=== PATIENT | male | born 1955 | race Caucasian/White ===

== ENCOUNTER 2016-12-25 16:34 | Emergency (ER) | payer MEDICARE ==
[2016-12-25 16:53] VITALS: TEMP 98.4
--- NOTE | 2016-12-25 16:59 | ED ---
General Adult HPI - General Source: patient Mode of arrival: wheelchair Limitations: no limitations <Bin Camacho - Last Filed: 12/25/16 16:59> - General Source: RN notes reviewed <Javad Salazar - Last Filed: 12/25/16 19:48> - General Chief complaint: Extremity Injury, Lower Stated complaint: Leg Pain Time Seen by Provider: 12/25/16 16:56 - History of Present Illness Initial comments: Patient is a 61-year-old male who presents emergency room today with chief complaint of increased pain to the left lower extremity. Patient does admit that he feels pain in the back of the left calf that radiates up the back of the leg. Patient does admit that it seems to be worse with ambulation. States that it feels like there is numbness tingling down to his foot. Patient describes as pins and needles type sensation. He denies any injury or trauma. Patient mitts that he's felt somewhat short of breath last 2 days. Denies any other complaints or symptoms currently at this time. Patient denies any recent fever, chills, chest pain, back pain, abdominal pain, nausea or vomiting, numbness or tingling, dysuria or hematuria, constipation or diarrhea, headaches or visual changes, or any other complaints. (Javad Salazar) - Related Data Home Medications Medication Instructions Recorded Confirmed Albuterol Nebulized [Ventolin 2.5 mg INHALATION RT-BID 03/06/14 12/25/16 Nebulized] oxyCODONE HCL [OxyCONTIN] 40 mg PO BID 03/06/14 12/25/16 oxyCODONE HCL 10 mg PO BID 01/30/16 12/25/16 Budesonide-Formot 160-4.5 Mcg 2 puff INHALATION RT-BID 09/13/16 12/25/16 [Symbicort 160-4.5 Mcg Inhaler] Previous Rx's Medication Instructions Recorded Aspirin 81 mg PO DAILY #1 chewable 06/20/16 Ibuprofen [Motrin] 600 mg PO Q6HR PRN #40 day 12/25/16 Allergies Allergy/AdvReac Type Severity Reaction Status Date / Time No Known Allergies Allergy Verified 12/25/16 17:11 Review of Systems ROS Other: All systems not noted in ROS Statement are negative. <Bin Camacho - Last Filed: 12/25/16 16:59> ROS Other: All systems not noted in ROS Statement are negative. <Chente Salazarony - Last Filed: 12/25/16 19:48> ROS Statement: Those systems with pertinent positive or pertinent negative responses have been documented in the HPI. 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 and one TIA, right sided trigeminal neuralgia, syncopy 2012, head injury with a fall at the age of 48yrs with intracranial bleed, childhood seizures, bacterial infection in stomach couple years ago, L hip fx with surgery , skin cancer removals.EXPOSED TO ASBESTOS History of Any Multi-Drug Resistant Organisms: None Reported Past Surgical History: Appendectomy, Back Surgery, Heart Catheterization, Hernia Repair, Orthopedic Surgery, Tonsillectomy Additional Past Surgical History / Comment(s): trigeminal neuralgia gamma knife surgery, L hip with 2 pins, cardiac cath approximately 10 yrs ago-no intervention, lumbar fusion, EGD/colonoscopy with benign polypectomies, R rotator cuff repair, bilateral knee arthrosopies, skin cancer removals, benign prostate bx. Past Anesthesia/Blood Transfusion Reactions: No Reported Reaction Past Psychological History: Bipolar, Depression, PTSD Additional Psychological History / Comment(s): Pt resides with his spouse. . Pt has a cane he will use prn. He drives. He is a . 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 Smoking Status: Current every day smoker Past Alcohol Use History: Occasional Additional Past Alcohol Use History / Comment(s): Pt started smoking about 1967. SMKOES 1/2-1 PPD. Past Drug Use History: Marijuana - Past Family History Father Family Medical History: Cancer Additional Family Medical History / Comment(s): Father had colon cancer Mother Family Medical History: Cancer Additional Family Medical History / Comment(s): Mother had colon cancer. <Bin Camacho - Last Filed: 12/25/16 16:59> General Exam Limitations: no limitations <Bin Camacho - Last Filed: 12/25/16 16:59> <Javad Salazar - Last Filed: 12/25/16 19:48> - General Exam Comments Initial Comments: General: The patient is awake and alert, in no distress, and does not appear acutely ill. Eye: Pupils are equal, round and reactive to light, extra-ocular movements are intact. No nystagmus. There is normal conjunctiva bilaterally. No signs of icterus. Ears, nose, mouth and throat: There are moist mucous membranes and no oral lesions. Neck: The neck is supple, there is no tenderness or JVD. Cardiovascular: There is a regular rate and rhythm. No murmur, rub or gallop is appreciated. Respiratory: Lungs are clear to auscultation, respirations are non-labored, breath sounds are equal. No wheezes, stridor, rales, or rhonchi. Musculoskeletal: Normal appearance of the left leg no obvious deformity. No swelling. No redness. No sign of infection. Shows full range of motion. Tender to palpation in the posterior left calf. Strength 5/5. Sensation intact. Pulses equal bilaterally 2+. Neurological: A&O x 3. CN II-XII intact, There are no obvious motor or sensory deficits. Coordination appears grossly intact. Speech is normal. Skin: Skin is warm and dry and no rashes or lesions are noted. Psychiatric: Cooperative, appropriate mood & affect, normal judgment. (Javad Salazar) Medical Decision Making <Bin Camacho - Last Filed: 12/25/16 16:59> <Javad Salazar - Last Filed: 12/25/16 19:48> - Medical Decision Making Case discussed in detail with attending physician Dr. Camacho. Patient reexamined at this time shows no signs of distress. Patient's ultrasound negative for any evidence of DVT. Patient's chest x-ray negative. Results were discussed with the patient. At this times feeling better after pain medicine. Advised to use anti-inflammatories as well with his oxycodone. Advised follow-up with family doctor over the next 2 days. Patient states understanding and is in agreement. (Javad Salazar) Disposition <Bin Camacho - Last Filed: 12/25/16 16:59> Time of Disposition: 19:48 <Javad Salazar - Last Filed: 12/25/16 19:48> Clinical Impression: Leg pain Disposition: HOME SELF-CARE Condition: Good Instructions: Lumbar Radiculopathy (ED) Additional Instructions: Please use medication as discussed. Please follow-up with family doctor in the next 2 days. Please return to emergency room if the symptoms increase or worsen or for any other concerns. Prescriptions: Ibuprofen [Motrin] 600 mg PO Q6HR PRN #40 day PRN Reason: Pain
[2016-12-25 17:21] VITALS: BP 119/71; PULSE 81; RESP 18
[2016-12-25] MEDS ORDERED: HYDROmorphone 1 MG/ML 1 ML SYRINGE IM STA (17:39)
--- NOTE | 2016-12-25 17:49 | XR ---
EXAMINATION TYPE: XR chest 2V DATE OF EXAM: 12/25/2016 5:31 PM COMPARISON: 09/13/2016 HISTORY: Leg edema TECHNIQUE: Frontal and lateral views of the chest are obtained. FINDINGS: Heart and mediastinum are normal. Lungs are clear of infiltrate. There is no heart failure . There are no hilar masses. There is no pleural effusion. Bony thorax is intact. IMPRESSION: No active cardiopulmonary disease. No change.
--- NOTE | 2016-12-25 19:35 | US ---
EXAMINATION TYPE: US venous doppler duplex LE BI DATE OF EXAM: 12/25/2016 7:27 PM COMPARISON: NONE CLINICAL HISTORY: Pain, worse on the left than the right . 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 No evidence of deep venous thrombosis in the left and right leg.
== END 2016-12-25 19:53 | disposition home or self-care (01) ==
LOC: EC 16:34
DX: M79.605 Pain in left leg (principal); J44.9 Chronic obstructive pulmonary disease, unspecified; M19.90 Unspecified osteoarthritis, unspecified site; F17.200 Nicotine dependence, unspecified, uncomplicated; Z85.828 Personal history of other malignant neoplasm of skin; Z79.899 Other long term (current) drug therapy
CPT/HCPCS: 71020; 93970; 99284; 96372; J1170

== ENCOUNTER 2017-04-15 12:54 | Inpatient (IN) | payer MEDICARE ==
[2017-04-15] MEDS ORDERED: HYDROmorphone 1 MG/ML 1 ML SYRINGE IVP STA (14:14)
[2017-04-15] MEDS ORDERED: ONDANSETRON 4 MG/2 ML VIAL IVP STA (14:14)
[2017-04-15] MEDS ORDERED: SODIUM CHLORIDE 0.9% 1,000 ML IV ONE (14:14)
[2017-04-15 14:21] LABS: Basophils # (A) 0.2 k/uL (0-0.2); Basophils % (A) 2 %; CH 33.5; CHCM 34.9; Eosinophils # (A) 0.2 k/uL (0-0.7); Eosinophils % (A) 2 %; HCT 52.9 % (39.0-53.0); HDW 2.27; HGB 18.2 gm/dL (13.0-17.5); Luc # (Auto) 0.12; Luc % (Auto) 1; Lymphocytes % (A) 24 %; MCH 33.3 pg (25.0-35.0); MCHC 34.5 g/dL (31.0-37.0); MCV 96.5 fL (80.0-100.0); Mean Platelet Volume 7.5; Monocytes # (A) 0.4 k/uL (0-1.0); Monocytes % (A) 5 %; Neutrophils # (A) 5.5 k/uL (1.3-7.7); Neutrophils % (A) 65 %; RBC 5.48 m/uL (4.30-5.90); RDW 13.7 % (11.5-15.5); WBC 8.5 k/uL (3.8-10.6); WBC (Perox) 8.18
--- NOTE | 2017-04-15 14:26 | ED ---
Abdominal Pain HPI - General Chief Complaint: Abdominal Pain Stated Complaint: Abd Pain Time Seen by Provider: 04/15/17 13:48 Source: patient, RN notes reviewed Mode of arrival: ambulatory Limitations: no limitations - History of Present Illness Initial Comments: Patient is 62-year-old male presents to the emergency room for evaluation of abdominal pain. Patient states that he had left upper quadrant pain for the past few months. Patient states he has an appointment with Dr. Veloz tomorrow but the pain worsened today so he thought he should be evaluated today. Patient states he is having 8 out of 10 constant pain in his left upper quadrant. Patient states feeling nauseous but denies vomiting. Patient does state he drinks about 2-3 beers per day. Patient states he smokes half pack per day. Patient states he has a history of COPD. Patient does state he is having worsening shortness of breath since he woke up this morning. Patient denies chest pain. Patient denies history of abdominal surgeries. Patient denies pain or burning during urination, trouble urinating or blood in urine. Patient denies any fevers or chills. Patient denies constipation or diarrhea. - Related Data Home Medications Medication Instructions Recorded Confirmed Albuterol Nebulized [Ventolin 2.5 mg INHALATION RT-BID 03/06/14 04/15/17 Nebulized] oxyCODONE HCL [OxyCONTIN] 40 mg PO BID 03/06/14 04/15/17 oxyCODONE HCL 10 mg PO TID 01/30/16 04/15/17 Allergies Allergy/AdvReac Type Severity Reaction Status Date / Time No Known Allergies Allergy Verified 04/15/17 14:18 Review of Systems ROS Statement: Those systems with pertinent positive or pertinent negative responses have been documented in the HPI. ROS Other: All systems not noted in ROS Statement are negative. 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 and one TIA, right sided trigeminal neuralgia, syncopy 2012, head injury with a fall at the age of 48yrs with intracranial bleed, childhood seizures, bacterial infection in stomach couple years ago, L hip fx with surgery , skin cancer removals.EXPOSED TO ASBESTOS History of Any Multi-Drug Resistant Organisms: None Reported Past Surgical History: Appendectomy, Back Surgery, Heart Catheterization, Hernia Repair, Orthopedic Surgery, Tonsillectomy Additional Past Surgical History / Comment(s): trigeminal neuralgia gamma knife surgery, L hip with 2 pins, cardiac cath approximately 10 yrs ago-no intervention, lumbar fusion, EGD/colonoscopy with benign polypectomies, R rotator cuff repair, bilateral knee arthrosopies, skin cancer removals, benign prostate bx. Past Anesthesia/Blood Transfusion Reactions: No Reported Reaction Past Psychological History: Bipolar, Depression, PTSD Smoking Status: Current every day smoker Past Alcohol Use History: Occasional Past Drug Use History: Marijuana - Past Family History Father Family Medical History: Cancer Additional Family Medical History / Comment(s): Father had colon cancer Mother Family Medical History: Cancer Additional Family Medical History / Comment(s): Mother had colon cancer. General Exam - General Exam Comments Initial Comments: Laying in exam room, no acute distress. Limitations: no limitations General appearance: alert, in no apparent distress Head exam: Present: atraumatic, normocephalic, normal inspection Eye exam: Present: normal appearance ENT exam: Present: normal exam Neck exam: Present: normal inspection Respiratory exam: Present: normal lung sounds bilaterally. Absent: respiratory distress Cardiovascular Exam: Present: regular rate, normal rhythm, normal heart sounds GI/Abdominal exam: Present: soft, tenderness (LUQ/RLQ), normal bowel sounds. Absent: distended, guarding, rebound, rigid Extremities exam: Present: normal inspection Back exam: Present: normal inspection Neurological exam: Present: alert, oriented X3, CN II-XII intact, normal gait Psychiatric exam: Present: normal affect, normal mood Skin exam: Present: warm, dry, intact, normal color. Absent: rash Course Vital Signs 04/15/17 04/15/17 04/15/17 13:12 14:28 14:57 Temperature 98.3 F Pulse Rate 79 117 H 110 H Respiratory 18 17 Rate Blood Pressure 102/67 123/73 121/68 O2 Sat by Pulse 96 100 98 Oximetry 04/15/17 04/15/17 04/15/17 15:27 16:27 16:51 Temperature 97.9 F Pulse Rate 104 H 94 82 Respiratory 16 Rate Blood Pressure 116/68 100/56 96/62 O2 Sat by Pulse 96 95 94 L Oximetry 04/15/17 04/15/17 16:57 17:26 Temperature 98.7 F Pulse Rate 88 78 Respiratory 16 Rate Blood Pressure 101/68 102/64 O2 Sat by Pulse 97 97 Oximetry Medical Decision Making - Medical Decision Making Patient is a 62-year-old male presents to the emergency room for evaluation of abdominal pain and shortness of breath. Patient does have a history of COPD. Patient's d-dimer elevated. CT negative for PE. EKG ordered and noted new onset A. fib. Patient started on Cardizem bolus and drip. Patient was started on low-dose heparin. Patient will be admitted and consulted with cardiology. Case discussed Dr. Anderson. Dr. Anderson discussed case with Dr. Simental who agreed to admit patient. - Lab Data Result diagrams: 04/15/17 14:02 04/15/17 14:02 Lab Results 04/15/17 04/15/17 04/15/17 Range/Units 14:02 14:02 14:02 WBC 8.5 (3.8-10.6) k/uL RBC 5.48 (4.30-5.90) m/uL Hgb 18.2 H (13.0-17.5) gm/dL Hct 52.9 (39.0-53.0) % MCV 96.5 (80.0-100.0) fL MCH 33.3 (25.0-35.0) pg MCHC 34.5 (31.0-37.0) g/dL RDW 13.7 (11.5-15.5) % Plt Count 241 (150-450) k/uL Neutrophils % 65 % Lymphocytes % 24 % Monocytes % 5 % Eosinophils % 2 % Basophils % 2 % Neutrophils # 5.5 (1.3-7.7) k/uL Lymphocytes # 2.0 (1.0-4.8) k/uL Monocytes # 0.4 (0-1.0) k/uL Eosinophils # 0.2 (0-0.7) k/uL Basophils # 0.2 (0-0.2) k/uL PT (9.0-12.0) sec INR (<1.1) APTT (22.0-30.0) sec D-Dimer (<0.60) mg/L FEU Sodium 142 (137-145) mmol/L Potassium 4.3 (3.5-5.1) mmol/L Chloride 107 (98-107) mmol/L Carbon Dioxide 23 (22-30) mmol/L Anion Gap 12 mmol/L BUN 12 (9-20) mg/dL Creatinine 0.94 (0.66-1.25) mg/dL Est GFR (MDRD) Af Amer >60 (>60 ml/min/1.73 sqM) Est GFR (MDRD) Non-Af >60 (>60 ml/min/1.73 sqM) Glucose 110 H (74-99) mg/dL Calcium 9.8 (8.4-10.2) mg/dL Magnesium (1.6-2.3) mg/dL Total Bilirubin 1.3 (0.2-1.3) mg/dL AST 21 (17-59) U/L ALT 39 (21-72) U/L Alkaline Phosphatase 87 (38-126) U/L Total Creatine Kinase 75 (55-170) U/L CK-MB (CK-2) 1.0 (0.0-2.4) ng/mL CK-MB (CK-2) Rel Index 1.3 Troponin I <0.012 (0.000-0.034) ng/mL Total Protein 8.0 (6.3-8.2) g/dL Albumin 4.7 (3.5-5.0) g/dL Amylase 51 (30-110) U/L Lipase 187 (23-300) U/L 04/15/17 04/15/17 Range/Units 14:02 14:02 WBC (3.8-10.6) k/uL RBC (4.30-5.90) m/uL Hgb (13.0-17.5) gm/dL Hct (39.0-53.0) % MCV (80.0-100.0) fL MCH (25.0-35.0) pg MCHC (31.0-37.0) g/dL RDW (11.5-15.5) % Plt Count (150-450) k/uL Neutrophils % % Lymphocytes % % Monocytes % % Eosinophils % % Basophils % % Neutrophils # (1.3-7.7) k/uL Lymphocytes # (1.0-4.8) k/uL Monocytes # (0-1.0) k/uL Eosinophils # (0-0.7) k/uL Basophils # (0-0.2) k/uL PT 10.1 (9.0-12.0) sec INR 1.0 (<1.1) APTT 23.5 (22.0-30.0) sec D-Dimer 2.74 H (<0.60) mg/L FEU Sodium (137-145) mmol/L Potassium (3.5-5.1) mmol/L Chloride (98-107) mmol/L Carbon Dioxide (22-30) mmol/L Anion Gap mmol/L BUN (9-20) mg/dL Creatinine (0.66-1.25) mg/dL Est GFR (MDRD) Af Amer (>60 ml/min/1.73 sqM) Est GFR (MDRD) Non-Af (>60 ml/min/1.73 sqM) Glucose (74-99) mg/dL Calcium (8.4-10.2) mg/dL Magnesium 2.4 H (1.6-2.3) mg/dL Total Bilirubin (0.2-1.3) mg/dL AST (17-59) U/L ALT (21-72) U/L Alkaline Phosphatase (38-126) U/L Total Creatine Kinase (55-170) U/L CK-MB (CK-2) (0.0-2.4) ng/mL CK-MB (CK-2) Rel Index Troponin I (0.000-0.034) ng/mL Total Protein (6.3-8.2) g/dL Albumin (3.5-5.0) g/dL Amylase (30-110) U/L Lipase (23-300) U/L 04/15/17 17:26 Atrial fibrillation with rapid ventricular response, ventricular rate 119 bpm, QRS duration 98 ms, QT/QTC 334/469 ms - Radiology Data Radiology results: report reviewed, image reviewed Disposition Clinical Impression: New onset a-fib Disposition: ADMITTED IP TO THIS [facility] Condition: Stable Decision Date: 04/15/17
[2017-04-15 14:30] LABS: ALT 39 U/L (21-72); AST 21 U/L (17-59); Alkaline Phosphatase 87 U/L (38-126); Amylase 51 U/L (30-110); Anion Gap 12 mmol/L; Blood Urea Nitrogen 12 mg/dL (9-20); Calcium 9.8 mg/dL (8.4-10.2); Carbon Dioxide 23 mmol/L (22-30); Chloride 107 mmol/L (98-107); Glucose 110 mg/dL (74-99); Non-African American GFR(MDRD) >60 (>60 ml/min/1.73 sqM); Potassium 4.3 mmol/L (3.5-5.1); Sodium 142 mmol/L (137-145); Total Bilirubin 1.3 mg/dL (0.2-1.3)
[2017-04-15 14:43] LABS: Creatine Kinase 75 U/L (55-170)
[2017-04-15 14:51] LABS: Partial Thromboplastin Time 23.5 sec (22.0-30.0); Prothrombin Time 10.1 sec (9.0-12.0)
[2017-04-15 14:55] LABS: Troponin I <0.012 ng/mL (0.000-0.034)
--- NOTE | 2017-04-15 14:55 | XR ---
EXAMINATION TYPE: XR chest 2V DATE OF EXAM: 04/15/2017 COMPARISON: Chest x-ray December 25, 2016. HISTORY: Shortness of breath per patient. Chest pain per order. TECHNIQUE: Frontal and lateral views of the chest are obtained. FINDINGS: Underlying emphysematous change with moderate apical scarring is redemonstrated. There is n o focal air space opacity, pleural effusion, or pneumothorax seen. The cardiac silhouette size is wi thin normal limits. The osseous structures are intact. IMPRESSION: Chronic emphysematous change without acute pulmonary process. No significant change from prior.
[2017-04-15] MEDS ORDERED: DILTIAZEM 5 MG/ML 25 ML VIAL IV STA ×2 (15:10→15:14)
[2017-04-15] MEDS ORDERED: HEPARIN SODIUM,PORCINE 5,000 UNIT/ML 1 ML VIAL IV ONE (15:14)
[2017-04-15] MEDS ORDERED: DILTIAZEM 125 MG in SODIUM CHLORIDE 0.9% 100 ML IV ONE (15:18)
[2017-04-15] MEDS ORDERED: RX INFO: IV CONTRAST WAS GIVEN 1 EACH MISC MISCELLANE PRN (15:18)
[2017-04-15] MEDS: HEPARIN SODIUM,PORCINE/D5W PMX 25,000 UNIT in DEXTROSE/WATER 1 500ML.BAG IV SCH (15:30)
[2017-04-15] MEDS ORDERED: METOCLOPRAMIDE 5 MG/ML 2 ML VIAL IVP STA (15:59)
--- NOTE | 2017-04-15 16:13 | CT ---
EXAMINATION TYPE: CT angio chest DATE OF EXAM: 04/15/2017 COMPARISON: CT chest September 07, 2016 HISTORY: Difficulty breathing. CT DLP: 361.30 mGycm. Automated Exposure Control for Dose Reduction was Utilized. CONTRAST: CTA scan of the thorax is performed with IV Contrast, patient injected with 65 mL of Omnipaque 350, p ulmonary embolism protocol. MIP Images are created on CT scanner and reviewed. FINDINGS: LUNGS: Mild underlying emphysematous changes redemonstrated. There is apical nodular pleural thickeni ng again seen posteriorly. No new suspicious mass or noncalcified nodule is identified. There is stab le 7 mm calcified granuloma left lower lobe on axial image 116. There is stable 2 mm calcified nodule anterolaterally left upper lobe on axial image 55. No new groundglass opacity or consolidation is se en. No pleural effusion or pneumothorax is noted bilaterally. MEDIASTINUM: There is satisfactory enhancement of the pulmonary artery and its branches, there is no CT evidence for pulmonary embolism. There are no greater than 1 cm hilar or mediastinal lymph nodes. No cardiomegaly or pericardial effusion is seen. Coronary artery stent or calcification proximal L AD and axial image 89 is redemonstrated, former is favored. OTHER: Scattered ulcerations throughout the spleen are redemonstrated. Lung and spleen findings are c onsistent with product of old granulomatous disease. Mild multilevel spurring in the spine is seen. M ild calcified plaque throughout aorta is noted. IMPRESSION: No CT evidence for pulmonary embolism. Mild emphysematous change without acute pulmonary process. Evidence of old granulomatous disease redemonstrated.
[2017-04-15] MEDS ORDERED: NALOXONE 0.4 MG/ML 1 ML VIAL IV PRN (16:51)
[2017-04-15] MEDS: HYDROmorphone 1 MG/ML 1 ML SYRINGE IV PRN (18:02)
[2017-04-15] MEDS: ONDANSETRON 4 MG/2 ML VIAL IVP PRN (18:09)
[2017-04-15] MEDS: SODIUM CHLORIDE 0.9% 1,000 ML IV SCH (18:13)
[2017-04-15] MEDS: ALBUTEROL NEBULIZED 2.5 MG/3 ML INHALATION SCH (19:46)
[2017-04-15] MEDS: HEPARIN SODIUM,PORCINE 5,000 UNIT/ML 1 ML VIAL IV PRN (22:30)
[2017-04-16] MEDS: HYDROmorphone 1 MG/ML 1 ML SYRINGE IV PRN ×3 (02:51→12:47)
[2017-04-16] MEDS: SODIUM CHLORIDE 0.9% 1,000 ML IV SCH ×3 (03:01→22:15)
[2017-04-16 04:38] LABS: Basophils # (A) 0.1 k/uL (0-0.2); Basophils % (A) 1 %; CH 32.8; CHCM 34.3; Eosinophils # (A) 0.2 k/uL (0-0.7); Eosinophils % (A) 4 %; HCT 42.7 % (39.0-53.0); HDW 2.29; Luc # (Auto) 0.12; Luc % (Auto) 2; Lymphocytes % (A) 31 %; MCH 33.2 pg (25.0-35.0); MCHC 34.5 g/dL (31.0-37.0); MCV 96.1 fL (80.0-100.0); Mean Platelet Volume 7.7; Monocytes # (A) 0.5 k/uL (0-1.0); Monocytes % (A) 7 %; Neutrophils # (A) 3.6 k/uL (1.3-7.7); Neutrophils % (A) 56 %; RBC 4.44 m/uL (4.30-5.90); RDW 13.8 % (11.5-15.5); WBC 6.5 k/uL (3.8-10.6); WBC (Perox) 6.26
[2017-04-16 04:56] LABS: ALT 44 U/L (21-72); AST 17 U/L (17-59); Alkaline Phosphatase 71 U/L (38-126); Anion Gap 6 mmol/L; Blood Urea Nitrogen 10 mg/dL (9-20); Calcium 8.6 mg/dL (8.4-10.2); Carbon Dioxide 23 mmol/L (22-30); Chloride 109 mmol/L (98-107); Glucose 111 mg/dL (74-99); Non-African American GFR(MDRD) >60 (>60 ml/min/1.73 sqM); Potassium 3.9 mmol/L (3.5-5.1); Sodium 138 mmol/L (137-145); Total Bilirubin 0.8 mg/dL (0.2-1.3); Total Protein 6.1 g/dL (6.3-8.2)
[2017-04-16 04:57] LABS: HGB 14.7 gm/dL (13.0-17.5)
[2017-04-16] MEDS: HEPARIN SODIUM,PORCINE 5,000 UNIT/ML 1 ML VIAL IV PRN (05:55)
[2017-04-16] MEDS: ALBUTEROL NEBULIZED 2.5 MG/3 ML INHALATION SCH ×3 (08:27→20:08)
[2017-04-16] MEDS: HEPARIN SODIUM,PORCINE/D5W PMX 25,000 UNIT in DEXTROSE/WATER 1 500ML.BAG IV SCH (09:33)
[2017-04-16 09:47] VITALS: BMI 24.3
[2017-04-16] MEDS: METOPROLOL TARTRATE 50 MG TAB PO SCH ×2 (13:44→22:14)
[2017-04-16] MEDS ORDERED: LORazepam 2 MG/ML SYRINGE IV PRN ×3 (14:10)
[2017-04-16] MEDS ORDERED: THIAMINE 100 MG/ML 2 ML VIAL IM STA (14:10)
[2017-04-16] MEDS ORDERED: HYDROmorphone 1 MG/ML 1 ML SYRINGE IV PRN (14:13)
[2017-04-16] MEDS: IOHEXOL 350 MG/ML 25 ML BOTTLE (ORAL USE) PO PRN ×2 (15:57→17:09)
[2017-04-16] MEDS: HYDROcodone/APAP 5-325MG 1 EACH TAB PO PRN (15:57)
[2017-04-16] MEDS ORDERED: THIAMINE 100 MG TAB PO SCH (17:00)
[2017-04-16] MEDS: NICOTINE 14MG/24HR PATCH TRANSDERM SCH (18:23)
[2017-04-16] MEDS: ONDANSETRON 4 MG/2 ML VIAL IVP PRN (18:23)
--- NOTE | 2017-04-16 19:00 | CT ---
EXAMINATION TYPE: CT abdomen pelvis wo con DATE OF EXAM: 04/16/2017 COMPARISON: Prior CT 03/06/2014 HISTORY: Left side abdominal pain and distention CT DLP: 643.2 mGycm Automated exposure control for dose reduction was used. TECHNIQUE: Helical acquisition of images from the lung bases through the pelvis. Patient received or al contrast only. FINDINGS: Lack of intravenous contrast could compromise sensitivity. LUNG BASES: Strand-like densities at the lung bases likely reflect atelectasis AORTA: No significant abnormality is appreciated. LIVER/GB: No significant abnormality is appreciated. PANCREAS: No significant abnormality is seen. SPLEEN: Multiple calcifications compatible with old granulomatous disease. ADRENALS: No significant abnormality is seen. KIDNEYS: Punctate nonobstructive calculus suspected at the upper pole the left kidney. No evident ure teral calcification. REPRODUCTIVE ORGANS: Prostate is enlarged and shows associated calcification. URINARY BLADDER: Possible thickened wall, correlate for possible chronic outlet obstruction, cystiti s. BOWEL: No significant abnormality is seen. Distal stomach again show some questionable wall thickeni ng extending into the proximal duodenum, correlate for possible gastritis, duodenitis. FREE AIR: No Free Air is visible. ASCITES: None visible. PELVIC ADENOPATHY: None visualized. RETROPERITONEAL ADENOPATHY: No Retroperitoneal Adenopathy visible. OSSEOUS STRUCTURES: Postop change noted to the left hip. Postop change noted to the lower lumbar spi ne. IMPRESSION: NONCONTRAST EXAM. OLD GRANULOMATOUS DISEASE. POSSIBLE NONOBSTRUCTIVE CALCULUS UPPER POLE LEFT KIDNEY ALTHOUGH THIS COULD BE A VASCULAR CALCIFICATION. CORRELATE TO EXCLUDE CYSTITIS, CHRONIC BLADDER OUTLE T OBSTRUCTION, URINARY TRACT INFECTION. Correlate for possible gastritis, duodenitis.
[2017-04-16] MEDS: oxyCODONE ER 20 MG TAB.ER.12H PO SCH (22:24)
--- NOTE | 2017-04-16 23:16 | HP ---
DATE OF SERVICE: 04/16/2017 CHIEF COMPLAINTS: Abdominal pain and palpitations. HISTORY OF PRESENT ILLNESS: This 62-year-old gentleman with a past medical history of multiple medical problems, including CAD, history of COPD, CVA, TIA, history of DJD, history of seizure disorder, syncope, history of bipolar, depression, PTSD, being followed by Dr. Kaur in the outpatient setting, was admitted with abdominal pain as well as palpitations. The patient was also seeing Dr. Veloz. The pain is felt mostly in the left upper quadrant, 8/10 in severity, which is rather constant in character. The patient was found to have atrial fibrillation with a fast ventricular rate. The patient was started on Cardizem drip and the patient is being closely monitored at this time. There is no history of any fever, rigor or chills. No history of headache, loss of consciousness, seizures at this time. PAST MEDICAL HISTORY: 1. History of CAD. 2. History of COPD. 3. CVA, TIA. 4. History of DJD. MEDICATIONS: 1. Oxycodone 40 mg p.o. b.i.d. 2. Oxycodone 10 mg p.o. b.i.d. 3. Albuterol 2.5 b.i.d. ALLERGIES: NONE. FAMILY HISTORY: History of colon cancer in the family. SOCIAL HISTORY: History of ETOH. History of smoking. REVIEW OF SYSTEMS: ENT: No diminished hearing. No diminished vision. CARDIOVASCULAR SYSTEM: No angina, palpitations. RESPIRATORY SYSTEM: As mentioned earlier. GI: As mentioned earlier. : No dysuria, retention. NERVOUS SYSTEM: No numbness, weakness. ALLERGY/IMMUNOLOGY: No asthma, hayfever. MUSCULOSKELETAL: As mentioned earlier. HEMATOLOGY/ONCOLOGY: No history of anemia. ENDOCRINE: No history of diabetes or hypothyroidism. CONSTITUTIONAL: As mentioned earlier. DERMATOLOGIC: Negative. RHEUMATOLOGIC: Negative. PSYCHIATRY: As mentioned earlier. PHYSICAL EXAMINATION: Patient is alert and oriented x3. Pulse is 78, blood pressure 103/59, respirations 16, temperature 97.0, pulse ox 95% on 2 L. HEENT: Conjunctivae normal. Oral mucosa moist. NECK: No jugular venous congestion. No carotid bruit. No lymph node enlargement. CARDIAC: S1, S2 irregular. No murmur. No thrills. RESPIRATORY: Breath sounds diminished at the bases. A few scattered rhonchi. No crackles. ABDOMEN: Soft. Mild diffuse tenderness, especially in the upper quadrant. No guarding. No rigidity. No mass palpable. No hepatosplenomegaly. LEGS: No edema. No swelling. NERVOUS SYSTEM: Higher functions as mentioned earlier. Moves all 4 limbs. No focal motor or sensory deficit. LYMPHATICS: No lymph node palpable in neck, axillae or groin. SKIN: No ulcer, rash or bleeding. Labs at this time show WBC 6.5, hemoglobin 14.7. Sodium 138, potassium 3.9. Glucose 111. Total protein 6.1. TSH is 4.550. ASSESSMENT: 1. New-onset atrial fibrillation with a fast ventricular rate. 2. Left-sided upper abdominal pain for evaluation. 3. Rule out acute gastritis. 4. Increased D-dimer with no evidence of pulmonary embolism. 5. History of coronary artery disease. 6. Chronic obstructive pulmonary disease. 7. Cerebrovascular accident/transient ischemic attack. 8. Seizure disorder. 9. History of bipolar, depression, post-traumatic stress disorder. RECOMMENDATIONS AND DISCUSSION: In this 62-year-old gentleman who presented with multiple complex medical issues, we will monitor the patient closely, continue the current medications, continue with symptomatic treatment. Currently the patient is on Cardizem drip. Closely follow with Cardiology. Two- D echo has been ordered. I would also recommend a CT scan of the abdomen and pelvis. One of the previous CT scans did show some thickening of the gastric areas. Prognosis guarded because of multiple complex medical issues. I would also recommend continued followup with Dr. Veloz. See orders for further details. We will also obtain the reports from [facility], which the patient recently underwent. Further recommendations to follow. A copy of this dictation is being forwarded to Dr. Kaur, who is the primary physician. Alcohol and nicotine cessation recommended. MTDD
[2017-04-17 06:00] LABS: Basophils % (A) 1 %; CH 32.7; CHCM 33.9; Eosinophils # (A) 0.3 k/uL (0-0.7); Eosinophils % (A) 5 %; HDW 2.31; HGB 14.2 gm/dL (13.0-17.5); Luc # (Auto) 0.12; Luc % (Auto) 2; Lymphocytes # (A) 2.6 k/uL (1.0-4.8); Lymphocytes % (A) 46 %; MCH 33.5 pg (25.0-35.0); MCHC 34.5 g/dL (31.0-37.0); Mean Platelet Volume 7.6; Monocytes # (A) 0.3 k/uL (0-1.0); Monocytes % (A) 6 %; Neutrophils # (A) 2.2 k/uL (1.3-7.7); Neutrophils % (A) 40 %; RBC 4.23 m/uL (4.30-5.90); RDW 13.7 % (11.5-15.5); WBC 5.5 k/uL (3.8-10.6); WBC (Perox) 5.48
[2017-04-17] MEDS: HEPARIN SODIUM,PORCINE/D5W PMX 25,000 UNIT in DEXTROSE/WATER 1 500ML.BAG IV SCH (07:11)
[2017-04-17] MEDS: ALBUTEROL NEBULIZED 2.5 MG/3 ML INHALATION SCH ×2 (07:40→20:13)
--- NOTE | 2017-04-17 08:44 | CONS ---
Lion Gutierrez is a 62-year-old gentleman who has been admitted to the hospital with what seems to be complaints of shortness of breath. He also complained of abdominal pain, had some left upper quadrant discomfort, was suppose to see Dr. Veloz, but because pain got worse he came into the hospital and then complained of shortness of breath. He was found to be in atrial fibrillation with a moderate ventricular rate. He smokes on a regular basis, at least a pack a day and drinks 2 to 3 beers daily or more and does not use any marijuana at this time. Denies any chest pain. His shortness of breath is better. His left upper quadrant pain also seems to be better. He does not have any hematemesis or melena or any urinary symptoms. He is resting comfortably without symptoms at this time. He is not aware of the fact that he has atrial fibrillation. This was an incidental observation. He has no documented past history of such. PAST MEDICAL HISTORY: He has a history of CAD with a question of previous coronary stents, however, patient is not a good historian, does not give any reliable information. He has history of CVA with good recovery. He has had hip surgery, also had some seizure disorder by history. Medications at home include: Ventolin inhaler, OxyContin. He also takes oxycodone for his pain. ALLERGIES: None. On examination, blood pressure is 110/70, pulse rate is about 80 irregular. HEENT: Unremarkable. Fundus was not examined by me. Neck is supple. There is JVD of 1 cm. There is no carotid bruit. Heart exam reveals S1, S2 with irregular rate and rhythm. Short systolic murmur at left lower sternal border. Lungs reveal diminished air entry over both bases. Abdomen is soft, nontender. Lower extremities reveal palpable pulses. No edema. Central nervous system is normal. EKG revealed atrial fib with a moderate ventricular rate, nonspecific, ST-T changes. IMPRESSION: 1. New onset atrial fibrillation with moderate ventricular rate. 2. History of abnormal D-dimer with unremarkable chest CT angiography with no evidence of any pulmonary embolism. 3. Smoking and chronic obstructive pulmonary disease. 4. History of chronic pain syndrome for which he takes oxycodone. RECOMMENDATIONS: I am recommending that we give him oral metoprolol and discontinue Cardizem. He will be on IV heparin for now and will require ferry terminal agent anticoagulation. I discussed this with the patient. Will obtain echocardiogram to assess LV function. I have counseled him regarding the need to quit smoking. I will see him tomorrow and make further recommendations. We will continue telemetry for the time being. IRENE
[2017-04-17] MEDS: NICOTINE 14MG/24HR PATCH TRANSDERM SCH (08:53)
[2017-04-17] MEDS: METOPROLOL TARTRATE 50 MG TAB PO SCH ×2 (08:53→20:12)
[2017-04-17] MEDS: oxyCODONE ER 20 MG TAB.ER.12H PO SCH ×2 (08:54→20:12)
[2017-04-17] MEDS ORDERED: POLYETHYLENE GLYCOL 3350 17 GM POWD.PACK PO PRN (10:42)
[2017-04-17] MEDS: FOLIC ACID 1 MG TAB PO SCH (11:04)
[2017-04-17] MEDS: MULTIVITAMINS, THERA 1 EACH TAB PO SCH (11:04)
[2017-04-17] MEDS: THIAMINE 100 MG TAB PO SCH (11:04)
--- NOTE | 2017-04-17 11:10 | P.PN ---
Subjective Patient came in with abdominal pain, is being treated for atrial fibrillation which was diagnosed on admission. Patient Elliot acevedo is presently rate controlled. He continues to have severe abdominal pain he rates as 10 x 10 sharp in nature in the left upper quadrant with normal lipase the only significant abnormality awake and appreciate on the CAT scan of the abdomen and pelvis is probable nephrolithiasis nonobstructive lesion calculi and his pain does radiate to the left flank area. Because of that reason I will consult nephrology regarding their opinion of CT of the abdomen and pelvis findings, we' ll also consult gastroneurology since his symptoms has been going on for more than a month and patient has multiple visits to ER because of that reason. Patient is definitely constipated. Will use MiraLAX for that. REVIEW OF SYSTEMS: CARDIOVASCULAR: No chest pain, no orthopnea, no PND, no palpitations. PULMONARY: Denied any shortness of breath. No cough or hemoptysis. GASTROINTESTINAL: As mentioned in HPI, patient is also complaining of nausea did not vomit. NEUROLOGIC: No headaches, no weakness, no numbness Objective - Vital Signs Vital signs: Vital Signs Temp 98.3 F 04/16/17 20:00 Pulse 82 04/17/17 07:51 Resp 18 04/17/17 03:25 BP 109/63 04/17/17 03:25 Pulse Ox 93 L 04/17/17 03:25 Intake & Output 04/16/17 04/17/17 04/17/17 18:59 06:59 18:59 Intake Total 168.742 1179 Output Total 300 Balance 457.081 4732 Weight 90.8 kg 91.4 kg Intake: IV 900 Sodium Chloride 0.9% 1, 900 000 ml @ 100 mls/hr IV . Q10H YARA Rx#:[id number] Intake, IV Titration 115.046 500 Amount Diltiazem 125 mg In 0 Sodium Chloride 0.9% 100 ml @ 5 MG/HR 5 mls/hr IV .Q24H ONE Rx#:[id number] Heparin Sodium,Porcine/ 115.046 500 D5w Pmx 25,000 unit In Dextrose/Water 1 500ml. bag @ 10.16 UNITS/KG/HR 20 mls/hr IV .Q24H YARA Rx #:[id number] Oral 118 Output: Urine 300 Other: # Voids 2 1 - Exam PHYSICAL EXAMINATION: GENERAL: The patient is alert and oriented x3, not in any acute distress. Well developed, well nourished. HEENT: Pupils are round and equally reacting to light. EOMI. No scleral icterus. No conjunctival pallor. Normocephalic, atraumatic. No pharyngeal erythema. No thyromegaly. CARDIOVASCULAR: S1 and S2 present. No murmurs, rubs, or gallops. PULMONARY: Chest is clear to auscultation, no wheezing or crackles. ABDOMEN: Soft, no significant tenderness that was appreciated. Patient's abdomen is tympanic, normoactive bowel sounds. No palpable organomegaly. MUSCULOSKELETAL: No joint swelling or deformity. EXTREMITIES: No cyanosis, clubbing, or pedal edema. NEUROLOGICAL: Gross neurological examination did not reveal any focal deficits. SKIN: No rashes. - Labs CBC & Chem 7: 04/17/17 05:34 04/16/17 04:07 Labs: Abnormal Lab Results - Last 24 Hours (Table) 04/16/17 04/17/17 04/17/17 Range/Units 11:41 05:34 05:34 RBC 4.23 L (4.30-5.90) m/uL APTT 47.0 H 42.1 H (22.0-30.0) sec Assessment and Plan Plan: New onset atrial fibrillation: Patient is presently rate controlled: Patient will be continued on beta eugene, leave the decision of anticoagulation to cardiology. Left upper quadrant pain: Unsure of the exact etiology probable differential being left-sided nonobstructing nephrolithiasis. Patient will be treated for constipation and urology, gastroneurology will be consulted. Rule out pulmonary embolism COPD without any acute exacerbation Cerebrovascular accident in the past. Coronary artery disease. Seizure disorder history without any antiseizure medications and no recent episodes of seizures. For above-mentioned chronic medical problems are good and continue his home medications.
[2017-04-17] MEDS: HYDROcodone/APAP 5-325MG 1 EACH TAB PO PRN (11:12)
--- NOTE | 2017-04-17 11:24 | ECHOF ---
Referral Reason: MEASUREMENTS -------- HEIGHT: 193.0 cm WEIGHT: 90.7 kg BP: 104/60 IVSd: 1.5 cm (0.6 - 1.1) LVIDd: 3.6 cm (3.9 - 5.3) LVPWd: 1.5 cm (0.6 - 1.1) IVSs: 1.7 cm LVIDs: 2.7 cm LVPWs: 1.7 cm LAESV Index (A-L): 19.19 ml/m MV EXCURSION: 20.694 mm (> 18.000) MV EF SLOPE: 146 mm/s (70 - 150) EPSS: 1.1 cm MV E Wyatt: 0.95 m/s MV DecT: 317 ms MV A Wyatt: 0.00 m/s MV E/A Ratio: 1022 RAP: 5.00 mmHg RVSP: 9.06 mmHg FINDINGS -------- Atrial fibrillation. This was a technically difficult study with suboptimal views. The left ventricular size is normal. There is moderate concentric left ventricular hypertrophy. Overall left ventricular systolic function is mildly impaired with, an EF between 45 - 50 %. Basal inferior LV wall motion is hypokinetic. The right ventricle is normal in size and function. Normal LA size by volume 22+/-6 ml/m2. The right atrium is normal in size. The aortic valve is trileaflet and appears structurally normal. There is no evidence of aortic regurgitation. There is no evidence of aortic stenosis. Mild mitral annular calcification present. Mild mitral regurgitation is present. Trace tricuspid regurgitation present. There is no evidence of pulmonary hypertension. The right ventricular systolic pressure, as measured by Doppler, is 9.06mmHg. The pulmonic valve was not well visualized. There is no pulmonic regurgitation present. The aortic root size is normal. IVC Not well visulized. There is no pericardial effusion. CONCLUSIONS -------- 1. Atrial fibrillation. 2. There is no evidence of pulmonary hypertension. 3. The pulmonic valve was not well visualized. 4. There is no pulmonic regurgitation present. 5. The aortic root size is normal. 6. IVC Not well visulized. 7. There is no pericardial effusion. 8. This was a technically difficult study with suboptimal views. 9. There is moderate concentric left ventricular hypertrophy. 10. Overall left ventricular systolic function is mildly impaired with, an EF between 45 - 50 %. 11. Basal inferior LV wall motion is hypokinetic. 12. Normal LA size by volume 22+/-6 ml/m2. 13. The aortic valve is trileaflet and appears structurally normal. 14. Mild mitral annular calcification present. 15. Trace tricuspid regurgitation present. CARPENTERS: Adalberto Orellana RDCS
[2017-04-17] MEDS: SODIUM CHLORIDE 0.9% 1,000 ML IV SCH (14:49)
--- NOTE | 2017-04-17 16:33 | PN ---
This is a gentleman with new onset atrial fib who sees Dr. Kapadia in the outpatient setting, had a cardiac cath in June which revealed no obstructive CAD. He is comfortable, doing better. Rate controlled is better. I advised him that we will place him on Xarelto, increase activity and hopefully we can discharge him tomorrow. His troponins are normal. I have advised him regarding the need to quit smoking. Vital signs are stable. S1, S2 heard normally, irregular rate and rhythm noted . Lungs revealed diminished air entry. Abdomen and lower extremity exam unchanged. We will continue him on Xarelto, do rate control, advise smoking cessation. Possible discharge tomorrow. IRENE
--- NOTE | 2017-04-17 16:56 | P.GSCN ---
History of Present Illness Consult date: 04/17/17 Reason for Consult: Chronic epigastric and left upper quadrant pain History of present illness: This is a 62-year-old male well-known to myself. Patient was admitted through the emergency room with complaints of abdominal pain. He is found to have new onset atrial fibrillation. Patient has had pain in his abdomen last 6 months. He describes periumbilical pain radiating to the left upper quadrant. He had a CAT scan performed yesterday which shows some possible gastritis. Past Medical History Past Medical History: Coronary Artery Disease (CAD), Cancer, Chest Pain / Angina , COPD, CVA/TIA, Hyperlipidemia, Osteoarthritis (OA), Seizure Disorder, Syncope Additional Past Medical History / Comment(s): RT SIDE DOMINANT.Pt states he has had one CVA and one TIA-( LT PUPIL LARGER THAN RT ), right sided trigeminal neuralgia, syncopy 2012, head injury with a fall at the age of 48yrs with intracranial bleed, childhood seizures, bacterial infection in stomach couple years ago, L hip fx with surgery, skin cancer removals.EXPOSED TO ASBESTOS History of Any Multi-Drug Resistant Organisms: None Reported Past Surgical History: Appendectomy, Back Surgery, Heart Catheterization, Hernia Repair, Orthopedic Surgery, Tonsillectomy Additional Past Surgical History / Comment(s): trigeminal neuralgia gamma knife surgery, L hip with "2or 3 pins", cardiac cath approximately 10 yrs ago-no intervention, lumbar fusion, EGD/colonoscopy with benign polypectomies, R rotator cuff repair, bilateral knee arthrosopies, skin cancer removals, benign prostate bx. Past Anesthesia/Blood Transfusion Reactions: No Reported Reaction Smoking Status: Current every day smoker - Past Family History Father Family Medical History: Cancer Additional Family Medical History / Comment(s): Father had colon cancer Mother Family Medical History: Cancer Additional Family Medical History / Comment(s): Mother had colon cancer. Medications and Allergies Home Medications Medication Instructions Recorded Confirmed Type Albuterol Nebulized [Ventolin 2.5 mg INHALATION RT-BID 03/06/14 04/15/17 History Nebulized] oxyCODONE HCL [OxyCONTIN] 40 mg PO BID 03/06/14 04/15/17 History oxyCODONE HCL 10 mg PO TID 01/30/16 04/15/17 History Allergies Allergy/AdvReac Type Severity Reaction Status Date / Time No Known Allergies Allergy Verified 04/15/17 14:18 Surgical - Exam Vital Signs Temp Pulse Resp BP Pulse Ox 98.3 F 79 18 102/67 96 04/15/17 13:12 04/15/17 13:12 04/15/17 13:12 04/15/17 13:12 04/15/17 13:12 - General well developed, no distress - Eyes PERRL - ENT normal pinna - Neck no masses - Respiratory normal expansion - Cardiovascular Rhythm: regular - Abdomen Abdomen soft. There is some tenderness across the left upper quadrant. There is no rebound or guarding. There is no evidence of any ventral wall hernia. Results - Labs 04/17/17 05:34 04/16/17 04:07 Abnormal Lab Results - Last 24 Hours (Table) 04/17/17 04/17/17 04/17/17 Range/Units 05:34 05:34 12:25 RBC 4.23 L (4.30-5.90) m/uL APTT 42.1 H 41.3 H (22.0-30.0) sec Assessment and Plan Plan: Chronic epigastric and left upper quadrant pain. The patient is currently on anticoagulation therapy for his new onset fibrillation. Once he is medically stable we will consider EGD into the eye for possible gastritis. We will follow with you.
[2017-04-17] MEDS ORDERED: RIVAROXABAN 10 MG TAB PO SCH (17:30)
[2017-04-18] MEDS: HYDROcodone/APAP 5-325MG 1 EACH TAB PO PRN (06:00)
[2017-04-18] MEDS: SODIUM CHLORIDE 0.9% 1,000 ML IV SCH (06:02)
[2017-04-18 06:41] LABS: Basophils % (A) 0 %; CH 32.4; CHCM 33.9; Eosinophils # (A) 0.3 k/uL (0-0.7); Eosinophils % (A) 5 %; HCT 43.3 % (39.0-53.0); HDW 2.29; Luc # (Auto) 0.13; Luc % (Auto) 2; Lymphocytes # (A) 1.7 k/uL (1.0-4.8); Lymphocytes % (A) 29 %; MCH 33.2 pg (25.0-35.0); MCHC 34.6 g/dL (31.0-37.0); MCV 95.9 fL (80.0-100.0); Mean Platelet Volume 8.1; Monocytes # (A) 0.4 k/uL (0-1.0); Monocytes % (A) 7 %; Neutrophils # (A) 3.4 k/uL (1.3-7.7); Neutrophils % (A) 57 %; RBC 4.52 m/uL (4.30-5.90); RDW 13.6 % (11.5-15.5); WBC 5.9 k/uL (3.8-10.6); WBC (Perox) 6.13
[2017-04-18 08:05] VITALS: RESP 16; TEMP 97.8
[2017-04-18] MEDS: oxyCODONE ER 20 MG TAB.ER.12H PO SCH (08:21)
[2017-04-18] MEDS: METOPROLOL TARTRATE 50 MG TAB PO SCH (08:22)
[2017-04-18] MEDS: NICOTINE 14MG/24HR PATCH TRANSDERM SCH (08:22)
[2017-04-18] MEDS: ALBUTEROL NEBULIZED 2.5 MG/3 ML INHALATION SCH (08:34)
[2017-04-18] MEDS: THIAMINE 100 MG TAB PO SCH (11:07)
[2017-04-18] MEDS: MULTIVITAMINS, THERA 1 EACH TAB PO SCH (11:07)
[2017-04-18] MEDS: FOLIC ACID 1 MG TAB PO SCH (11:07)
[2017-04-18 11:24] VITALS: BP 127/64; PULSE 72
--- NOTE | 2017-04-18 11:25 | P.CONS ---
History of Present Illness - Reason for Consult Consult date: 04/18/17 abdominal pain Requesting physician: Crystal Mcgowan - History of Present Illness 62-year-old male admitted with abdominal pain and new onset of atrial fibrillation on Xarelto. Abdominal pain epigastric left upper quadrant for the last 1-2 months. Denies diarrhea constipation hematemesis hematochezia or melena. Evaluated by general surgery with plans for EGD evaluation as soon as cardiac clearance is obtained. Noncontrast CT abdomen and pelvis reported no bowel obstruction. Distal stomach showed some questionable wall thickening extending into the proximal duodenum possible gastritis possible duodenitis. White count 5.5. Hemoglobin 14.2. LFTs lipase normal. EtOH chest no evidence of pulmonary embolism. EGD more than a few years ago. Colonoscopy about 5 years ago. Review of Systems RConstitutional: Denies fever, chills, sweats, weight gain, or loss. HEENT: Negative for migraines, blurred vision or loss, earaches, drainage, tinnitus, oral mucosal lesions, dysphagia, or odynophagia. Cardiac: CAD. Hyperlipidemia. Negative for chest pain, arrhythmias, or palpitation. Respiratory: Negative for shortness of breath, hemoptysis, cough, or sputum production. Gastrointestinal: See HPI for pertinent findings. Genitourinary: Negative for hematuria, urgency, frequency, polyuria, dysuria, or penile discharge. Musculoskeletal: Negative for muscle aches, swelling, arthritis, and arthralgias. Neurologic: History of TIA. Endocrine: Negative for thyroid problems. Skin: Negative for rash or itching. Psychiatric: Bipolar depression. PTSD. All systems: negative (See HPI) Past Medical History Past Medical History: Coronary Artery Disease (CAD), Cancer, Chest Pain / Angina , COPD, CVA/TIA, Hyperlipidemia, Osteoarthritis (OA), Seizure Disorder, Syncope Additional Past Medical History / Comment(s): RT SIDE DOMINANT.Pt states he has had one CVA and one TIA-( LT PUPIL LARGER THAN RT ), right sided trigeminal neuralgia, syncopy 2012, head injury with a fall at the age of 48yrs with intracranial bleed, childhood seizures, bacterial infection in stomach couple years ago, L hip fx with surgery, skin cancer removals.EXPOSED TO ASBESTOS History of Any Multi-Drug Resistant Organisms: None Reported Past Surgical History: Appendectomy, Back Surgery, Heart Catheterization, Hernia Repair, Orthopedic Surgery, Tonsillectomy Additional Past Surgical History / Comment(s): trigeminal neuralgia gamma knife surgery, L hip with "2or 3 pins", cardiac cath approximately 10 yrs ago-no intervention, lumbar fusion, EGD/colonoscopy with benign polypectomies, R rotator cuff repair, bilateral knee arthrosopies, skin cancer removals, benign prostate bx. Past Anesthesia/Blood Transfusion Reactions: No Reported Reaction Smoking Status: Current every day smoker - Past Family History Father Family Medical History: Cancer Additional Family Medical History / Comment(s): Father had colon cancer Mother Family Medical History: Cancer Additional Family Medical History / Comment(s): Mother had colon cancer. Medications and Allergies Home Medications Medication Instructions Recorded Confirmed Type Albuterol Nebulized [Ventolin 2.5 mg INHALATION RT-BID 03/06/14 04/15/17 History Nebulized] oxyCODONE HCL [OxyCONTIN] 40 mg PO BID 03/06/14 04/15/17 History oxyCODONE HCL 10 mg PO TID 01/30/16 04/15/17 History Allergies Allergy/AdvReac Type Severity Reaction Status Date / Time No Known Allergies Allergy Verified 04/15/17 14:18 Physical Exam Vitals: Vital Signs Temp Pulse Pulse Resp BP Pulse Ox 04/18/17 08:50 68 04/18/17 08:35 70 97 04/18/17 07:50 97.8 F 100 16 119/83 93 L 04/18/17 03:55 98.1 F 85 18 109/70 91 L 04/17/17 23:53 98.3 F 84 18 105/70 92 L 04/17/17 20:27 66 04/17/17 20:13 68 04/17/17 20:00 98.3 F 91 16 104/66 94 L 04/17/17 16:00 97.6 F 62 16 103/77 97 04/17/17 12:00 97.6 F 81 16 101/70 96 Intake and Output 04/17/17 04/18/17 04/18/17 22:59 06:59 14:59 Intake Total 240 180 Output Total 300 300 Balance -60 -300 180 Intake: Oral 240 180 Output: Urine 300 300 Other: Voiding Method Toilet Toilet Urinal Urinal # Voids 1 1 Weight 90.6 kg NGeneral appearance: The patient is alert, oriented, in no acute distress. HET: Head is normocephalic and atraumatic. Pupils are equal and reactive. Oropharynx is clear without lesions. Neck: Supple without lymphadenopathy. Trachea midline. Heart: S1 S2. Regular rate and rhythm. Lungs: No crackles or wheezes are heard. Abdomen: Soft, mild midepigastric left mid quadrant abdominal tenderness, nondistended with bowel sounds. No peritoneal signs. No palpable organomegaly or masses. Extremities: Normal skin color and turgor. No cyanosis, rash, ulceration, clubbing, or edema. Radial and pedal pulses are 2/4 bilaterally. Neurological: No focal deficits. Strength and sensation are grossly intact.am Results CBC & Chem 7: 04/18/17 05:50 04/16/17 04:07 Labs: Abnormal Lab Results - Last 24 Hours (Table) 04/17/17 Range/Units 12:25 APTT 41.3 H (22.0-30.0) sec CT scan - abdomen: report reviewed (Dr. Adam) CT scan - chest: report reviewed (Dr. Adam) Assessment and Plan (1) Abdominal pain Narrative/Plan: Midepigastric left upper/left mid quadrant possible gastritis possible duodenitis per CT. Status: Acute (2) New onset a-fib Status: Acute Plan: 1. General surgery planning EGD once cardiac status is optimized. We'll defer to general surgery for further recommendations and procedures for workup of abdominal pain. We'll be available as needed. Continue with supportive measures GI prophylaxis; Protonix 40 mg daily. Thank you for this kind referral and the opportunity to participate in the care of your patient. This consultation was discussed with Dr. Adam. The impression and plan of care have been directed as dictated.
[2017-04-18] MEDS ORDERED: PANTOPRAZOLE 40 MG TABLET PO SCH (11:30)
--- NOTE | 2017-04-18 12:01 | P.PN ---
Subjective Principal diagnosis: A. fib with RVR This is a 62 gentleman admitted to the hospital with symptoms of shortness of breath and abdominal pain. He was found to be in atrial fibrillation with rapid ventricular response on admission. Patient does have history of nicotine dependence, COPD, as well as daily EtOH use, history of CVA, hypertension. Patient was seen in consultation by Dr. Margariat Wilson. Patient was initiated on Xarelto yesterday for anticoagulation. He continues to be in atrial fibrillation, heart rate under adequate control. From cardiology's perspective , we will continue current medications. We will make the patient a follow-up appointment with Dr. Kapadia in the office post discharge. Objective - Vital Signs Vital signs: Vital Signs Temp 97.8 F 04/18/17 07:50 Pulse 72 04/18/17 11:24 Resp 16 04/18/17 11:24 BP 127/64 04/18/17 11:24 Pulse Ox 92 L 04/18/17 11:24 Intake & Output 04/17/17 04/18/17 04/18/17 18:59 06:59 18:59 Intake Total 840 180 Output Total 600 Balance 840 -600 180 Weight 90.6 kg Intake: Oral 840 180 Output: Urine 600 Other: Voiding Method Toilet Toilet Urinal Urinal # Voids 1 1 - Exam PHYSICAL EXAMINATION: HEENT: Head is atraumatic, normocephalic. Pupils equal, round. Neck is supple. There is no elevated jugular venous pressure. HEART EXAMINATION: S1 and S2 irregularly irregular CHEST EXAMINATION: Lungs are clear to auscultation and precussion. No chest wall tenderness is noted on palpation or with deep breathing. ABDOMEN: Soft, mild left upper quadrant tenderness. . Bowel sounds are heard. No organomegaly noted. EXTREMITIES:[ 2+ peripheral pulses with no evidence of peripheral edema and no calf tenderness noted]. NEUROLOGIC [patient is awake, alert and oriented -3.] . - Labs CBC & Chem 7: 04/18/17 05:50 04/16/17 04:07 Labs: Abnormal Lab Results - Last 24 Hours (Table) 04/17/17 Range/Units 12:25 APTT 41.3 H (22.0-30.0) sec Assessment and Plan (1) Chronic a-fib Status: Acute (2) Abdominal pain Status: Acute (3) COPD (chronic obstructive pulmonary disease) Status: Acute (4) Nicotine dependence Status: Acute Plan: From cardiology's perspective, we will recommend to continue the patient on his current medications. Xarelto 20 mg daily for anticoagulation. We will follow this patient with you now on an as-needed basis only, please don't hesitate to call with any questions. A follow-up appointment will be made with Dr. Kapadia in the office post discharge. DNP note has been reviewed, I agree with a documented findings and plan of care. Patient was seen and examined.
--- NOTE | 2017-04-18 12:44 | P.PN ---
Progress Note - Text A shunt states he feels better today. He has minimal epigastric pain today. On exam his vital signs are stable. His abdomen was soft with minimal epigastric left upper quadrant tenderness. Chronic epigastric and left upper quadrant pain. The patient's CAT scan is suggestive of some mild gastritis. We will recommend outpatient EGD.
--- NOTE | 2017-04-18 14:42 | P.DS ---
Providers Date of admission: 04/15/17 17:15 Attending physician: Greg Esteves Consults: 04/15/17 16:53 Consult Physician Urgent Consulting Provider: [facility] Consult Reason/Comments: new onset afib Do you want consulting provider notified?: Yes 04/16/17 13:42 Consult Physician Routine Consulting Provider: Kanu Veloz Consult Reason/Comments: abd pain Do you want consulting provider notified?: Yes 04/17/17 10:44 Consult Physician Routine Consulting Provider: Mani Adam Consult Reason/Comments: Right abdominal pain Do you want consulting provider notified?: Yes Primary care physician: [facility] Course: Patient came in with abdominal pain, is being treated for atrial fibrillation which was diagnosed on admission. Patient Elliot acevedo is presently rate controlled. Patient is rate controlled and is being started on anticoagulation for discharge. Patient's abdominal pain improved and believed to be gastritis as per gastroenterology and surgery evaluation. She will follow up with surgery as an outpatient. Will be discharged today on Prilosec beta eugene and anticoagulation. PHYSICAL EXAMINATION: GENERAL: The patient is alert and oriented x3, not in any acute distress. Well developed, well nourished. HEENT: Pupils are round and equally reacting to light. EOMI. No scleral icterus. No conjunctival pallor. Normocephalic, atraumatic. No pharyngeal erythema. No thyromegaly. CARDIOVASCULAR: S1 and S2 present. No murmurs, rubs, or gallops. PULMONARY: Chest is clear to auscultation, no wheezing or crackles. ABDOMEN: Soft, nontender, nondistended, normoactive bowel sounds. No palpable organomegaly. MUSCULOSKELETAL: No joint swelling or deformity. EXTREMITIES: No cyanosis, clubbing, or pedal edema. NEUROLOGICAL: Gross neurological examination did not reveal any focal deficits. SKIN: No rashes. New onset atrial fibrillation: Rate controlled now ON cessation counseling was provided Left upper quadrant pain: Possibly due to gastritis Ruled out pulmonary embolism COPD without any acute exacerbation Cerebrovascular accident in the past. Coronary artery disease. Seizure disorder history without any antiseizure medications and no recent episodes of seizures. For above-mentioned chronic medical problems are good and continue his home medications. Patient Condition at Discharge: Stable Plan - Discharge Summary New Discharge Prescriptions: New Metoprolol Tartrate [Lopressor] 50 mg PO BID #60 tab Multivitamins, Thera [Multivitamin (formulary)] 1 each PO DAILY@1200 #30 tab Omeprazole [PriLOSEC] 40 mg PO DAILY #30 capsule. Polyethylene Glycol 3350 [Miralax] 17 gm PO DAILY PRN #15 packet PRN Reason: Constipation Rivaroxaban [Xarelto] 20 mg PO W/SUPPER #30 tab Thiamine [Vitamin B-1] 100 mg PO DAILY@1200 #30 tab Continue oxyCODONE HCL [OxyCONTIN] 40 mg PO BID Albuterol Nebulized [Ventolin Nebulized] 2.5 mg INHALATION RT-BID oxyCODONE HCL 10 mg PO TID Discharge Medication List Albuterol Nebulized [Ventolin Nebulized] 2.5 mg INHALATION RT-BID 03/06/14 [ History] oxyCODONE HCL [OxyCONTIN] 40 mg PO BID 03/06/14 [History] oxyCODONE HCL 10 mg PO TID 01/30/16 [History] Metoprolol Tartrate [Lopressor] 50 mg PO BID #60 tab 04/18/17 [Rx] Multivitamins, Thera [Multivitamin (formulary)] 1 each PO DAILY@1200 #30 tab [Rx] Omeprazole [PriLOSEC] 40 mg PO DAILY #30 capsule. 04/18/17 [Rx] Polyethylene Glycol 3350 [Miralax] 17 gm PO DAILY PRN #15 packet 04/18/17 [Rx] Rivaroxaban [Xarelto] 20 mg PO W/SUPPER #30 tab 04/18/17 [Rx] Thiamine [Vitamin B-1] 100 mg PO DAILY@1200 #30 tab 04/18/17 [Rx] Follow up Appointment(s)/Referral(s): Pal Kaur MD [Primary Care Provider] - 04/22/17 11:00 am (With ROGELIO Remy) Yaneth Kapadia MD [STAFF PHYSICIAN] - 04/25/17 1:30 pm Kanu Veloz MD [STAFF PHYSICIAN] - 04/26/17 12:40 pm Patient Instructions/Handouts: Atrial Fibrillation (DC), Acute Abdominal Pain ( DC) Discharge Disposition: HOME SELF-CARE
== END 2017-04-18 14:32 | disposition home or self-care (01) | DRG 310 ==
LOC: EC 12:54 → 6SEL 17:15
PROVIDERS: ADMIT Hospitalist; ATTEND Hospitalist
DX: I48.2 Chronic atrial fibrillation (principal); I10 Essential (primary) hypertension; E78.5 Hyperlipidemia, unspecified; F17.210 Nicotine dependence, cigarettes, uncomplicated; F43.10 Post-traumatic stress disorder, unspecified; K29.70 Gastritis, unspecified, without bleeding; G89.4 Chronic pain syndrome; I25.10 Atherosclerotic heart disease of native coronary artery without angina pectoris; Z86.73 Personal history of transient ischemic attack (TIA), and cerebral infarction without residual deficits; J44.9 Chronic obstructive pulmonary disease, unspecified; K59.00 Constipation, unspecified; N20.0 Calculus of kidney; Z79.01 Long term (current) use of anticoagulants; Z80.0 Family history of malignant neoplasm of digestive organs; Z85.828 Personal history of other malignant neoplasm of skin; Z79.899 Other long term (current) drug therapy
CPT/HCPCS: 36415; 71020; 71275; 74176; 80053; 82150; 82550; 82553; 83690; 83735; 84443; 84484; 85025; 85379; 85610; 85730; 93005; 93306; 94640; 94760; 96361; 96365; 96366; 96367; 96375; 96376; 99285

== ENCOUNTER 2017-04-29 14:17 | Inpatient (IN) | payer MEDICARE ==
[2017-04-29] MEDS ORDERED: SODIUM CHLORIDE 0.9% 500 ML IV STA (14:35)
--- NOTE | 2017-04-29 14:40 | ED ---
General Adult HPI - General Chief complaint: Abdominal Pain Stated complaint: Abdominal Pain Time Seen by Provider: 04/29/17 14:20 Source: patient, RN notes reviewed Mode of arrival: EMS Limitations: no limitations - History of Present Illness Initial comments: This is a 62-year-old male presents emergency Department complaining of abdominal pain for the last 3-4 months. Patient states he seemed to be seen in the past and is supposed to follow-up with him for colonoscopy. Patient states the pain continues and is in the left upper quadrant he has been evaluated in the Hospital by Dr. Hensleyania also had a CAT scan the past that did not show any cause for the pain. Patient states the pain got a little bit worse today so decided come in and be reevaluated. Patient denies any nausea vomiting diarrhea. Patient states palpating on the abdomen does not cause any pain. Patient denies any fever chills per patient denies any chest pain difficulty breathing first breath. Patient denies any injury or trauma. - Related Data Home Medications Medication Instructions Recorded Confirmed Albuterol Nebulized [Ventolin 2.5 mg INHALATION RT-BID 03/06/14 04/29/17 Nebulized] oxyCODONE HCL [OxyCONTIN] 40 mg PO BID 03/06/14 04/29/17 oxyCODONE HCL 10 mg PO BID 01/30/16 04/29/17 Multivitamins, Thera [Multivitamin 1 tab PO DAILY@1200 04/29/17 04/29/17 (formulary)] Previous Rx's Medication Instructions Recorded Metoprolol Tartrate [Lopressor] 50 mg PO BID #60 tab 04/18/17 Omeprazole [PriLOSEC] 40 mg PO DAILY #30 capsule. 04/18/17 Polyethylene Glycol 3350 [Miralax] 17 gm PO DAILY PRN #15 packet 04/18/17 Rivaroxaban [Xarelto] 20 mg PO W/SUPPER #30 tab 04/18/17 Thiamine [Vitamin B-1] 100 mg PO DAILY@1200 #30 tab 04/18/17 Allergies Allergy/AdvReac Type Severity Reaction Status Date / Time No Known Allergies Allergy Verified 04/29/17 15:15 Review of Systems ROS Statement: Those systems with pertinent positive or pertinent negative responses have been documented in the HPI. ROS Other: All systems not noted in ROS Statement are negative. Past Medical History Past Medical History: Coronary Artery Disease (CAD), Cancer, Chest Pain / Angina , COPD, CVA/TIA, Hyperlipidemia, Osteoarthritis (OA), Seizure Disorder, Syncope Additional Past Medical History / Comment(s): RT SIDE DOMINANT.Pt states he has had one CVA and one TIA-( LT PUPIL LARGER THAN RT ), right sided trigeminal neuralgia, syncopy 2012, head injury with a fall at the age of 48yrs with intracranial bleed, childhood seizures, bacterial infection in stomach couple years ago, L hip fx with surgery, skin cancer removals.EXPOSED TO ASBESTOS History of Any Multi-Drug Resistant Organisms: None Reported Past Surgical History: Appendectomy, Back Surgery, Heart Catheterization, Hernia Repair, Orthopedic Surgery, Tonsillectomy Additional Past Surgical History / Comment(s): trigeminal neuralgia gamma knife surgery, L hip with "2or 3 pins", cardiac cath approximately 10 yrs ago-no intervention, lumbar fusion, EGD/colonoscopy with benign polypectomies, R rotator cuff repair, bilateral knee arthrosopies, skin cancer removals, benign prostate bx. Past Anesthesia/Blood Transfusion Reactions: No Reported Reaction Past Psychological History: Bipolar, Depression, PTSD Smoking Status: Current every day smoker Past Alcohol Use History: Abuse Past Drug Use History: Marijuana - Past Family History Father Family Medical History: Cancer Additional Family Medical History / Comment(s): Father had colon cancer Mother Family Medical History: Cancer Additional Family Medical History / Comment(s): Mother had colon cancer. General Exam - General Exam Comments Initial Comments: GENERAL: Patient is well-developed and well-nourished. Patient is nontoxic and well- hydrated and is in mild distress. ENT: Neck is soft and supple. No significant lymphadenopathy is noted. Oropharynx is clear. Moist mucous membranes. Neck has full range of motion without eliciting any pain. EYES: The sclera were anicteric and conjunctiva were pink and moist. Extraocular movements were intact and pupils were equal round and reactive to light. Eyelids were unremarkable. PULMONARY: Unlabored respirations. Good breath sounds bilaterally. No audible rales rhonchi or wheezing was noted. CARDIOVASCULAR: There is a regular rate and rhythm without any murmurs gallops or rubs. ABDOMEN: Soft and nontender with normal bowel sounds. No palpable organomegaly was noted. There is no palpable pulsatile mass. I was unable to elicit any abdominal pain on palpation SKIN: Skin is clear with no lesions or rashes and otherwise unremarkable. NEUROLOGIC: Patient is alert and oriented x3. Cranial nerves II through XII are grossly intact. Motor and sensory are also intact. Normal speech, volume and content. Symmetrical smile. MUSCULOSKELETAL: Normal extremities with adequate strength and full range of motion. LYMPHATICS: No significant lymphadenopathy is noted PSYCHIATRIC: Normal psychiatric evaluation. Limitations: no limitations Course Vital Signs 04/29/17 04/29/17 14:20 16:03 Temperature 97.9 F Pulse Rate 59 L 60 Respiratory 18 16 Rate Blood Pressure 104/56 131/60 O2 Sat by Pulse 98 97 Oximetry Medical Decision Making - Medical Decision Making Patient's lipase is elevated and consistent with panic attacks. 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 Esteves and he admitted the patient wrote admitting orders. I consult to GI. - Lab Data Result diagrams: 04/29/17 15:07 04/29/17 15:07 Lab Results 04/29/17 04/29/17 04/29/17 Range/Units 15:07 15:07 15:07 WBC 6.8 (3.8-10.6) k/uL RBC 4.42 (4.30-5.90) m/uL Hgb 14.5 (13.0-17.5) gm/dL Hct 42.9 (39.0-53.0) % MCV 97.0 (80.0-100.0) fL MCH 32.9 (25.0-35.0) pg MCHC 33.9 (31.0-37.0) g/dL RDW 13.7 (11.5-15.5) % Plt Count 226 (150-450) k/uL Neutrophils % 55 % Lymphocytes % 34 % Monocytes % 6 % Eosinophils % 2 % Basophils % 1 % Neutrophils # 3.7 (1.3-7.7) k/uL Lymphocytes # 2.3 (1.0-4.8) k/uL Monocytes # 0.4 (0-1.0) k/uL Eosinophils # 0.2 (0-0.7) k/uL Basophils # 0.1 (0-0.2) k/uL Sodium 143 (137-145) mmol/L Potassium 4.1 (3.5-5.1) mmol/L Chloride 108 H (98-107) mmol/L Carbon Dioxide 23 (22-30) mmol/L Anion Gap 12 mmol/L BUN 8 L (9-20) mg/dL Creatinine 0.90 (0.66-1.25) mg/dL Est GFR (MDRD) Af Amer >60 (>60 ml/min/1.73 sqM) Est GFR (MDRD) Non-Af >60 (>60 ml/min/1.73 sqM) Glucose 74 (74-99) mg/dL Plasma Lactic Acid John 1.5 (0.7-2.0) mmol/L Calcium 9.3 (8.4-10.2) mg/dL Total Bilirubin 0.4 (0.2-1.3) mg/dL AST 20 (17-59) U/L ALT 32 (21-72) U/L Alkaline Phosphatase 66 (38-126) U/L Total Protein 6.9 (6.3-8.2) g/dL Albumin 4.2 (3.5-5.0) g/dL Amylase 149 H (30-110) U/L Lipase 1903 H (23-300) U/L Serum Alcohol 42 mg/dL Disposition Clinical Impression: Pancreatitis, Alcohol abuse Disposition: ADMITTED IP TO THIS [facility] Referrals: Pal Kaur MD [Primary Care Provider] - 1-2 days Time of Disposition: 16:02
[2017-04-29 15:17] LABS: Appearance,Urine Clear (Clear); Bilirubin,Urine Negative (Negative); Glucose,Urine (UA) Negative (Negative); Ketones,Urine Negative (Negative); Leukocyte Esterase,Urine Negative (Negative); Nitrite,Urine Negative (Negative); Protein,Urine Negative (Negative); Specific Gravity,Urine 1.001 (1.001-1.035); UA Billing (MACRO vs. MICRO) CHEM; Urobilinogen,Urine <2.0 mg/dL (<2.0)
[2017-04-29 15:31] LABS: ALT 32 U/L (21-72); AST 20 U/L (17-59); Alcohol 42 mg/dL; Alkaline Phosphatase 66 U/L (38-126); Amylase 149 U/L (30-110); Anion Gap 12 mmol/L; Blood Urea Nitrogen 8 mg/dL (9-20); Calcium 9.3 mg/dL (8.4-10.2); Carbon Dioxide 23 mmol/L (22-30); Chloride 108 mmol/L (98-107); Glucose 74 mg/dL (74-99); Non-African American GFR(MDRD) >60 (>60 ml/min/1.73 sqM); Potassium 4.1 mmol/L (3.5-5.1); Sodium 143 mmol/L (137-145); Total Bilirubin 0.4 mg/dL (0.2-1.3); Total Protein 6.9 g/dL (6.3-8.2)
[2017-04-29 15:33] LABS: Basophils # (A) 0.1 k/uL (0-0.2); Basophils % (A) 1 %; CH 33.1; CHCM 34.3; Eosinophils # (A) 0.2 k/uL (0-0.7); Eosinophils % (A) 2 %; HCT 42.9 % (39.0-53.0); HDW 2.36; HGB 14.5 gm/dL (13.0-17.5); Luc % (Auto) 3; Lymphocytes # (A) 2.3 k/uL (1.0-4.8); Lymphocytes % (A) 34 %; MCH 32.9 pg (25.0-35.0); MCHC 33.9 g/dL (31.0-37.0); Mean Platelet Volume 8.8; Monocytes # (A) 0.4 k/uL (0-1.0); Monocytes % (A) 6 %; Neutrophils # (A) 3.7 k/uL (1.3-7.7); Neutrophils % (A) 55 %; RBC 4.42 m/uL (4.30-5.90); RDW 13.7 % (11.5-15.5); WBC 6.8 k/uL (3.8-10.6); WBC (Perox) 6.74
--- NOTE | 2017-04-29 15:40 | XR ---
EXAMINATION TYPE: XR KUB , 3 VIEWS DATE OF EXAM ORDERED: 04/29/2017 HISTORY: Pain. COMPARISON: Previous study dated 03/18/2014. FINDINGS: The lung bases are clear. Within the abdomen, the abdominal gas pattern is nonspecific with mild gaseous distention of the smal l bowel. No free air is identified. There has been a previous fusion at L5-S1. There is been previous Mckeon pinning of the left hip. There are degenerative changes within the spine. IMPRESSION: NONSPECIFIC ABDOMEN. FOLLOW-UP CLINICALLY INDICATED WOULD BE SUGGESTED.
[2017-04-29] MEDS ORDERED: HYDROmorphone 1 MG/ML 1 ML SYRINGE IVP STA (15:57)
[2017-04-29] MEDS ORDERED: ONDANSETRON 4 MG/2 ML VIAL IVP STA ×2 (15:57→16:03)
[2017-04-29] MEDS ORDERED: SODIUM CHLORIDE 0.9% 1,000 ML IV ONE (16:02)
[2017-04-29] MEDS ORDERED: HYDROmorphone 1 MG/ML 1 ML SYRINGE IVP PRN (16:03)
[2017-04-29] MEDS: ONDANSETRON 4 MG/2 ML VIAL IVP PRN (16:30)
[2017-04-29] MEDS ORDERED: POLYETHYLENE GLYCOL 3350 17 GM POWD.PACK PO PRN (18:12)
[2017-04-29] MEDS: HYDROmorphone 1 MG/ML 1 ML SYRINGE IVP PRN ×2 (18:20→23:12)
[2017-04-29] MEDS ORDERED: LORazepam 2 MG/ML SYRINGE IV PRN ×3 (18:57)
[2017-04-29] MEDS: ALBUTEROL NEBULIZED 2.5 MG/3 ML INHALATION SCH (19:48)
[2017-04-29] MEDS: METOPROLOL TARTRATE 50 MG TAB PO SCH (20:52)
[2017-04-29] MEDS: oxyCODONE ER 20 MG TAB.ER.12H PO SCH (20:52)
[2017-04-29] MEDS: ESOMEPRAZOLE 20 MG in SODIUM CHLORIDE 0.9% 50 ML IVPB SCH (21:26)
[2017-04-30] MEDS: ONDANSETRON 4 MG/2 ML VIAL IVP PRN ×2 (00:07→10:47)
[2017-04-30] MEDS: ALBUTEROL NEBULIZED 2.5 MG/3 ML INHALATION SCH ×2 (08:29→19:41)
[2017-04-30] MEDS: ESOMEPRAZOLE 20 MG in SODIUM CHLORIDE 0.9% 50 ML IVPB SCH ×2 (08:42→21:36)
[2017-04-30] MEDS: METOPROLOL TARTRATE 50 MG TAB PO SCH ×2 (08:42→20:35)
[2017-04-30] MEDS: HYDROmorphone 1 MG/ML 1 ML SYRINGE IVP PRN ×4 (08:46→23:05)
[2017-04-30] MEDS: oxyCODONE ER 20 MG TAB.ER.12H PO SCH ×2 (08:58→20:35)
[2017-04-30 09:18] LABS: ALT 34 U/L (21-72); AST 16 U/L (17-59); Alkaline Phosphatase 70 U/L (38-126); Amylase 90 U/L (30-110); Anion Gap 9 mmol/L; Blood Urea Nitrogen 8 mg/dL (9-20); Carbon Dioxide 24 mmol/L (22-30); Chloride 108 mmol/L (98-107); Glucose 83 mg/dL (74-99); Non-African American GFR(MDRD) >60 (>60 ml/min/1.73 sqM); Potassium 4.2 mmol/L (3.5-5.1); Sodium 141 mmol/L (137-145); Total Bilirubin 0.8 mg/dL (0.2-1.3); Total Protein 6.5 g/dL (6.3-8.2)
--- NOTE | 2017-04-30 10:41 | P.CONS ---
History of Present Illness - Reason for Consult Consult date: 04/30/17 pancreatitis Requesting physician: Greg Esteves - History of Present Illness 62-year-old male admitted with abdominal pain elevated pancreatic enzymes. Recent hospitalization for new onset of atrial fibrillation maintained on Xarelto. Consultation requested for pancreatitis. Abdominal pain epigastric left upper quadrant for the last 2-3 months. Scheduled for outpatient EGD evaluation 05/09/[address] Veloz. Denies diarrhea constipation hematemesis hematochezia or melena. Admission serum alcohol 42. Drank 5 large cans of beer prior to admission. drinks 4-5 large cans of beer on a daily basis greater than 20 years. Reports increased stress at home. White count 6.8. He will and 14.5. Hematocrit 42.9. LFTs normal. Amylase 149. Lipase 1903. Presently lipase is 237. Amylase 90. LFTs unchanged. Recent Noncontrast CT abdomen and pelvis reported no bowel obstruction. No gallstones. Distal stomach showed some questionable wall thickening extending into the proximal duodenum possible gastritis possible duodenitis. White count 5.5. Hemoglobin 14.2. LFTs lipase normal. EGD more than a few years ago. Colonoscopy about 5 years ago. Review of Systems Constitutional: Denies fever, chills, sweats, weight gain, or loss. HEENT: Negative for migraines, blurred vision or loss, earaches, drainage, tinnitus, oral mucosal lesions, dysphagia, or odynophagia. Cardiac: CAD. Hyperlipidemia. Atrial fibrillation. Negative for chest pain, arrhythmias, or palpitation. Respiratory: Negative for shortness of breath, hemoptysis, cough, or sputum production. Gastrointestinal: See HPI for pertinent findings. Genitourinary: Negative for hematuria, urgency, frequency, polyuria, dysuria, or penile discharge. Musculoskeletal: Negative for muscle aches, swelling, arthritis, and arthralgias. Neurologic: History of TIA. Endocrine: Negative for thyroid problems. Skin: Negative for rash or itching. Psychiatric: Bipolar depression. PTSD. All systems: negative (See HPI) Past Medical History Past Medical History: Coronary Artery Disease (CAD), Cancer, Chest Pain / Angina , COPD, CVA/TIA, Hyperlipidemia, Osteoarthritis (OA), Seizure Disorder, Syncope Additional Past Medical History / Comment(s): RT SIDE DOMINANT.Pt states he has had one CVA and one TIA-( LT PUPIL LARGER THAN RT ), right sided trigeminal neuralgia, syncopy 2012, head injury with a fall at the age of 48yrs with intracranial bleed, childhood seizures, bacterial infection in stomach couple years ago, L hip fx with surgery, skin cancer removals.EXPOSED TO ASBESTOS History of Any Multi-Drug Resistant Organisms: None Reported Past Surgical History: Appendectomy, Back Surgery, Heart Catheterization, Hernia Repair, Orthopedic Surgery, Tonsillectomy Additional Past Surgical History / Comment(s): trigeminal neuralgia gamma knife surgery, L hip with "2or 3 pins", cardiac cath approximately 10 yrs ago-no intervention, lumbar fusion, EGD/colonoscopy with benign polypectomies, R rotator cuff repair, bilateral knee arthrosopies, skin cancer removals, benign prostate bx. Past Anesthesia/Blood Transfusion Reactions: No Reported Reaction Past Psychological History: Bipolar, Depression, PTSD Additional Psychological History / Comment(s): Pt resides with his spouse. . Pt has a cane he will use prn. He drives. He is a . 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 Smoking Status: Current every day smoker Past Alcohol Use History: Abuse Additional Past Alcohol Use History / Comment(s): started smoking at age 10(1965 )-has cut down from 4 ppd to 1/2 ppd. drinks 2-3 beer per day. Past Drug Use History: Marijuana Additional Drug Use History / Comment(s): currently smokes marijuana - Past Family History Father Family Medical History: Cancer, Coronary Artery Disease (CAD) Additional Family Medical History / Comment(s): Father had colon cancer Mother Family Medical History: Cancer Additional Family Medical History / Comment(s): Mother had colon cancer. triple bypass Medications and Allergies Home Medications Medication Instructions Recorded Confirmed Type Albuterol Nebulized [Ventolin 2.5 mg INHALATION RT-BID 03/06/14 04/29/17 History Nebulized] oxyCODONE HCL [OxyCONTIN] 40 mg PO BID 03/06/14 04/29/17 History oxyCODONE HCL 10 mg PO BID PRN 01/30/16 04/29/17 History Multivitamins, Thera [Multivitamin 1 tab PO DAILY@1200 04/29/17 04/29/17 History (formulary)] Allergies Allergy/AdvReac Type Severity Reaction Status Date / Time No Known Allergies Allergy Verified 04/29/17 15:15 Physical Exam Vitals: Vital Signs Temp Pulse Pulse Resp BP BP Pulse Ox 04/30/17 09:40 62 16 98/56 96 04/30/17 07:00 97.6 F 58 L 14 99/58 93 L 04/29/17 23:00 97.3 F L 57 L 18 92/51 95 04/29/17 19:58 60 04/29/17 19:48 60 04/29/17 18:38 97.6 F 58 L 20 133/84 96 04/29/17 17:16 97.9 F 57 L 16 100/55 96 04/29/17 16:03 60 16 131/60 97 04/29/17 14:20 97.9 F 59 L 18 104/56 98 Intake and Output 04/29/17 04/30/17 04/30/17 22:59 06:59 14:59 Intake Total 525 0 Output Total 500 500 Balance 25 -500 Intake: Oral 525 0 Output: Urine 500 500 Other: # Bowel Movements 0 General appearance: The patient is alert, oriented, in no acute distress. HET: Head is normocephalic and atraumatic. Pupils are equal and reactive. Oropharynx is clear without lesions. Neck: Supple without lymphadenopathy. Trachea midline. Heart: S1 S2. Regular rate and rhythm. Lungs: No crackles or wheezes are heard. Abdomen: Soft, tenderness midepigastrium left upper quadrant, nondistended with bowel sounds. No peritoneal signs. No palpable organomegaly or masses. Extremities: Normal skin color and turgor. No cyanosis, rash, ulceration, clubbing, or edema. Radial and pedal pulses are 2/4 bilaterally. Neurological: No focal deficits. Strength and sensation are grossly intact. Results CBC & Chem 7: 04/29/17 15:07 04/30/17 08:45 Labs: Abnormal Lab Results - Last 24 Hours (Table) 04/29/17 04/30/17 Range/Units 15:07 08:45 Chloride 108 H 108 H (98-107) mmol/L BUN 8 L 8 L (9-20) mg/dL AST 16 L (17-59) U/L Amylase 149 H (30-110) U/L Lipase 1903 H (23-300) U/L US - abdomen: pending Assessment and Plan (1) Pancreatitis Narrative/Plan: Suspect alcohol-induced pancreatitis. Status: Acute (2) Alcohol abuse Status: Acute (3) Epigastric pain Narrative/Plan: Scheduled for EGD evaluation 05/09/[address] Veloz. Possible alcoholic gastritis esophagitis. Status: Acute Plan: 1. Ultrasound abdomen. Repeat pancreatic chemistries tomorrow. Start clear liquid diet as tolerated. Alcohol abstinence advised. Proceed with outpatient EGD as scheduled 05/09/2017 with general surgery. We'll follow with you. GI prophylaxis. Thank you for this kind referral and the opportunity to participate in the care of your patient. This consultation was discussed with Dr. Underwood. The impression and plan of care have been directed as dictated.
[2017-04-30] MEDS: THIAMINE 100 MG TAB PO SCH (12:02)
[2017-04-30] MEDS: MULTIVITAMINS, THERA 1 EACH TAB PO SCH (12:02)
--- NOTE | 2017-04-30 12:12 | US ---
EXAMINATION TYPE: US abdomen limited DATE OF EXAM: 04/30/2017 COMPARISON: NONE CLINICAL HISTORY: 62-year-old male pancreatitis. Abdominal pain. TECHNIQUE: Multiple sonographic images of the right upper quadrant are obtained. FINDINGS: Liver Length: 17.1 cm Gallbladder Wall: 0.3 cm CBD: 0.4 cm Right Kidney: 11.6 x 5.3 x 5.2 cm Pancreas: obscured by overlying bowel gas Liver: intercostal imaging due to bowel gas. Slight increased echogenicity with areas of focal fatty sparring near the gallbladder fossa. Gallbladder: The maybe early gallbladder wall calcification on ultrasound. This is not well apprecia estrella on the comparison CT. No abnormal distention, wall thickening, pericholecystic fluid, or shadowin g calculi. Evidence for sonographic Solares's sign: no CBD: wnl Right Kidney: No hydronephrosis IMPRESSION: 1. There appears to be mild fatty infiltration of the liver. 2. Possible early gallbladder wall calcification by ultrasound. This is not clearly appreciated on e patient's CT scan. No evidence for cholelithiasis or acute cholecystitis. 3. No biliary ductal dilatation. 4. The pancreas is obscured.
--- NOTE | 2017-04-30 14:03 | HP ---
DATE OF SERVICE: 04/30/2017 The chief complaint is abdominal pain. HISTORY OF PRESENT ILLNESS: This is a 62-year-old gentleman with a past medical history of multiple medical issues including CAD, history of COPD, CVA, TIA, hypertension, seizure disorder, came to [facility] with complaints of abdominal pain. The patient had abdominal pain for the last 3 to 4 months. The pain is mainly in the upper part and radiating across the abdomen. The patient is apparently supposed to have colonoscopy. The patient is evaluated by Dr. Veloz and a CAT scan was also done. The patient also had history of alcohol intake, at least 3 to 4 drinks per day. In the emergency room, the alcohol level is found to be 42 and amylase was 149, lipase is 1903 which is indicative of acute pancreatitis and patient admitted for further evaluation and treatment. The patient also had abdominal CAT scan earlier this month which showed vascular calcifications and chronic bladder outlet obstructions and possibly gastritis and duodenitis as well. There is no history of fever, rigors and chills. No history of headaches, loss of consciousness at this time. The patient also was recently admitted with ablation as well. PAST MEDICAL HISTORY: History of CAD, atrial fibrillation, COPD, history of DJD , seizure disorder. Medications prior to admission include, home medications: 1. OxyContin 40 mg b.i.d. 2. Oxycodone 10 mg b.i.d. p.r.n. 3. Vitamin B 100 mg p.o. daily. 4. Xarelto 20 mg with supper. 5. MiraLAX 17 gm daily. 6. Prilosec 40 mg daily. 7. Multivitamin 1 p.o. daily. 8. Lopressor 50 mg p.o. b.i.d. 9. Ventolin 2.5 b.i.d. Allergies are none. FAMILY HISTORY: History of CAD, colon cancer. SOCIAL HISTORY: History of alcohol, THC, smoking. REVIEW OF SYSTEMS: ENT: No diminished hearing, diminished vision. CARDIOVASCULAR SYSTEM: No angina, palpitations. RESPIRATORY SYSTEM: No cough, palpitations. GI: As mentioned earlier. : No dysuria. NERVOUS SYSTEM: No numbness or weakness. ALLERGY/IMMUNOLOGY: No asthma, hayfever. MUSCULOSKELETAL: As mentioned earlier. HEMATOLOGY: No history of anemia. ENDOCRINE: No history of diabetes or hypothyroid. CONSTITUTIONAL: As mentioned earlier. PSYCHIATRY: As mentioned earlier. PHYSICAL EXAM: The patient is alert and oriented x3. Pulse is 57, blood pressure is 92/51, respirations 18, temperature is 97.4, pulse ox is 94% on room air. HEENT: Conjunctivae normal, oral mucosa moist. NECK: No jugular venous distension, no lymph node enlargement. CARDIOVASCULAR SYSTEM: S1, S2, muffled, no S3, no S4. RESPIRATORY: Breath sounds diminished at the bases, no rhonchi, no crackles. ABDOMEN: Soft, mild diffuse tenderness upper abdomen present. No guarding, no rigidity, no mass palpable. LEGS: No edema, no swelling. NERVOUS SYSTEM: Higher functions as mentioned earlier, moves all 4 limbs. No focal motor sensory deficits. LYMPHATICS: No lymph node enlargement in the neck or axillae. SKIN: No ulcer, rash, bleeding. LABS: CBC within normal limits with amylase 149 and lipase 1903. Alcohol 42, UA noted. Other labs are noted. CAT scan reviewed. ASSESSMENT: 1. Acute upper abdominal pain with acute severe pancreatitis. 2. History of ethyl alcohol. 3. History of coronary artery disease. 4. History of atrial fibrillation, paroxysmal. 5. History of chronic obstructive pulmonary disease. 6. History of cerebrovascular accident, transient ischemic attack. 7. Hyperlipidemia. 8. History of seizure disorder. 9. Syncope. 10. History of bipolar depression, posttraumatic stress disorder. 11. History of nicotine dependence. RECOMMENDATION: In this 62-year-old gentleman who presented with multiple complex medical issues, will monitor the patient closely. Continue with the current medication and symptomatic treatment. The patient was given IV antibiotics, proton pump inhibitors. Otherwise, I would also recommend GI consultation, repeat labs in the morning. Otherwise, guarded prognosis because of multiple complex medical issues and further recommendations to follow. Alcohol cessation advised. CIWA protocol will be utilized. Further recommendations to follow. See orders for further details. MTDD
[2017-04-30] MEDS ORDERED: RIVAROXABAN 10 MG TAB PO SCH (17:30)
--- NOTE | 2017-04-30 17:58 | P.PN ---
Subjective Date of service 04/30/2017. Progress note being dictated for Dr. Esteves. Interval history: This is a 62-year-old gentleman admitted with acute severe pancreatitis, history of EtOH abuse and multiple other medical issues maintained on PPI,CIWA Protocol. Significant improvement in amylase and lipase , amylase 149, lipase 1903, LFTs unchanged. Abdominal ultrasound reporting that he liver, possibly early, bilateral calcification without evidence of cholelithiasis or acute cholecystitis, no biliary ductal dilation. Evaluated by GI with recommendations noted. Denies chest pain, palpitations or increasing shortness of breath. Review of systems: HEENT: Denies headache or focal deficits. Denies any dizziness or lightheadedness. Respiratory: Denies any increased shortness of breath, no cough. Cardiac: Denies any chest pain, palpitations. GI: Complains of abdominal pain, nausea : Denies any dysuria,frequency or hematuria Psychiatry: Denies any anxiety or depression Active Medications Albuterol Sulfate (Ventolin Nebulized) 2.5 mg INHALATION RT-BID [facility] [place] Last Admin: 04/30/17 08:29 Dose: Not Given Hydromorphone HCl (Dilaudid) 0.5 mg IVP Q3HR PRN PRN Reason: Pain Last Admin: 04/30/17 16:07 Dose: 0.5 mg Esomeprazole Magnesium 20 mg/ (Sodium Chloride) 50 mls @ 100 mls/hr IVPB BID [facility] [place] Last Admin: 04/30/17 08:42 Dose: 100 mls/hr Lorazepam (Ativan) 1 mg IV Q2HR PRN PRN Reason: CIWA 8 or 9 Lorazepam (Ativan) 1 mg IV Q1HR PRN PRN Reason: CIWA 10 to 15 Lorazepam (Ativan) 2 mg IV Q1HR PRN PRN Reason: CIWA 16 or higher Metoprolol Tartrate (Lopressor) 50 mg PO BID [facility] [place] Last Admin: 04/30/17 08:42 Dose: 50 mg Multivitamins (Theragran) 1 each PO DAILY@1200 [facility] [place] Last Admin: 04/30/17 12:02 Dose: 1 each Ondansetron HCl (Zofran) 4 mg IVP Q6HR PRN PRN Reason: Nausea And Vomiting Last Admin: 04/30/17 10:47 Dose: 4 mg Oxycodone HCl (Oxyir) 10 mg PO BID PRN PRN Reason: BREAKTHROUGH PAIN Last Admin: 04/30/17 09:59 Dose: 10 mg Oxycodone HCl (Oxycontin 20mg E.R.) 40 mg PO BID [facility] [place] Last Admin: 04/30/17 08:58 Dose: Not Given Polyethylene Glycol (Miralax) 17 gm PO DAILY PRN PRN Reason: Constipation Rivaroxaban (Xarelto) 20 mg PO W/SUPPER [facility] [place] Last Admin: 04/30/17 16:21 Dose: Not Given Thiamine HCl (Vitamin B-1) 100 mg PO DAILY@1200 [facility] [place] Last Admin: 04/30/17 12:02 Dose: 100 mg Objective - Vital Signs Vital signs: Vital Signs Temp 99.1 F 04/30/17 15:00 Pulse 60 04/30/17 15:00 Resp 16 04/30/17 15:00 BP 98/57 04/30/17 15:00 Pulse Ox 93 L 04/30/17 15:00 Intake & Output 04/29/17 04/30/17 04/30/17 18:59 06:59 18:59 Intake Total 525 Output Total 1000 750 Balance -475 -750 Weight 94.801 kg Intake: Oral 525 Output: Urine 1000 750 Other: # Bowel Movements 0 - Exam PHYSICAL EXAM: VITAL SIGNS: As above GENERAL: [Sitting up in bed, no acute distress] HEENT: [Pupils equal conjunctiva normal. Oral mucosa moist] NECK: [Supple, no JVD RESPIRATORY EFFORT:[ Normal] LUNGS: [Bilateral bases diminished, no wheezes rhonchi or crackles CARDIOVASCULAR[ regular S1 and S2, no murmurs rubs or gallops, no edema] GI: [Abdomen soft, mild diffuse tenderness mid-epigastric to LUQ, positive bowel sounds. No guarding, no rigidity, no organomegaly.] PSYCH: [Alert and oriented -3, mood and affect normal.] NEURO: [No focal deficits, moves all 4 extremities, strength and sensation grossly intact.] - Labs CBC & Chem 7: 04/29/17 15:07 04/30/17 08:45 Labs: Abnormal Lab Results - Last 24 Hours (Table) 04/30/17 Range/Units 08:45 Chloride 108 H (98-107) mmol/L BUN 8 L (9-20) mg/dL AST 16 L (17-59) U/L Assessment and Plan Plan: 1. [ Acute severe pancreatitis, possible alcohol induced]. 2. [ EtOH abuse]. 3. [ CAD]. 4. [ Proximal chronic atrial fibrillation]. 5. [ COPD, history of]. 6. [ History of CVA, TIA]. 7. [ Hyperlipidemia]. 8. Seizure disorder, history of 9. Syncope 10. Bipolar depression, posttraumatic stress disorder, history of 11. Nicotine dependence Plan: Continue on current medication regime, PPI, monitoring and symptomatic treatment. Close monitoring of amylase, lipase with repeat labs ordered for a.m. diet advanced to clear liquids as per GI, scheduled for outpatient EGD in with surgery. Alcohol cessation re-discussed. Discharge planning in progress for tomorrow. The impression and plan of care has been dictated as directed. : I performed a H&P examination of this patient and discussed the same with the dictator. I agree with the dictator's note. Any additional findings/opinions/ etc. will be noted.
[2017-05-01] MEDS: ONDANSETRON 4 MG/2 ML VIAL IVP PRN (00:39)
[2017-05-01] MEDS: HYDROmorphone 1 MG/ML 1 ML SYRINGE IVP PRN ×3 (03:39→12:09)
[2017-05-01] MEDS: METOPROLOL TARTRATE 50 MG TAB PO SCH (08:06)
[2017-05-01] MEDS: oxyCODONE ER 20 MG TAB.ER.12H PO SCH (08:06)
[2017-05-01] MEDS: ESOMEPRAZOLE 20 MG in SODIUM CHLORIDE 0.9% 50 ML IVPB SCH (08:25)
[2017-05-01] MEDS: ALBUTEROL NEBULIZED 2.5 MG/3 ML INHALATION SCH (08:35)
--- NOTE | 2017-05-01 10:08 | P.PN ---
Subjective Principal diagnosis: Pancreatitis 62-year-old male admitted with abdominal pain elevated pancreatic enzymes consistent with pancreatitis with history of EtOH abuse. Patient doesn't feel much better today. Enzymes normalized. Still reports left upper quadrant pain. Scheduled for EGD with general surgery today. Afebrile. Ultrasound abdomen reported no evidence of pseudocyst. Gallbladder wall 0.37 L. CBD 0.47 L. May be early gallbladder wall calcification not appreciated on CT. No pericholecystic fluid wall thickening or shadowing calculi. Objective - Vital Signs Vital signs: Vital Signs Temp 98.4 F 05/01/17 07:48 Pulse 55 L 05/01/17 07:48 Resp 16 05/01/17 07:48 BP 99/64 05/01/17 07:48 Pulse Ox 93 L 05/01/17 07:48 Intake & Output 04/30/17 05/01/17 05/01/17 18:59 06:59 18:59 Output Total 750 1050 Balance -750 -1050 Output: Urine 750 1050 Other: Voiding Method Urinal Urinal # Voids 1 600 # Bowel Movements 0 - Exam General appearance: The patient is alert, oriented, in no acute distress. HET: Head is normocephalic and atraumatic. Pupils are equal and reactive. Oropharynx is clear without lesions. Neck: Supple without lymphadenopathy. Trachea midline. Heart: S1 S2. Regular rate and rhythm. Lungs: No crackles or wheezes are heard. Abdomen: Soft, left upper quadrant tenderness, nondistended with bowel sounds. No peritoneal signs. No palpable organomegaly or masses. Extremities: Normal skin color and turgor. No cyanosis, rash, ulceration, clubbing, or edema. Radial and pedal pulses are 2/4 bilaterally. Neurological: No focal deficits. Strength and sensation are grossly intact. - Labs CBC & Chem 7: 04/29/17 15:07 04/30/17 08:45 - Imaging and Cardiology US - abdomen: report reviewed (Dr. Underwood) Assessment and Plan (1) Pancreatitis Narrative/Plan: Suspect alcohol-induced pancreatitis. Status: Acute (2) Alcohol abuse Status: Acute (3) Epigastric pain Narrative/Plan: Scheduled for EGD evaluation 05/09/[address] Veloz. Possible alcoholic gastritis esophagitis. Status: Acute Plan: 1. Ultrasound abdomen reviewed. Alcohol abstinence advised. EGD per general surgery. We'll follow as needed. Assessment and plan a care discussed with Dr. Underwood
[2017-05-01 10:35] LABS: Basophils % (A) 1 %; CH 32.6; CHCM 33.1; Eosinophils # (A) 0.3 k/uL (0-0.7); Eosinophils % (A) 4 %; HCT 42.4 % (39.0-53.0); HDW 2.34; HGB 14.1 gm/dL (13.0-17.5); Luc # (Auto) 0.13; Luc % (Auto) 2; Lymphocytes # (A) 1.9 k/uL (1.0-4.8); Lymphocytes % (A) 33 %; MCH 32.9 pg (25.0-35.0); MCHC 33.2 g/dL (31.0-37.0); Mean Platelet Volume 8.7; Monocytes # (A) 0.4 k/uL (0-1.0); Monocytes % (A) 6 %; Neutrophils # (A) 3.2 k/uL (1.3-7.7); Neutrophils % (A) 54 %; RBC 4.28 m/uL (4.30-5.90); RDW 13.8 % (11.5-15.5); WBC 5.9 k/uL (3.8-10.6); WBC (Perox) 5.66
[2017-05-01 10:58] LABS: ALT 25 U/L (21-72); AST 18 U/L (17-59); Alkaline Phosphatase 69 U/L (38-126); Amylase 54 U/L (30-110); Anion Gap 9 mmol/L; Blood Urea Nitrogen 8 mg/dL (9-20); Calcium 9.1 mg/dL (8.4-10.2); Carbon Dioxide 27 mmol/L (22-30); Chloride 106 mmol/L (98-107); Glucose 77 mg/dL (74-99); Non-African American GFR(MDRD) >60 (>60 ml/min/1.73 sqM); Potassium 4.2 mmol/L (3.5-5.1); Sodium 142 mmol/L (137-145); Total Bilirubin 0.8 mg/dL (0.2-1.3); Total Protein 6.7 g/dL (6.3-8.2)
[2017-05-01] MEDS: MULTIVITAMINS, THERA 1 EACH TAB PO SCH (12:08)
[2017-05-01] MEDS: THIAMINE 100 MG TAB PO SCH (12:09)
[2017-05-01] MEDS ORDERED: HYDROmorphone 1 MG/ML 1 ML SYRINGE IVP PRN (12:45)
[2017-05-01 14:58] VITALS: BP 114/68; PULSE 61; RESP 18; TEMP 98.7
[2017-05-01] MEDS ORDERED: LIDOCAINE 1% INJ 10MG/ML (20 ML MDV) ONE (14:58)
[2017-05-01] MEDS ORDERED: PROPOFOL 10 MG/ML 20 ML VIAL IV ONE (14:58)
[2017-05-01] MEDS ORDERED: IV FLUID CONTINUATION 300 ML IV ONE (15:03)
--- NOTE | 2017-05-01 15:04 | P.GSCN ---
History of Present Illness Consult date: 05/01/17 Reason for Consult: Abdominal pain History of present illness: This a 62-year-old male who is well-known to myself. Patient was recently hospital due to epigastric and left upper quadrant pain. He is scheduled for EGD. Patient presented back to the hospital with evidence of pancreatitis. Patient requested has EGD performed during is auscultation. Patient states he drank 4 days ago. Review of Systems - Constitutional Reports as per HPI Past Medical History Past Medical History: Coronary Artery Disease (CAD), Cancer, Chest Pain / Angina , COPD, CVA/TIA, Hyperlipidemia, Osteoarthritis (OA), Seizure Disorder, Syncope Additional Past Medical History / Comment(s): RT SIDE DOMINANT.Pt states he has had one CVA and one TIA-( LT PUPIL LARGER THAN RT ), right sided trigeminal neuralgia, syncopy 2012, head injury with a fall at the age of 48yrs with intracranial bleed, childhood seizures, bacterial infection in stomach couple years ago, L hip fx with surgery, skin cancer removals.EXPOSED TO ASBESTOS History of Any Multi-Drug Resistant Organisms: None Reported Past Surgical History: Appendectomy, Back Surgery, Heart Catheterization, Hernia Repair, Orthopedic Surgery, Tonsillectomy Additional Past Surgical History / Comment(s): trigeminal neuralgia gamma knife surgery, L hip with "2or 3 pins", cardiac cath approximately 10 yrs ago-no intervention, lumbar fusion, EGD/colonoscopy with benign polypectomies, R rotator cuff repair, bilateral knee arthrosopies, skin cancer removals, benign prostate bx. Past Anesthesia/Blood Transfusion Reactions: No Reported Reaction Past Psychological History: Bipolar, Depression, PTSD Additional Psychological History / Comment(s): Pt resides with his spouse. . Pt has a cane he will use prn. He drives. He is a . 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 Smoking Status: Current every day smoker Past Alcohol Use History: Abuse Additional Past Alcohol Use History / Comment(s): started smoking at age 10(1966 )-has cut down from 4 ppd to 1/2 ppd. drinks 2-3 beer per day. Past Drug Use History: Marijuana Additional Drug Use History / Comment(s): currently smokes marijuana - Past Family History Father Family Medical History: Cancer, Coronary Artery Disease (CAD) Additional Family Medical History / Comment(s): Father had colon cancer Mother Family Medical History: Cancer Additional Family Medical History / Comment(s): Mother had colon cancer. triple bypass Medications and Allergies Home Medications Medication Instructions Recorded Confirmed Type Albuterol Nebulized [Ventolin 2.5 mg INHALATION RT-BID 03/06/14 04/29/17 History Nebulized] oxyCODONE HCL [OxyCONTIN] 40 mg PO BID 03/06/14 04/29/17 History oxyCODONE HCL 10 mg PO BID PRN 01/30/16 04/29/17 History Multivitamins, Thera [Multivitamin 1 tab PO DAILY@1200 04/29/17 04/29/17 History (formulary)] Allergies Allergy/AdvReac Type Severity Reaction Status Date / Time No Known Allergies Allergy Verified 04/29/17 15:15 Surgical - Exam Vital Signs Temp Pulse Resp BP Pulse Ox 97.9 F 59 L 18 104/56 98 04/29/17 14:20 04/29/17 14:20 04/29/17 14:20 04/29/17 14:20 04/29/17 14:20 - General well developed, no distress - Eyes PERRL - ENT normal pinna - Neck no masses - Respiratory normal expansion - Cardiovascular Rhythm: regular - Abdomen Mild epigastric tenderness Abdomen: soft Results - Labs 05/01/17 09:00 05/01/17 09:00 Abnormal Lab Results - Last 24 Hours (Table) 05/01/17 05/01/17 Range/Units 09:00 09:00 RBC 4.28 L (4.30-5.90) m/uL BUN 8 L (9-20) mg/dL Diabetes panel 05/01/17 Range/Units 09:00 Sodium 142 (137-145) mmol/L Potassium 4.2 (3.5-5.1) mmol/L Chloride 106 (98-107) mmol/L Carbon Dioxide 27 (22-30) mmol/L BUN 8 L (9-20) mg/dL Creatinine 1.01 (0.66-1.25) mg/dL Glucose 77 (74-99) mg/dL Calcium 9.1 (8.4-10.2) mg/dL AST 18 (17-59) U/L ALT 25 (21-72) U/L Alkaline Phosphatase 69 (38-126) U/L Total Protein 6.7 (6.3-8.2) g/dL Albumin 3.9 (3.5-5.0) g/dL Calcium panel 05/01/17 Range/Units 09:00 Calcium 9.1 (8.4-10.2) mg/dL Albumin 3.9 (3.5-5.0) g/dL Pituitary panel 05/01/17 Range/Units 09:00 Sodium 142 (137-145) mmol/L Potassium 4.2 (3.5-5.1) mmol/L Chloride 106 (98-107) mmol/L Carbon Dioxide 27 (22-30) mmol/L BUN 8 L (9-20) mg/dL Creatinine 1.01 (0.66-1.25) mg/dL Glucose 77 (74-99) mg/dL Calcium 9.1 (8.4-10.2) mg/dL Adrenal panel 05/01/17 Range/Units 09:00 Sodium 142 (137-145) mmol/L Potassium 4.2 (3.5-5.1) mmol/L Chloride 106 (98-107) mmol/L Carbon Dioxide 27 (22-30) mmol/L BUN 8 L (9-20) mg/dL Creatinine 1.01 (0.66-1.25) mg/dL Glucose 77 (74-99) mg/dL Calcium 9.1 (8.4-10.2) mg/dL Total Bilirubin 0.8 (0.2-1.3) mg/dL AST 18 (17-59) U/L ALT 25 (21-72) U/L Alkaline Phosphatase 69 (38-126) U/L Total Protein 6.7 (6.3-8.2) g/dL Albumin 3.9 (3.5-5.0) g/dL Assessment and Plan Plan: Cherise Kebede History of gastritis. Patient will undergo EGD this admission
--- NOTE | 2017-05-01 15:14 | P.OP ---
Date of Procedure: 05/01/17 Preoperative Diagnosis: Gastritis Postoperative Diagnosis: Mild antral gastritis Mild duodenitis No evidence of hiatal hernia Procedure(s) Performed: Implants: Anesthesia: MAC Surgeon: Kanu Veloz Pathology: other (Antrum, duodenum) Condition: stable Disposition: PACU Indications for Procedure: Operative Findings: Description of Procedure: The patient's placed on the endoscopy table in the lateral position. He received IV sedation. The gastroscope placed oropharynx and passed in the esophagus and into the stomach. The scope was then placed through the pylorus. The first and second portion of the duodenum appeared mildly inflamed. This area is biopsied. Scope was brought back the antrum and this was mildly inflamed. A biopsies performed. Scope was then retroflexed and remainder stomach appeared normal. There is no significant hiatal hernia. The GE junction was at 47 is. The distal esophagus appeared normal. The proximal esophagus appeared normal. Scope withdrawn for patient.
--- NOTE | 2017-05-02 07:23 | PN ---
DATE OF SERVICE: 05/01/2017 This is a 62-year-old gentleman who was admitted with acute severe pancreatitis , also had history of EtOH abuse. The patient is being scheduled for endoscopy with Dr. Veloz. PHYSICAL EXAM; Patient is alert and oriented x3. Pulse 55, blood pressure 119/64, respirations 16, temperature is 98.4, pulse ox 96% on room air. HEENT: Conjunctivae normal. NECK: No jugular venous distension. CARDIOVASCULAR SYSTEM: S1, S2, muffled. RESPIRATORY: Breath sounds diminished at the bases, no rhonchi, no crackles. ABDOMEN: Soft, nontender. LEGS: No edema, no swelling. NERVOUS SYSTEM: No focal deficits. LABS: CBC, CMP within normal limits. ASSESSMENT: 1. Acute severe pancreatitis, possibly alcohol-induced. 2. Possible acute gastritis. 3. Ethyl alcohol abuse. 4. Coronary artery disease. 5. Paroxysmal atrial fibrillation. RECOMMENDATION: Recommend to continue current monitoring. Continue with the EGD. Continue with symptomatic treatment. Prognosis guarded. Further recommendations to follow. MTDD
== END 2017-05-01 16:47 | disposition home or self-care (01) | DRG 440 ==
LOC: EC 14:17 → 4MS4W 16:02
PROVIDERS: ADMIT Hospitalist; ATTEND Hospitalist
PROC: 0DB98ZX Excision of Duodenum, Via Natural or Artificial Opening Endoscopic, Diagnostic (ICD-10-PCS; principal; 2017-05-01 08:15)
DX: K85.20 Alcohol induced acute pancreatitis without necrosis or infection (principal); I48.0 Paroxysmal atrial fibrillation; J44.9 Chronic obstructive pulmonary disease, unspecified; G40.909 Epilepsy, unspecified, not intractable, without status epilepticus; I10 Essential (primary) hypertension; K29.60 Other gastritis without bleeding; K29.80 Duodenitis without bleeding; E78.5 Hyperlipidemia, unspecified; F41.0 Panic disorder [episodic paroxysmal anxiety]; F10.10 Alcohol abuse, uncomplicated; F17.200 Nicotine dependence, unspecified, uncomplicated; F12.90 Cannabis use, unspecified, uncomplicated; I25.10 Atherosclerotic heart disease of native coronary artery without angina pectoris; F31.9 Bipolar disorder, unspecified; F43.10 Post-traumatic stress disorder, unspecified; M19.91 Primary osteoarthritis, unspecified site; Z79.899 Other long term (current) drug therapy; Z79.891 Long term (current) use of opiate analgesic; Z85.828 Personal history of other malignant neoplasm of skin; Z86.73 Personal history of transient ischemic attack (TIA), and cerebral infarction without residual deficits
CPT/HCPCS: 36415; 43239; 74000; 76705; 80053; 80320; 81003; 82150; 83605; 83690; 85025; 94640; 96361; 96374; 96375; 99285

== ENCOUNTER → 2017-05-24 | Outpatient (CLI) | payer MEDICARE ==
--- NOTE | 2017-05-24 10:27 | MR ---
MRCP HISTORY: Pancreatitis, K 85.90 Multiplanar multisequence imaging through the biliary system. Three-dimensional reconstructions perfo rmed. Exam correlated to prior CT abdomen pelvis 04/16/2017, ultrasound abdomen 04/30/2017 The gallbladder is unremarkable. Liver at the upper limit of normal for size. There is no ascites. Si gnal changes within the spleen compatible with old granulomatous disease. Aorta shows atheromatous ch pedro. No evident aortic aneurysm. Adrenal glands show no mass. The kidneys are stable. No hydronephro sis. Common bile duct is not dilated. There is no definite filling defect within the biliary system to sug gest choledocholithiasis. No peripancreatic fluid collection, no evidence of pseudocyst formation. P ancreatic duct is not dilated. IMPRESSION: Unremarkable MRCP.
== END | disposition home or self-care (01) ==
LOC: RADMRIMAIN 08:50
PROVIDERS: ATTEND Internal Medicine
DX: K85.90 Acute pancreatitis without necrosis or infection, unspecified (principal)
CPT/HCPCS: 74181

== ENCOUNTER 2017-06-14 09:14 | Observation (INO) | payer MEDICARE ==
[2017-06-14] MEDS ORDERED: NITROGLYCERIN OINT 1 INCH/GM PACKET TOPICAL STA (10:00)
[2017-06-14] MEDS ORDERED: ASPIRIN 81 MG PO STA (10:00)
[2017-06-14 10:11] LABS: CHCM 34.2; Eosinophils # (A) 0.2 k/uL (0-0.7)
[2017-06-14 10:12] LABS: ALT 28 U/L (21-72); AST 17 U/L (17-59); Alkaline Phosphatase 80 U/L (38-126); Anion Gap 11 mmol/L; Blood Urea Nitrogen 8 mg/dL (9-20); Calcium 9.8 mg/dL (8.4-10.2); Carbon Dioxide 21 mmol/L (22-30); Chloride 110 mmol/L (98-107); Glucose 134 mg/dL (74-99); Magnesium 2.3 mg/dL (1.6-2.3); Non-African American GFR(MDRD) >60 (>60 ml/min/1.73 sqM); Potassium 4.2 mmol/L (3.5-5.1); Sodium 142 mmol/L (137-145); Total Bilirubin 0.7 mg/dL (0.2-1.3); Total Protein 7.9 g/dL (6.3-8.2)
--- NOTE | 2017-06-14 10:16 | ED ---
General Adult HPI - General Chief complaint: Chest Pain Stated complaint: Chest Pain Time Seen by Provider: 06/14/17 09:25 Source: patient, RN notes reviewed Mode of arrival: ambulatory Limitations: no limitations - History of Present Illness Initial comments: This is a 62-year-old male who presents emergency Department complaining of chest pain this a.m. Patient states it radiates down the left arm. Patient states he was mildly short of breath which he normally is but slightly worse. Patient denies any diaphoresis. Patient denies any nausea or vomiting. Patient denies any recent fever chills. Patient states she's got a chronic cough that worsened normal. Patient states he has high blood pressure and his been told is closed was IV takes no medication for. Patient states he continues to smoke. Patient denies any history of diabetes. Patient denies any abdominal pain at this time. Patient denies any lightheadedness dizziness or near syncopal episode. She denies any recent injury or trauma. Patient states the pain is still present. - Related Data Home Medications Medication Instructions Recorded Confirmed Albuterol Nebulized [Ventolin 2.5 mg INHALATION RT-BID 03/06/14 06/14/17 Nebulized] oxyCODONE HCL [OxyCONTIN] 40 mg PO BID 03/06/14 06/14/17 oxyCODONE HCL 10 mg PO TID 01/30/16 06/14/17 Multivitamins, Thera [Multivitamin 1 tab PO DAILY@1200 04/29/17 06/14/17 (formulary)] Previous Rx's Medication Instructions Recorded Metoprolol Tartrate [Lopressor] 50 mg PO BID #60 tab 04/18/17 Omeprazole [PriLOSEC] 40 mg PO DAILY #30 capsule. 04/18/17 Rivaroxaban [Xarelto] 20 mg PO W/SUPPER #30 tab 04/18/17 Thiamine [Vitamin B-1] 100 mg PO DAILY@1200 #30 tab 04/18/17 Allergies Allergy/AdvReac Type Severity Reaction Status Date / Time No Known Allergies Allergy Verified 06/14/17 09:56 Review of Systems ROS Statement: Those systems with pertinent positive or pertinent negative responses have been documented in the HPI. ROS Other: All systems not noted in ROS Statement are negative. Past Medical History Past Medical History: Coronary Artery Disease (CAD), Cancer, Chest Pain / Angina , COPD, CVA/TIA, Hyperlipidemia, Osteoarthritis (OA), Seizure Disorder, Syncope Additional Past Medical History / Comment(s): RT SIDE DOMINANT.Pt states he has had one CVA and one TIA-( LT PUPIL LARGER THAN RT ), right sided trigeminal neuralgia, syncopy 2012, head injury with a fall at the age of 48yrs with intracranial bleed, childhood seizures, bacterial infection in stomach couple years ago, L hip fx with surgery, skin cancer removals.EXPOSED TO ASBESTOS History of Any Multi-Drug Resistant Organisms: None Reported Past Surgical History: Appendectomy, Back Surgery, Heart Catheterization, Hernia Repair, Orthopedic Surgery, Tonsillectomy Additional Past Surgical History / Comment(s): trigeminal neuralgia gamma knife surgery, L hip with "2or 3 pins", cardiac cath approximately 10 yrs ago-no intervention, lumbar fusion, EGD/colonoscopy with benign polypectomies, R rotator cuff repair, bilateral knee arthrosopies, skin cancer removals, benign prostate bx. Past Anesthesia/Blood Transfusion Reactions: No Reported Reaction Past Psychological History: Bipolar, Depression, PTSD Smoking Status: Current every day smoker Past Alcohol Use History: Abuse Past Drug Use History: Marijuana - Past Family History Father Family Medical History: Cancer, Coronary Artery Disease (CAD) Additional Family Medical History / Comment(s): Father had colon cancer Mother Family Medical History: Cancer Additional Family Medical History / Comment(s): Mother had colon cancer. triple bypass General Exam - General Exam Comments Initial Comments: GENERAL: Patient is well-developed and well-nourished. Patient is nontoxic and well- hydrated and is in mild distress. ENT: Neck is soft and supple. No significant lymphadenopathy is noted. Oropharynx is clear. Moist mucous membranes. Neck has full range of motion without eliciting any pain. EYES: The sclera were anicteric and conjunctiva were pink and moist. Extraocular movements were intact and pupils were equal round and reactive to light. Eyelids were unremarkable. PULMONARY: Unlabored respirations. Good breath sounds bilaterally. No audible rales rhonchi or wheezing was noted. CARDIOVASCULAR: There is a regular rate and rhythm without any murmurs gallops or rubs. ABDOMEN: Soft and nontender with normal bowel sounds. No palpable organomegaly was noted. There is no palpable pulsatile mass. SKIN: Skin is clear with no lesions or rashes and otherwise unremarkable. NEUROLOGIC: Patient is alert and oriented x3. Cranial nerves II through XII are grossly intact. Motor and sensory are also intact. Normal speech, volume and content. Symmetrical smile. MUSCULOSKELETAL: Normal extremities with adequate strength and full range of motion. No lower extremity swelling or edema. No calf tenderness. LYMPHATICS: No significant lymphadenopathy is noted PSYCHIATRIC: Normal psychiatric evaluation. Normal interpersonal interactions appears functionally intact in deals appropriately with others. No signs of depression. No signs of anxiety. Limitations: no limitations Course Vital Signs 06/14/17 06/14/17 06/14/17 09:27 09:31 10:24 Temperature 98.4 F 98.1 F Pulse Rate 64 62 62 Respiratory 20 18 20 Rate Blood Pressure 142/74 137/77 114/61 O2 Sat by Pulse 94 L 98 96 Oximetry Medical Decision Making - Medical Decision Making EKG shows normal sinus rhythm at 65 bpm MS interval is on a 32 QRS 106 QT intervals 436 QTC is 453 per patient's EKG shows no ST segment elevation or depression or T wave abnormalities are noted. Patient's chest x-ray shows no acute normalities. Because of the patient's risk factors and clinical presentation I started the patient on heparin. I spoke with the depression agreed to admit the patient admitted the patient I consult cardiology I continue the heparin Nitropaste and aspirin in the inpatient setting. - Lab Data Result diagrams: 06/14/17 09:30 06/14/17 09:30 Lab Results 06/14/17 06/14/17 06/14/17 Range/Units 09:30 09:30 09:30 WBC 7.0 (3.8-10.6) k/uL RBC 4.66 (4.30-5.90) m/uL Hgb 14.8 (13.0-17.5) gm/dL Hct 43.5 (39.0-53.0) % MCV 93.3 D (80.0-100.0) fL MCH 31.8 (25.0-35.0) pg MCHC 34.1 (31.0-37.0) g/dL RDW 12.8 (11.5-15.5) % Plt Count 264 (150-450) k/uL Neutrophils % 55 % Lymphocytes % 34 % Monocytes % 5 % Eosinophils % 3 % Basophils % 1 % Neutrophils # 3.8 (1.3-7.7) k/uL Lymphocytes # 2.3 (1.0-4.8) k/uL Monocytes # 0.4 (0-1.0) k/uL Eosinophils # 0.2 (0-0.7) k/uL Basophils # 0.1 (0-0.2) k/uL PT (9.0-12.0) sec INR (<1.2) APTT (22.0-30.0) sec Sodium 142 (137-145) mmol/L Potassium 4.2 (3.5-5.1) mmol/L Chloride 110 H (98-107) mmol/L Carbon Dioxide 21 L (22-30) mmol/L Anion Gap 11 mmol/L BUN 8 L (9-20) mg/dL Creatinine 0.83 (0.66-1.25) mg/dL Est GFR (MDRD) Af Amer >60 (>60 ml/min/1.73 sqM) Est GFR (MDRD) Non-Af >60 (>60 ml/min/1.73 sqM) Glucose 134 H (74-99) mg/dL Calcium 9.8 (8.4-10.2) mg/dL Magnesium 2.3 (1.6-2.3) mg/dL Total Bilirubin 0.7 (0.2-1.3) mg/dL AST 17 (17-59) U/L ALT 28 (21-72) U/L Alkaline Phosphatase 80 (38-126) U/L Total Creatine Kinase 91 (55-170) U/L CK-MB (CK-2) 0.7 (0.0-2.4) ng/mL CK-MB (CK-2) Rel Index 0.8 Troponin I <0.012 (0.000-0.034) ng/mL Total Protein 7.9 (6.3-8.2) g/dL Albumin 4.5 (3.5-5.0) g/dL 06/14/17 Range/Units 09:30 WBC (3.8-10.6) k/uL RBC (4.30-5.90) m/uL Hgb (13.0-17.5) gm/dL Hct (39.0-53.0) % MCV (80.0-100.0) fL MCH (25.0-35.0) pg MCHC (31.0-37.0) g/dL RDW (11.5-15.5) % Plt Count (150-450) k/uL Neutrophils % % Lymphocytes % % Monocytes % % Eosinophils % % Basophils % % Neutrophils # (1.3-7.7) k/uL Lymphocytes # (1.0-4.8) k/uL Monocytes # (0-1.0) k/uL Eosinophils # (0-0.7) k/uL Basophils # (0-0.2) k/uL PT 10.0 (9.0-12.0) sec INR 1.0 (<1.2) APTT 24.1 (22.0-30.0) sec Sodium (137-145) mmol/L Potassium (3.5-5.1) mmol/L Chloride (98-107) mmol/L Carbon Dioxide (22-30) mmol/L Anion Gap mmol/L BUN (9-20) mg/dL Creatinine (0.66-1.25) mg/dL Est GFR (MDRD) Af Amer (>60 ml/min/1.73 sqM) Est GFR (MDRD) Non-Af (>60 ml/min/1.73 sqM) Glucose (74-99) mg/dL Calcium (8.4-10.2) mg/dL Magnesium (1.6-2.3) mg/dL Total Bilirubin (0.2-1.3) mg/dL AST (17-59) U/L ALT (21-72) U/L Alkaline Phosphatase (38-126) U/L Total Creatine Kinase (55-170) U/L CK-MB (CK-2) (0.0-2.4) ng/mL CK-MB (CK-2) Rel Index Troponin I (0.000-0.034) ng/mL Total Protein (6.3-8.2) g/dL Albumin (3.5-5.0) g/dL Critical Care Time Critical Care Time: Yes Total Critical Care Time: 35 Disposition Clinical Impression: Unstable angina Disposition: ADMITTED IP TO THIS [facility] Referrals: Pal Kaur MD [Primary Care Provider] - 1-2 days Time of Disposition: 11:08
[2017-06-14 10:17] LABS: Partial Thromboplastin Time 24.1 sec (22.0-30.0)
[2017-06-14 10:19] LABS: Creatine Kinase 91 U/L (55-170)
[2017-06-14 10:23] LABS: Basophils # (A) 0.1 k/uL (0-0.2); Basophils % (A) 1 %; CH 31.7; Eosinophils % (A) 3 %; HCT 43.5 % (39.0-53.0); HDW 2.54; HGB 14.8 gm/dL (13.0-17.5); Luc # (Auto) 0.21; Luc % (Auto) 3; Lymphocytes # (A) 2.3 k/uL (1.0-4.8); Lymphocytes % (A) 34 %; MCH 31.8 pg (25.0-35.0); MCHC 34.1 g/dL (31.0-37.0); Mean Platelet Volume 8.2; Monocytes # (A) 0.4 k/uL (0-1.0); Monocytes % (A) 5 %; Neutrophils # (A) 3.8 k/uL (1.3-7.7); Neutrophils % (A) 55 %; RBC 4.66 m/uL (4.30-5.90); RDW 12.8 % (11.5-15.5); WBC (Perox) 6.81
--- NOTE | 2017-06-14 10:25 | XR ---
EXAMINATION TYPE: XR chest 2V DATE OF EXAM: 06/14/2017 COMPARISON: Chest x-ray and CTA chest April 15, 2017. HISTORY: Left-sided chest pain. TECHNIQUE: Frontal and lateral views of the chest are obtained. FINDINGS: Underlying emphysematous change is redemonstrated. A few calcified nodules are granulomas in both lung bases are redemonstrated. There is no focal air space opacity, pleural effusion, or pneu mothorax seen. The cardiac silhouette size is within normal limits. The osseous structures are int act. IMPRESSION: Chronic emphysematous change without acute pulmonary process.
[2017-06-14 10:29] LABS: MCV 93.3 fL (80.0-100.0)
[2017-06-14 10:31] LABS: Creatine Kinase MB 0.7 ng/mL (0.0-2.4); Troponin I <0.012 ng/mL (0.000-0.034)
[2017-06-14] MEDS ORDERED: HEPARIN SODIUM,PORCINE 5,000 UNIT/ML 1 ML VIAL IV ONE (10:47)
[2017-06-14] MEDS ORDERED: HEPARIN SODIUM,PORCINE/D5W PMX 25,000 UNIT in DEXTROSE/WATER 1 500ML.BAG IV SCH (11:00)
[2017-06-14] MEDS ORDERED: NITROGLYCERIN SL TABS 0.4 MG TAB SUBLINGUAL PRN (11:09)
[2017-06-14] MEDS ORDERED: ONDANSETRON 4 MG/2 ML VIAL IVP STA (11:16)
[2017-06-14 11:35] LABS: Amylase 49 U/L (30-110)
[2017-06-14] MEDS: NITROGLYCERIN OINT 1 INCH/GM PACKET TOPICAL SCH ×2 (14:46→17:25)
--- NOTE | 2017-06-14 15:44 | P.CRDCN ---
History of Present Illness Consult date: 06/14/17 History of present illness: This is a 62-year-old male. Past medical history significant for atrial fibrillation, chronic tobacco abuse, CVA, hyperlipidemia, COPD and chronic alcohol abuse. Patient presents with complaints of precordial chest pain with radiation into the left arm. Patient states he woke up about 4:00 in the morning not feeling well and was tossing and turning for the rest of the night. He states he ultimately woke up around 7 AM this morning and was sitting down having a cup of coffee watching television when he started getting chest pains that radiating down his left arm. He states the left arm felt achy and numb and tingly. He describes the pain as a pressure in his chest that was rated as 6 out of 10. The pain persisted in his arm and is ongoing at this time. He states the pain in his chest has subsided mildly but is still evident. He is currently struggling with left upper quadrant abdominal pain after being diagnosed with pancreatitis as well. He states he has lost approximately 25 pounds in the previous month due to loss of appetite and chronic nausea. He is treating this all to the pancreatitis. He is very tearful and agitated during my examination. He states he is sick and tired of feeling these pains and wants to know what is wrong with him. Dr. Welch recently referred him to a specialist in [place] to further investigate his pancreatitis. Patient underwent left heart cardiac catheterization June 2016 which showed no significant coronary artery disease. He was recently admitted to the hospital in April of this year and found to be in atrial fibrillation. He was placed on metoprolol and Xarelto. He has a follow-up visit with Dr. Kapadia in the office and was scheduled for stress test and JP. He states he was unable to make those appointments due to his pancreatitis. EKG on admission shows a normal sinus mechanism with no ST or T-wave abnormality. Troponins are normal x 1. Chest x-ray showed chronic emphysematous changes without acute cardiopulmonary process.. Most recent echo dated April 16, 2017 indicates atrial fibrillation, left ventricular systolic function is impaired with an ejection fraction of 45-50% basal inferior LV wall motion hypokinesis, moderate concentric left ventricular hypertrophy. Review of Systems Extensive review of systems performed, negative except mentioned in HPI. Past Medical History Past Medical History: Atrial Fibrillation, Coronary Artery Disease (CAD), Cancer , Chest Pain / Angina, COPD, CVA/TIA, Hyperlipidemia, Osteoarthritis (OA), Seizure Disorder, Syncope Additional Past Medical History / Comment(s): RT SIDE DOMINANT.Pt states he has had one CVA and one TIA-( LT PUPIL LARGER THAN RT ), right sided trigeminal neuralgia, syncopy 2012, head injury with a fall at the age of 48yrs with intracranial bleed, childhood seizures, bacterial infection in stomach couple years ago, L hip fx with surgery, skin cancer removals.EXPOSED TO ASBESTOS, new diagnosis of Afib in April 2017. New diagnosis of pancreatitis, pt to see a specialist at [facility] on 05/26/17 History of Any Multi-Drug Resistant Organisms: None Reported Past Surgical History: Appendectomy, Back Surgery, Heart Catheterization, Hernia Repair, Orthopedic Surgery, Tonsillectomy Additional Past Surgical History / Comment(s): trigeminal neuralgia gamma knife surgery, L hip with "2or 3 pins", cardiac cath approximately 10 yrs ago-no intervention, lumbar fusion, EGD/colonoscopy with benign polypectomies, R rotator cuff repair, bilateral knee arthrosopies, skin cancer removals, benign prostate bx. Past Anesthesia/Blood Transfusion Reactions: No Reported Reaction Smoking Status: Current every day smoker - Past Family History Father Family Medical History: Cancer, Coronary Artery Disease (CAD) Additional Family Medical History / Comment(s): Father had colon cancer Mother Family Medical History: Cancer Additional Family Medical History / Comment(s): Mother had colon cancer. triple bypass Medications and Allergies Home Medications Medication Instructions Recorded Confirmed Type Albuterol Nebulized [Ventolin 2.5 mg INHALATION RT-BID 03/06/14 06/14/17 History Nebulized] oxyCODONE HCL [OxyCONTIN] 40 mg PO BID 03/06/14 06/14/17 History oxyCODONE HCL 10 mg PO TID 01/30/16 06/14/17 History Metoprolol Tartrate [Lopressor] 50 mg PO BID #60 tab 04/18/17 06/14/17 Rx Omeprazole [PriLOSEC] 40 mg PO DAILY #30 capsule. 04/18/17 06/14/17 Rx Rivaroxaban [Xarelto] 20 mg PO W/SUPPER #30 tab 04/18/17 06/14/17 Rx Thiamine [Vitamin B-1] 100 mg PO DAILY@1200 #30 tab 04/18/17 06/14/17 Rx Multivitamins, Thera [Multivitamin 1 tab PO DAILY@1200 04/29/17 06/14/17 History (formulary)] Allergies Allergy/AdvReac Type Severity Reaction Status Date / Time No Known Allergies Allergy Verified 06/14/17 09:56 Physical Exam Vitals: Vital Signs Temp Pulse Pulse Resp BP BP Pulse Ox 06/14/17 13:53 58 L 06/14/17 13:37 98.1 F 96 16 108/68 97 06/14/17 11:00 65 18 111/68 97 06/14/17 10:24 62 20 114/61 96 06/14/17 09:31 98.1 F 62 18 137/77 98 06/14/17 09:27 98.4 F 64 20 142/74 94 L Intake and Output 06/14/17 06/14/17 06/14/17 06:59 14:59 22:59 Other: Voiding Method Toilet # Voids 1 Weight 88.451 kg Patient Weight 06/15/17 06:59 Weight 88.451 kg GENERAL: This is a 62-year-old male in no apparent distress at the time of my examination. Tearful and agitated. HEENT: Head is atraumatic, normocephalic. Pupils are equal, round. Sclerae anicteric. Conjunctivae are clear. Mucous membranes of the mouth are moist. Neck is supple. There is no jugular venous distention. No carotid bruit is heard. LUNGS: Coarse. No rales or wheezes evident. No chest wall tenderness is noted on palpation or with deep breathing. HEART: Regular rate and rhythm without murmurs, rubs or gallops. S1 and S2 heard. EXTREMITIES: 1+ peripheral pulses with no evidence of peripheral edema and no calf tenderness noted. NEUROLOGIC: Patient is awake, alert and oriented x3. Results 06/14/17 09:30 06/14/17 09:30 Cardiac Enzymes 06/14/17 06/14/17 Range/Units 09: 09:30 AST 17 (17-59) U/L CK-MB (CK-2) 0.7 (0.0-2.4) ng/mL Troponin I <0.012 (0.000-0.034) ng/mL Coagulation 06/14/17 Range/Units 09:30 PT 10.0 (9.0-12.0) sec APTT 24.1 (22.0-30.0) sec CBC 06/14/17 Range/Units 09:30 WBC 7.0 (3.8-10.6) k/uL RBC 4.66 (4.30-5.90) m/uL Hgb 14.8 (13.0-17.5) gm/dL Hct 43.5 (39.0-53.0) % Plt Count 264 (150-450) k/uL Comprehensive Metabolic Panel 06/14/17 Range/Units 09:30 Sodium 142 (137-145) mmol/L Potassium 4.2 (3.5-5.1) mmol/L Chloride 110 H (98-107) mmol/L Carbon Dioxide 21 L (22-30) mmol/L BUN 8 L (9-20) mg/dL Creatinine 0.83 (0.66-1.25) mg/dL Glucose 134 H (74-99) mg/dL Calcium 9.8 (8.4-10.2) mg/dL AST 17 (17-59) U/L ALT 28 (21-72) U/L Alkaline Phosphatase 80 (38-126) U/L Total Protein 7.9 (6.3-8.2) g/dL Albumin 4.5 (3.5-5.0) g/dL Current Medications Generic Name Dose Route Start Last Admin Trade Name Freq PRN Reason Stop Dose Admin Albuterol Sulfate 2.5 mg 06/14/17 20:00 Ventolin Nebulized INHALATION RT-BID [facility] Aspirin 81 mg 06/15/17 09:00 Aspirin PO DAILY [facility] Heparin Sodium/Dextrose 25,000 500 mls @ 19.98 mls/hr 06/14/17 11:00 11:34 unit/ IV Solution IV 11.3 units/kg/hr .Q24H YARA 19.98 mls/hr Protocol Administration 11.3 UNITS/KG/HR Metoprolol Tartrate 50 mg 06/14/17 21:00 Lopressor PO BID [facility] Multivitamins 1 each 06/15/17 12:00 Theragran PO DAILY@1200 [facility] Nitroglycerin 1 inch 06/14/17 12:00 06/14/17 14:46 Nitro-Bid Oint TOPICAL Not Given Q6HR [facility] Nitroglycerin 0.4 mg 06/14/17 11:09 06/14/17 11:36 Nitrostat SUBLINGUAL 0.4 mg Q5M PRN Administration Chest Pain Oxycodone HCl 10 mg 06/14/17 16:00 06/14/17 14:58 Oxyir PO 10 mg TID PRN Administration PAIN - MODERATE Oxycodone HCl 40 mg 06/14/17 21:00 Oxycontin 20mg E.R. PO BID [facility] Pantoprazole Sodium 40 mg 06/15/17 09:00 Protonix PO DAILY YARA Thiamine HCl 100 mg 06/15/17 12:00 Vitamin B-1 PO DAILY@1200 [facility] Intake and Output 06/14/17 06/14/17 06/14/17 06:59 14:59 22:59 Other: Voiding Method Toilet # Voids 1 Weight 88.451 kg Patient Weight 06/15/17 06:59 Weight 88.451 kg 06/14/17 09:30 06/14/17 09:30 EKG Interpretations (text) EKG indicates normal sinus mechanism with no acute ST or T-wave abnormality. Assessment and Plan Plan: ASSESSMENT 1. Chest pain, atypical 2. Paroxysmal atrial fibrillation on long-term anticoagulation 3. COPD 4. Hyperlipidemia 5. Chronic tobacco abuse 6. Chronic alcohol abuse, recently quit 3 months ago. PLAN We will continue with serial troponins. Further recommendations will be based upon clinical course. Thank you kindly for this consultation. Nurse Practitioner note has been reviewed, I agree with a documented findings and plan of care. Patient was seen and examined.
[2017-06-14 15:53] VITALS: RESP 18
--- NOTE | 2017-06-14 16:21 | P.HPIM ---
History of Present Illness H&P Date: 06/14/17 Chief Complaint: Left chest and left arm pain/numbness 62-year-old male patient of Dr. Pal Kaur, with chronic stable medical conditions of coronary artery disease, COPD, CVA, TIA, hypertension, seizure disorder, who presented to the emergency department with complaints of left anterior chest wall chest pain and left arm pain. Patient states this is been going on for about 24 hours. Woke up about 4:00 in the morning not feeling well , since turned arrest the night ultimately got up around 7 AM having a cup of coffee when he began to have chest pains that radiated down his left arm. Rated its 6 out of 10 and the left arm felt achy with numbness and tingling. Currently the pains continues to persist. Pain in his left anterior chest is improved however not completely gone. Patient was seen in April 2017 at this facility for atrial fibrillation for which he received metoprolol and Xarelto for management. Has had previous admissions to this facility most recently for left upper quadrant abdominal pain and received a diagnosis of pancreatitis in April 2017. States he has lost 25 pounds in the previous month due to loss of appetite chronic nausea. Review of Systems GEN.: anxious and tearful regarding illness EYES: [None] HEENT: [None] NECK: [None] RESPIRATORY: [None] CARDIOVASCULAR: Chest pain left arm pain] GASTROINTESTINAL: [Left upper quadrant pain secondary to pancreatitis] GENITOURINARY: [None] MUSCULOSKELETAL: [Burning right leg pain] LYMPHATICS: [None] HEMATOLOGICAL: [None] PSYCHIATRY: [Anxiety, depression] NEUROLOGICAL: [None] Past Medical History Past Medical History: Atrial Fibrillation, Coronary Artery Disease (CAD), Cancer , Chest Pain / Angina, COPD, CVA/TIA, Hyperlipidemia, Osteoarthritis (OA), Seizure Disorder, Syncope Additional Past Medical History / Comment(s): RT SIDE DOMINANT.Pt states he has had one CVA and one TIA-( LT PUPIL LARGER THAN RT ), right sided trigeminal neuralgia, syncopy 2012, head injury with a fall at the age of 48yrs with intracranial bleed, childhood seizures, bacterial infection in stomach couple years ago, L hip fx with surgery, skin cancer removals.EXPOSED TO ASBESTOS, new diagnosis of Afib in April 2017. New diagnosis of pancreatitis, pt to see a specialist at [facility] on 05/26/17 History of Any Multi-Drug Resistant Organisms: None Reported Past Surgical History: Appendectomy, Back Surgery, Heart Catheterization, Hernia Repair, Orthopedic Surgery, Tonsillectomy Additional Past Surgical History / Comment(s): trigeminal neuralgia gamma knife surgery, L hip with "2or 3 pins", cardiac cath approximately 10 yrs ago-no intervention, lumbar fusion, EGD/colonoscopy with benign polypectomies, R rotator cuff repair, bilateral knee arthrosopies, skin cancer removals, benign prostate bx. Past Anesthesia/Blood Transfusion Reactions: No Reported Reaction Smoking Status: Current every day smoker - Past Family History Father Family Medical History: Cancer, Coronary Artery Disease (CAD) Additional Family Medical History / Comment(s): Father had colon cancer Mother Family Medical History: Cancer Additional Family Medical History / Comment(s): Mother had colon cancer. triple bypass Medications and Allergies Home Medications Medication Instructions Recorded Confirmed Type Albuterol Nebulized [Ventolin 2.5 mg INHALATION RT-BID 03/06/14 06/14/17 History Nebulized] oxyCODONE HCL [OxyCONTIN] 40 mg PO BID 03/06/14 06/14/17 History oxyCODONE HCL 10 mg PO TID 01/30/16 06/14/17 History Metoprolol Tartrate [Lopressor] 50 mg PO BID #60 tab 04/18/17 06/14/17 Rx Omeprazole [PriLOSEC] 40 mg PO DAILY #30 capsule.dr 04/18/17 06/14/17 Rx Rivaroxaban [Xarelto] 20 mg PO W/SUPPER #30 tab 04/18/17 06/14/17 Rx Thiamine [Vitamin B-1] 100 mg PO DAILY@1200 #30 tab 04/18/17 06/14/17 Rx Multivitamins, Thera [Multivitamin 1 tab PO DAILY@1200 04/29/17 06/14/17 History (formulary)] Allergies Allergy/AdvReac Type Severity Reaction Status Date / Time No Known Allergies Allergy Verified 06/14/17 09:56 Physical Exam Vitals: Vital Signs Temp Pulse Pulse Resp BP BP Pulse Ox 06/14/17 15:52 97.7 F 69 18 110/59 99 06/14/17 13:53 58 L 06/14/17 13:37 98.1 F 96 16 108/68 97 06/14/17 11:00 65 18 111/68 97 06/14/17 10:24 62 20 114/61 96 06/14/17 09:31 98.1 F 62 18 137/77 98 06/14/17 09:27 98.4 F 64 20 142/74 94 L Intake and Output 06/14/17 06/14/17 06/14/17 06:59 14:59 22:59 Other: Voiding Method Toilet # Voids 1 Weight 88.451 kg Patient Weight 06/15/17 06:59 Weight 88.451 kg VITAL SIGNS: [Temperature 97.7, pulse 69, respiratory rate 18, blood pressure 110/59, oxygen saturation 99% on 2 L. BMI noted] GENERAL: [Average built, sitting up, anxious appearing]. EYES: [Pupils equal. Conjunctiva andrew]l. HEENT: [External appearance of nose and ears normal, oral cavity grossly normal] . NECK: [JVD not raised; masses not palpable]. HEART: [First and second heart sounds are normal; no edema]. LUNGS:[ Respiratory rate normal; coarse bilateral breath sounds ]. ABDOMEN: [Soft, nontender, liver spleen not palpable, no masses palpable]. LYMPHATICS: [No lymph nodes palpable in the axilla and neck]. PSYCH: [Alert and oriented x3; mood and affect anxious, very emotional. NEUROLOGICAL: [Cranial nerves grossly intact; no facial asymmetry, power and sensation grossly intact]. Results CBC & Chem 7: 06/14/17 09:30 06/14/17 09:30 Labs: Abnormal Lab Results - Last 24 Hours (Table) 06/14/17 Range/Units 09:30 Chloride 110 H (98-107) mmol/L Carbon Dioxide 21 L (22-30) mmol/L BUN 8 L (9-20) mg/dL Glucose 134 H (74-99) mg/dL Thrombosis Risk Factor Assmnt - Choose All That Apply Any of the Below Risk Factors Present?: No Other Risk Factors: Yes Each Risk Factor Represents 2 Points: Age 61-74 years Thrombosis Risk Factor Assessment Total Risk Factor Score: 2 Thrombosis Risk Factor Assessment Level: Low Risk Assessment and Plan Plan: ASSESSMENT: -Atypical chest pain -Paroxysmal atrial fibrillation on long-term anticoagulation. -Pancreatitis, chronic -Coronary artery disease -Chronic obstructive pulmonary disease, in a current smoker -Hyperlipidemia. -Chronic tobacco abuse, -Chronic alcohol abuse, recently quit 3 months ago -Bipolar depression, posttraumatic stress disorder PLAN: Home medications reordered, Cardiology consulted, continue with serial troponins and IV heparin. patient scheduled as an outpatient for a stress test and vascular study. Has a history of chronic pancreatitis for which he will be seen at [facility] by GI specialist next week, currently able to tolerate food and beverage. Plan of care discussed with the patient at the bedside, he is frustrated but in agreement. We will follow closely
[2017-06-14 17:26] LABS: Creatine Kinase 71 U/L (55-170)
[2017-06-14 17:39] LABS: Creatine Kinase MB 0.5 ng/mL (0.0-2.4); Troponin I <0.012 ng/mL (0.000-0.034)
[2017-06-14] MEDS ORDERED: HEPARIN SODIUM,PORCINE 5,000 UNIT/ML 1 ML VIAL IV STA (18:23)
[2017-06-14 19:18] VITALS: BP 118/73; PULSE 61; TEMP 97.9
[2017-06-14] MEDS ORDERED: ALBUTEROL NEBULIZED 2.5 MG/3 ML INHALATION SCH (20:00)
[2017-06-14] MEDS ORDERED: oxyCODONE ER 20 MG TAB.ER.12H PO SCH (21:00)
[2017-06-14] MEDS ORDERED: METOPROLOL TARTRATE 50 MG TAB PO SCH (21:00)
[2017-06-15] MEDS ORDERED: PANTOPRAZOLE 40 MG TABLET PO SCH (09:00)
[2017-06-15] MEDS ORDERED: ASPIRIN 325 MG TAB PO SCH (09:00)
[2017-06-15] MEDS ORDERED: ASPIRIN 81 MG PO SCH (09:00)
--- NOTE | 2017-06-15 11:27 | CONS ---
CONSULTATION ADDENDUM: This is a 62-year-old gentleman a patient who sees Dr. Kapadia in the office underwent a cardiac cath in June 2016 that was unremarkable. Subsequent stress test was unremarkable. He has issues with some pancreatitis from which he has recovered. He also has been having very atypical type chest pain with some tingling in the left arm. However he is resting comfortably at the time of my evaluation. He has had 2 sets of troponins that are normal. EKG did not reveal any significant abnormality. He does have paroxysmal atrial fibrillation and he is on Xarelto. I am recommending that he can be discharged on Xarelto. No intervention necessary and I have advised that he should see Dr. Palomino next week in the office and have an testing that was already scheduled for him. Since he is asymptomatic and troponins are normal, I explained to the patient that he can be discharged and he is agreeable with this. PHYSICAL EXAM: Vital signs are stable. There is no JVD or carotid bruit. S1-S2 heard normally. LUNGS: Clear. ABDOMEN: Soft. There is no tenderness. Lower extremities revealed palpable pulses. No edema. Central nervous system is normal. The patient can be discharged later on today. Thank you very much for the consult. MMODL / IJN: [id number] /
--- NOTE | 2017-06-15 11:38 | HP ---
HISTORY AND PHYSICAL This is a combination history and physical and discharge summary. HISTORY AND PHYSICAL/DISCHARGE SUMMARY: DATE OF ADMISSION: 06/14/2017. CHIEF COMPLAINT: Chest pain. HISTORY: This 62-year-old gentleman who had a past medical history of CAD, CVA, TIA, hypertension, atrial fibrillation, history of pancreatitis, history of ETOH being followed by Dr. Kaur in the outpatient setting had a cardiac catheterization recently. The patient had chest pain this morning felt in the anterior part of the chest with a pressure type of pain which radiated to the left arm. The patient apparently smokes about three cigarettes per day and the patient came to [facility] and admitted to the hospital further evaluation and treatment. There is no history of fever, rigors or chills. No history of headache, loss of consciousness or seizures. The patient has stopped alcohol at this time. The patient also had an appointment at [facility] for a followup of the pancreatitis. Cardiology evaluating the patient. PAST MEDICAL HISTORY: Past medical history of atrial fibrillation, CAD, COPD, CVA, TIA, DJD and seizure disorder. MEDICATIONS: Prior to admission include: 1. OxyContin 10 mg b.i.d. 2. Thiamine 100 mg. 3. Xarelto 10 mg at supper. 4. Prilosec 40 mg a day. 5. Multivitamins p.o. daily. 6. Metoprolol 50 mg b.i.d. 7. Albuterol nebulized 2.5 mg p.o. daily. 8. Nitrostat p.r.n. ALLERGIES: Are none. FAMILY HISTORY: Family history of cancer or coronary disease. Colon cancer. SOCIAL HISTORY: History of smoking, occasional smoking. No history of alcohol currently. Previous alcohol intake. REVIEW OF SYSTEMS: ENT: No diminished vision. No diminished hearing. Cardiovascular system: S1, S2 muffled. Respiratory: As mentioned earlier. GI: No nausea or vomiting. : No dysuria. Nervous system: No numbness or weakness. Allergy/Immunology: No asthma or hayfever. Musculoskeletal System as mentioned earlier. Hematology/Oncology: No history of anemia. Endocrine: No history of diabetes or hypothyroidism. Hematology/oncology: No history of anemia. Dermatology: Negative. Rheumatology: Negative. Psychiatric: As mentioned earlier. Constitutional: As mentioned earlier. PHYSICAL EXAM: Alert and oriented times three. Pulse is 69, blood pressure 110/59, respirations 18, temperature 97.7, pulse ox 99% 2 L. HEENT: Conjunctivae normal. Oral mucosa moist. Neck is no jugular venous distention. No carotid bruit. No lymph node enlargement. CARDIOVASCULAR: S1, S2. No S3, no S4. Respiratory: Breath sounds diminished in the bases. A few scattered rhonchi. No crackles. ABDOMEN: Soft, nontender. No mass palpable. No hepatosplenomegaly. Nervous system: Higher functions as mentioned earlier. Moves all four limbs. No focal deficits. Lymphatics: No lymph nodes palpable in the neck, axillae or groin. SKIN: No ulcer, rash or bleeding. LAB: CBC within normal limits. Sodium 148, potassium 4.2, CO2 is 21. ASSESSMENT: 1. Chest pain. Possible unstable angina. 2. History of recent pancreatitis. 3. Paroxysmal atrial fibrillation. 4. Coronary artery disease. 5. Chronic obstructive pulmonary disease. 6. Hyperlipidemia. 7. History of cerebrovascular accident, transient ischemic attack. 8. History of seizure disorder. 9. History of syncope. RECOMMENDATIONS AND DISCUSSION: In this 62 -year-old gentleman who presented with multiple complex medical issues, we will monitor the patient closely. Continue the current medications. Continue symptomatic treatment. Cardiology has cleared the patient for discharge and I would recommend the patient follow up closely with Dr. Kaur as well as at [facility] for evaluation of pancreatitis otherwise the following medications suggested. DISCHARGE INSTRUCTIONS AND MEDICATIONS: 1. Diet is cardiac diet. 2. Activity limited until followup. 3. No smoking. MEDICATIONS: 1. Albuterol 2.5 q.i.d. and p.r.n. 2. Aspirin 81 mg daily after food. 3. Lopressor 50 mg p.o. b.i.d. 4. Multivitamin 1 p.o. daily. 5. Nitrostat 0.4 sublingual p.r.n. 6. Prilosec 40 mg p.o. daily. 7. OxyContin 40 mg p.o. b.i.d. 8. Oxycodone 10 mg p.o. t.i.d. 9. Xarelto 20 mg supper. 10.Thiamine 100 mg p.o. daily. MMODL / IJN: [id number] /
[2017-06-15] MEDS ORDERED: MULTIVITAMINS, THERA 1 EACH TAB PO SCH (12:00)
[2017-06-15] MEDS ORDERED: THIAMINE 100 MG TAB PO SCH (12:00)
== END 2017-06-14 20:10 | disposition home or self-care (01) ==
LOC: EC 09:14 → 3OBS 11:09
PROVIDERS: ADMIT Hospitalist; ATTEND Hospitalist
DX: R07.89 Other chest pain (principal); K85.90 Acute pancreatitis without necrosis or infection, unspecified; I48.0 Paroxysmal atrial fibrillation; I25.10 Atherosclerotic heart disease of native coronary artery without angina pectoris; J44.9 Chronic obstructive pulmonary disease, unspecified; E78.5 Hyperlipidemia, unspecified; Z86.73 Personal history of transient ischemic attack (TIA), and cerebral infarction without residual deficits; G40.909 Epilepsy, unspecified, not intractable, without status epilepticus; R06.02 Shortness of breath; R05 Cough; M79.602 Pain in left arm; R20.0 Anesthesia of skin; R07.2 Precordial pain; R20.2 Paresthesia of skin; F10.10 Alcohol abuse, uncomplicated; F17.210 Nicotine dependence, cigarettes, uncomplicated; I10 Essential (primary) hypertension; Z79.891 Long term (current) use of opiate analgesic; M19.90 Unspecified osteoarthritis, unspecified site; G50.0 Trigeminal neuralgia; Z85.828 Personal history of other malignant neoplasm of skin; Z77.090 Contact with and (suspected) exposure to asbestos; Z79.899 Other long term (current) drug therapy; Z79.01 Long term (current) use of anticoagulants; Z80.0 Family history of malignant neoplasm of digestive organs
CPT/HCPCS: 99291; 96374; 96375 ×2; 36415; 93005; 80053; 82150; 82550; 82553; 83690; 83735; 84484; 85025; 85610; 85730; 71020; G0378; J1644 ×2; J2405

== ENCOUNTER 2018-04-04 07:14 | Inpatient (IN) | payer MEDICARE ==
[2018-04-04] MEDS ORDERED: ALBUTEROL NEBULIZED 2.5 MG/3 ML INHALATION STA (07:45)
[2018-04-04] MEDS ORDERED: methylPREDNISolone SOD SUCCI 125 MG/2 ML VIAL IV STA (07:45)
[2018-04-04 07:59] LABS: Basophils % (A) 0 %; Eosinophils # (A) 0.3 k/uL (0-0.7); Eosinophils % (A) 5 %; HCT 44.1 % (39.0-53.0); HGB 14.6 gm/dL (13.0-17.5); Lymphocytes # (A) 1.7 k/uL (1.0-4.8); Lymphocytes % (A) 29 %; MCH 30.5 pg (25.0-35.0); MCHC 33.2 g/dL (31.0-37.0); MCV 91.9 fL (80.0-100.0); Mean Platelet Volume 7.6; Monocytes # (A) 0.4 k/uL (0-1.0); Monocytes % (A) 6 %; Neutrophils # (A) 3.3 k/uL (1.3-7.7); Neutrophils % (A) 57 %; Platelet Count 222 k/uL (150-450); RDW 14.2 % (11.5-15.5); WBC 5.8 k/uL (3.8-10.6)
[2018-04-04 08:05] LABS: ALT 25 U/L (21-72); AST 18 U/L (17-59); Albumin 4.2 g/dL (3.5-5.0); Alkaline Phosphatase 94 U/L (38-126); Anion Gap 10 mmol/L; Blood Urea Nitrogen 13 mg/dL (9-20); Calcium 9.3 mg/dL (8.4-10.2); Carbon Dioxide 24 mmol/L (22-30); Chloride 108 mmol/L (98-107); Glucose 114 mg/dL (74-99); Magnesium 2.4 mg/dL (1.6-2.3); Potassium 4.2 mmol/L (3.5-5.1); Sodium 142 mmol/L (137-145); Total Bilirubin 0.4 mg/dL (0.2-1.3); Total Protein 7.1 g/dL (6.3-8.2)
[2018-04-04 08:06] LABS: Partial Thromboplastin Time 23.3 sec (22.0-30.0); Prothrombin Time 9.5 sec (9.0-12.0)
--- NOTE | 2018-04-04 08:11 | ED ---
General Adult HPI - General Chief complaint: Shortness of Breath Stated complaint: SOB Time Seen by Provider: 04/04/18 07:15 Source: patient, RN notes reviewed Mode of arrival: ambulatory Limitations: no limitations - History of Present Illness Initial comments: This is a 62-year-old male who has a past history of alcoholism and pancreatitis and COPD. Patient states he continues to smoke. Patient states over the last 4 days he has had difficulty breathing which is getting progressively worse. Patient also complains of chest pain over the last 4 days. Patient denies any fever or chills. Patient states he has had an increased cough but no sputum production. Patient denies any abdominal pain patient denies nausea vomiting diarrhea. Patient denies any leg swelling or calf pain. Patient denies abdominal pain patient denies nausea vomiting diarrhea. Patient denies any headache patient denies numbness weakness. - Related Data Home Medications Medication Instructions Recorded Confirmed Albuterol Nebulized [Ventolin 2.5 mg INHALATION RT-BID 03/06/14 04/04/18 Nebulized] oxyCODONE HCL [OxyCONTIN] 40 mg PO BID 03/06/14 04/04/18 oxyCODONE HCL 10 mg PO TID 01/30/16 04/04/18 Multivitamins, Thera [Multivitamin 1 tab PO DAILY 04/29/17 04/04/18 (formulary)] Previous Rx's Medication Instructions Recorded Metoprolol Tartrate [Lopressor] 50 mg PO BID #60 tab 04/18/17 Rivaroxaban [Xarelto] 20 mg PO W/SUPPER #30 tab 04/18/17 Aspirin 81 mg PO DAILY #30 06/14/17 Allergies Allergy/AdvReac Type Severity Reaction Status Date / Time No Known Allergies Allergy Verified 04/04/18 07:51 Review of Systems ROS Statement: Those systems with pertinent positive or pertinent negative responses have been documented in the HPI. ROS Other: All systems not noted in ROS Statement are negative. Past Medical History Past Medical History: Atrial Fibrillation, Coronary Artery Disease (CAD), Cancer , Chest Pain / Angina, COPD, CVA/TIA, Hyperlipidemia, Osteoarthritis (OA), Seizure Disorder, Syncope Additional Past Medical History / Comment(s): RT SIDE DOMINANT.Pt states he has had one CVA and one TIA-( LT PUPIL LARGER THAN RT ), right sided trigeminal neuralgia, syncopy 2012, head injury with a fall at the age of 48yrs with intracranial bleed, childhood seizures, bacterial infection in stomach couple years ago, L hip fx with surgery, skin cancer removals.EXPOSED TO ASBESTOS, new diagnosis of Afib in April 2017. New diagnosis of pancreatitis, pt to see a specialist at [facility] on 05/26/17 History of Any Multi-Drug Resistant Organisms: None Reported Past Surgical History: Appendectomy, Back Surgery, Heart Catheterization, Orthopedic Surgery, Tonsillectomy Additional Past Surgical History / Comment(s): trigeminal neuralgia gamma knife surgery, L hip with "2or 3 pins", cardiac cath approximately 10 yrs ago-no intervention, lumbar fusion, EGD/colonoscopy with benign polypectomies, R rotator cuff repair, bilateral knee arthrosopies, skin cancer removals, benign prostate bx. Past Anesthesia/Blood Transfusion Reactions: No Reported Reaction Past Psychological History: Bipolar, Depression, PTSD Smoking Status: Current every day smoker Past Alcohol Use History: None Reported Past Drug Use History: Marijuana - Past Family History Father Family Medical History: Cancer, Coronary Artery Disease (CAD) Additional Family Medical History / Comment(s): Father had colon cancer Mother Family Medical History: Cancer Additional Family Medical History / Comment(s): Mother had colon cancer. triple bypass General Exam - General Exam Comments Initial Comments: GENERAL: Patient is well-developed and well-nourished. Patient is nontoxic and well- hydrated and is in mild distress. ENT: Neck is soft and supple. No significant lymphadenopathy is noted. Oropharynx is clear. Moist mucous membranes. Neck has full range of motion without eliciting any pain. EYES: The sclera were anicteric and conjunctiva were pink and moist. Extraocular movements were intact and pupils were equal round and reactive to light. Eyelids were unremarkable. PULMONARY: Patient has expiratory wheezing bilaterally CARDIOVASCULAR: There is a regular rate and rhythm without any murmurs gallops or rubs. ABDOMEN: Soft and nontender with normal bowel sounds. No palpable organomegaly was noted. There is no palpable pulsatile mass. SKIN: Skin is clear with no lesions or rashes and otherwise unremarkable. NEUROLOGIC: Patient is alert and oriented x3. Cranial nerves II through XII are grossly intact. Motor and sensory are also intact. Normal speech, volume and content. Symmetrical smile. MUSCULOSKELETAL: Normal extremities with adequate strength and full range of motion. No lower extremity swelling or edema. No calf tenderness. LYMPHATICS: No significant lymphadenopathy is noted PSYCHIATRIC: Normal psychiatric evaluation. Normal interpersonal interactions appears functionally intact in deals appropriately with others. No signs of depression. No signs of anxiety. Limitations: no limitations Course Vital Signs 04/04/18 04/04/18 04/04/18 07:16 07:39 08:36 Temperature 98.0 F Pulse Rate 64 57 L 55 L Respiratory 18 18 Rate Blood Pressure 102/68 122/65 O2 Sat by Pulse 99 Oximetry 04/04/18 08:58 Temperature Pulse Rate 58 L Respiratory Rate Blood Pressure O2 Sat by Pulse Oximetry Medical Decision Making - Medical Decision Making EKG shows normal sinus rhythm at 65 bpm GA interval 134 QRS is 106 QT interval is 428 QTC is 445. Patient's EKG shows no ST segment elevation or depression or T wave abnormalities are noted. Patient was still having some chest pain but his breathing was better after he received 3 breathing treatments and steroids. I spoke with Dr. Mcgowan and he agreed to admit the patient and he wrote admitting orders. - Lab Data Result diagrams: 04/04/18 07:39 04/04/18 07:39 Lab Results 04/04/18 04/04/18 04/04/18 Range/Units 07:39 07:39 07:39 WBC 5.8 (3.8-10.6) k/uL RBC 4.80 (4.30-5.90) m/uL Hgb 14.6 (13.0-17.5) gm/dL Hct 44.1 (39.0-53.0) % MCV 91.9 (80.0-100.0) fL MCH 30.5 (25.0-35.0) pg MCHC 33.2 (31.0-37.0) g/dL RDW 14.2 (11.5-15.5) % Plt Count 222 (150-450) k/uL Neutrophils % 57 % Lymphocytes % 29 % Monocytes % 6 % Eosinophils % 5 % Basophils % 0 % Neutrophils # 3.3 (1.3-7.7) k/uL Lymphocytes # 1.7 (1.0-4.8) k/uL Monocytes # 0.4 (0-1.0) k/uL Eosinophils # 0.3 (0-0.7) k/uL Basophils # 0.0 (0-0.2) k/uL PT (9.0-12.0) sec INR (<1.2) APTT (22.0-30.0) sec Sodium 142 (137-145) mmol/L Potassium 4.2 (3.5-5.1) mmol/L Chloride 108 H (98-107) mmol/L Carbon Dioxide 24 (22-30) mmol/L Anion Gap 10 mmol/L BUN 13 (9-20) mg/dL Creatinine 0.88 (0.66-1.25) mg/dL Est GFR (CKD-EPI)AfAm >90 (>60 ml/min/1.73 sqM) Est GFR (CKD-EPI)NonAf >90 (>60 ml/min/1.73 sqM) Glucose 114 H (74-99) mg/dL Calcium 9.3 (8.4-10.2) mg/dL Magnesium 2.4 H (1.6-2.3) mg/dL Total Bilirubin 0.4 (0.2-1.3) mg/dL AST 18 (17-59) U/L ALT 25 (21-72) U/L Alkaline Phosphatase 94 (38-126) U/L Total Creatine Kinase 56 (55-170) U/L CK-MB (CK-2) 0.5 (0.0-2.4) ng/mL CK-MB (CK-2) Rel Index 0.9 Troponin I <0.012 (0.000-0.034) ng/mL Total Protein 7.1 (6.3-8.2) g/dL Albumin 4.2 (3.5-5.0) g/dL 04/04/18 Range/Units 07:39 WBC (3.8-10.6) k/uL RBC (4.30-5.90) m/uL Hgb (13.0-17.5) gm/dL Hct (39.0-53.0) % MCV (80.0-100.0) fL MCH (25.0-35.0) pg MCHC (31.0-37.0) g/dL RDW (11.5-15.5) % Plt Count (150-450) k/uL Neutrophils % % Lymphocytes % % Monocytes % % Eosinophils % % Basophils % % Neutrophils # (1.3-7.7) k/uL Lymphocytes # (1.0-4.8) k/uL Monocytes # (0-1.0) k/uL Eosinophils # (0-0.7) k/uL Basophils # (0-0.2) k/uL PT 9.5 (9.0-12.0) sec INR 1.0 (<1.2) APTT 23.3 (22.0-30.0) sec Sodium (137-145) mmol/L Potassium (3.5-5.1) mmol/L Chloride (98-107) mmol/L Carbon Dioxide (22-30) mmol/L Anion Gap mmol/L BUN (9-20) mg/dL Creatinine (0.66-1.25) mg/dL Est GFR (CKD-EPI)AfAm (>60 ml/min/1.73 sqM) Est GFR (CKD-EPI)NonAf (>60 ml/min/1.73 sqM) Glucose (74-99) mg/dL Calcium (8.4-10.2) mg/dL Magnesium (1.6-2.3) mg/dL Total Bilirubin (0.2-1.3) mg/dL AST (17-59) U/L ALT (21-72) U/L Alkaline Phosphatase (38-126) U/L Total Creatine Kinase (55-170) U/L CK-MB (CK-2) (0.0-2.4) ng/mL CK-MB (CK-2) Rel Index Troponin I (0.000-0.034) ng/mL Total Protein (6.3-8.2) g/dL Albumin (3.5-5.0) g/dL Disposition Clinical Impression: Chest pain, Acute exacerbation of chronic obstructive airways disease Disposition: ADMITTED IP TO THIS HOSP Referrals: Pal Kaur MD [Primary Care Provider] - 1-2 days Time of Disposition: 09:19
--- NOTE | 2018-04-04 08:19 | XR ---
EXAMINATION TYPE: XR chest 2V DATE OF EXAM: 04/04/2018 COMPARISON: Chest x-ray June 14, 2017. CTA chest April 15, 2017. HISTORY: Shortness of breath today TECHNIQUE: Frontal and lateral views of the chest are obtained. FINDINGS: There is chronic emphysematous change with moderate right apical pleural/parenchymal scarr ing redemonstrated. Calcified granuloma left lung base is redemonstrated. There is no focal air space opacity, pleural effusion, or pneumothorax seen. The cardiac silhouette size is within normal limit s. The osseous structures are intact. IMPRESSION: Chronic changes without acute pulmonary process.
[2018-04-04 08:21] LABS: Creatine Kinase 56 U/L (55-170)
[2018-04-04 08:34] LABS: Creatine Kinase MB 0.5 ng/mL (0.0-2.4); Troponin I <0.012 ng/mL (0.000-0.034)
[2018-04-04] MEDS ORDERED: ACETAMINOPHEN TAB 325 MG TAB PO PRN (10:54)
[2018-04-04] MEDS ORDERED: NALOXONE 0.4 MG/ML 1 ML VIAL IV PRN (10:54)
[2018-04-04] MEDS ORDERED: IBUPROFEN 400 MG TAB PO PRN (10:54)
[2018-04-04] MEDS ORDERED: SODIUM CHLORIDE 0.9% 1,000 ML IV STA (11:03)
--- NOTE | 2018-04-04 11:11 | P.HPIM ---
History of Present Illness H&P Date: 04/04/18 Chief Complaint: Chest pain and sob 62-year-old male who has a past history of alcoholism, pancreatitis and COPD who continues to smoke presented to the ER because over the last 4 days he has been having difficulty breathing which is getting progressively worse. This is associated with pleuritic right-sided chest pain that radiates to his back. Pain is worse with coughing and deep breathing. Chest pain is not exertional. Currently is 8 out of 10. Patient states he has had an increased cough but no sputum production. Yesterday while he was walking back to his house, all of a sudden he felt very weak and was about to fall. No blurry vision or double vision, no focal weakness or numbness, no slurred speech, no palpitations. Patient is on chronic opioid therapy due to trigeminal neuralgia. No recent illness. No fever or chills. Patient denies any abdominal pain patient denies nausea vomiting diarrhea. Patient denies any leg swelling or calf pain. Patient denies abdominal pain patient denies nausea vomiting diarrhea. Patient denies any headache Review of Systems 12 point review of system performed, negative except HPI Past Medical History Past Medical History: Atrial Fibrillation, Coronary Artery Disease (CAD), Cancer , Chest Pain / Angina, COPD, CVA/TIA, Hyperlipidemia, Osteoarthritis (OA), Seizure Disorder, Syncope Additional Past Medical History / Comment(s): RT SIDE DOMINANT.Pt states he has had one CVA ( LT PUPIL LARGER THAN RT AND OCCASIONAL BILATERAL HAND NUMBNESS), TIA, right sided trigeminal neuralgia with surgery, syncopy 2012 and pt thinks possibly yesterday, 04/03/18, head injury with a fall at the age of 48yrs with intracranial bleed, childhood seizures, bacterial infection in stomach couple years ago, L hip fx with surgery, skin cancer removals.EXPOSED TO ASBESTOS, new diagnosis of Afib in April 2017. New diagnosis of pancreatitis, pt to see a specialist at [facility] but has not done this yet. History of Any Multi-Drug Resistant Organisms: None Reported Past Surgical History: Appendectomy, Back Surgery, Heart Catheterization, Orthopedic Surgery, Tonsillectomy Additional Past Surgical History / Comment(s): trigeminal neuralgia gamma knife surgery, L hip with "2or 3 pins", cardiac cath approximately 11 yrs ago-no intervention, lumbar fusion, EGD/colonoscopy with benign polypectomies, R rotator cuff repair, bilateral knee arthrosopies, skin cancer removals, benign prostate bx and removed benign polyps. Past Anesthesia/Blood Transfusion Reactions: No Reported Reaction Smoking Status: Current every day smoker - Past Family History Father Family Medical History: Cancer, Coronary Artery Disease (CAD) Additional Family Medical History / Comment(s): Father had colon cancer. He at the age of 70yrs. Mother Family Medical History: Cancer Additional Family Medical History / Comment(s): Mother had colon cancer. triple bypass. She at the age of 77yrs. Medications and Allergies Home Medications Medication Instructions Recorded Confirmed Type Albuterol Nebulized [Ventolin 2.5 mg INHALATION RT-BID 03/06/14 04/04/18 History Nebulized] oxyCODONE HCL [OxyCONTIN] 40 mg PO BID 03/06/14 04/04/18 History oxyCODONE HCL 10 mg PO TID 01/30/16 04/04/18 History Metoprolol Tartrate [Lopressor] 50 mg PO BID #60 tab 04/18/17 04/04/18 Rx Rivaroxaban [Xarelto] 20 mg PO W/SUPPER #30 tab 04/18/17 04/04/18 Rx Multivitamins, Thera [Multivitamin 1 tab PO DAILY 04/29/17 04/04/18 History (formulary)] Aspirin 81 mg PO DAILY #30 06/14/17 04/04/18 Rx Allergies Allergy/AdvReac Type Severity Reaction Status Date / Time No Known Allergies Allergy Verified 04/04/18 07:51 Physical Exam Vitals: Vital Signs Temp Pulse Resp BP Pulse Ox 04/04/18 09:58 70 18 135/61 95 04/04/18 08:58 58 L 04/04/18 08:36 55 L 04/04/18 07:39 57 L 18 122/65 99 04/04/18 07:16 98.0 F 64 18 102/68 Intake and Output 04/03/18 04/04/18 04/04/18 22:59 06:59 14:59 Other: Voiding Method Toilet # Voids 2 Weight 84.822 kg Constitutional: No acute distress, conversant, pleasant Eyes:Anicteric sclerae, moist conjunctiva, no lid-lag, PERRLA, ENMT: Oropharynx clear, no erythema, exudates Neck: Supple, FROM, no masses, or JVD, No carotid bruits, No thyromegaly Lungs: Minimal wheezing and rhonchi in the bases, Clear to percussion, Normal respiratory effort, no accessory muscle use Cardiovascular: Heart regular in rate and rhythm, No murmurs, gallops, or rubs, No peripheral edema Abdominal: Soft, Nontender, no guarding, rebound or rigidity, Normoactive bowel sounds, No hepatomegaly, No splenomegaly, No palpable mass Skin: Normal temperature, tone, texture, turgor, no induration, No subcutaneous nodules, No rash, lesions, No ulcers Extremities: No digital cyanosis, No clubbing, Pedal pulses intact and symmetrical, Radial pulses intact and symmetrical, No calf tenderness Psychiatric: Alert and oriented to person, place and time, appropriate affect, intact judgement Neuro: Muscles Strength 5/5 in all 4 extremities, Sensation to light touch grossly present throughout, Cranial nerves II-XII grossly intact, no focal sensory deficits Results CBC & Chem 7: 04/04/18 07:39 04/04/18 07:39 Labs: Abnormal Lab Results - Last 24 Hours (Table) 04/04/18 Range/Units 07:39 Chloride 108 H (98-107) mmol/L Glucose 114 H (74-99) mg/dL Magnesium 2.4 H (1.6-2.3) mg/dL Thrombosis Risk Factor Assmnt - Choose All That Apply Any of the Below Risk Factors Present?: Yes Each Factor Represents 1 point: Abnormal pulmonary function (COPD) Other Risk Factors: Yes Each Risk Factor Represents 2 Points: Age 61-74 years, Malignancy Other congenital or acquired thrombophilia - If yes, enter type in comment: No Thrombosis Risk Factor Assessment Total Risk Factor Score: 5 Thrombosis Risk Factor Assessment Level: High Risk Assessment and Plan Plan: Acute chest pain and shortness of breath Likely secondary to acute COPD exacerbation Counseled to quit smoking Nicotine patch Consult cardio, as he has documented hx of CAD, Cycle trops, check echo. Duonebs, sterois, abx Check procalcitonin Hx of paroxysmal atrial Fibrillation: Continue xarelto and metoprolol. HR controlled, currently in sinus. Hx of trigeminal neuralgia Continue opioids Hx of CVA/TIA, Hyperlipidemia, Osteoarthritis (OA), Seizure Disorder: Stable resume meds. DVT prophylaxis Ambulatory Already on Xarelto
[2018-04-04] MEDS ORDERED: IPRATROPIUM-ALBUTEROL 3 ML NEB INHALATION PRN (11:16)
[2018-04-04] MEDS: oxyCODONE ER 20 MG TAB.ER.12H PO SCH ×2 (11:22→21:09)
[2018-04-04] MEDS: methylPREDNISolone SOD SUCCI 40 MG/ML 1 ML VIAL IV SCH ×3 (11:23→23:13)
[2018-04-04] MEDS: IPRATROPIUM-ALBUTEROL 3 ML NEB INHALATION SCH ×3 (11:34→20:13)
[2018-04-04] MEDS ORDERED: methylPREDNISolone SOD SUCCI 125 MG/2 ML VIAL IV SCH (12:00)
[2018-04-04] MEDS ORDERED: ALBUTEROL NEBULIZED 2.5 MG/3 ML INHALATION SCH (12:00)
[2018-04-04 12:24] LABS: Cholesterol 212 mg/dL (<200); HDL Cholesterol 33 mg/dL (40-60); LDL Cholesterol,Calculated 145 mg/dL (0-99); Triglycerides 169 mg/dL (<150)
[2018-04-04] MEDS: ATORVASTATIN 40 MG TAB PO SCH (13:45)
--- NOTE | 2018-04-04 13:48 | P.CRDCN ---
History of Present Illness History of present illness: Mr. Gutierrez is a pleasant 62-year-old male past medical history significant for paroxysmal atrial fibrillation on long-term anticoagulation, dyslipidemia, COPD, chronic systolic dysfunction, history of CVA, daily marijuana use and chronic nicotine dependence. He has followed in the office with Dr. Kapadia in the past. However he has shown up to recent appointments. We have been asked to see him in consultation for symptoms of chest pain. He states this all seemed was started approximately 3 days ago when he started feeling a tight sensation in the right anterior chest wall radiating around to the thoracic region. This pain was persistent with no specific alleviating factor. However he did notice an increase in the discomfort when he would cough. The pain has remained steady for the previous 3 days. Yesterday he was outside clearing and some items from the car for his . He doesn't recall the circumstances surrounding the situational he knows that he remembers reaching for the car handle to open the door and asked that he recalls he woke up on the ground. He laid there for a few minutes to catch his bearings and instructed up walked into the house and told his happened. He refused to come to the hospital that time. The night he went to sleep at his regular time around 10:00 pm, he woke up around 2 in the morning feeling as though he was suffocating. He had to immediately get up out of bed and go downstairs and sat in his recliner which seemed to relieve his shortness of breath. Short while later he decided to go back to bed to try again to lay down and again the same thing happened he laid down and he felt as though he was suffocating could not breathe or catch his breath. He waited for his to wake up and at that time he came to the emergency department for evaluation. He continues to complain of pain in the right anterior chest wall with some improvement after receiving breathing treatments.. He denies symptoms of palpitations, dizziness, nausea, vomiting or diaphoresis. He cannot specify any symptoms prior to syncope or thereafter other than the constant pain in the right anterior chest wall. EKG reveals sinus mechanism with no acute ST or T wave abnormalities noted. Q waves noted inferiorly. This is consistent with previous EKGs. Chest x-ray shows evidence of chronic changes with no acute cardiopulmonary processes noted. Evaluation of the films does reveal some evidence of Jeaneth B- lines. Laboratory data reviewed, hemoglobin 14.6, platelets 222, sodium 142, potassium 4.2, creatinine 0.88, magnesium 2.4, cardiac enzymes negative 1. Current cardiac medications include aspirin 81 mg daily, Lopressor 50 mg twice a day and Xarelto 20 mg daily. He also takes OxyContin and albuterol at home. Most recent echocardiogram performed April 2017 mildly impaired left ventricular systolic function with ejection fraction 45-50%, basal inferior hypokinesia and moderate concentric left ventricular hypertrophy. Most recent cardiac catheterization performed June 2016 revealed no significant obstructive coronary artery disease. Review of Systems At the time of my exam: CONSTITUTIONAL: Denies fever. Denies chills. EYES: Denies blurred vision. Denies vision changes. Denies eye pain. EARS, NOSE, MOUTH & THROAT: Denies headache. Denies sore throat. Denies ear pain. CARDIOVASCULAR: Complains of chest pain. Complains of shortness of breath. Complains of orthopnea. Denies PND. Denies palpitations. RESPIRATORY: Denies cough. GASTROINTESTINAL: Denies abdominal pain. Denies diarrhea. Denies constipation. Denies nausea. Denies vomiting. MUSCULOSKELETAL: Denies myalgias. INTEGUMENTARY: Denies pruitis. Denies rash. NEUROLOGIC: Denies numbness. Denies tingling. Denies weakness. PSYCHIATRIC: Denies anxiety. Denies depression. ENDOCRINE: Denies fatigue. Denies weight change. Denies polydipsia. Denies polyurina. GENITOURINARY: Denies burning, hematuria or urgency with micturation. HEMATOLOGIC: Denies history of anemia. Denies bleeding. Past Medical History Past Medical History: Atrial Fibrillation, Coronary Artery Disease (CAD), Cancer , Chest Pain / Angina, COPD, CVA/TIA, Hyperlipidemia, Osteoarthritis (OA), Seizure Disorder, Syncope Additional Past Medical History / Comment(s): RT SIDE DOMINANT.Pt states he has had one CVA ( LT PUPIL LARGER THAN RT AND OCCASIONAL BILATERAL HAND NUMBNESS), TIA, right sided trigeminal neuralgia with surgery, syncopy 2012 and pt thinks possibly yesterday, 04/03/18, head injury with a fall at the age of 48yrs with intracranial bleed, childhood seizures, bacterial infection in stomach couple years ago, L hip fx with surgery, skin cancer removals.EXPOSED TO ASBESTOS, new diagnosis of Afib in April 2017. New diagnosis of pancreatitis, pt to see a specialist at [facility] but has not done this yet. History of Any Multi-Drug Resistant Organisms: None Reported Past Surgical History: Appendectomy, Back Surgery, Heart Catheterization, Orthopedic Surgery, Tonsillectomy Additional Past Surgical History / Comment(s): trigeminal neuralgia gamma knife surgery, L hip with "2or 3 pins", cardiac cath approximately 11 yrs ago-no intervention, lumbar fusion, EGD/colonoscopy with benign polypectomies, R rotator cuff repair, bilateral knee arthrosopies, skin cancer removals, benign prostate bx and removed benign polyps. Past Anesthesia/Blood Transfusion Reactions: No Reported Reaction Smoking Status: Current every day smoker - Past Family History Father Family Medical History: Cancer, Coronary Artery Disease (CAD) Additional Family Medical History / Comment(s): Father had colon cancer. He at the age of 70yrs. Mother Family Medical History: Cancer Additional Family Medical History / Comment(s): Mother had colon cancer. triple bypass. She at the age of 77yrs. Medications and Allergies Home Medications Medication Instructions Recorded Confirmed Type Albuterol Nebulized [Ventolin 2.5 mg INHALATION RT-BID 03/06/14 04/04/18 History Nebulized] oxyCODONE HCL [OxyCONTIN] 40 mg PO BID 03/06/14 04/04/18 History oxyCODONE HCL 10 mg PO TID 01/30/16 04/04/18 History Metoprolol Tartrate [Lopressor] 50 mg PO BID #60 tab 04/18/17 04/04/18 Rx Rivaroxaban [Xarelto] 20 mg PO W/SUPPER #30 tab 04/18/17 04/04/18 Rx Multivitamins, Thera [Multivitamin 1 tab PO DAILY 04/29/17 04/04/18 History (formulary)] Aspirin 81 mg PO DAILY #30 06/14/17 04/04/18 Rx Allergies Allergy/AdvReac Type Severity Reaction Status Date / Time No Known Allergies Allergy Verified 04/04/18 07:51 Physical Exam Vitals: Vital Signs Temp Pulse Resp BP Pulse Ox 04/04/18 09:58 70 18 135/61 95 04/04/18 08:58 58 L 04/04/18 08:36 55 L 04/04/18 07:39 57 L 18 122/65 99 04/04/18 07:16 98.0 F 64 18 102/68 Intake and Output 04/03/18 04/04/18 04/04/18 22:59 06:59 14:59 Other: Voiding Method Toilet # Voids 2 Weight 84.822 kg Blood pressure 135/61 heart rate 70 afebrile maintaining oxygen saturation on room air GENERAL: This is a 62-year-old male in no apparent distress at the time of my examination. Appears older than stated age. HEENT: Head is atraumatic, normocephalic. Pupils are equal, round. Sclerae anicteric. Conjunctivae are clear. Mucous membranes of the mouth are moist. Neck is supple. There is no jugular venous distention. No carotid bruit is heard. LUNGS: Bibasilar rales, coarse rhonchi. No wheezes. No chest wall tenderness is noted on palpation or with deep breathing. HEART: Regular rate and rhythm without murmurs, rubs or gallops. S1 and S2 heard. Distant heart sounds. ABDOMEN: Soft, nontender. Bowel sounds are heard. No organomegaly noted. EXTREMITIES: No evidence of peripheral edema and no calf tenderness noted. VASCULAR: Radial and dorsalis pedis pulses palpated, no evidence of clubbing. NEUROLOGIC: Patient is awake, alert and oriented x3. Results 04/04/18 07:39 04/04/18 07:39 Cardiac Enzymes 04/04/18 04/04/18 Range/Units 07:39 07:39 AST 18 (17-59) U/L CK-MB (CK-2) 0.5 (0.0-2.4) ng/mL Troponin I <0.012 (0.000-0.034) ng/mL Coagulation 04/04/18 Range/Units 07:39 PT 9.5 (9.0-12.0) sec APTT 23.3 (22.0-30.0) sec CBC 04/04/18 Range/Units 07:39 WBC 5.8 (3.8-10.6) k/uL RBC 4.80 (4.30-5.90) m/uL Hgb 14.6 (13.0-17.5) gm/dL Hct 44.1 (39.0-53.0) % Plt Count 222 (150-450) k/uL Comprehensive Metabolic Panel 04/04/18 Range/Units 07:39 Sodium 142 (137-145) mmol/L Potassium 4.2 (3.5-5.1) mmol/L Chloride 108 H (98-107) mmol/L Carbon Dioxide 24 (22-30) mmol/L BUN 13 (9-20) mg/dL Creatinine 0.88 (0.66-1.25) mg/dL Glucose 114 H (74-99) mg/dL Calcium 9.3 (8.4-10.2) mg/dL AST 18 (17-59) U/L ALT 25 (21-72) U/L Alkaline Phosphatase 94 (38-126) U/L Total Protein 7.1 (6.3-8.2) g/dL Albumin 4.2 (3.5-5.0) g/dL Current Medications Generic Name Dose Route Start Last Admin Trade Name Freq PRN Reason Stop Dose Admin Acetaminophen 650 mg 04/04/18 10:54 Tylenol Tab PO Q6HR PRN Mild Pain or Fever > 100.5 Albuterol/Ipratropium 3 ml 04/04/18 12:00 04/04/18 11:34 Duoneb 0.5 Mg-3 Mg/3 Ml Soln INHALATION 3 ml RT-QID YARA Administration Albuterol/Ipratropium 3 ml 04/04/18 11:16 Duoneb 0.5 Mg-3 Mg/3 Ml Soln INHALATION RT-Q2H PRN Shortness Of Breath Or Wheezing Aspirin 81 mg 04/05/18 09:00 Aspirin PO DAILY [facility] Ceftriaxone Sodium 1,000 mg 04/05/18 09:00 Rocephin IVP Q24HR [facility] Azithromycin 500 mg/ Sodium 250 mls @ 125 mls/hr 04/05/18 09:00 Chloride IVPB DAILY [facility] Sodium Chloride 1,000 mls @ 75 mls/hr 04/04/18 11:03 04/04/18 11:23 Saline 0.9% IV 04/05/18 00:22 75 mls/hr .[id number] STA Administration Methylprednisolone Sodium Succinate 40 mg 04/04/18 12:00 04/04/18 11:23 Solu-Medrol IV 40 mg Q6HR YARA Administration Metoprolol Tartrate 50 mg 04/04/18 21:00 Lopressor PO BID YARA Multivitamins 1 each 04/05/18 12:00 Theragran PO 1200 YARA Naloxone HCl 0.2 mg 04/04/18 10:54 Narcan IV Q2M PRN Opioid Reversal Nicotine 1 patch 04/05/18 09:00 Habitrol 14mg/24hr Patch TRANSDERM DAILY YARA Oxycodone HCl 10 mg 04/04/18 11:00 04/04/18 11:22 Oxyir PO 10 mg TID YARA Administration Oxycodone HCl 40 mg 04/04/18 11:00 04/04/18 11:22 Oxycontin 20mg E.R. PO 40 mg BID YARA Administration Rivaroxaban 20 mg 04/04/18 17:30 Xarelto PO W/SUPPER YARA Intake and Output 04/03/18 04/04/18 04/04/18 22:59 06:59 14:59 Other: Voiding Method Toilet # Voids 2 Weight 84.822 kg Patient Weight 04/05/18 06:59 Weight 84.822 kg 04/04/18 07:39 04/04/18 07:39 Assessment and Plan Assessment: ASSESSMENT Syncope with positive loss of consciousness, unknown downtime. Denies seizure activity, no loss of bowel/bladder or tongue biting. Chest pain, atypical. Paroxysmal atrial fibrillation on long-term anticoagulation currently maintaining sinus mechanism History of chronic pancreatitis, quit drinking alcohol 2 years ago Dyslipidemia Chronic nicotine dependence Daily marijuana use History of non-compliance PLAN Obtain 2-D echocardiogram and Doppler study to assess cardiac structure and function. Continue to obtain serial cardiac enzymes to rule out an acute coronary event. Check d-dimer, proBNP and lipid panel. Start on atorvastatin 40 mg daily Apply cardiac telemetry monitoring to assess for any acute brody-arrhythmia. Cessation of tobacco and marijuana recommended. Lengthy discussion regarding importance of follow-up. Prior to discharge he needs an event monitor placed. This can be done here or through our office. We will continue to follow closely on [facility]. Thank you kindly for this consultation. Nurse Practitioner note has been reviewed, I agree with a documented findings and plan of care. Patient was seen and examined.
[2018-04-04] MEDS: RIVAROXABAN 20 MG TAB PO SCH (15:26)
--- NOTE | 2018-04-04 16:45 | ECHOF ---
Referral Reason:cp MEASUREMENTS -------- HEIGHT: 193.0 cm WEIGHT: 84.8 kg BP: 135/61 RVIDd: 3.3 cm (< 3.3) IVSd: 1.2 cm (0.6 - 1.1) LVIDd: 4.1 cm (3.9 - 5.3) LVPWd: 1.3 cm (0.6 - 1.1) IVSs: 1.4 cm LVIDs: 2.3 cm LVPWs: 1.3 cm LAESV Index (A-L): 25.04 ml/m Ao Diam: 3.3 cm (2.0 - 3.7) AV Cusp: 1.7 cm (1.5 - 2.6) LA Diam: 2.3 cm (2.7 - 3.8) MV E Wyatt: 0.83 m/s MV DecT: 374 ms MV A Wyatt: 0.93 m/s MV E/A Ratio: 0.90 RAP: 5.00 mmHg RVSP: 16.63 mmHg FINDINGS -------- Sinus rhythm. This was a technically difficult study with suboptimal views. The left ventricular size is normal. There is mild concentric left ventricular hypertrophy. Overa ll left ventricular systolic function is normal with, an EF between 55 - 60 %. The right ventricle is mildly enlarged. Normal LA size by volume 22+/-6 ml/m2. RA appears enlarged. 3ml of Lumason was utilized for enhancement of images. There is mild aortic valve sclerosis. There is no evidence of aortic regurgitation. There is no e vidence of aortic stenosis. The mitral valve leaflets are mildly thickened. There is trace to mild mitral regurgitation. Trace tricuspid regurgitation present. Right ventricular systolic pressure is normal at < 35 mmHg. There is no evidence of pulmonary hypertension. The pulmonic valve was not well visualized. The aortic root size is normal. IVC Not well visulized. There is no pericardial effusion. CONCLUSIONS -------- 1. Sinus rhythm. 2. This was a technically difficult study with suboptimal views. 3. The left ventricular size is normal. 4. There is mild concentric left ventricular hypertrophy. 5. Overall left ventricular systolic function is normal with, an EF between 55 - 60 %. 6. The right ventricle is mildly enlarged. 7. Normal LA size by volume 22+/-6 ml/m2. 8. RA appears enlarged. 9. 3ml of Lumason was utilized for enhancement of images. 10. There is mild aortic valve sclerosis. 11. The mitral valve leaflets are mildly thickened. 12. There is trace to mild mitral regurgitation. 13. Trace tricuspid regurgitation present. 14. Right ventricular systolic pressure is normal at < 35 mmHg. 15. There is no evidence of pulmonary hypertension. 16. The pulmonic valve was not well visualized. 17. The aortic root size is normal. 18. IVC Not well visulized. 19. There is no pericardial effusion. CALIBRATOR BAROMETERS: Adalberto Lebron RDCS
[2018-04-04 16:54] LABS: Glucose,Whole Blood 188 mg/dL (75-99)
[2018-04-04] MEDS ORDERED: NICOTINE 14MG/24HR PATCH TRANSDERM STA (18:44)
[2018-04-04] MEDS: ONDANSETRON 4 MG/2 ML VIAL IVP PRN (20:06)
[2018-04-04 20:23] LABS: Glucose,Whole Blood 143 mg/dL (75-99)
[2018-04-04] MEDS: METOPROLOL TARTRATE 50 MG TAB PO SCH (21:09)
[2018-04-04] MEDS: INSULIN ASPART 100 UNIT/ML 1 ML 10 ML VIAL SQ SCH (21:11)
[2018-04-05 05:54] LABS: Glucose,Whole Blood 141 mg/dL (75-99)
[2018-04-05] MEDS: methylPREDNISolone SOD SUCCI 40 MG/ML 1 ML VIAL IV SCH ×4 (06:32→23:21)
[2018-04-05] MEDS: INSULIN ASPART 100 UNIT/ML 1 ML 10 ML VIAL SQ SCH ×4 (06:33→21:06)
[2018-04-05 06:37] LABS: Basophils % (A) 0 %; Eosinophils % (A) 0 %; HCT 40.7 % (39.0-53.0); HGB 13.5 gm/dL (13.0-17.5); Lymphocytes # (A) 0.8 k/uL (1.0-4.8); Lymphocytes % (A) 5 %; MCH 30.6 pg (25.0-35.0); MCHC 33.1 g/dL (31.0-37.0); MCV 92.5 fL (80.0-100.0); Mean Platelet Volume 7.7; Monocytes # (A) 0.5 k/uL (0-1.0); Monocytes % (A) 3 %; Neutrophils # (A) 14.1 k/uL (1.3-7.7); Neutrophils % (A) 91 %; Platelet Count 215 k/uL (150-450); RDW 14.2 % (11.5-15.5); WBC 15.5 k/uL (3.8-10.6)
[2018-04-05 07:10] LABS: ALT 21 U/L (21-72); AST 15 U/L (17-59); Alkaline Phosphatase 76 U/L (38-126); Anion Gap 13 mmol/L; Blood Urea Nitrogen 14 mg/dL (9-20); Calcium 9.6 mg/dL (8.4-10.2); Carbon Dioxide 23 mmol/L (22-30); Chloride 105 mmol/L (98-107); Glucose 137 mg/dL (74-99); Magnesium 2.3 mg/dL (1.6-2.3); Phosphorus 4.2 mg/dL (2.5-4.5); Potassium 4.7 mmol/L (3.5-5.1); Sodium 141 mmol/L (137-145); Total Bilirubin 0.5 mg/dL (0.2-1.3); Total Protein 6.7 g/dL (6.3-8.2)
[2018-04-05] MEDS: IPRATROPIUM-ALBUTEROL 3 ML NEB INHALATION SCH ×4 (07:28→19:58)
[2018-04-05] MEDS: ONDANSETRON 4 MG/2 ML VIAL IVP PRN ×2 (07:35→16:17)
--- NOTE | 2018-04-05 08:40 | P.PN ---
Subjective Progress Note Date: 04/05/18 Principal diagnosis: Chest pain This is a pleasant 62-year-old gentleman who sees Dr. Kapadia in the office as an outpatient with a past medical history significant for paroxysmal atrial fibrillation, chronic respiratory failure/COPD, and history of CVA, was admitted to the hospital with syncope and atypical chest discomfort. The patient was ruled out for acute coronary event. The cardiac enzymes were checked and came in to be unremarkable. The EKG showed sinus rhythm without any significant ST or T-wave abnormalities. The echocardiogram revealed normal LV function without any significant valvular abnormalities. On follow-up with him today, he states that he did have an episode of chest discomfort this incident analyst. He continues to have nausea and he has been vomiting as well as. Objective - Vital Signs Vital signs: Vital Signs Temp 98 F 04/05/18 00:00 Pulse 72 04/05/18 07:40 Resp 18 04/05/18 04:00 BP 91/50 04/05/18 04:00 Pulse Ox 96 04/05/18 07:28 Intake & Output 04/04/18 04/05/18 04/05/18 18:59 06:59 18:59 Intake Total 100 960 180 Output Total 950 Balance 100 10 180 Weight 84.822 kg 84.2 kg Intake: Oral 100 960 180 Output: Urine 950 Other: Voiding Method Toilet Urinal # Voids 2 - Constitutional General appearance: Present: no acute distress - Respiratory Respiratory: bilateral: CTA - Cardiovascular Rhythm: regular Heart sounds: normal: S1, S2 - Labs CBC & Chem 7: 04/05/18 05:54 04/05/18 05:54 Labs: Abnormal Lab Results - Last 24 Hours (Table) 04/04/18 04/04/18 04/04/18 Range/Units 07:39 16:44 20:22 WBC (3.8-10.6) k/uL Neutrophils # (1.3-7.7) k/uL Lymphocytes # (1.0-4.8) k/uL Glucose (74-99) mg/dL POC Glucose (mg/dL) 188 H 143 H (75-99) mg/dL AST (17-59) U/L Triglycerides 169 H (<150) mg/dL Cholesterol 212 H (<200) mg/dL LDL Cholesterol, Calc 145 H (0-99) mg/dL HDL Cholesterol 33 L (40-60) mg/dL 04/05/18 04/05/18 04/05/18 Range/Units 05:54 05:54 05:54 WBC 15.5 H (3.8-10.6) k/uL Neutrophils # 14.1 H (1.3-7.7) k/uL Lymphocytes # 0.8 L (1.0-4.8) k/uL Glucose 137 H (74-99) mg/dL POC Glucose (mg/dL) 141 H (75-99) mg/dL AST 15 L (17-59) U/L Triglycerides (<150) mg/dL Cholesterol (<200) mg/dL LDL Cholesterol, Calc (0-99) mg/dL HDL Cholesterol (40-60) mg/dL Assessment and Plan Assessment: Assessment #1 atypical chest discomfort #2 paroxysmal atrial fibrillation #3 COPD #4 nausea and vomiting Plan #1 acute coronary event was ruled out #2 severe underlying coronary artery disease to be ruled out. I am concerned about severe CAD because of the chest discomfort associated with syncope. #3 the echocardiogram was reviewed and revealed normal LV function without any significant valvular abnormalities. I would recommend keeping the patient for additional 24 hour and assess him in the morning tomorrow. If he develop any more episode of chest discomfort I would recommend proceeding with a coronary angiogram.
[2018-04-05] MEDS ORDERED: AZITHROMYCIN 500 MG in SODIUM CHLORIDE 0.9% 250 ML IVPB SCH (09:00)
[2018-04-05] MEDS ORDERED: AZITHROMYCIN 500 MG in DEXTROSE 5% IN WATER 250 ML IVPB SCH ×2 (09:00)
[2018-04-05] MEDS ORDERED: cefTRIAXone IN SWFI 1,000 MG/10 ML SYRINGE IVP SCH (09:00)
[2018-04-05] MEDS: ATORVASTATIN 40 MG TAB PO SCH (09:37)
[2018-04-05] MEDS: oxyCODONE ER 20 MG TAB.ER.12H PO SCH ×2 (09:37→21:06)
[2018-04-05] MEDS: NICOTINE 14MG/24HR PATCH TRANSDERM SCH (09:37)
[2018-04-05] MEDS: ASPIRIN 81 MG PO SCH (09:37)
[2018-04-05] MEDS: METOPROLOL TARTRATE 50 MG TAB PO SCH ×2 (09:37→21:06)
[2018-04-05 12:02] LABS: Glucose,Whole Blood 147 mg/dL (75-99)
[2018-04-05] MEDS: MULTIVITAMINS, THERA 1 EACH TAB PO SCH (12:18)
[2018-04-05 17:01] LABS: Glucose,Whole Blood 140 mg/dL (75-99)
[2018-04-05] MEDS: RIVAROXABAN 20 MG TAB PO SCH (17:32)
[2018-04-05 20:10] LABS: Glucose,Whole Blood 159 mg/dL (75-99)
--- NOTE | 2018-04-05 21:08 | PN ---
PROGRESS NOTE DATE OF SERVICE: 04/05/18 PRESENTING COMPLAINT: Chest pain. INTERVAL HISTORY: The patient presented with sharp chest pain mainly located on the right side in the lateral chest wall and below the right breast. It is worse with a deep breath. The patient's D-dimer was low. There was no left precordial pain, not really related to any movement. Denies any fever and chills. No lower extremity swelling. REVIEW OF SYSTEMS: Done for constitutional, cardiovascular, GI, pulmonary; relevant findings as above. CURRENT MEDICATIONS: Include DuoNeb, ceftriaxone and IV Solu-Medrol. PHYSICAL EXAMINATION: VITAL SIGNS: Temperature 97.1, pulse 67, respiratory 18, blood pressure 116/55, pulse ox 96% on 2 L. GENERAL APPEARANCE: Sitting up. A bit anxious-appearing. EYES: Pupils are equal, conjunctivae normal. HEENT: External appearance of nose and ears normal. Oral cavity normal. NECK: JVD not raised. Mass not palpable. Respiratory effort increased. LUNGS decreased breath sounds. CARDIOVASCULAR: 1st and 2nd sounds normal. No edema. ABDOMEN: Soft, nontender. Liver and spleen not palpable. PSYCHIATRY: Alert and oriented x3. Mood and affect slightly anxious-appearing. INVESTIGATIONS: White count 15.5. Potassium 4.7. D-dimer 0.37. 2D echo, EF 55-60%. ASSESSMENT: 1. Right-sided chest pain with some pleuritic nature to it could be pleurisy. Does not seem to be too much for cardiac presentation. The patient did have syncope because of pain. Hence, I would like to rule out underlying pulmonary embolism. 2. Acute chronic obstructive pulmonary disease exacerbation in a current smoker. 3. Chronic nicotine dependence. Patient is a cigarette smoker. 4. Primary osteoarthritis multiple joints, bilateral. We will DC the antibiotics. Keep the patient on IV Solu-Medrol. The patient already taking the OxyContin for chronic pain and is chronically on Xarelto. Follow with Cardiology. MMODL / IJN: [id number] /
--- NOTE | 2018-04-05 21:13 | CT ---
EXAMINATION TYPE: CT angio chest DATE OF EXAM: 04/05/2018 COMPARISON: NONE HISTORY: Difficulty breathing. CT DLP: 315.1 mGycm Automated exposure control for dose reduction was used. CONTRAST: CTA scan of the thorax is performed with IV Contrast, patient injected with 55ml mL of Isovue 370, pu lmonary embolism protocol. MIP images are created and reviewed. 3D reconstructed images are created on an independent workstation and reviewed. FINDINGS: LUNGS: The lungs are remarkable for some consolidation at the left lung base likely scarring, there a re associated calcifications present, some probable atelectatic changes or scarring also present at t he right lung base atelectasis. Emphysematous changes are present within the lungs.. There is no pl eural effusion or pneumothorax seen. The tracheobronchial tree is patent. AORTA: No additional significant abnormality is seen. MEDIASTINUM: There is satisfactory enhancement of the pulmonary artery and its branches, there is no CT evidence for pulmonary embolism. There are no greater than 1 cm hilar or mediastinal lymph nodes. Calcified subcarinal nodes are present, there is a small prevascular node, aortic pulmonary window node, upper abdomen no and left hilar node No pericardial effusion is seen. OTHER: No additional significant abnormality is seen. Multiple calcifications are present within the spleen. IMPRESSION: EMPHYSEMA. OLD GRANULOMATOUS DISEASE. NO EVIDENT PULMONARY EMBOLISM.
[2018-04-06 06:01] LABS: Glucose,Whole Blood 122 mg/dL (75-99)
[2018-04-06] MEDS: INSULIN ASPART 100 UNIT/ML 1 ML 10 ML VIAL SQ SCH ×4 (06:09→21:08)
[2018-04-06] MEDS: methylPREDNISolone SOD SUCCI 40 MG/ML 1 ML VIAL IV SCH ×3 (06:24→17:35)
[2018-04-06] MEDS: NICOTINE 14MG/24HR PATCH TRANSDERM SCH (08:52)
[2018-04-06] MEDS: METOPROLOL TARTRATE 50 MG TAB PO SCH ×2 (08:52→21:09)
[2018-04-06] MEDS: ASPIRIN 81 MG PO SCH (08:52)
[2018-04-06] MEDS: ATORVASTATIN 40 MG TAB PO SCH (08:52)
[2018-04-06] MEDS: oxyCODONE ER 20 MG TAB.ER.12H PO SCH ×2 (08:53→21:09)
[2018-04-06] MEDS: IPRATROPIUM-ALBUTEROL 3 ML NEB INHALATION SCH ×4 (08:58→19:47)
--- NOTE | 2018-04-06 10:02 | P.PN ---
Subjective Progress Note Date: 04/06/18 Principal diagnosis: Chest pain This is a pleasant 62-year-old gentleman who sees Dr. Kapadia in the office as an outpatient with a past medical history significant for paroxysmal atrial fibrillation, chronic respiratory failure/COPD, and history of CVA, was admitted to the hospital with syncope and atypical chest discomfort. The patient was ruled out for acute coronary event. The cardiac enzymes were checked and came in to be unremarkable. The EKG showed sinus rhythm without any significant ST or T-wave abnormalities. The echocardiogram revealed normal LV function without any significant valvular abnormalities. 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 The chest discomfort is mostly on the right side of the chest. The nausea and vomiting have improved. Objective - Vital Signs Vital signs: Vital Signs Temp 97.5 F L 04/06/18 00:00 Pulse 68 04/06/18 09:07 Resp 16 04/06/18 04:00 BP 100/59 04/06/18 03:55 Pulse Ox 100 04/06/18 03:55 Intake & Output 04/05/18 04/06/18 04/06/18 18:59 06:59 18:59 Intake Total 810 600 Output Total 1100 Balance 810 -500 Weight 84 kg Intake: Intake, IV Titration 250 Amount Azithromycin 500 mg In 250 Sodium Chloride 0.9% 250 ml @ 125 mls/hr IVPB DAILY [facility] Rx#:[id number] Oral 560 600 Output: Urine 1100 Other: Voiding Method Urinal # Bowel Movements 0 - Constitutional General appearance: Present: no acute distress - Respiratory Respiratory: bilateral: CTA - Cardiovascular Heart sounds: normal: S1, S2 - Labs CBC & Chem 7: 04/05/18 05:54 04/05/18 05:54 Labs: Abnormal Lab Results - Last 24 Hours (Table) 04/05/18 04/05/18 04/05/18 Range/Units 11:55 16:41 20:09 POC Glucose (mg/dL) 147 H 140 H 159 H (75-99) mg/dL 04/06/18 Range/Units 06:00 POC Glucose (mg/dL) 122 H (75-99) mg/dL Assessment and Plan Assessment: Assessment #1 atypical chest discomfort #2 paroxysmal atrial fibrillation #3 COPD #4 nausea and vomiting Plan #1 acute coronary event was ruled out #2 severe underlying coronary artery disease to be ruled out. I am concerned about severe CAD because of the chest discomfort associated with syncope. #3 the echocardiogram was reviewed and revealed normal LV function without any significant valvular abnormalities. I would recommend keeping the patient for additional 24 hour and assess him in the morning tomorrow. If he develop any more episode of chest discomfort I would recommend proceeding with a coronary angiogram.
[2018-04-06] MEDS: MULTIVITAMINS, THERA 1 EACH TAB PO SCH (12:11)
[2018-04-06 12:12] LABS: Glucose,Whole Blood 120 mg/dL (75-99)
[2018-04-06 17:16] LABS: Glucose,Whole Blood 138 mg/dL (75-99)
[2018-04-06] MEDS: RIVAROXABAN 20 MG TAB PO SCH (17:35)
[2018-04-06 20:58] LABS: Glucose,Whole Blood 154 mg/dL (75-99)
[2018-04-07] MEDS: methylPREDNISolone SOD SUCCI 40 MG/ML 1 ML VIAL IV SCH (04:54)
[2018-04-07 05:59] LABS: Glucose,Whole Blood 118 mg/dL (75-99)
[2018-04-07] MEDS: INSULIN ASPART 100 UNIT/ML 1 ML 10 ML VIAL SQ SCH ×2 (06:19→12:27)
--- NOTE | 2018-04-07 07:25 | PN ---
PROGRESS NOTE DATE OF SERVICE: 04/06/2018 PRESENTING COMPLAINT: Chest pain. INTERVAL HISTORY: The patient presents with right-sided chest pain associated with syncope with a pleuritic presentation. PE was ruled out. Patient is still having pain. It may be noted that the patient has had this pain previously too. Cardiology is contemplating a cardiac catheterization. REVIEW OF SYSTEMS: Review of systems done for constitutional, cardiovascular, GI, pulmonary; relevant findings as above. CURRENT MEDICATIONS: Current medications are reviewed to include DuoNeb, IV Solu-Medrol. PHYSICAL EXAMINATION: On examination, temperature 98.3, pulse 64, respiratory 18, blood pressure 117/67, pulse ox 96% on room air. GENERAL APPEARANCE: Sitting up, a bit anxious. EYES: Pupils equal. Conjunctivae normal. HENT: External appearance of nose and ears normal. Oral cavity normal. NECK: JVD not raised. Mass not palpable. RESPIRATORY: Effort increased. LUNGS: Decreased breath sounds. CARDIOVASCULAR: First and second sounds normal. No edema. ABDOMEN: Soft, nontender. Liver and spleen not palpable. Psychiatry: Alert and oriented x3. Mood and affect anxious appearing. INVESTIGATIONS: Accu-Cheks are noted. ASSESSMENT: 1. Acute chronic obstructive pulmonary disease exacerbation in a current smoker. 2. Right-sided chest pain probably viral pleurisy. 3. Rule out cardiac cause of presentation. Cardiology is contemplating a cardiac catheterization. 4. Chronic nicotine dependence. Patient is a cigarette smoker. 5. Primary osteoarthritis multiple joints bilaterally. PLAN: Will cut back on IV Solu-Medrol. Continue with current medication and treatment plan. Await further input from Cardiology. Smoking cessation counseling was done with the patient extensively. The patient said he is trying to cut back. He still smokes about a pack a day. Nicotine patch will be up to 21 mg. Will add inhaled steroids. MMODL / IJN: [id number] /
[2018-04-07] MEDS: IPRATROPIUM-ALBUTEROL 3 ML NEB INHALATION SCH ×3 (07:39→15:08)
[2018-04-07 07:46] VITALS: RESP 18
[2018-04-07] MEDS: METOPROLOL TARTRATE 50 MG TAB PO SCH (07:56)
[2018-04-07] MEDS: ASPIRIN 81 MG PO SCH (07:56)
[2018-04-07] MEDS: ATORVASTATIN 40 MG TAB PO SCH (07:56)
[2018-04-07] MEDS: NICOTINE 14MG/24HR PATCH TRANSDERM SCH ×2 (07:56→08:00)
[2018-04-07] MEDS: oxyCODONE ER 20 MG TAB.ER.12H PO SCH (07:59)
[2018-04-07] MEDS ORDERED: BUDESONIDE 1 MG/2 ML NEBU INHALATION SCH (08:00)
[2018-04-07] MEDS ORDERED: methylPREDNISolone SOD SUCCI 40 MG/ML 1 ML VIAL IV SCH (09:00)
[2018-04-07] MEDS ORDERED: ATROPINE SULFATE 0.1 MG/ML 10ML SYRINGE ONE (09:03)
[2018-04-07] MEDS ORDERED: DOBUTamine DRIP for NUC MED 500 MG in DEXTROSE/WATER 1 250ML.BAG IV ONE (09:03)
[2018-04-07 11:52] LABS: Glucose,Whole Blood 104 mg/dL (75-99)
--- NOTE | 2018-04-07 12:15 | P.PN ---
Subjective Progress Note Date: 04/07/18 Mr. Gutierrez is a pleasant 62-year-old male past medical history significant for paroxysmal atrial fibrillation on long-term anticoagulation, dyslipidemia, COPD, chronic systolic dysfunction, history of CVA, daily marijuana use and chronic nicotine dependence. He has followed in the office with Dr. Kapadia in the past. However he has shown up to recent appointments. Cardiology was asked to see him in consultation for symptoms of chest pain and syncope. EKG reveals sinus mechanism with no acute ST or T wave abnormalities noted. Q waves noted inferiorly. This is consistent with previous EKGs.Chest x-ray shows evidence of chronic changes with no acute cardiopulmonary processes noted. Evaluation of the films does reveal some evidence of Jeaneth B-lines. Troponins were negative 3. An echocardiogram with Doppler study was performed which revealed an ejection fraction of 55-60%. CTA of the chest was negative for any pulmonary embolism. Objective - Vital Signs Vital signs: Vital Signs Temp 98.2 F 04/07/18 04:25 Pulse 68 04/07/18 07:55 Resp 18 04/07/18 07:40 BP 110/57 04/07/18 07:40 Pulse Ox 98 04/07/18 07:40 Intake & Output 04/06/18 04/07/18 04/07/18 18:59 06:59 18:59 Intake Total 1200 200 Output Total 600 1700 Balance 600 -1700 200 Weight 84 kg 83.915 kg Intake: Oral 1200 200 Output: Urine 600 1700 Other: Voiding Method Urinal Urinal # Voids 1 1 # Bowel Movements 0 - Exam PHYSICAL EXAMINATION: GENERAL: 62-year-old gentleman in no apparent distress at the time of my examination HEENT: Head is atraumatic, normocephalic. Pupils equal, round. Sclera anicteric. Conjunctiva are clear. Mucous membranes of the mouth are moist. Neck is supple. There is no elevated jugular venous pressure.] No carotid bruit is heard. HEART EXAMINATION: Heart S1, S2 normal. No murmur or gallop heard. CHEST EXAMINATION: Lungs are clear with a mild decrease in air exchange . No chest wall tenderness is noted on palpation or with deep breathing. ABDOMEN: Soft, nontender. Bowel sounds are heard. No organomegaly noted. EXTREMITIES: 2+ peripheral pulses with no evidence of peripheral edema and no calf tenderness noted. NEUROLOGIC patient is awake, alert and oriented ?-3. . - Labs CBC & Chem 7: 04/05/18 05:54 04/05/18 05:54 Labs: Abnormal Lab Results - Last 24 Hours (Table) 04/06/18 04/06/18 04/06/18 Range/Units 11:54 17:07 20:57 POC Glucose (mg/dL) 120 H 138 H 154 H (75-99) mg/dL 04/07/18 04/07/18 Range/Units 05:57 11:50 POC Glucose (mg/dL) 118 H 104 H (75-99) mg/dL Assessment and Plan Plan: Assessment and plan #1 Syncope with positive loss of consciousness, unknown downtime. Denies seizure activity, no loss of bowel/bladder or tongue biting. #2 Chest pain, atypical. CTA of the chest negative for pulmonary embolism. Troponins negative 3 #3 Paroxysmal atrial fibrillation on long-term anticoagulation currently maintaining sinus mechanism #4 History of chronic pancreatitis, quit drinking alcohol 2 years ago #5 Dyslipidemia #6 Chronic nicotine dependence #7 Daily marijuana use #8 History of non-compliance Plan Patient is scheduled today to undergo dobutamine echocardiographic study. From cardiology's perspective, if the stress test is negative he may be able to be discharged home today if the stress test is positive further recommendations then will be made. DNP note has been reviewed, I agree with a documented findings and plan of care. Patient was seen and examined.
[2018-04-07] MEDS: MULTIVITAMINS, THERA 1 EACH TAB PO SCH (12:27)
--- NOTE | 2018-04-07 12:50 | P.STRESS ---
- Stress Test Note Stress Test Results/Findings: Exam Performed: dobutamine stress echo with con Exam Date: 04/07/18 Reason for Exam: CHEST PAIN Height: 6 ft 4 in Weight: 83.915 kg Protocol: DSE Stage: 4 Duration of Exercise: 9:30 Resting Heart Rate: 63 Resting Blood Pressure: 112/60 Maximum Achieved Heart Rate: 144 Maximum Achieved Blood Pressure: 158/56 85% PMHR: 133 100% PMHR: 156 METS: NA Technologist Comment: Stress Test Results/Findings: This is a 62-year-old gentleman being evaluated for symptoms of chest pain and shortness of breath and also palpitations. He has history of hypertension, CVA , hypercholesterolemia and smoking history. Baseline EKG showed sinus rhythm with normal WI interval, QRS duration small Q waves in inferior leads. Blood pressure at rest is 112/60 with pulse rate of 63. A standard dose of dobutamine was was initiated at 10 mics and was titrated to maximum of 30 mics, achieving a maximum heart rate of 138 with a blood pressure of 158/56. EKG showed occasional PVCs and one episode of nonsustained V. tach and rare couplets. Patient also developed a bout half a millimeter ST depression in inferolateral leads during the infusion, which reverted back to normal within 5- 6 minutes in the post exercise period. Patient did not experience any chest pain. Echo data. The test was done with contrast. Baseline echo images show normal wall motion and thickening. Exercise echo images showed augmentation of the wall motion and thickening in all segments. Final impression: #1. Borderline ST-T changes during dobutamine infusion, which are not diagnostic for ischemia #2. Negative dobutamine stress echo.
[2018-04-07 16:37] VITALS: BP 110/60; PULSE 63; TEMP 97.5
[2018-04-07 16:46] LABS: Glucose,Whole Blood 109 mg/dL (75-99)
--- NOTE | 2018-04-07 18:32 | DS ---
DISCHARGE SUMMARY DATE OF ADMISSION: 04/05/2018 DATE OF DISCHARGE: 04/07/2018 FINAL DIAGNOSES: 1. Acute chronic obstructive pulmonary disease exacerbation in a current smoker. 2. Right-sided chest pain, likely from viral pleurisy. 3. Chronic nicotine dependence. Patient is a cigarette smoker. 4. Primary osteoarthritis in multiple joints bilaterally. HOSPITAL COURSE: This patient presented with severe right-sided chest pain, worse with deep breathing, pleuritic in nature. The patient was also found to have COPD exacerbation. The patient was advised against smoking. The patient earlier today underwent a stress test, and the nurse called me that Cardiology okayed the patient to be discharged. Patient has had this pleuritic right chest pain before also. Patient's pain was actually better. The patient in 2015 did have a cardiac catheterization; no significant disease was found at that time. Patient did undergo a chest CT that was negative for PE; also a 2D echocardiogram was done that showed preserved LV function, EF 55% to 60%. PHYSICAL EXAMINATION: LUNGS: Decreased breath sounds. CARDIOVASCULAR: First and second sounds normal. DISCHARGE MEDICATIONS: 1. OxyContin 40 mg p.o. b.i.d. 2. OxyContin 10 mg p.o. t.i.d. 3. Lopressor 50 mg p.o. b.i.d. 4. Xarelto 20 mg with supper. 5. Multivitamin 1 tablet p.o. daily. 6. Aspirin 81 mg p.o. daily. 7. DuoNeb t.i.d. 8. Nicotine 21 mg patch. 9. Prednisone taper. Follow up with Dr. Pal Kaur on 04/14/2018. Follow up with Dr. aKpadia on 04/28/2018. CONSULTATION: Dr. Porter from Cardiology. MMODL / IJN: [id number] /
== END 2018-04-07 17:49 | disposition home or self-care (01) | DRG 191 ==
LOC: EC 07:14 → 4MS4W 09:19 → 3OBS 15:01 → 4MS4W 15:17 → 6SEL 16:25 → OBSVTOIN 04-05 11:08
PROVIDERS: ADMIT Hospitalist; ATTEND Hospitalist
DX: J44.1 Chronic obstructive pulmonary disease with (acute) exacerbation (principal); K86.1 Other chronic pancreatitis; J96.10 Chronic respiratory failure, unspecified whether with hypoxia or hypercapnia; I48.0 Paroxysmal atrial fibrillation; I11.9 Hypertensive heart disease without heart failure; E78.00 Pure hypercholesterolemia, unspecified; G40.909 Epilepsy, unspecified, not intractable, without status epilepticus; E78.5 Hyperlipidemia, unspecified; I25.10 Atherosclerotic heart disease of native coronary artery without angina pectoris; M19.91 Primary osteoarthritis, unspecified site; F43.10 Post-traumatic stress disorder, unspecified; G89.29 Other chronic pain; G50.0 Trigeminal neuralgia; F10.21 Alcohol dependence, in remission; F17.210 Nicotine dependence, cigarettes, uncomplicated; Z71.6 Tobacco abuse counseling; Z79.01 Long term (current) use of anticoagulants; Z79.82 Long term (current) use of aspirin; Z79.891 Long term (current) use of opiate analgesic; Z79.899 Other long term (current) drug therapy; Z86.73 Personal history of transient ischemic attack (TIA), and cerebral infarction without residual deficits; Z87.820 Personal history of traumatic brain injury; Z85.828 Personal history of other malignant neoplasm of skin; Z87.81 Personal history of (healed) traumatic fracture; Z77.090 Contact with and (suspected) exposure to asbestos; Z98.1 Arthrodesis status; Z86.010 Personal history of colon polyps; Z86.59 Personal history of other mental and behavioral disorders; Z91.19 Patient's noncompliance with other medical treatment and regimen; Z82.49 Family history of ischemic heart disease and other diseases of the circulatory system; Z80.0 Family history of malignant neoplasm of digestive organs
CPT/HCPCS: 36415; 71046; 71275; 80053; 80061; 82550; 82553; 83735; 83880; 84100; 84145; 84484; 85025; 85379; 85610; 85730; 93005; 93306; 93351; 94640; 94760; 96374; 99285

== ENCOUNTER 2018-07-31 12:28 | Inpatient (IN) | payer MEDICARE ==
[2018-07-31] MEDS ORDERED: SODIUM CHLORIDE 0.9% 1,000 ML IV STA (12:43)
--- NOTE | 2018-07-31 12:47 | ED ---
General Adult HPI - General Chief complaint: Neuro Symptoms/Deficit Stated complaint: POSS CVA Time Seen by Provider: 07/31/18 12:37 Source: patient, RN notes reviewed Mode of arrival: wheelchair Limitations: no limitations - History of Present Illness Initial comments: Patient is a pleasant 53-year-old male presenting to the emergency Department with complaints of left-sided weakness. Onset of symptoms was around 11:30. Patient complains of left leg weakness that he noticed when he was walking to the bathroom. Patient states there is some paresthesias of the left leg and left arm. Patient believes her may be some left arm weakness as well. Patient does complain of headache, moderate. Patient does not typically get headaches. No confusion. No visual change. No speech problems. Patient does have a history of similar symptoms several years ago and patient believes he did receive TPA at that time. Patient is currently on Xarelto secondary to atrial fibrillation. - Related Data Home Medications Medication Instructions Recorded Confirmed oxyCODONE HCL [OxyCONTIN] 40 mg PO BID 03/06/14 07/31/18 oxyCODONE HCL 10 mg PO TID 01/30/16 07/31/18 Multivitamins, Thera [Multivitamin 1 tab PO DAILY 04/29/17 07/31/18 (formulary)] ALPRAZolam [Xanax] 1 mg PO BID PRN 07/31/18 07/31/18 Albuterol Nebulized [Ventolin 2.5 mg INHALATION RT-TID 07/31/18 07/31/18 Nebulized] Atorvastatin [Lipitor] 20 mg PO DAILY 07/31/18 07/31/18 Dicyclomine [Bentyl] 20 mg PO TID 07/31/18 07/31/18 Ipratropium-Albuterol Nebulize 3 ml INHALATION RT-TID 07/31/18 07/31/18 [Duoneb 0.5 mg-3 mg/3 ml Soln] Lipase/Protease/Amylase [Creon Dr 2 cap PO TID 07/31/18 07/31/18 24,000 Units Capsule] OXcarbazepine [Trileptal] 150 mg PO DAILY 07/31/18 07/31/18 Omeprazole 20 mg PO DAILY 07/31/18 07/31/18 Rivaroxaban [Xarelto] 20 mg PO DAILY 07/31/18 07/31/18 Thiamine [Vitamin B-1] 50 mg PO DAILY 07/31/18 07/31/18 Tiotropium Br/Olodaterol HCl 2 spray INHALATION RT-DAILY 07/31/18 07/31/18 [Stiolto Respimat Inhal [place]] Previous Rx's Medication Instructions Recorded Metoprolol Tartrate [Lopressor] 50 mg PO BID #60 tab 04/18/17 Aspirin 81 mg PO DAILY #30 06/14/17 Nicotine 21Mg/24Hr Patch [Habitrol] 1 each TRANSDERM DAILY #30 patch 04/07/18 predniSONE 10 mg PO DAILY #30 tab 04/07/18 Allergies Allergy/AdvReac Type Severity Reaction Status Date / Time No Known Allergies Allergy Verified 07/31/18 13:11 Review of Systems ROS Statement: Those systems with pertinent positive or pertinent negative responses have been documented in the HPI. ROS Other: All systems not noted in ROS Statement are negative. Constitutional: Denies: fever Eyes: Denies: eye pain ENT: Denies: ear pain Respiratory: Denies: cough Cardiovascular: Denies: chest pain Endocrine: Denies: fatigue Gastrointestinal: Denies: abdominal pain Genitourinary: Denies: dysuria Musculoskeletal: Denies: back pain Skin: Denies: rash Neurological: Reports: as per HPI, headache, weakness, paresthesias, abnormal gait. Denies: confusion Past Medical History Past Medical History: Atrial Fibrillation, Coronary Artery Disease (CAD), Cancer , Chest Pain / Angina, COPD, CVA/TIA, Hyperlipidemia, Osteoarthritis (OA), Seizure Disorder, Syncope Additional Past Medical History / Comment(s): RT SIDE DOMINANT.Pt states he has had one CVA ( LT PUPIL LARGER THAN RT AND OCCASIONAL BILATERAL HAND NUMBNESS), TIA, right sided trigeminal neuralgia with surgery, syncopy 2012 and pt thinks possibly yesterday, 04/03/18, head injury with a fall at the age of 48yrs with intracranial bleed, childhood seizures, bacterial infection in stomach couple years ago, L hip fx with surgery, skin cancer removals.EXPOSED TO ASBESTOS, new diagnosis of Afib in April 2017. New diagnosis of pancreatitis, pt to see a specialist at [facility] but has not done this yet. History of Any Multi-Drug Resistant Organisms: None Reported Past Surgical History: Appendectomy, Back Surgery, Heart Catheterization, Orthopedic Surgery, Tonsillectomy Additional Past Surgical History / Comment(s): trigeminal neuralgia gamma knife surgery, L hip with "2or 3 pins", cardiac cath approximately 11 yrs ago-no intervention, lumbar fusion, EGD/colonoscopy with benign polypectomies, R rotator cuff repair, bilateral knee arthrosopies, skin cancer removals, benign prostate bx and removed benign polyps. Past Anesthesia/Blood Transfusion Reactions: No Reported Reaction Past Psychological History: Bipolar, Depression, PTSD Smoking Status: Current every day smoker Past Alcohol Use History: None Reported Past Drug Use History: None Reported - Past Family History Father Family Medical History: Cancer, Coronary Artery Disease (CAD) Additional Family Medical History / Comment(s): Father had colon cancer. He at the age of 70yrs. Mother Family Medical History: Cancer Additional Family Medical History / Comment(s): Mother had colon cancer. triple bypass. She at the age of 77yrs. General Exam Limitations: no limitations General appearance: alert, in no apparent distress Head exam: Present: atraumatic Eye exam: Present: normal appearance, PERRL, EOMI. Absent: nystagmus ENT exam: Present: normal oropharynx Neck exam: Present: normal inspection Respiratory exam: Present: normal lung sounds bilaterally Cardiovascular Exam: Present: irregular rhythm Expanded Peripheral pulses: 2+: Radial (R), Radial (L), Posterior Tibialis (R), Posterior Tibialis (L) GI/Abdominal exam: Present: soft. Absent: tenderness Extremities exam: Present: normal inspection. Absent: pedal edema, calf tenderness Back exam: Present: normal inspection Neurological exam: Present: alert, oriented X3, CN II-XII intact (Except patient states decreased sensation left side of face.) Expanded Neurological exam: Present: protecting the airway Patient oriented to: Present: person, place, time Speech: Present: fluid speech Cranial nerves: EOM's Intact: Normal, Facial Sensation: Abnormal Left (Patient states decreased sensation however not loss of sensation) Sensory exam: Upper Extremity Light Touch: Abnormal Left (Decreased however not absent), Lower Extremity Light Touch: Abnormal Left (Decreased however not absent) Motor strength exam: RUE: 5, LUE: 4, RLE: 5, LLE: 3 Eye Response: (4) open spontaneously Motor Response: (6) obeys commands Verbal Response: (5) oriented Psychiatric exam: Present: normal affect, normal mood Skin exam: Present: normal color Course Vital Signs 07/31/18 07/31/18 07/31/18 12:32 13:05 13:20 Temperature 98.2 F 98.7 F Pulse Rate 68 65 64 Respiratory 18 14 18 Rate Blood Pressure 146/78 159/74 139/90 O2 Sat by Pulse 99 97 97 Oximetry 07/31/18 07/31/18 13:59 14:22 Temperature 98.3 F 98.6 F Pulse Rate 63 64 Respiratory 18 18 Rate Blood Pressure 129/75 133/78 O2 Sat by Pulse 97 97 Oximetry - Reevaluation(s) Reevaluation #1: 07/31/18 12:44 Code stroke was called. 07/31/18 12:59 Neural interventional list did call back and recommends no TPA secondary to patient being on Xarelto. EKG Findings - EKG Comments: EKG Findings:: Normal sinus rhythm 69. UT 118. QRS 110. QT 412. QTC 441. Normal axis. Normal QRS. No acute ST change. Medical Decision Making - Medical Decision Making Case was discussed with Dr. stratton, who will admit for Dr. Harvey. Patient was reevaluated and unchanged. Patient updated. - Lab Data Result diagrams: 07/31/18 12:54 07/31/18 12:54 Lab Results 07/31/18 07/31/18 07/31/18 Range/Units 12:54 12:54 12:54 WBC 7.2 (3.8-10.6) k/uL RBC 5.03 (4.30-5.90) m/uL Hgb 15.7 (13.0-17.5) gm/dL Hct 46.9 (39.0-53.0) % MCV 93.2 (80.0-100.0) fL MCH 31.2 (25.0-35.0) pg MCHC 33.5 (31.0-37.0) g/dL RDW 13.7 (11.5-15.5) % Plt Count 241 (150-450) k/uL Neutrophils % 54 % Lymphocytes % 37 % Monocytes % 4 % Eosinophils % 3 % Basophils % 1 % Neutrophils # 3.9 (1.3-7.7) k/uL Lymphocytes # 2.7 (1.0-4.8) k/uL Monocytes # 0.3 (0-1.0) k/uL Eosinophils # 0.2 (0-0.7) k/uL Basophils # 0.0 (0-0.2) k/uL PT (9.0-12.0) sec INR (<1.2) APTT (22.0-30.0) sec Sodium 140 (137-145) mmol/L Potassium 4.6 (3.5-5.1) mmol/L Chloride 109 H (98-107) mmol/L Carbon Dioxide 21 L (22-30) mmol/L Anion Gap 10 mmol/L BUN 16 (9-20) mg/dL Creatinine 0.87 (0.66-1.25) mg/dL Est GFR (CKD-EPI)AfAm >90 (>60 ml/min/1.73 sqM) Est GFR (CKD-EPI)NonAf >90 (>60 ml/min/1.73 sqM) Glucose 106 H (74-99) mg/dL POC Glucose (mg/dL) (75-99) mg/dL POC Glu Splicer Machine Operator ID Calcium 9.9 (8.4-10.2) mg/dL Total Bilirubin 0.7 (0.2-1.3) mg/dL AST 20 (17-59) U/L ALT 27 (21-72) U/L Alkaline Phosphatase 88 (38-126) U/L Total Creatine Kinase 60 (55-170) U/L CK-MB (CK-2) 0.6 (0.0-2.4) ng/mL CK-MB (CK-2) Rel Index 1.0 Troponin I <0.012 (0.000-0.034) ng/mL Total Protein 8.3 H (6.3-8.2) g/dL Albumin 4.6 (3.5-5.0) g/dL 07/31/18 07/31/18 Range/Units 12:54 12:58 WBC (3.8-10.6) k/uL RBC (4.30-5.90) m/uL Hgb (13.0-17.5) gm/dL Hct (39.0-53.0) % MCV (80.0-100.0) fL MCH (25.0-35.0) pg MCHC (31.0-37.0) g/dL RDW (11.5-15.5) % Plt Count (150-450) k/uL Neutrophils % % Lymphocytes % % Monocytes % % Eosinophils % % Basophils % % Neutrophils # (1.3-7.7) k/uL Lymphocytes # (1.0-4.8) k/uL Monocytes # (0-1.0) k/uL Eosinophils # (0-0.7) k/uL Basophils # (0-0.2) k/uL PT 9.6 (9.0-12.0) sec INR 1.0 (<1.2) APTT 24.0 (22.0-30.0) sec Sodium (137-145) mmol/L Potassium (3.5-5.1) mmol/L Chloride (98-107) mmol/L Carbon Dioxide (22-30) mmol/L Anion Gap mmol/L BUN (9-20) mg/dL Creatinine (0.66-1.25) mg/dL Est GFR (CKD-EPI)AfAm (>60 ml/min/1.73 sqM) Est GFR (CKD-EPI)NonAf (>60 ml/min/1.73 sqM) Glucose (74-99) mg/dL POC Glucose (mg/dL) 97 (75-99) mg/dL POC Glu Splicer Machine Operator ID Joshua Abad Calcium (8.4-10.2) mg/dL Total Bilirubin (0.2-1.3) mg/dL AST (17-59) U/L ALT (21-72) U/L Alkaline Phosphatase (38-126) U/L Total Creatine Kinase (55-170) U/L CK-MB (CK-2) (0.0-2.4) ng/mL CK-MB (CK-2) Rel Index Troponin I (0.000-0.034) ng/mL Total Protein (6.3-8.2) g/dL Albumin (3.5-5.0) g/dL - Radiology Data Radiology results: report reviewed (Computed tomography scan the brain reveals no acute process. CTA shows bilateral narrowing proximal internal carotid artery approximately 50%.), image reviewed (Chest x-ray shows no acute process) Disposition Clinical Impression: Cerebrovascular accident Disposition: ADMITTED IP TO THIS HOSP Is patient prescribed a controlled substance at d/c from ED?: No Referrals: Pal Kaur MD [Primary Care Provider] - 1-2 days Decision Time: 14:51
[2018-07-31 13:00] LABS: Glucose,Whole Blood 97 mg/dL (75-99)
[2018-07-31 13:07] LABS: Basophils % (A) 1 %; Eosinophils # (A) 0.2 k/uL (0-0.7); Eosinophils % (A) 3 %; HCT 46.9 % (39.0-53.0); HGB 15.7 gm/dL (13.0-17.5); Lymphocytes # (A) 2.7 k/uL (1.0-4.8); Lymphocytes % (A) 37 %; MCH 31.2 pg (25.0-35.0); MCHC 33.5 g/dL (31.0-37.0); MCV 93.2 fL (80.0-100.0); Mean Platelet Volume 7.7; Monocytes # (A) 0.3 k/uL (0-1.0); Monocytes % (A) 4 %; Neutrophils # (A) 3.9 k/uL (1.3-7.7); Neutrophils % (A) 54 %; Platelet Count 241 k/uL (150-450); RBC 5.03 m/uL (4.30-5.90); RDW 13.7 % (11.5-15.5); WBC 7.2 k/uL (3.8-10.6)
[2018-07-31 13:16] LABS: Albumin 4.6 g/dL (3.5-5.0); Anion Gap 10 mmol/L; Blood Urea Nitrogen 16 mg/dL (9-20); Calcium 9.9 mg/dL (8.4-10.2); Carbon Dioxide 21 mmol/L (22-30); Chloride 109 mmol/L (98-107); Glucose 106 mg/dL (74-99); Sodium 140 mmol/L (137-145); Total Bilirubin 0.7 mg/dL (0.2-1.3); Total Protein 8.3 g/dL (6.3-8.2)
[2018-07-31 13:21] LABS: Prothrombin Time 9.6 sec (9.0-12.0)
[2018-07-31 13:23] LABS: ALT 27 U/L (21-72); AST 20 U/L (17-59); Alkaline Phosphatase 88 U/L (38-126); Potassium 4.6 mmol/L (3.5-5.1)
[2018-07-31 13:29] LABS: Creatine Kinase 60 U/L (55-170)
--- NOTE | 2018-07-31 13:38 | CT ---
EXAMINATION TYPE: CT brain wo con for TPA DATE OF EXAM: 07/31/2018 COMPARISON: 09/07/2016 HISTORY: Neuro deficits CT DLP: [address] of the brain was performed. The ventricles, basal cisterns and sulci overlying the cerebral convexities demonstrate mild enlargem ent. There is no evidence for intracranial hemorrhage or sulcal effacement. There is decreased attenuation about the periventricular white matter and deep white matter of both c erebral hemispheres, compatible with chronic small vessel ischemia. Differential diagnosis does inclu de demyelination. No mass effects are seen.No midline shift. Osseous calvarium is intact. If symptoms persist consider MRI. IMPRESSION: 1. Age related atrophic and chronic small vessel ischemic change without acute intracranial process s een at this time.
[2018-07-31 13:43] LABS: Creatine Kinase MB 0.6 ng/mL (0.0-2.4); Troponin I <0.012 ng/mL (0.000-0.034)
--- NOTE | 2018-07-31 13:57 | CT ---
EXAMINATION TYPE: CT angio head neck DATE OF EXAM: 07/31/2018 COMPARISON: None HISTORY: Neuro deficits CT DLP: 423.6 mGycm CONTRAST: Performed with IV Contrast, patient injected with 65 mL of Isovue 370. Combination Contrast CTA cervical carotids and [place] CTA cervical carotids with 3-D recons truction Contrast CTA of the cervical carotids was performed 3-D reconstruction imaging obtained at a separate workstation. Right carotid system: Mild plaque is seen of the right common carotid artery. There is mild plaque a lso noted at the carotid bulb and proximal ICA. Estimated diameter reduction is 50%. ECA is patent. Right vertebral artery appears unremarkable. Left carotid system: Mild plaque is seen of the left common carotid artery. There is mild plaque als o noted at the carotid bulb and proximal ICA. Estimated diameter reduction is 50%. ECA is patent. L eft vertebral artery appears unremarkable. IMPRESSION: 1. Estimated 50% diameter reduction bilaterally proximal ICAs. CTA [place] with 3-D reconstruction Contrast CTA of the [place] was performed 3-D reconstruction imaging obtained at a separate workstation. Vertebrobasilar system as well as intracranial portions of the internal carotid arteries and their ma bryanna tributaries are patent. I do not see evidence for sizable aneurysm or vascular malformation. Pl ease note MRI provides greater sensitivity and specificity. Visualized brain appears grossly unremar kable. IMPRESSION: 1. No siginificant abnormality.
--- NOTE | 2018-07-31 14:23 | XR ---
EXAMINATION TYPE: XR chest 2V DATE OF EXAM: 07/31/2018 COMPARISON: 04/04/2018 HISTORY: Shortness of breath TECHNIQUE: Frontal and lateral views of the chest are obtained. FINDINGS: Scattered senescent parenchymal changes noted. Hyperinflation compatible with COPD. No evidence for infiltrate. No evidence for atelectasis. Heart size is stable. Mediastinal structures are stable and grossly unremarkable. No evidence for hilar prominence. Degenerative changes dorsal spine. IMPRESSION: 1. No evidence for acute pulmonary disease.
[2018-07-31] MEDS ORDERED: ACETAMINOPHEN TAB 500 MG TAB PO STA (14:24)
[2018-07-31] MEDS ORDERED: ASPIRIN 325 MG TAB PO STA (14:51)
[2018-07-31] MEDS ORDERED: MORPHINE SULFATE 4 MG/ML SYRINGE IVP STA (15:21)
[2018-07-31 20:01] VITALS: BMI 24.0
[2018-07-31] MEDS ORDERED: ACETAMINOPHEN TAB 325 MG TAB PO PRN (20:12)
[2018-08-01] MEDS: methylPREDNISolone SOD SUCCI 40 MG/ML 1 ML VIAL IV SCH ×4 (03:55→23:31)
[2018-08-01] MEDS: METOPROLOL TARTRATE 50 MG TAB PO SCH ×3 (03:59→21:47)
[2018-08-01] MEDS: DICYCLOMINE 20 MG TAB PO SCH ×4 (03:59→21:48)
[2018-08-01] MEDS: SODIUM CHLORIDE 0.9% 1,000 ML IV SCH ×3 (04:00→14:56)
[2018-08-01] MEDS: NICOTINE 21MG/24HR PATCH TRANSDERM SCH ×3 (04:00→20:38)
[2018-08-01] MEDS: INSULIN ASPART 100 UNIT/ML 1 ML 10 ML VIAL SQ SCH ×3 (06:38→17:02)
[2018-08-01] MEDS: PANTOPRAZOLE 40 MG TABLET PO SCH (06:40)
[2018-08-01 06:49] LABS: Glucose,Whole Blood 113 mg/dL (75-99)
[2018-08-01 07:13] LABS: Cholesterol 233 mg/dL (<200); HDL Cholesterol 29 mg/dL (40-60); LDL Cholesterol,Calculated 179 mg/dL (0-99); Triglycerides 126 mg/dL (<150)
--- NOTE | 2018-08-01 07:31 | HP ---
HISTORY AND PHYSICAL DATE OF ADMISSION: 07/31/2018 DATE OF SERVICE: 07/31/2018 PRESENTING COMPLAINT: Left-sided weakness. HISTORY OF PRESENTING COMPLAINT: This is a 63-year-old patient who follows with Dr. Pal Kaur. Chronic stable medical conditions include chronic nicotine dependence, primary osteoarthritis, chronic pain syndrome, chronic pancreatitis, atrial fibrillation, osteoarthritis. Patient has was outside the house when he developed a significant headache on the left side to the point he nearly went down and there was some blurring of the vision, that actually then cleared up, but patient became significantly weak on the left side. Patient's and son had to help him in. Patient is able to move his left arm and very slight movement of the left leg. There is also numbness in the same because patient is chronically on Xarelto. Patient is found not to be a candidate for TPA. Admitted for the same. Patient has continued to smoke. REVIEW OF SYSTEMS: CONSTITUTIONAL: Tired. HEENT: As above. RESPIRATORY: Some cough, wheezing, shortness of breath. CARDIOVASCULAR: None. GASTROINTESTINAL None. GENITOURINARY: None. MUSCULOSKELETAL: Chronic pain in the joints. DERMATOLOGICAL: None. HEMATOLOGICAL: None. LYMPHATICS: None. PSYCHIATRY: Anxious. NEUROLOGICAL: As above. PAST MEDICAL HISTORY: Atrial fibrillation, COPD, hyperlipidemia, osteoarthritis, right-sided trigeminal neuralgia, head injury with history of fall age of 13 with intracranial bleed, childhood seizures, left hip fracture with surgery, skin cancer removed, chronic pancreatitis. PAST SURGICAL HISTORY: Appendectomy, back surgery, trigeminal neuralgia treated with common eye surgery, left hip with 2 or 3 pins, cardiac cath 11 years ago, no intervention, lumbar fusion, right rotator cuff repair, bilateral knee arthroscopy, skin cancer removed, BPH biopsy. PAST PSYCH HISTORY: Bipolar depression, PTSD. SOCIAL HISTORY: Sometimes uses a cane, lives with his . 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 Patient has been smoking since the age of 10, was smoking up to 4 packs a day, now down to half a pack a day. Was drinking 2-3 beers a day, but now has not drank in 2 years. Does marijuana 1 or 2 joints a day. FAMILY HISTORY: Coronary artery disease, colon cancer. HOME MEDICATIONS: 1. Prednisone 10 mg a day. 2. OxyContin 40 mg b.i.d. 3. Oxycodone 10 mg t.i.d. 4. Stiolto Respimat 2 sprays daily. 5. Thiamine 150 mg a day. 6. Xarelto 20 mg a day. 7. Omeprazole 20 mg a day. 8. Trileptal 150 mg a day. 9. Nicotine 21 mg patch. 10.Multivitamin 1 tablet p.o. daily. 11.Lopressor 50 mg b.i.d. 12.Creon 24,000 units 2 capsules p.o. t.i.d. 13.DuoNeb t.i.d. 14.Bentyl 20 mg t.i.d. 15.Lipitor 20 mg p.o. daily. 16.Aspirin 81 mg p.o. daily. 17.Ventolin 2.5 nebulizer t.i.d. 18.Xanax 1 mg b.i.d. p.r.n. ALLERGIES: None. PHYSICAL EXAMINATION: Vital signs on presentation, temperature 98, pulse 61, respiration 14, blood pressure 120/74, pulse ox 95% on room air. GENERAL APPEARANCE: Average built, sitting up, a bit anxious-appearing. EYES: Pupils equal, conjunctivae normal. HEENT: External appearance of nose and ears normal. Oral cavity normal. NECK: JVD not raised. Mass not palpable. LUNGS: Decreased breath sounds with prolonged expiration, wheezing. CARDIOVASCULAR: First and second sounds normal, no edema. ABDOMEN: Soft, nontender. Liver and spleen not palpable. LYMPHATIC: No lymph node palpable in neck or axillae. PSYCHIATRY: Alert and oriented x3. Mood and affect anxious-appearing. NEUROLOGICAL: Pupils equal. Cranial nerves grossly intact. Power in the left arm is 3/5, in the leg is 2/5, reflexes are increased on the left side left side. EXTREMITIES: Patient has got onychomycosis in the feet. INVESTIGATIONS: White count 7.2, hemoglobin 15.7, potassium 4.6, BUN 16, creatinine 0.87. EKG tracing personally reviewed by me, shows normal sinus rhythm. CT angio of the brain did not show any significant abnormality. CT scan of the brain without contrast shows nil acute. Chest x-ray film, personally reviewed by me, shows somewhat tubular horizontal lung yu. Some prominence of the pulmonary artery. Evidence of osteoarthritis in the spine. ASSESSMENT: 1. Acute stroke in the right middle cerebral artery affecting the left side of the body in a right-handed patient, likely ischemic in nature. 2. Paroxysmal atrial fibrillation, currently in sinus rhythm for which patient is on Xarelto. 3. Acute chronic obstructive pulmonary disease exacerbation in a current smoker. 4. Chronic nicotine dependence, patient is a cigarette smoker. 5. Hyperlipidemia. 6. Primary osteoarthritis. 7. Chronic seizure disorder. 8. Trigeminal neuralgia. 9. Chronic pancreatitis. PLAN: Patient's home medications will be resumed. Patient is already on Xarelto and baby aspirin. Will change the dose of Lipitor to 80 mg. Other home medications are to be resumed. Will put the patient on IV Solu-Medrol, nebulized bronchodilator. Care was discussed with the patient. Neuro checks are in place. Neurology was consulted. Smoking cessation counseling was done with the patient. He will take a patch and discussed the side effects and problems with the same. More than 3 minutes was spent on this aspect of the case. JULIAN / MALCOLM: [id number] /
[2018-08-01] MEDS: IPRATROPIUM-ALBUTEROL 3 ML NEB INHALATION SCH ×6 (08:16→23:53)
[2018-08-01] MEDS: BUDESONIDE 1 MG/2 ML NEBU INHALATION SCH ×2 (08:16→20:00)
[2018-08-01] MEDS ORDERED: ASPIRIN 325 MG TAB PO SCH (09:00)
[2018-08-01] MEDS: OXcarbazepine 150 MG TAB PO SCH (09:35)
[2018-08-01] MEDS: THIAMINE 100 MG TAB PO SCH (09:36)
[2018-08-01] MEDS: oxyCODONE ER 20 MG TAB.ER.12H PO SCH ×2 (09:36→21:48)
[2018-08-01] MEDS: ALPRAZolam 1 MG TAB PO PRN (09:36)
[2018-08-01] MEDS: MULTIVITAMINS, THERA 1 EACH TAB PO SCH (09:37)
[2018-08-01] MEDS: RIVAROXABAN 20 MG TAB PO SCH (09:40)
[2018-08-01] MEDS: Lipase/Protease/Amylase [Creon Dr 24,000 Units Capsule] PO SCH ×3 (09:40→21:43)
--- NOTE | 2018-08-01 11:38 | ECHOF ---
Referral Reason:Thrombus MEASUREMENTS -------- HEIGHT: 193.0 cm WEIGHT: 89.4 kg BP: 129/77 RVIDd: 3.2 cm (< 3.3) IVSd: 1.2 cm (0.6 - 1.1) LVIDd: 5.5 cm (3.9 - 5.3) LVPWd: 1.2 cm (0.6 - 1.1) IVSs: 1.5 cm LVIDs: 4.0 cm LVPWs: 1.6 cm LA Diam: 3.9 cm (2.7 - 3.8) Ao Diam: 3.5 cm (2.0 - 3.7) AV Cusp: 2.0 cm (1.5 - 2.6) EPSS: 1.6 cm MV E Wyatt: 0.50 m/s MV DecT: 335 ms MV A Wyatt: 0.65 m/s MV E/A Ratio: 0.77 RAP: 5.00 mmHg RVSP: 24.65 mmHg MV EF SLOPE: 89.66 mm/s (70 - 150) MV EXCURSION: 1.85 cm (> 18.000) FINDINGS -------- Sinus rhythm. This was a technically difficult study with suboptimal views. The left ventricular size is normal. There is borderline concentric left ventricular hypertrophy. Overall left ventricular systolic function is normal with, an EF between 55 - 60 %. The right ventricle is normal in size. The left atrial size is normal. The right atrium is normal in size. 3 ml of Lumason was utilized for enhancement of images. The aortic valve was not well visualized. The mitral valve is normal. Mild tricuspid regurgitation present. The pulmonic valve was not well visualized. The aortic root size is normal. IVC Not well visulized. There is no pericardial effusion. CONCLUSIONS -------- 1. Sinus rhythm. 2. This was a technically difficult study with suboptimal views. 3. The left ventricular size is normal. 4. There is borderline concentric left ventricular hypertrophy. 5. Overall left ventricular systolic function is normal with, an EF between 55 - 60 %. 6. The right ventricle is normal in size. 7. The left atrial size is normal. 8. The right atrium is normal in size. 9. 3 ml of Lumason was utilized for enhancement of images. 10. The aortic valve was not well visualized. 11. The mitral valve is normal. 12. Mild tricuspid regurgitation present. 13. The pulmonic valve was not well visualized. 14. The aortic root size is normal. 15. IVC Not well visulized. 16. There is no pericardial effusion. STENO POOL SUPERVISOR: KATY Thibodeaux
[2018-08-01 11:54] LABS: Glucose,Whole Blood 126 mg/dL (75-99)
[2018-08-01] MEDS ORDERED: ONDANSETRON ODT 4 MG TAB PO PRN (13:07)
[2018-08-01 17:00] LABS: Glucose,Whole Blood 183 mg/dL (75-99)
--- NOTE | 2018-08-01 19:55 | PN ---
PROGRESS NOTE DATE OF SERVICE: 08/01/2018 PRESENTING COMPLAINT: Left-sided weakness. INTERVAL HISTORY: Patient presented with acute stroke with left-sided weakness; still weak in the left arm and the left leg. Seen by Physical Therapy. Did tolerate a diet. Patient also was admitted with COPD exacerbation. Some wheezing and cough are present. REVIEW OF SYSTEMS: Done for constitutional, cardiovascular, GI, pulmonary, neuro; relevant findings as above. CURRENT MEDICATIONS: Reviewed. They include: 1. Aspirin. 2. Xarelto. 3. Bronchodilators. 4. IV Solu-Medrol. PHYSICAL EXAMINATION: Temperature 98, pulse 66, respiration 18, blood pressure 107/61, pulse ox 93% on room air. GENERAL APPEARANCE: Sitting up, awake. EYES: Pupils equal. Conjunctivae normal. HEENT: External appearance of nose and ears normal. Oral cavity normal. NECK: JVD not raised. Mass not palpable. RESPIRATORY: Effort increased. LUNGS: Decreased breath sounds. Prolonged expiration. Some wheezing. CARDIOVASCULAR: First and second sounds normal. No edema. ABDOMEN: Soft, non-tender. Liver and spleen not palpable. PSYCHIATRY: Alert and oriented x3. Mood and affect slightly anxious-appearing. NEUROLOGICAL: Power in the left arm is 3/5, left leg 2/5. INVESTIGATIONS: Accu-Cheks are noted. LDL 179. ASSESSMENT: 1. Acute stroke, likely ischemic, in the right middle cerebral artery affecting the left side of the body in a right-handed patient, likely ischemic in nature, with no improvement in weakness. 2. Paroxysmal atrial fibrillation, currently in sinus rhythm, for which patient is on Xarelto. 3. Acute chronic obstructive pulmonary disease exacerbation in a current smoker. 4. Chronic nicotine dependence. Patient is a cigarette smoker. 5. Hyperlipidemia. 6. Primary osteoarthritis. 7. Chronic seizure disorder. 8. Trigeminal neuralgia. 9. Chronic pancreatitis. PLAN: Continue current medication and treatment plan. Patient to be put on the Lipitor 80 mg. Care was discussed with the patient. Patient will probably need inpatient rehab. MMODL / IJN: [id number] /
--- NOTE | 2018-08-01 20:59 | P.CNNES ---
History of Present Illness Consult date: 08/01/18 Requesting physician: Shad Simental Reason for Consult: CVA History of Present Illness: Patient is a pleasant 63-year-old male who is being evaluated by the neurology service on 08/01/2018 per the request of Dr. Simental for CVA. Patient states he has had a previous stroke with left hemiparesis but has fully recovered. Patient has history of atrial fibrillation and is on Xarelto in the home setting. Patient states he was at home outside when he got a sudden severe headache with left-sided weakness. Patient was brought to [facility] for further evaluation. Patient states he had run out of his Xarelto he had not taken it for about 4-5 days. He states it was very expensive and he couldn't afford it. Patient also has history of trigeminal neuralgia and has been taking OxyContin and oxycodone for approximately 8 years. Vital signs on admission were temperature 98.2, heart rate 68, respiratory rate 18, with blood pressure 146/78. O2 saturation was 99% on room air. Labs were essentially unremarkable except for elevated lipid panel with a low HDL of 29. CT of the brain was done which showed age-related atrophy and chronic small vessel ischemic changes. No acute intracranial process was seen. Chest x-ray showed no evidence for acute pulmonary disease. CTA showed estimated 50% diameter reduction bilaterally proximal ICAs. Echocardiogram showed ejection fraction between 55 and 60%. At the time of my evaluation, patient's resting comfortably in bed and appears to be in no acute distress. Review of Systems REVIEW OF SYSTEMS: Otherwise unremarkable and noncontributory. Past Medical History Past Medical History: Atrial Fibrillation, Coronary Artery Disease (CAD), Cancer , Chest Pain / Angina, COPD, CVA/TIA, Hyperlipidemia, Osteoarthritis (OA), Seizure Disorder, Syncope Additional Past Medical History / Comment(s): RT SIDE DOMINANT.Pt states he has had one CVA ( LT PUPIL LARGER THAN RT AND OCCASIONAL BILATERAL HAND NUMBNESS), TIA, right sided trigeminal neuralgia with surgery, syncopy 2012 and pt thinks possibly yesterday, 04/03/18, head injury with a fall at the age of 48yrs with intracranial bleed, childhood seizures, bacterial infection in stomach couple years ago, L hip fx with surgery, skin cancer removals.EXPOSED TO ASBESTOS, new diagnosis of Afib in April 2017. New diagnosis of pancreatitis, pt to see a specialist at [facility] but has not done this yet. History of Any Multi-Drug Resistant Organisms: None Reported Past Surgical History: Appendectomy, Back Surgery, Heart Catheterization, Orthopedic Surgery, Tonsillectomy Additional Past Surgical History / Comment(s): trigeminal neuralgia gamma knife surgery, L hip with "2or 3 pins", cardiac cath approximately 11 yrs ago-no intervention, lumbar fusion, EGD/colonoscopy with benign polypectomies, R rotator cuff repair, bilateral knee arthrosopies, skin cancer removals, benign prostate bx and removed benign polyps. Past Anesthesia/Blood Transfusion Reactions: No Reported Reaction Past Psychological History: Bipolar, Depression, PTSD Additional Psychological History / Comment(s): Pt resides with his spouse. . Pt has a cane he will use prn. He drives. He is a . 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 Smoking Status: Current every day smoker Past Alcohol Use History: None Reported Additional Past Alcohol Use History / Comment(s): started smoking at age 10(1966 )-has cut down from 4 ppd to 1/2 ppd. Pt used to drink 2-3 beers a day but has not drank in 2 years. Past Drug Use History: None Reported Additional Drug Use History / Comment(s): currently smokes marijuana, 1-2 joints a day - Past Family History Father Family Medical History: Cancer, Coronary Artery Disease (CAD) Additional Family Medical History / Comment(s): Father had colon cancer. He at the age of 70yrs. Mother Family Medical History: Cancer Additional Family Medical History / Comment(s): Mother had colon cancer. triple bypass. She at the age of 77yrs. Medications and Allergies Home Medications Medication Instructions Recorded Confirmed Type oxyCODONE HCL [OxyCONTIN] 40 mg PO BID 03/06/14 07/31/18 History oxyCODONE HCL 10 mg PO TID 01/30/16 07/31/18 History Metoprolol Tartrate [Lopressor] 50 mg PO BID #60 tab 04/18/17 07/31/18 Rx Multivitamins, Thera [Multivitamin 1 tab PO DAILY 04/29/17 07/31/18 History (formulary)] Aspirin 81 mg PO DAILY #30 06/14/17 07/31/18 Rx Nicotine 21Mg/24Hr Patch [Habitrol] 1 each TRANSDERM DAILY #30 patch 04/07/18 Rx predniSONE 10 mg PO DAILY #30 tab 04/07/18 07/31/18 Rx ALPRAZolam [Xanax] 1 mg PO BID PRN 07/31/18 07/31/18 History Albuterol Nebulized [Ventolin 2.5 mg INHALATION RT-TID 07/31/18 07/31/18 History Nebulized] Atorvastatin [Lipitor] 20 mg PO DAILY 07/31/18 07/31/18 History Dicyclomine [Bentyl] 20 mg PO TID 07/31/18 07/31/18 History Ipratropium-Albuterol Nebulize 3 ml INHALATION RT-TID 07/31/18 07/31/18 History [Duoneb 0.5 mg-3 mg/3 ml Soln] Lipase/Protease/Amylase [Creon Dr 2 cap PO TID 07/31/18 07/31/18 History 24,000 Units Capsule] OXcarbazepine [Trileptal] 150 mg PO DAILY 07/31/18 07/31/18 History Omeprazole 20 mg PO DAILY 07/31/18 07/31/18 History Rivaroxaban [Xarelto] 20 mg PO DAILY 07/31/18 07/31/18 History Thiamine [Vitamin B-1] 50 mg PO DAILY 07/31/18 07/31/18 History Tiotropium Br/Olodaterol HCl 2 spray INHALATION RT-DAILY 07/31/18 07/31/18 History [Stiolto Respimat Inhal [place]] Allergies Allergy/AdvReac Type Severity Reaction Status Date / Time No Known Allergies Allergy Verified 07/31/18 13:11 Physical Examination - Vital Signs Vital Signs: Vital Signs Temp Pulse Pulse Resp BP Pulse Ox 08/01/18 20:18 68 08/01/18 20:01 66 18 08/01/18 16:48 62 08/01/18 16:36 67 95 08/01/18 16:00 66 18 08/01/18 15:59 98.0 F 66 18 107/61 93 L 08/01/18 12:10 62 08/01/18 12:00 52 L 18 08/01/18 11:59 97.5 F L 52 L 18 103/63 92 L 08/01/18 11:58 66 08/01/18 08:35 68 08/01/18 08:20 64 95 08/01/18 08:00 97.9 F 73 18 135/68 97 08/01/18 04:00 98.1 F 58 L 16 100/63 97 08/01/18 00:00 98.9 F 72 18 90/62 96 Intake and Output 08/01/18 08/01/18 08/01/18 06:59 14:59 22:59 Intake Total 855 235 4830 Output Total 036 810 9490 Balance -200 40 580 Intake: Intake, IV Titration 611 633 6826 Amount Sodium Chloride 0.9% 1, 653 782 4002 000 ml @ 100 mls/hr IV . Q10H [facility] Rx#:[id number] Oral 240 480 Output: Urine 787 846 7985 Other: Voiding Method Urinal Urinal Urinal Weight 89 kg PHYSICAL EXAM: GENERAL APPEARANCE: Patient is a well-developed, male who appears to be in no acute distress. HEENT: Normocephalic, atraumatic, no facial asymmetry is seen. Neck is supple with no masses felt. CARDIOVASCULAR: Regular rate and rhythm. ABDOMEN: Nontender, nondistended. EXTREMITIES: Show no edema or clubbing. NEUROLOGICAL EXAM: Patient is awake, alert, and oriented 3. Speech and language are normal. Strength is 5/5 in right upper and lower extremity. Strength is 3/5 in left lower extremity and 3+/5 in left upper extremity. No facial asymmetry is seen on cranial nerve testing. Sensory deficit noted to left-sided extremities as well as left facial. No dysphagia. No tremors or seizure-like activity noted. Results - Laboratory Findings CBC and BMP: 07/31/18 12:54 07/31/18 12:54 Abnormal Lab Findings: Abnormal Labs 07/31/18 08/01/18 08/01/18 12:54 06:35 06:37 Chloride 109 H Carbon Dioxide 21 L Glucose 106 H POC Glucose (mg/dL) 113 H Total Protein 8.3 H Cholesterol 233 H LDL Cholesterol, Calc 179 H HDL Cholesterol 29 L 08/01/18 08/01/18 11:51 16:53 Chloride Carbon Dioxide Glucose POC Glucose (mg/dL) 126 H 183 H Total Protein Cholesterol LDL Cholesterol, Calc HDL Cholesterol Assessment and Plan Plan: Impression: 1. CVA, likely right middle cerebral artery distribution 2. Left hemiparesis 3. Left-sided sensory deficit 4. Atrial fibrillation, on Xarelto 5. COPD 6. History of childhood seizure disorder 7. Tobacco use Recommendation: It does appear patient suffered an acute ischemic stroke involving right middle cerebral artery distribution. Patient has left hemiparesis as well as left-sided sensory deficit. Patient ran out of Xarelto at home and had not taken it for 4-5 days. Patient is back on Xarelto and low- dose aspirin and I recommend continued use. Continue statin therapy. I will order an MRI of the brain, EEG, and serum homocystine level. I recommend PT OT to evaluate and treat. Patient will likely need inpatient rehab following discharge. Continue medical management for blood pressure control. Continue neurological checks. I will continue to follow with you. Further recommendations to follow. Thank you for allowing me to participate in the care of your patient. Feel free to call with any questions or concerns. I performed an examination of the patient and discussed the management with the DISCOTHEQUE DANCER. I have reviewed the DISCOTHEQUE DANCER notes and agree with the findings and plan of care.
[2018-08-01 21:14] LABS: Glucose,Whole Blood 168 mg/dL (75-99)
[2018-08-01] MEDS: ASPIRIN 81 MG PO SCH (21:47)
[2018-08-01] MEDS: ATORVASTATIN 80 MG TAB PO SCH (21:47)
[2018-08-01] MEDS ORDERED: IPRATROPIUM-ALBUTEROL 3 ML NEB INHALATION PRN (23:53)
[2018-08-02 06:00] LABS: Glucose,Whole Blood 145 mg/dL (75-99)
[2018-08-02] MEDS: PANTOPRAZOLE 40 MG TABLET PO SCH (06:45)
[2018-08-02] MEDS: INSULIN ASPART 100 UNIT/ML 1 ML 10 ML VIAL SQ SCH ×4 (06:45→21:19)
[2018-08-02] MEDS: NICOTINE 21MG/24HR PATCH TRANSDERM SCH (08:44)
[2018-08-02] MEDS: Lipase/Protease/Amylase [Creon Dr 24,000 Units Capsule] PO SCH ×3 (08:44→21:12)
[2018-08-02] MEDS: methylPREDNISolone SOD SUCCI 40 MG/ML 1 ML VIAL IV SCH ×2 (08:49→16:59)
[2018-08-02] MEDS: oxyCODONE ER 20 MG TAB.ER.12H PO SCH ×2 (08:49→21:19)
[2018-08-02] MEDS: RIVAROXABAN 20 MG TAB PO SCH (08:50)
[2018-08-02] MEDS: MULTIVITAMINS, THERA 1 EACH TAB PO SCH (08:50)
[2018-08-02] MEDS: ASPIRIN 81 MG PO SCH ×2 (08:50→21:18)
[2018-08-02] MEDS: THIAMINE 100 MG TAB PO SCH (08:50)
[2018-08-02] MEDS: ATORVASTATIN 80 MG TAB PO SCH (08:50)
[2018-08-02] MEDS: DICYCLOMINE 20 MG TAB PO SCH ×3 (08:50→21:21)
[2018-08-02] MEDS: METOPROLOL TARTRATE 50 MG TAB PO SCH ×2 (08:50→21:19)
[2018-08-02] MEDS: OXcarbazepine 150 MG TAB PO SCH (08:51)
[2018-08-02] MEDS: IPRATROPIUM-ALBUTEROL 3 ML NEB INHALATION SCH ×4 (08:56→20:03)
[2018-08-02] MEDS: BUDESONIDE 1 MG/2 ML NEBU INHALATION SCH ×2 (08:56→20:03)
[2018-08-02 12:03] LABS: Glucose,Whole Blood 120 mg/dL (75-99)
--- NOTE | 2018-08-02 13:04 | MR ---
EXAMINATION TYPE: MR brain wo con DATE OF EXAM: 08/02/2018 12:41 PM. COMPARISON: NONE. HISTORY: Stroke. Technique: Multiplanar, multiecho imaging of the brain was obtained without intravenous contrast. FINDINGS: Midline structures are unremarkable. There is a normal craniocervical junction. Echoplanar diffusion imaging is normal. There are normal vascular flow voids. The orbits are unremarkable. There is no evidence of a CP angle mass lesion. There are scattered punctate as well as some confluent periventricular white matter change compatible with a combination of small vessel disease and chronic ischemia. Other causes of demyelination are n ot excluded. There is no mass effect, midline shift or intracranial blood. IMPRESSION: 1. NO ACUTE INTRACRANIAL ABNORMALITY. 2. MINIMAL CONFLUENT PERIVENTRICULAR WHITE MATTER DISEASE AND SCATTERED FLAIR LESIONS ARE NONSPECIFIC BUT LIKELY REFLECT SMALL VESSEL ISCHEMIC CHANGE.
[2018-08-02 16:25] LABS: Glucose,Whole Blood 143 mg/dL (75-99)
--- NOTE | 2018-08-02 17:36 | P.PN ---
Subjective Progress Note Date: 08/02/18 Patient is a pleasant 63-year-old male who is being followed by the neurology service for CVA. Patient states he's had a previous stroke with left hemiparesis but has fully recovered. Patient has history of atrial fibrillation and is on Xarelto in home setting. Patient states he was at home he had a severe headache with left-sided weakness and was brought to [facility] for evaluation. Patient informs me he had run out of his Xarelto and had not taken it for about 4-5 days. He states it's very expensive and he cannot afford it. Patient is on chronic pain medicine for trigeminal neuralgia. Left-sided hemiparesis is slowly resolving. Plan is for patient to most likely go to [facility] for short-term rehab. At the time of my evaluation, patient's resting comfortably in bed and appears to be in no acute distress. Objective - Vital Signs Vital signs: Vital Signs Temp 98.1 F 08/02/18 16:00 Pulse 56 L 08/02/18 16:00 Resp 18 08/02/18 16:00 BP 103/55 08/02/18 16:00 Pulse Ox 93 L 08/02/18 16:00 Intake & Output 08/01/18 08/02/18 08/02/18 18:59 06:59 18:59 Intake Total 2120 480 Output Total 1500 1400 2000 Balance 620 -1400 -1520 Weight 74.5 kg Intake: Intake, IV Titration 1400 Amount Sodium Chloride 0.9% 1, 1400 000 ml @ 100 mls/hr IV . Q10H [facility] Rx#:[id number] Oral 720 480 Output: Urine 1500 1400 2000 Other: Voiding Method Urinal Urinal Urinal # Bowel Movements 1 - Constitutional Constitutional Comment(s): PHYSICAL EXAM: GENERAL APPEARANCE: Patient is a well-developed, male who appears to be in no acute distress. HEENT: Normocephalic, atraumatic, no facial asymmetry is seen. Neck is supple with no masses felt. CARDIOVASCULAR: Regular rate and rhythm. ABDOMEN: Nontender, nondistended. EXTREMITIES: Show no edema or clubbing. NEUROLOGICAL EXAM: Patient is awake, alert, and oriented 3. Speech and language are normal. Strength is full on right upper and lower extremity. Strength is 3+/5 in left upper and lower extremity. Sensory deficit noted in left upper and lower extremity. No facial asymmetry seen on cranial nerve testing. No tremors or seizure-like activity noted. - Labs CBC & Chem 7: 07/31/18 12:54 07/31/18 12:54 Labs: Abnormal Lab Results - Last 24 Hours (Table) 08/01/18 08/02/18 08/02/18 Range/Units 21:12 05:58 11:43 POC Glucose (mg/dL) 168 H 145 H 120 H (75-99) mg/dL 08/02/18 Range/Units 16:23 POC Glucose (mg/dL) 143 H (75-99) mg/dL Assessment and Plan Plan: Impression: 1. CVA 2. Left hemiparesis 3. Left-sided sensory deficit 4. Atrial fibrillation, on Xarelto 5. COPD 6. History of childhood seizure disorder 7. Tobacco use Recommendation: It does appear patient suffered an acute ischemic stroke involving right middle cerebral artery distribution, however, MRI of the brain does not show any acute event. Patient has left hemiparesis as well as left- sided sensory deficit. Patient ran out of Xarelto at home and had not taken it for 4-5 days. Patient is back on Xarelto and low-dose aspirin and I recommend continued use. Continue statin therapy. EEG was ordered but not yet done. Lipid panel is elevated with the low HDL of 29. Serum homocystine level is within normal limits. I recommend PT OT to continue. Patient will likely need inpatient rehab following discharge. Continue medical management for blood pressure control. Continue neurological checks. Barring any abnormality on the EEG, I will continue to follow with you on an as-needed basis. Feel free to call with any questions or concerns. I performed an examination of the patient and discussed the management with the RETAIL COVERAGE MERCHANDISER. I have reviewed the RETAIL COVERAGE MERCHANDISER notes and agree with the findings and plan of care.
[2018-08-02 20:20] LABS: Glucose,Whole Blood 140 mg/dL (75-99)
--- NOTE | 2018-08-02 23:35 | PN ---
PROGRESS NOTE DATE OF SERVICE: August 02, 2018. PRESENTING COMPLAINT: Left-sided weakness. INTERVAL HISTORY: This patient presented with acute stroke with left-sided weakness, some improvement in the left arm and the leg but still rather weak. Planning to go to the [facility]. Having some nausea, otherwise able to tolerate his diet. Also had COPD exacerbation. Breathing is getting better. REVIEW OF SYSTEMS: Done for constitutional, cardiovascular, GI, pulmonary and relevant findings as above. CURRENT MEDICATIONS: Reviewed that include aspirin, Lipitor, IV steroids, bronchodilators. PHYSICAL EXAMINATION: VITAL SIGNS: Temperature 98.1, pulse 56, respiratory 18, blood pressure 103/55, pulse ox 93 percent on room air. GENERAL APPEARANCE: Sitting up, awake. EYES: Pupils are equal. Conjunctivae normal. HEENT: External appearance of nose and ears normal. Oral cavity normal. NECK: JVD not raised. Mass not palpable. RESPIRATORY: Effort decreased. LUNGS: Decreased breath sounds. Prolonged expiration. Decreased wheezing. CARDIOVASCULAR: First and second sounds normal. No edema. ABDOMEN: Soft, nontender. Liver and spleen not palpable. PSYCHIATRY: Alert and oriented x3. Mood and affect slightly anxious. NEUROLOGICAL: Power in the left arm and leg is 3/5. INVESTIGATIONS: Accu-Cheks noted. LDL 179. ASSESSMENT: 1. Acute stroke, likely ischemic in the right middle cerebral artery affecting the left side of the body in a right-handed patient, likely ischemic. 2. Paroxysmal atrial fibrillation, currently in sinus rhythm for which patient is on Xarelto. 3. Acute chronic obstructive pulmonary disease exacerbation in a current smoker improving. 4. Chronic nicotine dependence, patient is a cigarette smoker. 5. Hyperlipidemia. 6. Primary osteoarthritis. 7. Chronic seizure disorder. 8. Trigeminal neuralgia. 9. Chronic pancreatitis. PLAN: Overall patient is getting better from a COPD standpoint. We will switch over the IV steroids to p.o. prednisone. Awaiting patient to go to inpatient rehab. Care was discussed with the patient. MMJESSICA / ANGIN: [id number] /
[2018-08-03 06:23] LABS: Glucose,Whole Blood 110 mg/dL (75-99)
[2018-08-03] MEDS: INSULIN ASPART 100 UNIT/ML 1 ML 10 ML VIAL SQ SCH ×2 (06:25→12:28)
[2018-08-03] MEDS: PANTOPRAZOLE 40 MG TABLET PO SCH (06:30)
[2018-08-03] MEDS: IPRATROPIUM-ALBUTEROL 3 ML NEB INHALATION SCH ×4 (09:15→18:53)
[2018-08-03] MEDS: METOPROLOL TARTRATE 50 MG TAB PO SCH ×2 (09:53→22:26)
[2018-08-03] MEDS: DICYCLOMINE 20 MG TAB PO SCH ×3 (09:53→22:43)
[2018-08-03] MEDS: ASPIRIN 81 MG PO SCH ×2 (09:53→22:26)
[2018-08-03] MEDS: ALPRAZolam 1 MG TAB PO PRN ×2 (09:53→22:36)
[2018-08-03] MEDS: NICOTINE 21MG/24HR PATCH TRANSDERM SCH (09:54)
[2018-08-03] MEDS: oxyCODONE ER 20 MG TAB.ER.12H PO SCH ×2 (09:54→22:36)
[2018-08-03] MEDS: Lipase/Protease/Amylase [Creon Dr 24,000 Units Capsule] PO SCH ×3 (09:54→22:34)
[2018-08-03] MEDS: RIVAROXABAN 20 MG TAB PO SCH (09:54)
[2018-08-03] MEDS: ATORVASTATIN 80 MG TAB PO SCH (09:54)
[2018-08-03] MEDS: OXcarbazepine 150 MG TAB PO SCH (09:54)
[2018-08-03] MEDS: MULTIVITAMINS, THERA 1 EACH TAB PO SCH (09:54)
[2018-08-03] MEDS: THIAMINE 100 MG TAB PO SCH (10:37)
[2018-08-03] MEDS: predniSONE 20 MG TAB PO SCH (10:37)
[2018-08-03 12:29] LABS: Glucose,Whole Blood 110 mg/dL (75-99)
--- NOTE | 2018-08-03 15:54 | P.PN ---
Subjective Progress Note Date: 08/03/18 Patient is a pleasant 63-year-old male who is being followed by the neurology service for CVA. Patient states he's had a previous stroke with left hemiparesis but has fully recovered. Patient has history of atrial fibrillation and is on Xarelto in home setting. Patient states he was at home he had a severe headache with left-sided weakness and was brought to [facility] for evaluation. Patient informs me he had run out of his Xarelto and had not taken it for about 4-5 days. He states it's very expensive and he cannot afford it. Patient is on chronic pain medicine for trigeminal neuralgia. Left-sided hemiparesis is slowly resolving. Plan is for patient to most likely go to [facility] for short-term rehab. At the time of my evaluation, patient's resting comfortably in bed and appears to be in no acute distress. 08/03/2018 Patient is a pleasant 63-year-old male is being followed by the neurology service for CVA. Patient presented with left-sided weakness which is improving. Left arm is approximately 80% improved. Left lower extremity continues to be weak. Patient also had exacerbation of COPD during this visit which is also improved. At the time of my evaluation, patient's resting comfortably in bed and appears to be in no acute distress. Objective - Vital Signs Vital signs: Vital Signs Temp 98.2 F 08/03/18 13:59 Pulse 68 08/03/18 15:33 Resp 18 08/03/18 15:29 BP 106/60 08/03/18 13:59 Pulse Ox 95 08/03/18 15:18 Intake & Output 08/02/18 08/03/18 08/03/18 18:59 06:59 18:59 Intake Total 600 1440 Output Total 1999 1090 Balance -1400 -1090 1440 Weight 85.5 kg Intake: Oral 600 1440 Output: Urine 1999 1090 Other: Voiding Method Urinal Urinal # Voids 2 2 # Bowel Movements 1 - Exam PHYSICAL EXAM: GENERAL APPEARANCE: Patient is a well-developed, male who appears to be in no acute distress. HEENT: Normocephalic, atraumatic, no facial asymmetry is seen. Neck is supple with no masses felt. CARDIOVASCULAR: Regular rate and rhythm. ABDOMEN: Nontender, nondistended. EXTREMITIES: Show no edema or clubbing. NEUROLOGICAL EXAM: Patient is awake, alert, and oriented 3. Speech and language are normal. Strength is full in right upper and lower extremity. Strength is 3+/5 in left lower extremity and 5-/5 in left upper extremity. Sensory deficit remains on left upper and lower extremity. No facial asymmetry is seen on cranial nerve testing. No tremors or seizure-like activity noted. - Labs CBC & Chem 7: 07/31/18 12:54 07/31/18 12:54 Labs: Abnormal Lab Results - Last 24 Hours (Table) 08/02/18 08/02/18 08/03/18 Range/Units 16:23 20:19 06:17 POC Glucose (mg/dL) 143 H 140 H 110 H (75-99) mg/dL 08/03/18 Range/Units 11:56 POC Glucose (mg/dL) 110 H (75-99) mg/dL Assessment and Plan Plan: Impression: 1. CVA 2. Left hemiparesis 3. Left-sided sensory deficit 4. Atrial fibrillation, on Xarelto 5. COPD 6. History of childhood seizure disorder 7. Tobacco use Recommendation: It does appear patient suffered an acute ischemic stroke involving right middle cerebral artery distribution, however, MRI of the brain does not show any acute event. Patient has left hemiparesis as well as left- sided sensory deficit. Patient ran out of Xarelto at home and had not taken it for 4-5 days. Patient is back on Xarelto and low-dose aspirin and I recommend continued use. Continue statin therapy. EEG was ordered but not yet done. Lipid panel is elevated with the low HDL of 29. Serum homocystine level is within normal limits. I recommend PT OT to continue. Patient will likely need inpatient rehab following discharge. Continue medical management for blood pressure control. Continue neurological checks. Barring any abnormality on the EEG, I will continue to follow with you on an as-needed basis. Feel free to call with any questions or concerns. I performed an examination of the patient and discussed the management with the MANAGER EPIC. I have reviewed the MANAGER EPIC notes and agree with the findings and plan of care.
--- NOTE | 2018-08-03 21:00 | PN ---
PROGRESS NOTE DATE OF SERVICE: 08/03/18. PRESENTING COMPLAINT: Left-sided weakness. INTERVAL HISTORY: This patient presented with acute stroke on the left side. Left arm is greatly improved today and he lifted it way up, using it. Some weakness in the left leg. The patient is unsure now if he will go to the ECF or will go home. He wants some more time to decide. Awaiting for physical therapy this afternoon to see him. Otherwise, tolerating a diet. Breathing is much better. Nausea is greatly improved. REVIEW OF SYSTEMS: Done for constitutional, cardiovascular, GI, pulmonary; relevant findings as above. CURRENT MEDICATIONS: Reviewed. PHYSICAL EXAMINATION: Temperature 98.2, pulse 63, respirations 16, blood pressure 106/60, pulse 92 percent on room air. GENERAL APPEARANCE: Sitting up, awake. EYES: Pupils equal. Conjunctivae normal. HEENT: External appearance of nose and ears are normal. Oral cavity normal. NECK: JVD not raised. Mass not palpable. RESPIRATORY: Effort normal. Lungs decreased breath sounds. Prolonged expiration. CARDIOVASCULAR: First and second sounds, no edema. ABDOMEN: Soft. Liver and spleen not palpable. PSYCHIATRY: Alert and oriented x3. Mood and affect normal. NEUROLOGICAL: Power in the left arm is 4/5, left leg is 3/5. Left arm is greatly improved. INVESTIGATIONS: Accu-Cheks are noted. ASSESSMENT: 1. Acute stroke likely ischemic in the right middle cerebral artery affecting the left side of the body in a right-handed patient, much improved. 2. Paroxysmal atrial fibrillation currently in sinus rhythm for which patient is on Xarelto. 3. Acute chronic obstructive pulmonary disease exacerbation in a current smoker, improving. 4. Chronic nicotine dependence. Patient is a cigarette smoker. 5. Hyperlipidemia. 6. Primary osteoarthritis. 7. Chronic seizure disorder. 8. Trigeminal neuralgia. 9. Chronic pancreatitis. PLAN: Overall patient doing much better. We will see how he does after physical therapy. Looking for discharge tomorrow either to ECF or home with outpatient rehab. MMODL / IJN: [id number] /
[2018-08-03 22:13] LABS: Glucose,Whole Blood 133 mg/dL (75-99)
[2018-08-04] MEDS: IPRATROPIUM-ALBUTEROL 3 ML NEB INHALATION SCH ×4 (07:05→19:23)
[2018-08-04 07:35] LABS: Glucose,Whole Blood 98 mg/dL (75-99)
[2018-08-04] MEDS: oxyCODONE ER 20 MG TAB.ER.12H PO SCH ×2 (07:45→20:09)
[2018-08-04] MEDS: predniSONE 20 MG TAB PO SCH (07:45)
[2018-08-04] MEDS: ASPIRIN 81 MG PO SCH ×2 (07:47→20:10)
[2018-08-04] MEDS: METOPROLOL TARTRATE 50 MG TAB PO SCH ×2 (07:47→20:09)
[2018-08-04] MEDS: NICOTINE 21MG/24HR PATCH TRANSDERM SCH (07:47)
[2018-08-04] MEDS: ATORVASTATIN 80 MG TAB PO SCH (07:47)
[2018-08-04] MEDS: DICYCLOMINE 20 MG TAB PO SCH ×3 (07:48→20:09)
[2018-08-04] MEDS: PANTOPRAZOLE 40 MG TABLET PO SCH (07:48)
[2018-08-04] MEDS: Lipase/Protease/Amylase [Creon Dr 24,000 Units Capsule] PO SCH ×3 (07:49→20:10)
[2018-08-04] MEDS: OXcarbazepine 150 MG TAB PO SCH (07:49)
[2018-08-04] MEDS: THIAMINE 100 MG TAB PO SCH (07:52)
[2018-08-04] MEDS: RIVAROXABAN 20 MG TAB PO SCH (07:52)
[2018-08-04] MEDS: MULTIVITAMINS, THERA 1 EACH TAB PO SCH (11:47)
--- NOTE | 2018-08-04 19:57 | PN ---
PROGRESS NOTE DATE OF SERVICE: 08/04/2018. PRESENTING COMPLAINT: Left-sided weakness. INTERVAL HISTORY: This patient presented with acute stroke. Left arm is nearly back to normal Some left leg weakness. Patient did actually walk in the hallway over 100 feet with a walker. Per PT/OT recommendation, the patient may need inpatient rehab; hence Dr. Ware was consulted. Otherwise, patient is tolerating a diet. Breathing is much improved. REVIEW OF SYSTEMS: Done for constitutional, cardiovascular, GI, pulmonary; relevant findings as above. CURRENT MEDICATIONS: Reviewed. PHYSICAL EXAMINATION: Temperature 98.1, pulse 62, respiration 18, blood pressure 102/62, pulse ox 93% on room air. GENERAL APPEARANCE: Sitting up. Comfortable. EYES: Pupils equal. Conjunctivae normal. HEENT: External appearance of nose and ears normal. Oral cavity normal. NECK: JVD not raised. Mass not palpable. RESPIRATORY: Effort normal. LUNGS: Decreased breath sounds. CARDIOVASCULAR: First and second sounds normal. No edema. ABDOMEN: Soft, non-tender. Liver and spleen not palpable. PSYCHIATRY: Alert and oriented x3. Mood and affect normal. NEUROLOGICAL: Power in the left arm is 4/5, left leg is 3/5. INVESTIGATIONS: Accu-Cheks are noted. ASSESSMENT: 1. Acute stroke, likely ischemic, in the right middle cerebral artery affecting the left side of the body in a right-handed patient, much improved. 2. Paroxysmal atrial fibrillation, currently in sinus rhythm, for which patient is on Xarelto. 3. Acute chronic obstructive pulmonary disease exacerbation in a current smoker, much improved. 4. Chronic nicotine dependence. Patient is a cigarette smoker. 5. Hyperlipidemia. 6. Primary osteoarthritis. 7. Chronic seizure disorder. 8. Trigeminal neuralgia. 9. Chronic pancreatitis. PLAN: Patient walked in the hallway for over 100 feet. We will see what Dr. Ware says. He discussed with the patient. The patient may also do fairly well at home with outpatient rehab. Let us see what Dr. Ware decides on the same. MMODL / IJN: [id number] /
[2018-08-04] MEDS: ALPRAZolam 1 MG TAB PO PRN (20:08)
--- NOTE | 2018-08-05 06:49 | P.CONS ---
History of Present Illness - Chief Complaint Gait disturbance - History of Present Illness I had the opportunity to see patient for inpatient rehab consultation with regard to gait disturbance. He was admitted to [facility] July 31 acute onset left-sided weakness. History of previous stroke and left hemiparesthesias. Seen by Dr. Nicole for stroke. Head CT demonstrated age-related change and chronic white matter change. Chest x-ray negative. Angios CT with bilateral 50 % occlusion ICA. Brain MRI with white matter change. PT reports minimal assistance for transfers and gait 150 feet with roller walker. OT reports supervision for upper dressing but minimal to moderate assistance for lower dressing and bathing and minimal assistance for toileting and transfers. Previous functional history as elicited from patient: 63-year-old right-handed white male who is lives in one floor home with . Retired. does cooking and laundry. Patient independent with driving, standing shower and gait without device. Was a 4 pack a day smoker up until now. History of heavy drinking quit [address] Kaur his regular doctor. Family history of cardiac disease in both parents and diabetes in father. Review of Systems Review of systems: ENT: Denies sneezes or discharge. Eyes: Denies discharge or photophobia. Cardiac: Denies chest pain or palpitation. Pulmonary: Denies cough or shortness of breath. Gastrointestinal: Denies nausea, emesis, constipation, diarrhea. Genitourinary: Denies discharge or frequency. Musculoskeletal: Denies muscle or bone aches. Neurologic: Left-sided weakness, especially leg. left-sided numbness. Endocrine: Denies shakes or sweats. Oncology: Denies cancers. Dermatologic: Denies rash, itching, pruritus. ALLERGY/immunology: Denies sneezes, rashes. Past Medical History Past Medical History: Atrial Fibrillation, Coronary Artery Disease (CAD), Cancer , Chest Pain / Angina, COPD, CVA/TIA, Hyperlipidemia, Osteoarthritis (OA), Seizure Disorder, Syncope Additional Past Medical History / Comment(s): RT SIDE DOMINANT.Pt states he has had one CVA ( LT PUPIL LARGER THAN RT AND OCCASIONAL BILATERAL HAND NUMBNESS), TIA, right sided trigeminal neuralgia with surgery, syncopy 2012 and pt thinks possibly yesterday, 04/03/18, head injury with a fall at the age of 48yrs with intracranial bleed, childhood seizures, bacterial infection in stomach couple years ago, L hip fx with surgery, skin cancer removals.EXPOSED TO ASBESTOS, new diagnosis of Afib in April 2017. New diagnosis of pancreatitis, pt to see a specialist at [facility] but has not done this yet. History of Any Multi-Drug Resistant Organisms: None Reported Past Surgical History: Appendectomy, Back Surgery, Heart Catheterization, Orthopedic Surgery, Tonsillectomy Additional Past Surgical History / Comment(s): trigeminal neuralgia gamma knife surgery, L hip with "2or 3 pins", cardiac cath approximately 11 yrs ago-no intervention, lumbar fusion, EGD/colonoscopy with benign polypectomies, R rotator cuff repair, bilateral knee arthrosopies, skin cancer removals, benign prostate bx and removed benign polyps. Past Anesthesia/Blood Transfusion Reactions: No Reported Reaction Past Psychological History: Bipolar, Depression, PTSD Additional Psychological History / Comment(s): Pt resides with his spouse. . Pt has a cane he will use prn. He drives. He is a . 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 Smoking Status: Current every day smoker Past Alcohol Use History: None Reported Additional Past Alcohol Use History / Comment(s): started smoking at age 10(1965 )-has cut down from 4 ppd to 1/2 ppd. Pt used to drink 2-3 beers a day but has not drank in 2 years. Past Drug Use History: None Reported Additional Drug Use History / Comment(s): currently smokes marijuana, 1-2 joints a day - Past Family History Father Family Medical History: Cancer, Coronary Artery Disease (CAD) Additional Family Medical History / Comment(s): Father had colon cancer. He at the age of 70yrs. Mother Family Medical History: Cancer Additional Family Medical History / Comment(s): Mother had colon cancer. triple bypass. She at the age of 77yrs. Medications and Allergies Home Medications Medication Instructions Recorded Confirmed Type oxyCODONE HCL [OxyCONTIN] 40 mg PO BID 03/06/14 07/31/18 History oxyCODONE HCL 10 mg PO TID 01/30/16 07/31/18 History Metoprolol Tartrate [Lopressor] 50 mg PO BID #60 tab 04/18/17 07/31/18 Rx Multivitamins, Thera [Multivitamin 1 tab PO DAILY 04/29/17 07/31/18 History (formulary)] Aspirin 81 mg PO DAILY #30 06/14/17 07/31/18 Rx Nicotine 21Mg/24Hr Patch [Habitrol] 1 each TRANSDERM DAILY #30 patch 04/07/18 Rx predniSONE 10 mg PO DAILY #30 tab 04/07/18 07/31/18 Rx ALPRAZolam [Xanax] 1 mg PO BID PRN 07/31/18 07/31/18 History Albuterol Nebulized [Ventolin 2.5 mg INHALATION RT-TID 07/31/18 07/31/18 History Nebulized] Atorvastatin [Lipitor] 20 mg PO DAILY 07/31/18 07/31/18 History Dicyclomine [Bentyl] 20 mg PO TID 07/31/18 07/31/18 History Ipratropium-Albuterol Nebulize 3 ml INHALATION RT-TID 07/31/18 07/31/18 History [Duoneb 0.5 mg-3 mg/3 ml Soln] Lipase/Protease/Amylase [Creon Dr 2 cap PO TID 07/31/18 07/31/18 History 24,000 Units Capsule] OXcarbazepine [Trileptal] 150 mg PO DAILY 07/31/18 07/31/18 History Omeprazole 20 mg PO DAILY 07/31/18 07/31/18 History Rivaroxaban [Xarelto] 20 mg PO DAILY 07/31/18 07/31/18 History Thiamine [Vitamin B-1] 50 mg PO DAILY 07/31/18 07/31/18 History Tiotropium Br/Olodaterol HCl 2 spray INHALATION RT-DAILY 07/31/18 07/31/18 History [Stiolto Respimat Inhal [place]] Allergies Allergy/AdvReac Type Severity Reaction Status Date / Time No Known Allergies Allergy Verified 07/31/18 13:11 Physical Exam Vitals: Vital Signs Temp Pulse Pulse Resp BP Pulse Ox 08/04/18 23:00 98.0 F 56 L 18 107/64 94 L 08/04/18 19:34 78 08/04/18 19:24 78 08/04/18 16:00 18 08/04/18 15:29 80 08/04/18 15:17 80 10/29/18 14:43 98.1 F 62 18 102/62 93 L 08/04/18 11:27 72 08/04/18 11:17 76 08/04/18 07:54 60 18 08/04/18 07:19 72 08/04/18 07:08 76 08/04/18 07:00 98.0 F 60 18 103/62 94 L Intake and Output 08/04/18 08/04/18 08/05/18 14:59 22:59 06:59 Intake Total 500 500 Output Total 775 1100 Balance -775 -600 500 Intake: Oral 500 500 Output: Urine 775 1100 Other: Voiding Method Urinal Urinal # Voids 0 3 # Bowel Movements 0 0 Skin: Good color, texture, turgor. General: Medium build and comfortable appearance. Head: Normocephalic, atraumatic. Eyes: Symmetric. Pupils equal round. Ears: Symmetric. Hearing within normal limits. Mouth: Clear. Neck: Supple. Carotid without bruit. Cardiac: Regular rate and rhythm. Lungs: Clear anteriorly and posteriorly. Abdomen: Soft active nontender. Extremities: Normal tone. Neurological: Mental status: Alert, cooperative, pleasant. Cranial nerves: Symmetric facial tone and trapezius. Motor: Normal strength and isolation right side. Left arm with isolation. Left leg and synergy and weak distally. Sensation: Intact throughout. DTRs: Symmetric and equal throughout. Mobility: Requires assistance for bed mobility and sitting. Results CBC & Chem 7: 07/31/18 12:54 07/31/18 12:54 Assessment and Plan (1) Cerebrovascular accident Current Visit: Yes Status: Acute Code(s): I63.9 - CEREBRAL INFARCTION, UNSPECIFIED SNOMED Code(s): 986405152 Plan: Impression: 1. Gait disturbance. 2. Acute right MCA infarct result in left hemiparesthesias. 3. Atrial fibrillation. 4. Disability. 5. Syncope. 6. History of stroke and heart attack. 7. Seizure. 8. Coronary disease with history of angina. Comments and plan: At this time PT and OT are ongoing. Speech therapy ordered. Safety concerns noted has demonstrated the ability tolerate and benefit from therapies. Discussed inpatient rehab with patient and he seems agreeable.
[2018-08-05] MEDS: IPRATROPIUM-ALBUTEROL 3 ML NEB INHALATION SCH ×4 (07:17→19:48)
[2018-08-05] MEDS: NICOTINE 21MG/24HR PATCH TRANSDERM SCH (09:38)
[2018-08-05] MEDS: DICYCLOMINE 20 MG TAB PO SCH ×3 (09:38→21:40)
[2018-08-05] MEDS: oxyCODONE ER 20 MG TAB.ER.12H PO SCH ×2 (09:38→21:52)
[2018-08-05] MEDS: ATORVASTATIN 80 MG TAB PO SCH (09:38)
[2018-08-05] MEDS: OXcarbazepine 150 MG TAB PO SCH (09:38)
[2018-08-05] MEDS: METOPROLOL TARTRATE 50 MG TAB PO SCH ×2 (09:39→21:40)
[2018-08-05] MEDS: PANTOPRAZOLE 40 MG TABLET PO SCH (09:40)
[2018-08-05] MEDS: predniSONE 20 MG TAB PO SCH (09:40)
[2018-08-05] MEDS: ASPIRIN 81 MG PO SCH ×2 (09:40→21:40)
[2018-08-05] MEDS: RIVAROXABAN 20 MG TAB PO SCH (09:40)
[2018-08-05] MEDS: Lipase/Protease/Amylase [Creon Dr 24,000 Units Capsule] PO SCH ×3 (09:40→21:41)
[2018-08-05] MEDS: THIAMINE 100 MG TAB PO SCH (09:41)
[2018-08-05] MEDS: MULTIVITAMINS, THERA 1 EACH TAB PO SCH (12:35)
--- NOTE | 2018-08-05 15:57 | DS ---
DISCHARGE SUMMARY DATE OF ADMISSION: 07/31/2018 DATE OF DISCHARGE: 08/05/2018 FINAL DIAGNOSES: 1. Acute stroke, likely ischemic, in the right middle cerebral artery affecting the left side of the body in a right-handed patient. 2. Paroxysmal atrial fibrillation, currently in sinus rhythm, for which patient is on Xarelto. 3. Acute chronic obstructive pulmonary disease exacerbation in a current smoker. 4. Chronic nicotine dependence. Patient is a cigarette smoker. 5. Hyperlipidemia. 6. Primary osteoarthritis. 7. Chronic seizure disorder. 8. Trigeminal neuralgia. 9. Chronic pancreatitis. HOSPITAL COURSE: This patient presented with significant weakness on the left side, much improved. Some weakness is left in the left leg. Patient did have an MRI of the brain that showed some nonspecific findings. Two-D echocardiogram showed EF of 55% to 60%. CT angio did not show any critical stenosis. Patient's LDL is 179. CONSULTATION: Dr. Nicole from Neurology. DISCHARGE MEDICATIONS: 1. OxyContin 40 mg p.o. b.i.d. 2. Lopressor 50 mg b.i.d. 3. Multivitamin 1 tablet p.o. daily. 4. Nicotine 21 mg patch. 5. Prednisone taper. 6. Bentyl 20 mg t.i.d. 7. DuoNeb t.i.d. 8. Creon 24,000 units 2 capsules p.o. t.i.d. 9. Trileptal 150 mg p.o. daily. 10.Omeprazole 20 mg p.o. daily. 11.Xarelto 20 mg p.o. daily. 12.Thiamine 150 mg p.o. daily. 13.Xanax 1 mg p.o. b.i.d. p.r.n. 14.Aspirin 81 mg p.o. b.i.d. 15.Lipitor 80 mg p.o. daily. 16.Oxycodone 10 mg p.o. t.i.d. DISPOSITION: [facility]. Follow up with Dr. Harvey Ware there Follow up with Dr. Pal Kaur after discharge from there. Follow up with Dr. Nicole in 2 weeks. Patient advised against smoking. MMODL / IJN: [id number] /
[2018-08-05] MEDS: ALPRAZolam 1 MG TAB PO PRN (21:52)
[2018-08-06] MEDS: IPRATROPIUM-ALBUTEROL 3 ML NEB INHALATION SCH ×2 (06:52→11:02)
[2018-08-06] MEDS: predniSONE 20 MG TAB PO SCH (07:32)
[2018-08-06] MEDS: NICOTINE 21MG/24HR PATCH TRANSDERM SCH (07:32)
[2018-08-06] MEDS: ATORVASTATIN 80 MG TAB PO SCH (07:32)
[2018-08-06] MEDS: METOPROLOL TARTRATE 50 MG TAB PO SCH (07:33)
[2018-08-06] MEDS: THIAMINE 100 MG TAB PO SCH (07:33)
[2018-08-06] MEDS: RIVAROXABAN 20 MG TAB PO SCH (07:33)
[2018-08-06] MEDS: DICYCLOMINE 20 MG TAB PO SCH (07:33)
[2018-08-06] MEDS: PANTOPRAZOLE 40 MG TABLET PO SCH (07:33)
[2018-08-06] MEDS: ASPIRIN 81 MG PO SCH (07:33)
[2018-08-06] MEDS: oxyCODONE ER 20 MG TAB.ER.12H PO SCH (07:34)
[2018-08-06] MEDS: OXcarbazepine 150 MG TAB PO SCH (07:34)
[2018-08-06 07:38] VITALS: BP 108/64; RESP 18; TEMP 97.6
[2018-08-06] MEDS: Lipase/Protease/Amylase [Creon Dr 24,000 Units Capsule] PO SCH (08:49)
[2018-08-06 11:16] VITALS: PULSE 82
[2018-08-06] MEDS: MULTIVITAMINS, THERA 1 EACH TAB PO SCH (13:04)
== END 2018-08-06 13:16 | DRG 65 ==
LOC: EC 12:28 → 3SCARD 14:51 → 4MS4W 08-03 09:10
PROVIDERS: ADMIT Hospitalist; ATTEND Hospitalist
DX: I63.511 Cerebral infarction due to unspecified occlusion or stenosis of right middle cerebral artery (principal); G81.94 Hemiplegia, unspecified affecting left nondominant side; J44.1 Chronic obstructive pulmonary disease with (acute) exacerbation; K86.1 Other chronic pancreatitis; I48.0 Paroxysmal atrial fibrillation; I69.998 Other sequelae following unspecified cerebrovascular disease; R29.705 NIHSS score 5; E78.5 Hyperlipidemia, unspecified; F17.210 Nicotine dependence, cigarettes, uncomplicated; F43.10 Post-traumatic stress disorder, unspecified; R11.0 Nausea; G40.909 Epilepsy, unspecified, not intractable, without status epilepticus; G50.0 Trigeminal neuralgia; G89.4 Chronic pain syndrome; I25.10 Atherosclerotic heart disease of native coronary artery without angina pectoris; I25.2 Old myocardial infarction; M19.91 Primary osteoarthritis, unspecified site; N40.0 Benign prostatic hyperplasia without lower urinary tract symptoms; F32.9 Major depressive disorder, single episode, unspecified; R26.9 Unspecified abnormalities of gait and mobility; Z77.090 Contact with and (suspected) exposure to asbestos; Z79.01 Long term (current) use of anticoagulants; Z79.82 Long term (current) use of aspirin; Z79.899 Other long term (current) drug therapy; Z79.891 Long term (current) use of opiate analgesic; Z79.52 Long term (current) use of systemic steroids; Z85.828 Personal history of other malignant neoplasm of skin; Z90.49 Acquired absence of other specified parts of digestive tract; Z98.1 Arthrodesis status; Z83.3 Family history of diabetes mellitus; Z82.49 Family history of ischemic heart disease and other diseases of the circulatory system; Z80.0 Family history of malignant neoplasm of digestive organs
CPT/HCPCS: 36415; 70450; 70496; 70498; 70551; 71046; 80053; 80061; 82550; 82553; 83090; 84484; 85025; 85610; 85730; 93306; 94640; 94760; 95819; 96361; 96374; 99285

== ENCOUNTER 2019-02-17 04:16 | Emergency (ER) | payer MEDICARE ==
[2019-02-17 04:22] VITALS: TEMP 97.9
[2019-02-17 04:40] LABS: Basophils % (A) 1 %; Eosinophils # (A) 0.4 k/uL (0-0.7); Eosinophils % (A) 6 %; HCT 42.8 % (39.0-53.0); HGB 14.1 gm/dL (13.0-17.5); Lymphocytes % (A) 29 %; MCH 30.5 pg (25.0-35.0); MCV 92.3 fL (80.0-100.0); Mean Platelet Volume 7.9; Monocytes # (A) 0.4 k/uL (0-1.0); Monocytes % (A) 5 %; Neutrophils % (A) 58 %; Platelet Count 222 k/uL (150-450); RBC 4.64 m/uL (4.30-5.90); RDW 14.7 % (11.5-15.5); WBC 6.9 k/uL (3.8-10.6)
--- NOTE | 2019-02-17 04:43 | XR ---
EXAM: XR Chest, 2 Views CLINICAL HISTORY: ITS.REASON XR Reason: Chest Pain right sided - feels like lung collapsed TECHNIQUE: Frontal and lateral views of the chest. COMPARISON: 07/31/18 chest x-ray IMPRESSION: Normal heart size. No consolidation or pleural effusion.
[2019-02-17] MEDS ORDERED: IPRATROPIUM-ALBUTEROL 3 ML NEB INHALATION STA (04:53)
[2019-02-17] MEDS ORDERED: methylPREDNISolone SOD SUCCI 125 MG/2 ML VIAL IV STA (04:53)
[2019-02-17 04:54] LABS: ALT 21 U/L (21-72); AST 23 U/L (17-59); Albumin 4.4 g/dL (3.5-5.0); Alkaline Phosphatase 90 U/L (38-126); Anion Gap 9 mmol/L; Blood Urea Nitrogen 14 mg/dL (9-20); Calcium 9.6 mg/dL (8.4-10.2); Carbon Dioxide 22 mmol/L (22-30); Chloride 110 mmol/L (98-107); Glucose 110 mg/dL (74-99); Magnesium 2.4 mg/dL (1.6-2.3); Potassium 4.4 mmol/L (3.5-5.1); Sodium 141 mmol/L (137-145); Total Bilirubin 0.5 mg/dL (0.2-1.3); Total Protein 7.5 g/dL (6.3-8.2)
--- NOTE | 2019-02-17 04:54 | ED ---
SOB HPI - General Chief Complaint: Shortness of Breath Stated Complaint: HUBER Time Seen by Provider: 02/17/19 04:23 Source: patient Mode of arrival: ambulatory Limitations: no limitations - History of Present Illness Initial Comments: Lion Gutierrez is a 63-year-old gentleman with past medical history of COPD who presents the emergency department today for shortness breath wheezing and right- sided lung pain. Patient reports he's had a nonproductive cough and tightness with breathing for a few days duration. He states that it's progressively worsened throughout the day today states he feels like he can't breathe. She describes feeling as though his lung is collapsed or not getting any air. She denies any associated fevers, chills, exertional chest pain or palpitation he denies any productive cough. - Related Data Home Medications Medication Instructions Recorded Confirmed oxyCODONE HCL [OxyCONTIN] 40 mg PO BID 03/06/14 07/31/18 Multivitamins, Thera [Multivitamin 1 tab PO DAILY 04/29/17 07/31/18 (formulary)] Dicyclomine [Bentyl] 20 mg PO TID 07/31/18 07/31/18 Ipratropium-Albuterol Nebulize 3 ml INHALATION RT-TID 07/31/18 07/31/18 [Duoneb 0.5 mg-3 mg/3 ml Soln] Lipase/Protease/Amylase [Creon Dr 2 cap PO TID 07/31/18 07/31/18 24,000 Units Capsule] OXcarbazepine [Trileptal] 150 mg PO DAILY 07/31/18 07/31/18 Omeprazole 20 mg PO DAILY 07/31/18 07/31/18 Rivaroxaban [Xarelto] 20 mg PO DAILY 07/31/18 07/31/18 Thiamine [Vitamin B-1] 50 mg PO DAILY 07/31/18 07/31/18 Previous Rx's Medication Instructions Recorded Metoprolol Tartrate [Lopressor] 50 mg PO BID #60 tab 04/18/17 Nicotine 21Mg/24Hr Patch [Habitrol] 1 each TRANSDERM DAILY #30 patch 04/07/18 predniSONE 10 mg PO DAILY #30 tab 04/07/18 ALPRAZolam [Xanax] 1 mg PO BID PRN #6 tab 08/05/18 Aspirin 81 mg PO BID #30 08/05/18 Atorvastatin [Lipitor] 80 mg PO DAILY tab 08/05/18 oxyCODONE HCL [oxyCODONE HCL (IR)] 10 mg PO TID #6 tablet 08/05/18 Allergies Allergy/AdvReac Type Severity Reaction Status Date / Time No Known Allergies Allergy Verified 02/17/19 04:21 Review of Systems ROS Statement: Those systems with pertinent positive or pertinent negative responses have been documented in the HPI. ROS Other: All systems not noted in ROS Statement are negative. Past Medical History Past Medical History: Atrial Fibrillation, Coronary Artery Disease (CAD), Cancer, Chest Pain / Angina, COPD, CVA/TIA, Hyperlipidemia, Osteoarthritis (OA), Seizure Disorder, Syncope Additional Past Medical History / Comment(s): RT SIDE DOMINANT.Pt states he has had one CVA ( LT PUPIL LARGER THAN RT AND OCCASIONAL BILATERAL HAND NUMBNESS), TIA, right sided trigeminal neuralgia with surgery, syncopy 2012 and pt thinks possibly yesterday, 04/03/18, head injury with a fall at the age of 48yrs with intracranial bleed, childhood seizures, bacterial infection in stomach couple years ago, L hip fx with surgery, skin cancer removals.EXPOSED TO ASBESTOS, new diagnosis of Afib in April 2017 History of Any Multi-Drug Resistant Organisms: None Reported Past Surgical History: Appendectomy, Back Surgery, Heart Catheterization, Orthopedic Surgery, Tonsillectomy Additional Past Surgical History / Comment(s): trigeminal neuralgia gamma knife surgery, L hip with "2or 3 pins", cardiac cath approximately 11 yrs ago-no intervention, lumbar fusion, EGD/colonoscopy with benign polypectomies, R rotator cuff repair, bilateral knee arthrosopies, skin cancer removals, benign prostate bx and removed benign polyps. Past Anesthesia/Blood Transfusion Reactions: No Reported Reaction Past Psychological History: Bipolar, Depression, PTSD Smoking Status: Current every day smoker Past Alcohol Use History: None Reported Past Drug Use History: None Reported - Past Family History Father Family Medical History: Cancer, Coronary Artery Disease (CAD) Additional Family Medical History / Comment(s): Father had colon cancer. He at the age of 70yrs. Mother Family Medical History: Cancer Additional Family Medical History / Comment(s): Mother had colon cancer. triple bypass. She at the age of 77yrs. General Exam - General Exam Comments Initial Comments: Physical Exam GENERAL: Patient is well-developed and well-nourished. Increased work of breathing HENT: Normocephalic, Atraumatic. EYES: EOMI PULMONARY: Expiratory wheezing in all lung yu CARDIOVASCULAR: There is a regular rate and rhythm without any murmurs gallops or rubs. ABDOMEN: Soft and nontender with normal bowel sounds. SKIN: Multiple lesions on back, advised patient to follow up with primary care or dermatology : Deferred NEUROLOGIC: Patient is alert and oriented x3. Moving all extremities spontaneously MUSCULOSKELETAL: Normal extremities with adequate strength and full range of motion. No lower extremity swelling or edema. No calf tenderness. PSYCHIATRIC: Normal psychiatric evaluation. Limitations: no limitations Course Vital Signs 02/17/19 02/17/19 02/17/19 04:19 04:27 04:30 Temperature 97.9 F Pulse Rate 66 71 67 Respiratory 22 16 15 Rate Blood Pressure 115/64 126/72 O2 Sat by Pulse 98 Oximetry 02/17/19 02/17/19 02/17/19 04:40 04:50 04:57 Temperature Pulse Rate 63 63 68 Respiratory 30 H 6 L 18 Rate Blood Pressure 126/72 126/72 O2 Sat by Pulse 98 Oximetry 02/17/19 02/17/19 02/17/19 05:00 05:10 05:20 Temperature Pulse Rate 63 75 76 Respiratory 8 L 14 9 L Rate Blood Pressure 126/72 104/64 104/64 O2 Sat by Pulse 100 100 94 L Oximetry 02/17/19 02/17/19 02/17/19 05:30 05:40 05:50 Temperature Pulse Rate 75 74 72 Respiratory 9 L 13 9 L Rate Blood Pressure 104/64 100/60 100/60 O2 Sat by Pulse 95 92 L 96 Oximetry 02/17/19 02/17/19 06:00 06:10 Temperature Pulse Rate 76 75 Respiratory 12 13 Rate Blood Pressure 100/60 105/62 O2 Sat by Pulse 92 L 95 Oximetry Medical Decision Making - Medical Decision Making The patient was seen and evaluated history is obtained from patient and signed lesions noted to have wheezing in all lung yu reporting pleuritic like chest pain on the right concerned that as well as labs that he has no history of such Labs and imaging were ordered including chest x-ray Chest x-ray no acute findings, evidence of pneumothorax DuoNeb's were ordered for wheezing Patient was reevaluated wheezing AFTER DuoNeb's. I did offer the patient Toradol for his pleuritic chest pain however he stated he preferred to go home and take his home pain medications. This time patient reports feeling much better and is comfortable with the plan for discharge home. All questions pertaining care were answered return parameters discussed patient discharged home in stable condition. Patient was able to ambulate independently out of the emergency department. - Lab Data Result diagrams: 02/17/19 04:25 02/17/19 04:25 Lab Results 02/17/19 02/17/19 02/17/19 Range/Units 04:25 04:25 04:25 WBC 6.9 (3.8-10.6) k/uL RBC 4.64 (4.30-5.90) m/uL Hgb 14.1 (13.0-17.5) gm/dL Hct 42.8 (39.0-53.0) % MCV 92.3 (80.0-100.0) fL MCH 30.5 (25.0-35.0) pg MCHC 33.0 (31.0-37.0) g/dL RDW 14.7 (11.5-15.5) % Plt Count 222 (150-450) k/uL Neutrophils % 58 % Lymphocytes % 29 % Monocytes % 5 % Eosinophils % 6 % Basophils % 1 % Neutrophils # 4.0 (1.3-7.7) k/uL Lymphocytes # 2.0 (1.0-4.8) k/uL Monocytes # 0.4 (0-1.0) k/uL Eosinophils # 0.4 (0-0.7) k/uL Basophils # 0.0 (0-0.2) k/uL PT 9.4 (9.0-12.0) sec INR 0.9 (<1.2) APTT 24.1 (22.0-30.0) sec Sodium 141 (137-145) mmol/L Potassium 4.4 (3.5-5.1) mmol/L Chloride 110 H (98-107) mmol/L Carbon Dioxide 22 (22-30) mmol/L Anion Gap 9 mmol/L BUN 14 (9-20) mg/dL Creatinine 0.85 (0.66-1.25) mg/dL Est GFR (CKD-EPI)AfAm >90 (>60 ml/min/1.73 sqM) Est GFR (CKD-EPI)NonAf >90 (>60 ml/min/1.73 sqM) Glucose 110 H (74-99) mg/dL Calcium 9.6 (8.4-10.2) mg/dL Magnesium 2.4 H (1.6-2.3) mg/dL Total Bilirubin 0.5 (0.2-1.3) mg/dL AST 23 (17-59) U/L ALT 21 (21-72) U/L Alkaline Phosphatase 90 (38-126) U/L Troponin I (0.000-0.034) ng/mL Total Protein 7.5 (6.3-8.2) g/dL Albumin 4.4 (3.5-5.0) g/dL 02/17/19 Range/Units 04:25 WBC (3.8-10.6) k/uL RBC (4.30-5.90) m/uL Hgb (13.0-17.5) gm/dL Hct (39.0-53.0) % MCV (80.0-100.0) fL MCH (25.0-35.0) pg MCHC (31.0-37.0) g/dL RDW (11.5-15.5) % Plt Count (150-450) k/uL Neutrophils % % Lymphocytes % % Monocytes % % Eosinophils % % Basophils % % Neutrophils # (1.3-7.7) k/uL Lymphocytes # (1.0-4.8) k/uL Monocytes # (0-1.0) k/uL Eosinophils # (0-0.7) k/uL Basophils # (0-0.2) k/uL PT (9.0-12.0) sec INR (<1.2) APTT (22.0-30.0) sec Sodium (137-145) mmol/L Potassium (3.5-5.1) mmol/L Chloride (98-107) mmol/L Carbon Dioxide (22-30) mmol/L Anion Gap mmol/L BUN (9-20) mg/dL Creatinine (0.66-1.25) mg/dL Est GFR (CKD-EPI)AfAm (>60 ml/min/1.73 sqM) Est GFR (CKD-EPI)NonAf (>60 ml/min/1.73 sqM) Glucose (74-99) mg/dL Calcium (8.4-10.2) mg/dL Magnesium (1.6-2.3) mg/dL Total Bilirubin (0.2-1.3) mg/dL AST (17-59) U/L ALT (21-72) U/L Alkaline Phosphatase (38-126) U/L Troponin I <0.012 (0.000-0.034) ng/mL Total Protein (6.3-8.2) g/dL Albumin (3.5-5.0) g/dL - EKG Data -: EKG Interpreted by Oh EKG Comments: EKG was obtained at 4:29 AM for evaluation of chest pain EKG with a rate of 71 and rhythm is sinus there is normal axis there are normal intervals, VA 114, QRS 104, QTC 449 there are no acute ST elevations or depressions there is no evidence of acute ischemia or infarction Disposition Clinical Impression: COPD (chronic obstructive pulmonary disease) Disposition: HOME SELF-CARE Condition: Stable Instructions (If sedation given, give patient instructions): Chronic Bronchitis (ED) Is patient prescribed a controlled substance at d/c from ED?: No Referrals: Pal Kaur MD [Primary Care Provider] - 1-2 days
[2019-02-17 04:57] LABS: INR 0.9 (<1.2); Partial Thromboplastin Time 24.1 sec (22.0-30.0); Prothrombin Time 9.4 sec (9.0-12.0)
[2019-02-17 06:20] VITALS: BP 105/62; PULSE 75; RESP 13
== END 2019-02-17 06:43 | disposition home or self-care (01) ==
LOC: EC 04:16
DX: J44.9 Chronic obstructive pulmonary disease, unspecified (principal); L98.8 Other specified disorders of the skin and subcutaneous tissue; I48.91 Unspecified atrial fibrillation; G40.909 Epilepsy, unspecified, not intractable, without status epilepticus; I25.119 Atherosclerotic heart disease of native coronary artery with unspecified angina pectoris; F17.200 Nicotine dependence, unspecified, uncomplicated; Z79.01 Long term (current) use of anticoagulants; Z79.891 Long term (current) use of opiate analgesic; Z79.899 Other long term (current) drug therapy; Z85.828 Personal history of other malignant neoplasm of skin; Z98.890 Other specified postprocedural states; Z87.19 Personal history of other diseases of the digestive system; Z95.818 Presence of other cardiac implants and grafts; Z86.73 Personal history of transient ischemic attack (TIA), and cerebral infarction without residual deficits
CPT/HCPCS: 36415; 94640; 93005; 80053; 83735; 84484; 85025; 85610; 85730; 71046; 99285; 96374; J2930

== ENCOUNTER 2019-04-27 09:29 | Inpatient (IN) | payer MEDICARE ==
[2019-04-27] MEDS ORDERED: SODIUM CHLORIDE 0.9% 500 ML 500 ML IV STA (09:54)
[2019-04-27] MEDS ORDERED: ONDANSETRON 4 MG/2 ML VIAL IVP STA (09:54)
[2019-04-27] MEDS ORDERED: MORPHINE SULFATE 4 MG/ML SYRINGE IVP STA ×2 (09:54→13:05)
--- NOTE | 2019-04-27 10:25 | ED ---
General Adult HPI - General Chief complaint: Shortness of Breath Stated complaint: SOB Time Seen by Provider: 04/27/19 09:43 Source: patient, RN notes reviewed Mode of arrival: wheelchair Limitations: no limitations - History of Present Illness Initial comments: This a 64-year-old male presents emergency Department chief complaint of left- sided chest wall pain, shortness of breath. Patient states he felt that he was congested yesterday was coughing hard states he's had increasing pain to the left side of his chest. Patient states her stated deep breath. Patient has had spontaneous pneumo in the past he does have underlying COPD. Patient also takes Xarelto for chronic A. fib. Patient denies any current nausea vomiting diarrhea constipation no fevers or chills. Patient states that movement makes pain worse. Denies any trauma. - Related Data Home Medications Medication Instructions Recorded Confirmed Multivitamins, Thera [Multivitamin 1 tab PO DAILY 04/29/17 04/27/19 (formulary)] Ipratropium-Albuterol Nebulize 3 ml INHALATION RT-BID 07/31/18 04/27/19 [Duoneb 0.5 mg-3 mg/3 ml Soln] Rivaroxaban [Xarelto] 20 mg PO HS 07/31/18 04/27/19 Morphine Sulfate ER [Ms Contin] 15 mg PO BID 04/27/19 04/27/19 oxyCODONE HCL [OxyCONTIN] 10 mg PO BID PRN 04/27/19 04/27/19 Previous Rx's Medication Instructions Recorded Metoprolol Tartrate [Lopressor] 50 mg PO BID #60 tab 04/18/17 Aspirin 81 mg PO BID #30 08/05/18 Atorvastatin [Lipitor] 80 mg PO DAILY tab 08/05/18 Allergies Allergy/AdvReac Type Severity Reaction Status Date / Time No Known Allergies Allergy Verified 04/27/19 09:51 Review of Systems ROS Statement: Those systems with pertinent positive or pertinent negative responses have been documented in the HPI. ROS Other: All systems not noted in ROS Statement are negative. Past Medical History Past Medical History: Atrial Fibrillation, CVA/TIA, Hyperlipidemia, Hypertension Additional Past Medical History / Comment(s): RT SIDE DOMINANT.Pt states he has had one CVA ( LT PUPIL LARGER THAN RT AND OCCASIONAL BILATERAL HAND NUMBNESS), TIA, right sided trigeminal neuralgia with surgery, syncopy 2012 and pt thinks possibly yesterday, 04/03/18, head injury with a fall at the age of 48yrs with intracranial bleed, childhood seizures, bacterial infection in stomach couple years ago, L hip fx with surgery, skin cancer removals.EXPOSED TO ASBESTOS, new diagnosis of Afib in April 2017. New diagnosis of pancreatitis, pt to see a specialist at [facility] but has not done this yet. History of Any Multi-Drug Resistant Organisms: None Reported Past Surgical History: Appendectomy, Back Surgery, Heart Catheterization, Orthopedic Surgery, Tonsillectomy Additional Past Surgical History / Comment(s): trigeminal neuralgia gamma knife surgery, L hip with "2or 3 pins", cardiac cath approximately 11 yrs ago-no intervention, lumbar fusion, EGD/colonoscopy with benign polypectomies, R rotator cuff repair, bilateral knee arthrosopies, skin cancer removals, benign prostate bx and removed benign polyps. Past Anesthesia/Blood Transfusion Reactions: No Reported Reaction Past Psychological History: Bipolar, Depression, PTSD Smoking Status: Current every day smoker Past Alcohol Use History: None Reported Past Drug Use History: None Reported - Past Family History Father Family Medical History: Cancer, Coronary Artery Disease (CAD) Additional Family Medical History / Comment(s): Father had colon cancer. He at the age of 70yrs. Mother Family Medical History: Cancer Additional Family Medical History / Comment(s): Mother had colon cancer. triple bypass. She at the age of 77yrs. General Exam Limitations: no limitations General appearance: alert, in no apparent distress Head exam: Present: atraumatic, normocephalic, normal inspection Eye exam: Present: normal appearance, PERRL, EOMI. Absent: scleral icterus, conjunctival injection, periorbital swelling ENT exam: Present: normal exam, normal oropharynx, mucous membranes moist Neck exam: Present: normal inspection, full ROM. Absent: tenderness, meningismus, lymphadenopathy Respiratory exam: Present: wheezes, chest wall tenderness (Left-sided). Absent: normal lung sounds bilaterally, respiratory distress, rales, rhonchi, stridor Cardiovascular Exam: Present: regular rate, normal rhythm, normal heart sounds. Absent: systolic murmur, diastolic murmur, rubs, gallop, clicks GI/Abdominal exam: Present: soft, normal bowel sounds. Absent: distended, tenderness, guarding, rebound, rigid Skin exam: Present: warm, dry, intact, normal color. Absent: rash Course Vital Signs 04/27/19 09:37 Temperature 97.8 F Pulse Rate 59 L Respiratory 22 Rate Blood Pressure 132/78 O2 Sat by Pulse 97 Oximetry EKG Findings - EKG Comments: EKG Findings:: EKG monitorin normal sinus rhythm rate of 61. 136 QRS 106 QT/QTC 436/438 Medical Decision Making - Medical Decision Making 64-year-old male presented from for chest pain, shortness of breath. Patient's pain is better reproducible there has multiple ongoing risk factors. Chest x- ray obtained no acute abnormality including no pneumothorax which she's had in the past. Patient's pain may be from chest wall pain though concerning for cardiac disease. Patient will be admitted for second troponin, cardiology evaluation - Lab Data Result diagrams: 04/27/19 10:32 04/27/19 10:32 Lab Results 04/27/19 04/27/19 04/27/19 Range/Units 10:32 10:32 10:32 WBC 7.1 (3.8-10.6) k/uL RBC 4.87 (4.30-5.90) m/uL Hgb 15.1 (13.0-17.5) gm/dL Hct 45.9 (39.0-53.0) % MCV 94.4 (80.0-100.0) fL MCH 31.0 (25.0-35.0) pg MCHC 32.8 (31.0-37.0) g/dL RDW 13.9 (11.5-15.5) % Plt Count 249 (150-450) k/uL Neutrophils % 59 % Lymphocytes % 29 % Monocytes % 5 % Eosinophils % 4 % Basophils % 0 % Neutrophils # 4.2 (1.3-7.7) k/uL Lymphocytes # 2.1 (1.0-4.8) k/uL Monocytes # 0.4 (0-1.0) k/uL Eosinophils # 0.3 (0-0.7) k/uL Basophils # 0.0 (0-0.2) k/uL PT (9.0-12.0) sec INR (<1.2) APTT (22.0-30.0) sec Sodium 140 (137-145) mmol/L Potassium 4.3 (3.5-5.1) mmol/L Chloride 107 (98-107) mmol/L Carbon Dioxide 26 (22-30) mmol/L Anion Gap 7 mmol/L BUN 12 (9-20) mg/dL Creatinine 0.99 (0.66-1.25) mg/dL Est GFR (CKD-EPI)AfAm >90 (>60 ml/min/1.73 sqM) Est GFR (CKD-EPI)NonAf 79 (>60 ml/min/1.73 sqM) Glucose 105 H (74-99) mg/dL Calcium 9.9 (8.4-10.2) mg/dL Magnesium 2.5 H (1.6-2.3) mg/dL Total Bilirubin 0.4 (0.2-1.3) mg/dL AST 16 L (17-59) U/L ALT 14 L (21-72) U/L Alkaline Phosphatase 75 (38-126) U/L Troponin I (0.000-0.034) ng/mL NT-Pro-B Natriuret Pep 114 pg/mL Total Protein 7.4 (6.3-8.2) g/dL Albumin 4.2 (3.5-5.0) g/dL 04/27/19 04/27/19 Range/Units 10:32 10:32 WBC (3.8-10.6) k/uL RBC (4.30-5.90) m/uL Hgb (13.0-17.5) gm/dL Hct (39.0-53.0) % MCV (80.0-100.0) fL MCH (25.0-35.0) pg MCHC (31.0-37.0) g/dL RDW (11.5-15.5) % Plt Count (150-450) k/uL Neutrophils % % Lymphocytes % % Monocytes % % Eosinophils % % Basophils % % Neutrophils # (1.3-7.7) k/uL Lymphocytes # (1.0-4.8) k/uL Monocytes # (0-1.0) k/uL Eosinophils # (0-0.7) k/uL Basophils # (0-0.2) k/uL PT 9.6 (9.0-12.0) sec INR 0.9 (<1.2) APTT 23.8 (22.0-30.0) sec Sodium (137-145) mmol/L Potassium (3.5-5.1) mmol/L Chloride (98-107) mmol/L Carbon Dioxide (22-30) mmol/L Anion Gap mmol/L BUN (9-20) mg/dL Creatinine (0.66-1.25) mg/dL Est GFR (CKD-EPI)AfAm (>60 ml/min/1.73 sqM) Est GFR (CKD-EPI)NonAf (>60 ml/min/1.73 sqM) Glucose (74-99) mg/dL Calcium (8.4-10.2) mg/dL Magnesium (1.6-2.3) mg/dL Total Bilirubin (0.2-1.3) mg/dL AST (17-59) U/L ALT (21-72) U/L Alkaline Phosphatase (38-126) U/L Troponin I <0.012 (0.000-0.034) ng/mL NT-Pro-B Natriuret Pep pg/mL Total Protein (6.3-8.2) g/dL Albumin (3.5-5.0) g/dL Disposition Clinical Impression: Chest pain, COPD (chronic obstructive pulmonary disease) Disposition: ADMITTED IP TO THIS HOSP Condition: Fair Referrals: None,Stated [Primary Care Provider] - 1-2 days
[2019-04-27 10:50] LABS: Basophils % (A) 0 %; Eosinophils # (A) 0.3 k/uL (0-0.7); Eosinophils % (A) 4 %; HCT 45.9 % (39.0-53.0); HGB 15.1 gm/dL (13.0-17.5); Lymphocytes # (A) 2.1 k/uL (1.0-4.8); Lymphocytes % (A) 29 %; MCHC 32.8 g/dL (31.0-37.0); MCV 94.4 fL (80.0-100.0); Mean Platelet Volume 7.6; Monocytes # (A) 0.4 k/uL (0-1.0); Monocytes % (A) 5 %; Neutrophils # (A) 4.2 k/uL (1.3-7.7); Neutrophils % (A) 59 %; Platelet Count 249 k/uL (150-450); RBC 4.87 m/uL (4.30-5.90); RDW 13.9 % (11.5-15.5); WBC 7.1 k/uL (3.8-10.6)
[2019-04-27 11:03] LABS: ALT 14 U/L (21-72); AST 16 U/L (17-59); African American GFR (CKD) >90 (>60 ml/min/1.73 sqM); Albumin 4.2 g/dL (3.5-5.0); Alkaline Phosphatase 75 U/L (38-126); Anion Gap 7 mmol/L; Blood Urea Nitrogen 12 mg/dL (9-20); Calcium 9.9 mg/dL (8.4-10.2); Carbon Dioxide 26 mmol/L (22-30); Chloride 107 mmol/L (98-107); Glucose 105 mg/dL (74-99); Magnesium 2.5 mg/dL (1.6-2.3); Potassium 4.3 mmol/L (3.5-5.1); Sodium 140 mmol/L (137-145); Total Bilirubin 0.4 mg/dL (0.2-1.3); Total Protein 7.4 g/dL (6.3-8.2)
[2019-04-27 11:07] LABS: INR 0.9 (<1.2); Partial Thromboplastin Time 23.8 sec (22.0-30.0); Prothrombin Time 9.6 sec (9.0-12.0)
--- NOTE | 2019-04-27 12:05 | XR ---
EXAMINATION TYPE: XR chest 2V DATE OF EXAM: 04/27/2019 COMPARISON: NONE HISTORY: Shortness of breath TECHNIQUE: Frontal and lateral views of the chest are obtained. FINDINGS: Scattered senescent parenchymal changes noted. Hyperinflation compatible with COPD. No evidence for infiltrate. No evidence for atelectasis. Heart size is stable. Mediastinal structures are stable and grossly unremarkable. No evidence for hilar prominence. Degenerative changes dorsal spine. IMPRESSION: 1. No evidence for acute pulmonary disease.
[2019-04-27] MEDS ORDERED: methylPREDNISolone SOD SUCCI 125 MG/2 ML VIAL IV STA (12:35)
[2019-04-27] MEDS ORDERED: NITROGLYCERIN SL TABS 0.4 MG TAB SUBLINGUAL PRN (12:38)
[2019-04-27] MEDS ORDERED: oxyCODONE ER 10 MG TAB.ER.12H PO PRN (12:40)
--- NOTE | 2019-04-27 14:57 | ED ---
Medical Decision Making - Medical Decision Making Patient had additional labs had including lipase, repeat troponin after talking to admitting physician. Troponin is greater than 20,000. Patient will be admitted for acute pancreatitis, chest pain - Lab Data Result diagrams: 04/27/19 10:32 04/27/19 10:32 Lab Results 04/27/19 04/27/19 04/27/19 Range/Units 10:32 10:32 10:32 WBC 7.1 (3.8-10.6) k/uL RBC 4.87 (4.30-5.90) m/uL Hgb 15.1 (13.0-17.5) gm/dL Hct 45.9 (39.0-53.0) % MCV 94.4 (80.0-100.0) fL MCH 31.0 (25.0-35.0) pg MCHC 32.8 (31.0-37.0) g/dL RDW 13.9 (11.5-15.5) % Plt Count 249 (150-450) k/uL Neutrophils % 59 % Lymphocytes % 29 % Monocytes % 5 % Eosinophils % 4 % Basophils % 0 % Neutrophils # 4.2 (1.3-7.7) k/uL Lymphocytes # 2.1 (1.0-4.8) k/uL Monocytes # 0.4 (0-1.0) k/uL Eosinophils # 0.3 (0-0.7) k/uL Basophils # 0.0 (0-0.2) k/uL PT (9.0-12.0) sec INR (<1.2) APTT (22.0-30.0) sec Sodium 140 (137-145) mmol/L Potassium 4.3 (3.5-5.1) mmol/L Chloride 107 (98-107) mmol/L Carbon Dioxide 26 (22-30) mmol/L Anion Gap 7 mmol/L BUN 12 (9-20) mg/dL Creatinine 0.99 (0.66-1.25) mg/dL Est GFR (CKD-EPI)AfAm >90 (>60 ml/min/1.73 sqM) Est GFR (CKD-EPI)NonAf 79 (>60 ml/min/1.73 sqM) Glucose 105 H (74-99) mg/dL Calcium 9.9 (8.4-10.2) mg/dL Magnesium 2.5 H (1.6-2.3) mg/dL Total Bilirubin 0.4 (0.2-1.3) mg/dL AST 16 L (17-59) U/L ALT 14 L (21-72) U/L Alkaline Phosphatase 75 (38-126) U/L Troponin I (0.000-0.034) ng/mL NT-Pro-B Natriuret Pep 114 pg/mL Total Protein 7.4 (6.3-8.2) g/dL Albumin 4.2 (3.5-5.0) g/dL Lipase (23-300) U/L 04/27/19 04/27/19 04/27/19 Range/Units 10:32 10:32 14:05 WBC (3.8-10.6) k/uL RBC (4.30-5.90) m/uL Hgb (13.0-17.5) gm/dL Hct (39.0-53.0) % MCV (80.0-100.0) fL MCH (25.0-35.0) pg MCHC (31.0-37.0) g/dL RDW (11.5-15.5) % Plt Count (150-450) k/uL Neutrophils % % Lymphocytes % % Monocytes % % Eosinophils % % Basophils % % Neutrophils # (1.3-7.7) k/uL Lymphocytes # (1.0-4.8) k/uL Monocytes # (0-1.0) k/uL Eosinophils # (0-0.7) k/uL Basophils # (0-0.2) k/uL PT 9.6 (9.0-12.0) sec INR 0.9 (<1.2) APTT 23.8 (22.0-30.0) sec Sodium (137-145) mmol/L Potassium (3.5-5.1) mmol/L Chloride (98-107) mmol/L Carbon Dioxide (22-30) mmol/L Anion Gap mmol/L BUN (9-20) mg/dL Creatinine (0.66-1.25) mg/dL Est GFR (CKD-EPI)AfAm (>60 ml/min/1.73 sqM) Est GFR (CKD-EPI)NonAf (>60 ml/min/1.73 sqM) Glucose (74-99) mg/dL Calcium (8.4-10.2) mg/dL Magnesium (1.6-2.3) mg/dL Total Bilirubin (0.2-1.3) mg/dL AST (17-59) U/L ALT (21-72) U/L Alkaline Phosphatase (38-126) U/L Troponin I <0.012 (0.000-0.034) ng/mL NT-Pro-B Natriuret Pep pg/mL Total Protein (6.3-8.2) g/dL Albumin (3.5-5.0) g/dL Lipase >76798 H (23-300) U/L 04/27/19 Range/Units 14:05 WBC (3.8-10.6) k/uL RBC (4.30-5.90) m/uL Hgb (13.0-17.5) gm/dL Hct (39.0-53.0) % MCV (80.0-100.0) fL MCH (25.0-35.0) pg MCHC (31.0-37.0) g/dL RDW (11.5-15.5) % Plt Count (150-450) k/uL Neutrophils % % Lymphocytes % % Monocytes % % Eosinophils % % Basophils % % Neutrophils # (1.3-7.7) k/uL Lymphocytes # (1.0-4.8) k/uL Monocytes # (0-1.0) k/uL Eosinophils # (0-0.7) k/uL Basophils # (0-0.2) k/uL PT (9.0-12.0) sec INR (<1.2) APTT (22.0-30.0) sec Sodium (137-145) mmol/L Potassium (3.5-5.1) mmol/L Chloride (98-107) mmol/L Carbon Dioxide (22-30) mmol/L Anion Gap mmol/L BUN (9-20) mg/dL Creatinine (0.66-1.25) mg/dL Est GFR (CKD-EPI)AfAm (>60 ml/min/1.73 sqM) Est GFR (CKD-EPI)NonAf (>60 ml/min/1.73 sqM) Glucose (74-99) mg/dL Calcium (8.4-10.2) mg/dL Magnesium (1.6-2.3) mg/dL Total Bilirubin (0.2-1.3) mg/dL AST (17-59) U/L ALT (21-72) U/L Alkaline Phosphatase (38-126) U/L Troponin I <0.012 (0.000-0.034) ng/mL NT-Pro-B Natriuret Pep pg/mL Total Protein (6.3-8.2) g/dL Albumin (3.5-5.0) g/dL Lipase (23-300) U/L Disposition Clinical Impression: Chest pain, COPD (chronic obstructive pulmonary disease), Acute pancreatitis Disposition: ADMITTED IP TO THIS HOSP Condition: Fair Referrals: None,Stated [Primary Care Provider] - 1-2 days
[2019-04-27] MEDS ORDERED: SODIUM CHLORIDE 0.9% 1,000 ML IV SCH (15:00)
[2019-04-27] MEDS: IPRATROPIUM-ALBUTEROL 3 ML NEB INHALATION SCH ×3 (16:00→23:03)
[2019-04-27 17:43] VITALS: BMI 23.3
[2019-04-27] MEDS ORDERED: MORPHINE SULFATE ER 15 MG TABLET PO SCH (21:00)
[2019-04-27] MEDS: METOPROLOL TARTRATE 50 MG TAB PO SCH (21:38)
[2019-04-27] MEDS: RIVAROXABAN 20 MG TAB PO SCH (21:38)
[2019-04-27] MEDS: HYDROmorphone 0.5 MG/0.5 ML SYRINGE IVP PRN ×2 (21:38→23:50)
--- NOTE | 2019-04-27 21:39 | P.HPIM ---
History of Present Illness H&P Date: 04/27/19 Chief Complaint: Abdominal pain 64-year-old male with history of alcohol abuse and pancreatitis over 3 years ago. Claims to be sober for over 3 years now. Patient presented to the hospital with 1 month history of epigastric abdominal pain. However this pain has been getting worse over the past week, initially he thought could be muscle spasms however due to worsening pain over the past couple days decided to come to the hospital. Pain described as severe sharp epigastric pain radiating straight to the back and left upper quadrant of the abdomen creeping up to the left side of the chest 10 out of 10 in severity and constant pain associated with nausea but no vomiting, patient reports constipation last bowel movement was 3 days ago. Denies any GI bleeding. Denie s any alcohol intake. Denies any changes in his medical history or medications recently. Patient denies any history of gallstones. Patient otherwise denies any fevers chills denies any recent traveling denies any coughing, denies any shortness of breath. In the ED he was found to have elevated lipase and was admitted for acute pancreatitis Review of Systems Pertinent positives as noted in HPI. All other systems were reviewed and are negative Past Medical History Past Medical History: Atrial Fibrillation, CVA/TIA, Hyperlipidemia, Hypertension Additional Past Medical History / Comment(s): RT SIDE DOMINANT.Pt states he has had one CVA ( LT PUPIL LARGER THAN RT AND OCCASIONAL BILATERAL HAND NUMBNESS), TIA, right sided trigeminal neuralgia with surgery, syncopy 2012 and pt thinks possibly yesterday, 04/03/18, head injury with a fall at the age of 48yrs with intracranial bleed, childhood seizures, bacterial infection in stomach couple years ago, L hip fx with surgery, skin cancer removals.EXPOSED TO ASBESTOS, new diagnosis of Afib in April 2017. New diagnosis of pancreatitis, pt to see a specialist at [facility] but has not done this yet. History of Any Multi-Drug Resistant Organisms: None Reported Past Surgical History: Appendectomy, Back Surgery, Heart Catheterization, Orthopedic Surgery, Tonsillectomy Additional Past Surgical History / Comment(s): trigeminal neuralgia gamma knife surgery, L hip with "2or 3 pins", cardiac cath approximately 11 yrs ago-no intervention, lumbar fusion, EGD/colonoscopy with benign polypectomies, R rotator cuff repair, bilateral knee arthrosopies, skin cancer removals, benign prostate bx and removed benign polyps. Past Anesthesia/Blood Transfusion Reactions: No Reported Reaction Past Psychological History: Bipolar, Depression, PTSD Additional Psychological History / Comment(s): Pt resides with his spouse. . Pt has a cane he will use prn. He drives. He is a . 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 Smoking Status: Current every day smoker Past Alcohol Use History: None Reported Additional Past Alcohol Use History / Comment(s): started smoking at age 10(1966)-has cut down from 4 ppd to 1/2 ppd. Pt used to drink 2-3 beers a day but has not drank in 2 years. Past Drug Use History: None Reported Additional Drug Use History / Comment(s): currently smokes marijuana, 1-2 joints a day - Past Family History Father Family Medical History: Cancer, Coronary Artery Disease (CAD) Additional Family Medical History / Comment(s): Father had colon cancer. He at the age of 70yrs. Mother Family Medical History: Cancer Additional Family Medical History / Comment(s): Mother had colon cancer. triple bypass. She at the age of 77yrs. Medications and Allergies Home Medications Medication Instructions Recorded Confirmed Type Metoprolol Tartrate [Lopressor] 50 mg PO BID #60 tab 04/18/17 04/27/19 Rx Multivitamins, Thera [Multivitamin 1 tab PO DAILY 04/29/17 04/27/19 History (formulary)] Ipratropium-Albuterol Nebulize 3 ml INHALATION RT-BID 07/31/18 04/27/19 History [Duoneb 0.5 mg-3 mg/3 ml Soln] Rivaroxaban [Xarelto] 20 mg PO HS 07/31/18 04/27/19 History Aspirin 81 mg PO BID #30 08/05/18 04/27/19 Rx Atorvastatin [Lipitor] 80 mg PO DAILY tab 08/05/18 04/27/19 Rx Morphine Sulfate ER [Ms Contin] 15 mg PO BID 04/27/19 04/27/19 History oxyCODONE HCL [OxyCONTIN] 10 mg PO BID PRN 04/27/19 04/27/19 History Allergies Allergy/AdvReac Type Severity Reaction Status Date / Time No Known Allergies Allergy Verified 04/27/19 09:51 Physical Exam Vitals: Vital Signs Temp Pulse Pulse Resp BP BP Pulse Ox 04/27/19 20:51 98.3 F 74 15 128/73 95 04/27/19 19:58 69 04/27/19 19:50 68 04/27/19 17:33 98.7 F 65 18 144/67 96 04/27/19 16:21 61 10 L 121/71 96 04/27/19 14:30 107/65 04/27/19 13:30 108/65 04/27/19 12:30 109/81 04/27/19 11:00 58 L 114/67 96 04/27/19 09:37 97.8 F 59 L 22 132/78 97 Intake and Output 04/27/19 04/27/19 04/27/19 06:59 14:59 22:59 Other: Weight 86.636 kg Constitutional: No acute distress, conversant, pleasant, looks older than stated age Eyes: Anicteric sclerae, moist conjunctiva, no lid-lag Pupils equal round reactive to light ENMT: NC/AT Oropharynx clear, no erythema, or exudates Neck: Supple, FROM, no masses, or JVD No carotid bruits No thyromegaly Lungs: Good breath sounds bilaterally, fine inspiratory rales at bilateral lung bases Clear to percussion Normal respiratory effort, no accessory muscle use Cardiovascular: Heart regular in rate and rhythm, No murmurs, gallops, or rubs No peripheral edema Abdominal: Soft, tenderness to palpation at the epigastric region mainly with diffuse discomfort to deep palpation. no guarding, rebound or rigidity Abdomen moving with respiration Normoactive bowel sounds No hepatomegaly, No splenomegaly No palpable mass No abdominal wall hernia noted Skin: Normal temperature, tone, texture, turgor No induration No subcutaneous nodules No rash, lesions No ulcers Extremities: No digital cyanosis No clubbing Pedal pulses intact and symmetrical Radial pulses intact and symmetrical No calf tenderness Psychiatric: Alert and oriented to person, place and time Appropriate affect fair judgment Neuro Muscles Strength 4/5 in all 4 extremities Sensation to light touch grossly present throughout Cranial nerves II-XII grossly intact No focal sensory deficits Lymphatics: no palpable cervical or supraclavicular , or inguinal lymph nodes Results CBC & Chem 7: 04/27/19 10:32 04/27/19 10:32 Labs: Abnormal Lab Results - Last 24 Hours (Table) 04/27/19 04/27/19 Range/Units 10:32 14:05 Glucose 105 H (74-99) mg/dL Magnesium 2.5 H (1.6-2.3) mg/dL AST 16 L (17-59) U/L ALT 14 L (21-72) U/L Lipase >63976 H (23-300) U/L Thrombosis Risk Factor Assmnt - Choose All That Apply Any of the Below Risk Factors Present?: Yes Other Risk Factors: Yes Each Risk Factor Represents 2 Points: Age 61-74 years Thrombosis Risk Factor Assessment Total Risk Factor Score: 2 Thrombosis Risk Factor Assessment Level: Low Risk Assessment and Plan Assessment: 64-year-old male with history of CVA, COPD not on home oxygen, A. fib on Xarelto. Admitted as an inpatient with anticipated length of stay more than 48 hours due to acute pancreatitis. Patient reports history of pancreatitis over 3 years ago secondary to alcohol abuse at that time but she has been sober and quit alcohol for the past 3 years. Patient admitted for further workup and management Plan: Acute pancreatitis unknown underlying cause Check liver ultrasound Patient quit alcohol over 3 years ago, he had an episode of pancreatitis 3 years ago secondary to alcohol abuse Nothing by mouth Aggressive IV fluid hydration Pain control with opiates IV Dilaudid Zofran when necessary PPI Follow-up CBC and metabolic panel in the morning Chronic conditions 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 fib on Xarelto History of angina and CAD no history of stents Hypertension Tobacco smoking Continue home meds DVT prophylaxis patient on Xarelto for A. fib Surrogate decision-maker: Patient CODE STATUS: Full code Discussed with: Patient, ER, RN Anticipated discharge: 48-[address]: Home A total of 65 minutes was spent on the care of this complex patient more than 50% of the time was spent in counseling and care coordination.
[2019-04-27] MEDS: LACTATED RINGERS 1,000 ML IV SCH (21:43)
[2019-04-27] MEDS: ONDANSETRON 4 MG/2 ML VIAL IVP PRN (21:43)
[2019-04-27] MEDS: PANTOPRAZOLE 40 MG TABLET PO SCH (21:43)
[2019-04-27] MEDS: NICOTINE 14MG/24HR PATCH TRANSDERM SCH (21:43)
[2019-04-27] MEDS: TAMSULOSIN 0.4 MG CAP.ER.24H PO SCH (23:07)
[2019-04-28] MEDS: HYDROmorphone 0.5 MG/0.5 ML SYRINGE IVP PRN ×9 (01:54→23:32)
[2019-04-28] MEDS: IPRATROPIUM-ALBUTEROL 3 ML NEB INHALATION SCH ×6 (03:11→23:10)
[2019-04-28] MEDS: LACTATED RINGERS 1,000 ML IV SCH ×4 (05:17→23:38)
[2019-04-28 06:25] LABS: Basophils % (A) 0 %; Eosinophils % (A) 0 %; HCT 43.8 % (39.0-53.0); HGB 14.1 gm/dL (13.0-17.5); Lymphocytes # (A) 1.8 k/uL (1.0-4.8); Lymphocytes % (A) 25 %; MCH 31.3 pg (25.0-35.0); MCHC 32.2 g/dL (31.0-37.0); MCV 97.5 fL (80.0-100.0); Mean Platelet Volume 7.4; Monocytes # (A) 0.3 k/uL (0-1.0); Monocytes % (A) 4 %; Neutrophils # (A) 4.9 k/uL (1.3-7.7); Neutrophils % (A) 69 %; Platelet Count 229 k/uL (150-450); RDW 13.9 % (11.5-15.5); WBC 7.1 k/uL (3.8-10.6)
[2019-04-28 06:27] LABS: ALT 12 U/L (21-72); AST 16 U/L (17-59); African American GFR (CKD) >90 (>60 ml/min/1.73 sqM); Albumin 3.9 g/dL (3.5-5.0); Alkaline Phosphatase 68 U/L (38-126); Anion Gap 5 mmol/L; Blood Urea Nitrogen 13 mg/dL (9-20); Calcium 9.4 mg/dL (8.4-10.2); Carbon Dioxide 25 mmol/L (22-30); Chloride 107 mmol/L (98-107); Cholesterol 196 mg/dL (<200); Glucose 115 mg/dL (74-99); HDL Cholesterol 45 mg/dL (40-60); LDL Cholesterol,Calculated 136 mg/dL (0-99); Potassium 4.6 mmol/L (3.5-5.1); Sodium 137 mmol/L (137-145); Total Bilirubin 0.6 mg/dL (0.2-1.3); Total Protein 6.8 g/dL (6.3-8.2); Triglycerides 76 mg/dL (<150)
[2019-04-28] MEDS: PANTOPRAZOLE 40 MG TABLET PO SCH (06:27)
[2019-04-28] MEDS: METOPROLOL TARTRATE 50 MG TAB PO SCH ×2 (08:37→21:02)
[2019-04-28] MEDS: ASPIRIN 325 MG TAB PO SCH (08:37)
[2019-04-28] MEDS: ATORVASTATIN 80 MG TAB PO SCH (08:37)
[2019-04-28] MEDS: NICOTINE 14MG/24HR PATCH TRANSDERM SCH (08:38)
--- NOTE | 2019-04-28 08:40 | US ---
EXAMINATION TYPE: US liver DATE OF EXAM: 04/28/2019 COMPARISON: NONE CLINICAL HISTORY: 64-year-old male acute pancreatitis. TECHNIQUE: Multiple sonographic images of the right upper quadrant are obtained. FINDINGS: EXAM MEASUREMENTS: Liver Length: 13.9 cm Gallbladder Wall: 3.8 mm CBD: 0.3 cm Right Kidney: 10.8 x 4.4 x 5.1 cm Manager Concrete notes: Severe overlying bowel gas, technically difficult and limited study. Pancreas: Only a small portion of the pancreatic neck is seen. The remainder is obscured by bowel ga s Liver: wnl as seen, somewhat obscured by bowel gas Gallbladder: in supine position there does appear to be some debris, wall slightly thickened Evidence for sonographic Solares's sign: no CBD: wnl as seen, see limitations Right Kidney: portion of upper and lower pole obscured by overlying bowel gas . No hydronephrosis se en. IMPRESSION: 1. Limited exam due to extensive overlying bowel gas. 2. Suggestion of some layering debris in the gallbladder. Borderline to mild gallbladder wall thicken ing is nonspecific and may be seen in the setting of fluid overload states or reactive to adjacent in flammatory process. No abnormal distention or evidence of sonographic Solares sign. If further imaging evaluation gallbladder is desired, HIDA scan can be considered. 3. The visualized portion of the bile duct shows normal caliber.
--- NOTE | 2019-04-28 10:16 | CONS ---
CONSULTATION CHIEF COMPLAINT: Chest pain. Mr. Gutierrez is a 64-year-old gentleman with history of alcohol abuse and pancreatitis who was admitted to hospital with epigastric pain related to pancreatitis and while here complained of left-sided chest pain for which Cardiology had been consulted. The chest discomfort seems to be mostly in the left upper quadrant of his abdomen and kind of radiates to the chest. It does not look like a cardiac pain. EKG is normal. Cardiac enzymes have been negative. The patient carries a history of paroxysmal atrial fibrillation and is currently on Xarelto for the same. He also has history of angina, apparently underwent prior catheterization and was told that he does not have significant obstructive CAD. PAST MEDICAL HISTORY: Significant for paroxysmal atrial fibrillation, hypertension, dyslipidemia, and COPD. MEDICATIONS: Medications at home include DuoNeb, OxyContin, MS Contin, Xarelto, Lopressor, Lipitor and aspirin. ALLERGIES: There are no known drug allergies. FAMILY HISTORY: Negative for premature coronary artery disease. SOCIAL HISTORY: Significant for smoking. There is no history of EtOH abuse or drug abuse. REVIEW OF SYSTEMS: HEENT: Unremarkable. CARDIAC: As described above. RESPIRATORY: Negative. GI: Significant for pancreatitis. PSYCHOSOCIAL: Negative. ENDOCRINE: Negative. DERM: Negative. CONSTITUTIONAL: Negative. ONCOLOGICAL: Negative. The rest of the system review is not relevant. PHYSICAL EXAM: Patient is comfortable at rest. Vital signs are stable. There is no jugular venous distention. Carotid upstroke is normal. There is no bruit. Chest exam reveals good air entry bilaterally. Heart exam reveals first and second heart sounds. No gallop. No murmur. Abdomen is soft, nontender. Exam of extremities did not reveal any edema. Peripheral pulses are felt. SUPPLY ASSISTANT exam did not reveal focal neurological deficits. EKG is negative. Cardiac enzymes are negative. ASSESSMENT: 1. Precordial chest pain. 2. Paroxysmal atrial fibrillation. 3. Hypertension. 4. Dyslipidemia. 5. Pancreatitis. PLAN: Patient's chest discomfort is atypical and I will obtain a 2D echo to assess his LV function and to rule out any wall motion abnormalities. When his pancreatitis resolves, consider an outpatient stress test. MMODL / IJN: [id number] /
--- NOTE | 2019-04-28 10:42 | P.PN ---
Subjective Progress Note Date: 04/28/19 Principal diagnosis: Still complains of abdominal pain Epigastric Constitutional: No acute distress, conversant, pleasant Eyes: Anicteric sclerae, moist conjunctiva, no lid-lag PERRLA ENMT: NC/AT Oropharynx clear, no erythema, exudates Neck: Supple, FROM, no masses, or JVD No carotid bruits No thyromegaly Lungs: Clear to auscultation Clear to percussion Normal respiratory effort, no accessory muscle use Cardiovascular: Heart regular in rate and rhythm, No murmurs, gallops, or rubs No peripheral edema Abdominal: Epigastric tenderness d Skin: Normal temperature, tone, texture, turgor No induration No subcutaneous nodules No rash, lesions No ulcers Extremities: No digital cyanosis No clubbing Pedal pulses intact and symmetrical Radial pulses intact and symmetrical Normal gait and station No calf tenderness Psychiatric:Alert and oriented to person, place and time Appropriate affect Intact judgement Neuro: Generalized weakness Acute pancreatitis unknown underlying cause Likely alcohol induced versus chronic pancreatitis currently stable but still complaining of abdominal pain Continue patient on IV hydration and by mouth diet Check liver ultrasound Patient quit alcohol over 3 years ago, he had an episode of pancreatitis 3 years ago secondary to alcohol abuse Nothing by mouth Aggressive IV fluid hydration Pain control with opiates IV Dilaudid Zofran when necessary PPI Follow-up CBC and metabolic panel in the morning Chronic conditions 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 fib on Xarelto History of angina and CAD no history of stents Hypertension Tobacco smoking Continue home meds Objective - Vital Signs Vital signs: Vital Signs Temp 97.7 F 04/28/19 08:30 Pulse 58 L 04/28/19 08:30 Resp 16 04/28/19 08:30 BP 113/59 04/28/19 08:30 Pulse Ox 96 04/28/19 08:30 Intake & Output 04/27/19 04/28/19 04/28/19 18:59 06:59 18:59 Output Total 200 Balance -200 Weight 86.636 kg 85.3 kg Output: Urine 200 Other: Voiding Method Urinal # Voids 1 0 - Labs CBC & Chem 7: 04/28/19 05:46 04/28/19 05:46 Labs: Abnormal Lab Results - Last 24 Hours (Table) 04/27/19 04/27/19 04/28/19 Range/Units 10:32 14:05 05:46 Glucose 105 H 115 H (74-99) mg/dL Magnesium 2.5 H (1.6-2.3) mg/dL AST 16 L 16 L (17-59) U/L ALT 14 L 12 L (21-72) U/L LDL Cholesterol, Calc 136 H (0-99) mg/dL Lipase >88555 H (23-300) U/L
[2019-04-28] MEDS: ONDANSETRON 4 MG/2 ML VIAL IVP PRN ×2 (13:17→23:37)
[2019-04-28] MEDS ORDERED: MELATONIN 5 MG TABLET PO PRN (16:32)
[2019-04-28] MEDS: TAMSULOSIN 0.4 MG CAP.ER.24H PO SCH (17:23)
--- NOTE | 2019-04-28 18:53 | ECHOF ---
Referral Reason:CP/Pancreatitis MEASUREMENTS -------- HEIGHT: 167.6 cm WEIGHT: 85.3 kg BP: 113/59 RVIDd: 3.7 cm (< 3.3) IVSd: 1.1 cm (0.6 - 1.1) LVIDd: 5.4 cm (3.9 - 5.3) LVPWd: 1.3 cm (0.6 - 1.1) IVSs: 2.0 cm LVIDs: 3.8 cm LVPWs: 1.5 cm LA Diam: 4.2 cm (2.7 - 3.8) Ao Diam: 3.2 cm (2.0 - 3.7) AV Cusp: 2.2 cm (1.5 - 2.6) LA Diam: 3.9 cm (2.7 - 3.8) MV EXCURSION: 18.807 mm (> 18.000) MV EF SLOPE: 99 mm/s (70 - 150) EPSS: 0.6 cm MV E Wyatt: 0.95 m/s MV DecT: 526 ms MV A Wyatt: 0.72 m/s MV E/A Ratio: 1.32 FINDINGS -------- Sinus rhythm. This was a technically good study. The left ventricular size is normal. There is mild concentric left ventricular hypertrophy. Overa ll left ventricular systolic function is normal with, an EF between 55 - 60 %. The right ventricle is normal in size and function. The left atrium is normal in size. The right atrium is normal in size. Interatrial and interventricular septum intact. There is mild aortic valve sclerosis. There is no evidence of aortic regurgitation. Normal appearing mitral valve. There is trace to mild mitral regurgitation. The tricuspid valve appears structurally normal. Trace tricuspid regurgitation present. There is no evidence of pulmonary hypertension. Pulmonic valve appears structurally normal. The aortic root, ascending aorta and aortic arch are normal. Normal inferior vena cava with normal inspiratory collapse consistent with estimated right atrial pre ssure of 5 mmHg. The pericardium is normal. CONCLUSIONS -------- 1. Sinus rhythm. 2. This was a technically good study. 3. The left ventricular size is normal. 4. There is mild concentric left ventricular hypertrophy. 5. Overall left ventricular systolic function is normal with, an EF between 55 - 60 %. 6. The right ventricle is normal in size and function. 7. The left atrium is normal in size. 8. The right atrium is normal in size. 9. Interatrial and interventricular septum intact. 10. There is mild aortic valve sclerosis. 11. There is no evidence of aortic regurgitation. 12. Normal appearing mitral valve. 13. There is trace to mild mitral regurgitation. 14. The tricuspid valve appears structurally normal. 15. Trace tricuspid regurgitation present. 16. There is no evidence of pulmonary hypertension. 17. Pulmonic valve appears structurally normal. 18. The aortic root, ascending aorta and aortic arch are normal. 19. Normal inferior vena cava with normal inspiratory collapse consistent with estimated right atrial pressure of 5 mmHg. 20. The pericardium is normal. SERVICES ADVISOR: Juanpablo Drew RDCS
[2019-04-28] MEDS: RIVAROXABAN 20 MG TAB PO SCH (19:41)
[2019-04-29] MEDS: IPRATROPIUM-ALBUTEROL 3 ML NEB INHALATION SCH ×5 (02:58→20:02)
[2019-04-29] MEDS: HYDROmorphone 0.5 MG/0.5 ML SYRINGE IVP PRN ×6 (03:58→20:45)
[2019-04-29] MEDS: PANTOPRAZOLE 40 MG TABLET PO SCH (06:33)
[2019-04-29] MEDS: ONDANSETRON 4 MG/2 ML VIAL IVP PRN (06:33)
[2019-04-29] MEDS: LACTATED RINGERS 1,000 ML IV SCH ×3 (06:34→20:56)
[2019-04-29 07:09] LABS: Basophils % (A) 0 %; Eosinophils # (A) 0.1 k/uL (0-0.7); Eosinophils % (A) 2 %; HCT 39.3 % (39.0-53.0); Lymphocytes # (A) 2.4 k/uL (1.0-4.8); Lymphocytes % (A) 33 %; MCV 96.9 fL (80.0-100.0); Mean Platelet Volume 7.6; Monocytes # (A) 0.4 k/uL (0-1.0); Monocytes % (A) 5 %; Neutrophils # (A) 4.2 k/uL (1.3-7.7); Neutrophils % (A) 58 %; Platelet Count 187 k/uL (150-450); RBC 4.06 m/uL (4.30-5.90); RDW 13.9 % (11.5-15.5); WBC 7.3 k/uL (3.8-10.6)
[2019-04-29 07:30] LABS: ALT 18 U/L (21-72); AST 14 U/L (17-59); African American GFR (CKD) >90 (>60 ml/min/1.73 sqM); Albumin 3.4 g/dL (3.5-5.0); Alkaline Phosphatase 56 U/L (38-126); Anion Gap 5 mmol/L; Blood Urea Nitrogen 14 mg/dL (9-20); Calcium 8.9 mg/dL (8.4-10.2); Carbon Dioxide 28 mmol/L (22-30); Chloride 107 mmol/L (98-107); Glucose 87 mg/dL (74-99); Potassium 4.3 mmol/L (3.5-5.1); Sodium 140 mmol/L (137-145); Total Bilirubin 0.8 mg/dL (0.2-1.3)
[2019-04-29] MEDS: NICOTINE 14MG/24HR PATCH TRANSDERM SCH (08:05)
[2019-04-29] MEDS: METOPROLOL TARTRATE 50 MG TAB PO SCH ×2 (08:07→20:52)
[2019-04-29] MEDS: ASPIRIN 325 MG TAB PO SCH (08:07)
[2019-04-29] MEDS: ATORVASTATIN 80 MG TAB PO SCH (08:07)
--- NOTE | 2019-04-29 10:35 | P.PN ---
Subjective Progress Note Date: 04/29/19 Patient feels better today still have nausea and abdominal pain improved No chest pain no shortness of breath Constitutional: No acute distress, conversant, pleasant Eyes: Anicteric sclerae, moist conjunctiva, no lid-lag PERRLA ENMT: NC/AT Oropharynx clear, no erythema, exudates Neck: Supple, FROM, no masses, or JVD No carotid bruits No thyromegaly Lungs: Clear to auscultation Clear to percussion Normal respiratory effort, no accessory muscle use Cardiovascular: Heart regular in rate and rhythm, No murmurs, gallops, or rubs No peripheral edema Abdominal: Soft Nontender, no guarding, rebound or rigidity Abdomen moving with respiration Skin: Normal temperature, tone, texture, turgor No induration No subcutaneous nodules No rash, lesions No ulcers Extremities: No digital cyanosis No clubbing Psychiatric:Alert and oriented to person, place and time Appropriate affect Intact judgement Neuro: No obvious focal weakness Acute pancreatitis unknown underlying cause Likely alcohol induced versus chronic pancreatitis currently stable but still complaining of abdominal pain But overall improving Will start clear liquid diet today Continue patient on IV hydration t Check liver ultrasound Patient quit alcohol over 3 years ago, he had an episode of pancreatitis 3 years ago secondary to alcohol abuse Nothing by mouth Aggressive IV fluid hydration Pain control with opiates IV Dilaudid Zofran when necessary PPI Objective - Vital Signs Vital signs: Vital Signs Temp 98.3 F 04/29/19 08:00 Pulse 58 L 04/29/19 08:00 Resp 18 04/29/19 08:00 BP 118/56 04/29/19 08:00 Pulse Ox 97 04/29/19 08:00 Intake & Output 04/28/19 04/29/19 04/29/19 18:59 06:59 18:59 Intake Total 300 Output Total 1600 Balance -1300 Weight 85.4 kg Intake: Intake, IV Titration 300 Amount Lactated Ringers 1,000 ml 300 @ 150 mls/hr IV .Q6H40M [facility] Rx#:[id number] Output: Urine 1600 Other: Voiding Method Urinal Urinal Urinal # Voids 0 1 # Bowel Movements 0 0 - Labs CBC & Chem 7: 04/29/19 06:15 04/29/19 06:15 Labs: Abnormal Lab Results - Last 24 Hours (Table) 04/29/19 04/29/19 Range/Units 06:15 06:15 RBC 4.06 L (4.30-5.90) m/uL AST 14 L (17-59) U/L ALT 18 L (21-72) U/L Total Protein 6.0 L (6.3-8.2) g/dL Albumin 3.4 L (3.5-5.0) g/dL
--- NOTE | 2019-04-29 11:08 | P.PN ---
Subjective Progress Note Date: 04/29/19 This is a 64-year-old gentleman with history of alcohol abuse and pancreatitis was admitted to the hospital with symptoms of epigastric discomfort secondary to the pancreatitis, he also had an episode of left-sided chest pain, atypical in nature. His troponins were negative 3. Echo cardiac gram with Doppler study was performed which revealed an ejection fraction of 55-60%. The patient was seen and examined this morning, denied any chest pain or difficulty in breathing. Blood pressure 118/56 with a heart rate in the 50s, 97% on room air. White blood cell count 7.3, hemoglobin 13, platelet count 187. Sodium 140, potassium 4.3, BUN 14 and creatinine 1.0. AST 14 ALT 18 lipase 158. Objective - Vital Signs Vital signs: Vital Signs Temp 98.3 F 04/29/19 08:00 Pulse 58 L 04/29/19 08:00 Resp 18 04/29/19 08:00 BP 118/56 04/29/19 08:00 Pulse Ox 97 04/29/19 08:00 Intake & Output 04/28/19 04/29/19 04/29/19 18:59 06:59 18:59 Intake Total 300 Output Total 1600 Balance -1300 Weight 85.4 kg Intake: Intake, IV Titration 300 Amount Lactated Ringers 1,000 ml 300 @ 150 mls/hr IV .Q6H40M [facility] Rx#:[id number] Output: Urine 1600 Other: Voiding Method Urinal Urinal Urinal # Voids 0 1 # Bowel Movements 0 0 - Exam PHYSICAL EXAMINATION: GENERAL: 64-year-old gentleman in no acute distress at the time of my examination HEENT: Head is atraumatic, normocephalic. Pupils equal, round. Sclera anicteric. Conjunctiva are clear. Mucous membranes of the mouth are moist. N meryl is supple. There is no elevated jugular venous pressure. No carotid bruit is heard. HEART EXAMINATION: Heart S1, S2 normal. No murmur or gallop heard. CHEST EXAMINATION: Lungs are clear to auscultation and precussion. No chest wall tenderness is noted on palpation or with deep breathing. ABDOMEN: Soft, mild generalized tenderness, nontender. Bowel sounds are heard. No organomegaly noted. EXTREMITIES: 2+ peripheral pulses with no evidence of peripheral edema and no calf tenderness noted. NEUROLOGIC patient is awake, alert and oriented 3 . . - Labs CBC & Chem 7: 04/29/19 06:15 04/29/19 06:15 Labs: Abnormal Lab Results - Last 24 Hours (Table) 04/29/19 04/29/19 Range/Units 06:15 06:15 RBC 4.06 L (4.30-5.90) m/uL AST 14 L (17-59) U/L ALT 18 L (21-72) U/L Total Protein 6.0 L (6.3-8.2) g/dL Albumin 3.4 L (3.5-5.0) g/dL Assessment and Plan Plan: Assessment and plan #1 chest pain, atypical for acute coronary syndrome, troponins negative 3. Revealed a normal sinus rhythm with no acute changes. Echocardiogram with Dop pler study revealed normal left ventricular systolic function. #2 paroxysmal atrial fibrillation #3 hypertension #4 hyperlipidemia #5 pancreatitis Plan From cardiology's perspective, we would recommend that once the patient is stable for discharge that stress test be performed as an outpatient. We'll follow him along with you now on an as-needed basis only, please don't hesitate to call with any questions. DNP note has been reviewed, I agree with a documented findings and plan of care. Patient was seen and examined.
[2019-04-29] MEDS: PROMETHAZINE INJ 6.25 MG in SODIUM CHLORIDE 0.9% 50 ML IVPB PRN ×2 (12:10→21:43)
[2019-04-29] MEDS: TAMSULOSIN 0.4 MG CAP.ER.24H PO SCH (16:37)
[2019-04-29] MEDS: RIVAROXABAN 20 MG TAB PO SCH (20:45)
[2019-04-30] MEDS: IPRATROPIUM-ALBUTEROL 3 ML NEB INHALATION SCH ×5 (00:34→14:57)
[2019-04-30 01:40] VITALS: RESP 18
[2019-04-30] MEDS: LACTATED RINGERS 1,000 ML IV SCH ×3 (04:12→12:29)
[2019-04-30] MEDS: PANTOPRAZOLE 40 MG TABLET PO SCH (06:13)
[2019-04-30 07:47] LABS: HCT 42.3 % (39.0-53.0); HGB 13.9 gm/dL (13.0-17.5); MCH 31.7 pg (25.0-35.0); MCHC 32.8 g/dL (31.0-37.0); MCV 96.6 fL (80.0-100.0); Mean Platelet Volume 7.9; Platelet Count 213 k/uL (150-450); RBC 4.38 m/uL (4.30-5.90); RDW 14.7 % (11.5-15.5); WBC 7.7 k/uL (3.8-10.6)
[2019-04-30 07:52] LABS: ALT 12 U/L (21-72); AST 17 U/L (17-59); African American GFR (CKD) >90 (>60 ml/min/1.73 sqM); Albumin 3.7 g/dL (3.5-5.0); Alkaline Phosphatase 66 U/L (38-126); Anion Gap 8 mmol/L; Blood Urea Nitrogen 12 mg/dL (9-20); Calcium 9.3 mg/dL (8.4-10.2); Carbon Dioxide 25 mmol/L (22-30); Chloride 106 mmol/L (98-107); Glucose 92 mg/dL (74-99); Potassium 3.9 mmol/L (3.5-5.1); Sodium 139 mmol/L (137-145); Total Bilirubin 0.9 mg/dL (0.2-1.3); Total Protein 6.5 g/dL (6.3-8.2)
[2019-04-30] MEDS: ATORVASTATIN 80 MG TAB PO SCH (08:14)
[2019-04-30] MEDS: NICOTINE 14MG/24HR PATCH TRANSDERM SCH (08:14)
[2019-04-30] MEDS: METOPROLOL TARTRATE 50 MG TAB PO SCH (08:14)
[2019-04-30] MEDS: ASPIRIN 325 MG TAB PO SCH (08:14)
[2019-04-30] MEDS: HYDROmorphone 0.5 MG/0.5 ML SYRINGE IVP PRN (08:15)
[2019-04-30 12:11] VITALS: BP 142/76; PULSE 62; TEMP 97.6
--- NOTE | 2019-04-30 15:17 | NM ---
EXAMINATION TYPE: NM hepatobiliary w CCK DATE OF EXAM: 04/30/2019 COMPARISON: Ultrasound dated 04/28/2019 HISTORY: Abdominal pain with known pancreatitis. Bladder wall thickening seen on the ultrasound dated 04/28/2019 TECHNIQUE: After the intravenous administration of 5.2 mCi Tc 99m Mebrofenin hepatobiliary scintigrap hy is performed. Immediate images post injection. FINDINGS: There is satisfactory initial accumulation of tracer by the liver. The gallbladder is visualized wit hin 10 minutes. The small bowel activity is noted within 58 minutes. At one hour CCK was administer ed, patient was injected with 1.6 mcg of Kinevac, and gallbladder ejection fraction is calculated at 68 %, upper limits of normal. Therefore there is no scintigraphic evidence of cystic or common bile duct obstruction to suggest acute cholecystitis or gallbladder dyskinesia. IMPRESSION: 1. No scintigraphic evidence of acute or chronic cholecystitis. 2. Gallbladder ejection fraction is upper limits of normal at 68%.
--- NOTE | 2019-04-30 16:10 | P.DS ---
Providers Date of admission: 04/27/19 15:58 Expected date of discharge: 04/30/19 Attending physician: Liv Fernandes DO Consults: 04/27/19 12:38 Consult Physician Urgent Consulting Provider: Timbo Porter Consult Reason/Comments: chest pain Do you want consulting provider notified?: Yes Primary care physician: Stated None - Discharge Diagnosis(es) (1) Acute pancreatitis Current Visit: Yes Status: Acute (2) Patel's esophagus with esophagitis Current Visit: No Status: Acute (3) Trigeminal neuralgia Current Visit: Yes Status: Acute (4) Chronic pain Current Visit: Yes Status: Acute (5) Paroxysmal A-fib Current Visit: Yes Status: Acute (6) Essential hypertension Current Visit: Yes Status: Acute (7) Dyslipidemia Current Visit: Yes Status: Acute (8) Precordial chest pain Current Visit: Yes Status: Acute Hospital Course: The patient is a 64-year-old male with a history of chronic alcoholism and alcohol abuse that was admitted with idiopathic acute pancreatitis after presented with epigastric pain and found to have significantly elevated lipase level greater than 20,000, the patient was made nothing by mouth started on IV fluids and treated with IV Dilaudid and antiemetics per protocol. Liver ultrasound was limited due to overlying bowel gas, however there was some layering debris in the gallbladder with mild gallbladder wall thickening, subsequent HIDA scan was ordered that was negative for any symptoms graphic evidence of acute or chronic cholecystitis and gallbladder ejection fraction was normal at 68%. The patient was seen by cardiology for atypical chest pain, a 2- D echocardiogram with Doppler study reveals an ejection fraction of 55-60%, troponins were negative 3 and the patient was cleared by cardiology for discharge home. The patient was started on PPI therapy as it was thought that his epigastric pain was primarily due to acute pancreatitis but also superimposed on underlying esophagitis gastritis. He was discharged home in stable condition and told to follow-up with his PCP. This discharge process took approximately 35 minutes. Focused exam Abdomen: Soft nontender nondistended normal to loss ongoing for quadrants, non acute abdomen Patient Condition at Discharge: Good Plan - Discharge Summary Discharge Rx Participant: No New Discharge Prescriptions: New Pantoprazole [Protonix] 40 mg PO AC-BID #60 tablet. Continue Metoprolol Tartrate [Lopressor] 50 mg PO BID #60 tab Multivitamins, Thera [Multivitamin (formulary)] 1 tab PO DAILY Ipratropium-Albuterol Nebulize [Duoneb 0.5 mg-3 mg/3 ml Soln] 3 ml INHALATION RT-BID Rivaroxaban [Xarelto] 20 mg PO HS Atorvastatin [Lipitor] 80 mg PO DAILY tab Aspirin 81 mg PO BID #30 oxyCODONE HCL [OxyCONTIN] 10 mg PO BID PRN PRN Reason: Breakthrough Pain Morphine Sulfate ER [Ms Contin] 15 mg PO BID Discharge Medication List Metoprolol Tartrate [Lopressor] 50 mg PO BID #60 tab 04/18/17 [Rx] Multivitamins, Thera [Multivitamin (formulary)] 1 tab PO DAILY 04/29/17 [History] Ipratropium-Albuterol Nebulize [Duoneb 0.5 mg-3 mg/3 ml Soln] 3 ml INHALATION RT-BID 07/31/18 [History] Rivaroxaban [Xarelto] 20 mg PO HS 07/31/18 [History] Aspirin 81 mg PO BID #30 08/05/18 [Rx] Atorvastatin [Lipitor] 80 mg PO DAILY tab 08/05/18 [Rx] Morphine Sulfate ER [Ms Contin] 15 mg PO BID 04/27/19 [History] oxyCODONE HCL [OxyCONTIN] 10 mg PO BID PRN 04/27/19 [History] Pantoprazole [Protonix] 40 mg PO AC-BID #60 tablet. 04/30/19 [Rx] Follow up Appointment(s)/Referral(s): None,Stated [Primary Care Provider] - 1-2 days
== END 2019-04-30 17:15 | disposition home or self-care (01) | DRG 440 ==
LOC: EC 09:29 → 3SCARD 15:58
PROVIDERS: ADMIT Internal Medicine; ATTEND Internal Medicine
DX: K85.00 Idiopathic acute pancreatitis without necrosis or infection (principal); I48.0 Paroxysmal atrial fibrillation; J43.9 Emphysema, unspecified; I69.344 Monoplegia of lower limb following cerebral infarction affecting left non-dominant side; E78.5 Hyperlipidemia, unspecified; F17.210 Nicotine dependence, cigarettes, uncomplicated; F32.9 Major depressive disorder, single episode, unspecified; F43.10 Post-traumatic stress disorder, unspecified; G50.0 Trigeminal neuralgia; G89.29 Other chronic pain; I10 Essential (primary) hypertension; I25.10 Atherosclerotic heart disease of native coronary artery without angina pectoris; K20.9 Esophagitis, unspecified; K22.70 Barrett's esophagus without dysplasia; K29.70 Gastritis, unspecified, without bleeding; I69.998 Other sequelae following unspecified cerebrovascular disease; F10.21 Alcohol dependence, in remission; R07.2 Precordial pain; Z77.090 Contact with and (suspected) exposure to asbestos; Z85.828 Personal history of other malignant neoplasm of skin; Z79.01 Long term (current) use of anticoagulants; Z79.82 Long term (current) use of aspirin; Z79.899 Other long term (current) drug therapy; Z90.49 Acquired absence of other specified parts of digestive tract; Z98.1 Arthrodesis status; Z86.010 Personal history of colon polyps; Z80.0 Family history of malignant neoplasm of digestive organs; Z82.49 Family history of ischemic heart disease and other diseases of the circulatory system
CPT/HCPCS: 36415; 71046; 76705; 78227; 80053; 80061; 83690; 83735; 83880; 84484; 85025; 85027; 85610; 85730; 93005; 93306; 94640; 94760; 96361; 96374; 96375; 96376; 99285

== ENCOUNTER 2019-12-10 10:57 | Emergency (ER) | payer MEDICARE ==
[2019-12-10 11:19] VITALS: RESP 18; TEMP 97.8
[2019-12-10] MEDS ORDERED: SODIUM CHLORIDE 0.9% 500 ML 500 ML IV STA (11:20)
[2019-12-10] MEDS ORDERED: MORPHINE SULFATE 4 MG/ML SYRINGE IV STA (11:38)
--- NOTE | 2019-12-10 11:41 | ED ---
General Adult HPI - General Chief complaint: Abdominal Pain Stated complaint: rt sided abd pain Time Seen by Provider: 12/10/19 11:23 Source: patient Mode of arrival: ambulatory Limitations: no limitations - History of Present Illness Initial comments: Dictation was produced using [employer] dictation software. please excuse any grammatical, word or spelling errors. Chief Complaint: 64-year-old male presents with 1 week of abdominal pain. History of Present Illness: 64-year-old male who has past medical history of atrial fibrillation, stroke, dyslipidemia hypertension. Patient states for the last week has been having intermittent episodes of postprandial abdominal pain. He states that his pain is constant however significantly exacerbated after eating. He states his pain is worse approximately 30 minutes after onset of oral intake. Patient reports that his symptoms have been increasing in severity and intensity for one week. Denies any fever, chills or night sweats. No nausea or vomiting. He is concerned that he is expressing pancreatitis. He had a bowel movement this morning and was worried about black stools. He has history of appendectomy. He states that his pain is epigastric and radiates to his lower back. The ROS documented in this emergency department record has been reviewed and confirmed by me. Those systems with pertinent positive or negative responses have been documented in the HPI. All other systems are other negative and/or noncontributory. PHYSICAL EXAM: General Impression: Alert and oriented x3, not in acute distress HEENT: Normocephalic atraumatic, extra-ocular movements intact, pupils equal and reactive to light bilaterally, mucous membranes moist. Cardiovascular: Heart regular rate and rhythm, S1&S2 audible, no murmurs, rubs or gallops Chest: Lungs clear to auscultation bilaterally, no rhonchi, no wheeze, no rales Abdomen: Bowel sounds present, abdomen soft, mild tenderness to the epigastric area. No pain in McBurney's, negative Solares sign, no rebound tenderness, negative Rovsing's Musculoskeletal: Pulses present and equal in all extremities, no peripheral edema Motor: no focal deficits noted Neurological: CN II-XII grossly intact, no focal motor or sensory deficits noted Skin: Intact with no visualized rashes Psych: Normal affect and mood ED course: 64-year-old male presents with chief complaint of abdominal pain. As upon arrival are within acceptable limits. Patient is well-appearing at bedside. His abdominal exam is fairly benign. There is concern however that his symptoms represent abdominal ischemia given his comorbidities and the characteristic of his symptoms. Laboratory evaluation obtained. CBC unremarkable. Metabolic panel shows some mild acidosis though not severe. His metabolic panel is unremarkable. Lipase level normal. Urinalysis is negative. So, blood is negative. CT angioma of the abdomen and pelvis was obtained showing mild to moderate blockages throughout the abdominal aorta and iliac arteries. He does have patent celiac and SMA. At this point no concern for mesenteric ischemia. Patient reevaluated at bedside tolerating by mouth. He did report some mild improvement with GI cocktail. Patient told to follow-up with his primary care physician for outpatient management of symptoms. Patient told that at this point it is unclear what is causing his symptoms. Perhaps that its mild form of gastritis. Patient prescription for Protonix and referral to GI doctor. He is reevaluated at bedside. He is well-appearing. His abdomen is soft. He is smiling. There is concern that perhaps patient is exhibiting drug-seeking behavior. EKG interpretation: Ventricular rate 65, normal sinus rhythm,. 124, QRS 106, QTC 443. No AL prolongation, no QTC prolongation, no ST or T-wave changes noted. EKG compared to 04/27/2019 showing no changes. Overall, this EKG is unremarkable - Related Data Home Medications Medication Instructions Recorded Confirmed Multivitamins, Thera [Multivitamin 1 tab PO DAILY 04/29/17 04/27/19 (formulary)] Ipratropium-Albuterol Nebulize 3 ml INHALATION RT-BID 07/31/18 04/27/19 [Duoneb 0.5 mg-3 mg/3 ml Soln] Rivaroxaban [Xarelto] 20 mg PO HS 07/31/18 04/27/19 Morphine Sulfate ER [Ms Contin] 15 mg PO BID 04/27/19 04/27/19 oxyCODONE HCL [OxyCONTIN] 10 mg PO BID PRN 04/27/19 04/27/19 Previous Rx's Medication Instructions Recorded Metoprolol Tartrate [Lopressor] 50 mg PO BID #60 tab 04/18/17 Aspirin 81 mg PO BID #30 08/05/18 Atorvastatin [Lipitor] 80 mg PO DAILY tab 08/05/18 Pantoprazole [Protonix] 40 mg PO AC-BID #60 tablet. 04/30/19 Pantoprazole Sodium [Protonix] 40 mg PO DAILY 14 Days #20 12/10/19 tablet. Allergies Allergy/AdvReac Type Severity Reaction Status Date / Time No Known Allergies Allergy Verified 04/27/19 09:51 Review of Systems ROS Statement: Those systems with pertinent positive or pertinent negative responses have been documented in the HPI. ROS Other: All systems not noted in ROS Statement are negative. Past Medical History Past Medical History: Atrial Fibrillation, CVA/TIA, Hyperlipidemia, Hypertension Additional Past Medical History / Comment(s): RT SIDE DOMINANT.Pt states he has had one CVA ( LT PUPIL LARGER THAN RT AND OCCASIONAL BILATERAL HAND NUMBNESS), TIA, right sided trigeminal neuralgia with surgery, syncopy 2012 and pt thinks possibly yesterday, 04/03/18, head injury with a fall at the age of 48yrs with intracranial bleed, childhood seizures, bacterial infection in stomach couple years ago, L hip fx with surgery, skin cancer removals.EXPOSED TO ASBESTOS, new diagnosis of Afib in April 2017. New diagnosis of pancreatitis, pt to see a specialist at [facility] but has not done this yet. History of Any Multi-Drug Resistant Organisms: None Reported Past Surgical History: Appendectomy, Back Surgery, Heart Catheterization, Orthopedic Surgery, Tonsillectomy Additional Past Surgical History / Comment(s): trigeminal neuralgia gamma knife surgery, L hip with "2or 3 pins", cardiac cath approximately 11 yrs ago-no intervention, lumbar fusion, EGD/colonoscopy with benign polypectomies, R rotator cuff repair, bilateral knee arthrosopies, skin cancer removals, benign prostate bx and removed benign polyps. Past Anesthesia/Blood Transfusion Reactions: No Reported Reaction Past Psychological History: Bipolar, Depression, PTSD Smoking Status: Current every day smoker Past Alcohol Use History: None Reported Past Drug Use History: Marijuana - Past Family History Father Family Medical History: Cancer, Coronary Artery Disease (CAD) Additional Family Medical History / Comment(s): Father had colon cancer. He at the age of 70yrs. Mother Family Medical History: Cancer Additional Family Medical History / Comment(s): Mother had colon cancer. triple bypass. She at the age of 77yrs. General Exam Limitations: no limitations Course Vital Signs 12/10/19 12/10/19 11:14 13:04 Temperature 97.8 F Pulse Rate 73 66 Respiratory 18 18 Rate Blood Pressure 138/77 133/88 O2 Sat by Pulse 96 95 Oximetry Medical Decision Making - Lab Data Result diagrams: 12/10/19 11:30 12/10/19 11:30 Lab Results 12/10/19 12/10/19 12/10/19 Range/Units 11:30 11:30 11:30 WBC 6.0 (3.8-10.6) k/uL RBC 4.94 (4.30-5.90) m/uL Hgb 15.2 (13.0-17.5) gm/dL Hct 45.8 (39.0-53.0) % MCV 92.7 (80.0-100.0) fL MCH 30.7 (25.0-35.0) pg MCHC 33.2 (31.0-37.0) g/dL RDW 13.1 (11.5-15.5) % Plt Count 239 (150-450) k/uL Neutrophils % 44 % Lymphocytes % 44 % Monocytes % 6 % Eosinophils % 3 % Basophils % 1 % Neutrophils # 2.6 (1.3-7.7) k/uL Lymphocytes # 2.6 (1.0-4.8) k/uL Monocytes # 0.3 (0-1.0) k/uL Eosinophils # 0.2 (0-0.7) k/uL Basophils # 0.0 (0-0.2) k/uL Sodium 139 (137-145) mmol/L Potassium 4.6 (3.5-5.1) mmol/L Chloride 108 H (98-107) mmol/L Carbon Dioxide 21 L (22-30) mmol/L Anion Gap 10 mmol/L BUN 9 (9-20) mg/dL Creatinine 0.83 (0.66-1.25) mg/dL Est GFR (CKD-EPI)AfAm >90 (>60 ml/min/1.73 sqM) Est GFR (CKD-EPI)NonAf >90 (>60 ml/min/1.73 sqM) Glucose 102 H (74-99) mg/dL Calcium 9.9 (8.4-10.2) mg/dL Total Bilirubin 0.5 (0.2-1.3) mg/dL AST 21 (17-59) U/L ALT 13 (4-49) U/L Alkaline Phosphatase 94 (38-126) U/L Total Protein 8.3 H (6.3-8.2) g/dL Albumin 4.8 (3.5-5.0) g/dL Lipase 150 (23-300) U/L Urine Color Light Yellow Urine Appearance Clear (Clear) Urine pH 6.0 (5.0-8.0) Ur Specific Lanse 1.006 (1.001-1.035) Urine Protein Negative (Negative) Urine Glucose (UA) Negative (Negative) Urine Ketones Negative (Negative) Urine Blood Negative (Negative) Urine Nitrite Negative (Negative) Urine Bilirubin Negative (Negative) Urine Urobilinogen <2.0 (<2.0) mg/dL Ur Leukocyte Esterase Negative (Negative) Stool Occult Blood (Negative) 12/10/19 Range/Units 11:30 WBC (3.8-10.6) k/uL RBC (4.30-5.90) m/uL Hgb (13.0-17.5) gm/dL Hct (39.0-53.0) % MCV (80.0-100.0) fL MCH (25.0-35.0) pg MCHC (31.0-37.0) g/dL RDW (11.5-15.5) % Plt Count (150-450) k/uL Neutrophils % % Lymphocytes % % Monocytes % % Eosinophils % % Basophils % % Neutrophils # (1.3-7.7) k/uL Lymphocytes # (1.0-4.8) k/uL Monocytes # (0-1.0) k/uL Eosinophils # (0-0.7) k/uL Basophils # (0-0.2) k/uL Sodium (137-145) mmol/L Potassium (3.5-5.1) mmol/L Chloride (98-107) mmol/L Carbon Dioxide (22-30) mmol/L Anion Gap mmol/L BUN (9-20) mg/dL Creatinine (0.66-1.25) mg/dL Est GFR (CKD-EPI)AfAm (>60 ml/min/1.73 sqM) Est GFR (CKD-EPI)NonAf (>60 ml/min/1.73 sqM) Glucose (74-99) mg/dL Calcium (8.4-10.2) mg/dL Total Bilirubin (0.2-1.3) mg/dL AST (17-59) U/L ALT (4-49) U/L Alkaline Phosphatase (38-126) U/L Total Protein (6.3-8.2) g/dL Albumin (3.5-5.0) g/dL Lipase (23-300) U/L Urine Color Urine Appearance (Clear) Urine pH (5.0-8.0) Ur Specific Lanse (1.001-1.035) Urine Protein (Negative) Urine Glucose (UA) (Negative) Urine Ketones (Negative) Urine Blood (Negative) Urine Nitrite (Negative) Urine Bilirubin (Negative) Urine Urobilinogen (<2.0) mg/dL Ur Leukocyte Esterase (Negative) Stool Occult Blood Negative (Negative) Disposition Clinical Impression: Abdominal pain Disposition: HOME SELF-CARE Condition: Fair Instructions (If sedation given, give patient instructions): Abdominal Pain (ED) Additional Instructions: Protonix was prescribed to treat your abdominal symptoms. Please take as direct ed. Follow up with marketing regional consultant. Please return to emergency department with worsening abdominal pain, fever, chills or night sweats. 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 Prescriptions: Pantoprazole Sodium [Protonix] 40 mg PO DAILY 14 Days #20 tablet.dr Is patient prescribed a controlled substance at d/c from ED?: No Referrals: Arleth Underwood MD [STAFF PHYSICIAN] - 1-2 days Time of Disposition: 13:47
[2019-12-10 12:00] LABS: Basophils % (A) 1 %; Eosinophils # (A) 0.2 k/uL (0-0.7); Eosinophils % (A) 3 %; HCT 45.8 % (39.0-53.0); HGB 15.2 gm/dL (13.0-17.5); Lymphocytes # (A) 2.6 k/uL (1.0-4.8); Lymphocytes % (A) 44 %; MCH 30.7 pg (25.0-35.0); MCHC 33.2 g/dL (31.0-37.0); MCV 92.7 fL (80.0-100.0); Mean Platelet Volume 8.4; Monocytes # (A) 0.3 k/uL (0-1.0); Monocytes % (A) 6 %; Neutrophils # (A) 2.6 k/uL (1.3-7.7); Neutrophils % (A) 44 %; Platelet Count 239 k/uL (150-450); RBC 4.94 m/uL (4.30-5.90); RDW 13.1 % (11.5-15.5)
[2019-12-10 12:06] LABS: Appearance,Urine Clear (Clear); Bilirubin,Urine Negative (Negative); Blood,Urine Negative (Negative); Color,Urine Light Yellow; Glucose,Urine (UA) Negative (Negative); Ketones,Urine Negative (Negative); Leukocyte Esterase,Urine Negative (Negative); Nitrite,Urine Negative (Negative); Protein,Urine Negative (Negative); Specific Gravity,Urine 1.006 (1.001-1.035); Urobilinogen,Urine <2.0 mg/dL (<2.0)
[2019-12-10 12:08] LABS: ALT 13 U/L (4-49); AST 21 U/L (17-59); African American GFR (CKD) >90 (>60 ml/min/1.73 sqM); Albumin 4.8 g/dL (3.5-5.0); Alkaline Phosphatase 94 U/L (38-126); Anion Gap 10 mmol/L; Blood Urea Nitrogen 9 mg/dL (9-20); Calcium 9.9 mg/dL (8.4-10.2); Carbon Dioxide 21 mmol/L (22-30); Chloride 108 mmol/L (98-107); Glucose 102 mg/dL (74-99); Non-African American GFR(CKD) >90 (>60 ml/min/1.73 sqM); Potassium 4.6 mmol/L (3.5-5.1); Sodium 139 mmol/L (137-145); Total Bilirubin 0.5 mg/dL (0.2-1.3); Total Protein 8.3 g/dL (6.3-8.2)
[2019-12-10] MEDS ORDERED: MAG HYDROX/AL HYDROX/SIMETH 30 ML, HYOSCYAMINE ELIXIR 10 ML, LIDOCAINE VISCOUS 2% 10 ML PO STA ×3 (12:34)
[2019-12-10] MEDS ORDERED: MORPHINE SULFATE 4 MG/ML SYRINGE IVP PRN (13:17)
--- NOTE | 2019-12-10 13:24 | CT ---
EXAMINATION TYPE: CT angio abdomen pelvis DATE OF EXAM: 12/10/2019 COMPARISON: 04/16/2017 HISTORY: 64-year-old male Mid abdominal pain x 1 week. History of pancreatitis. TECHNIQUE: Contiguous axial scanning of the abdomen and pelvis following administration of 100 ml Omn ipaque 370 IV contrast. Coronal and sagittal MIP reconstructions performed. 3-D reconstructions gene rated on a dedicated workstation. CT DLP: 1317 mGycm Automated exposure control for dose reduction was used. FINDINGS: The heart is normal size without pericardial effusion. Scattered coronary artery calcifications are p resent. Prominent dependent atelectasis posterior lung bases. Calcified granuloma posterior left lung base. Noncontrast and early arterial phase imaging of the liver, gallbladder, adrenal glands, right kidney, and pancreas shows no gross abnormal body. 3 mm nonobstructive left upper pole renal calculus. Multiple calcified granulomas within the spleen. No dilated small bowel, free fluid, or free air. No mesenteric or retroperitoneal lymphadenopathy. No significant stool burden. Redundant sigmoid colon. No pericolonic inflammatory change. Bladder is nondistended. Prostate gland enlarged at 6.0 cm wide. No abnormal fluid collection in the pelvis or pelvic lymphadenopathy. VASCULATURE: Lower descending thoracic aorta ectatic at 2.9 cm. Moderate atherosclerotic plaque and calcifications throughout the abdominal aorta and iliac arteries especially along the infrarenal portion. The celiac axis and SMA are patent. Mild to moderate scattered plaquing calcification within the mid SMA. Do renal arteries appear patent. Fusiform dilatation infrarenal abdominal aorta measuring up to 3.0 cm. BONES: Percutaneous pinning of the left hip with chronic healed femoral neck fracture deformity. Mild degene rative change at both hips. Mild superior endplate deformities of L2 and L4 have a chronic appearance , unchanged from 2017. Some posterior fusion changes at L5-S1. IMPRESSION: 1. MODERATE ATHEROSCLEROTIC PLAQUE AND CALCIFICATION THROUGHOUT THE ABDOMINAL AORTA AND ILIAC ARTERIE S ESPECIALLY ALONG THE INFRARENAL PORTION. 2. MILD INFRARENAL AAA AT 3.0 CM. 3. MILD TO MODERATE ATHEROSCLEROTIC PLAQUE AND CALCIFICATION IN THE MID SMA. 4. PRIOR GRANULOMATOUS DISEASE AND 3 MM NONOBSTRUCTIVE LEFT RENAL CALCULUS.
[2019-12-10 14:02] VITALS: BP 128/78; PULSE 64
== END 2019-12-10 14:01 | disposition home or self-care (01) ==
LOC: EC 10:57
DX: R10.13 Epigastric pain (principal); E87.2 Acidosis; I70.0 Atherosclerosis of aorta; I70.8 Atherosclerosis of other arteries; K85.90 Acute pancreatitis without necrosis or infection, unspecified; M54.5 Low back pain; I48.91 Unspecified atrial fibrillation; I10 Essential (primary) hypertension; F17.200 Nicotine dependence, unspecified, uncomplicated; Z79.01 Long term (current) use of anticoagulants; Z79.891 Long term (current) use of opiate analgesic; Z79.899 Other long term (current) drug therapy; Z86.73 Personal history of transient ischemic attack (TIA), and cerebral infarction without residual deficits; Z85.828 Personal history of other malignant neoplasm of skin; Z90.49 Acquired absence of other specified parts of digestive tract; Z98.1 Arthrodesis status; Z98.890 Other specified postprocedural states; Z80.0 Family history of malignant neoplasm of digestive organs
CPT/HCPCS: 99284; 96374; 96376; 36415; 93005; 80053; 83690; 85025; 82272; 81003; 74174; J2270; Q9967

== ENCOUNTER 2022-05-07 13:56 | Observation (INO) | payer MEDICARE ==
--- NOTE | 2022-05-07 15:35 | ED ---
General Adult HPI - General Chief complaint: Shortness of Breath Stated complaint: SOB Time Seen by Provider: 05/07/22 15:11 Source: patient, RN notes reviewed Mode of arrival: ambulatory Limitations: no limitations - History of Present Illness Initial comments: Patient is a 67-year-old male who presents to the emergency room with complaints of continued shortness of breath with exertion and left-sided intermittent chest pain. He reports that he was recently at [facility] where he was diagnosed with CHF and placed on Lasix and potassium. He was also placed on antibiotic therapy however he is unsure why he was placed on antibiotics. He he continues to complain of left-sided chest pain with radiation into the left arm along with shortness of breath with activity; he denies any shortness of breath at rest, headaches, diaphoresis, dizziness, abdominal pain, nausea or vomiting, changes in bowel or bladder, new weakness. He does report difficulty lying flat which is slightly worse than baseline. He is a smoker and typically smokes approximately 1 pack per day however given his recent illnesses he reports smoking less. He is a past medical history significant for stroke with minimal residual, TIAs, atrial fibrillation in sinus rhythm, hypertension, hyperlipidemia and COPD. He reports that he sees Dr. Albrecht outpatient and was advised to come to the emergency room for admission. - Related Data Home Medications Medication Instructions Recorded Confirmed Multivitamins, Thera [Multivitamin 1 tab PO DAILY 04/29/17 04/27/19 (formulary)] Ipratropium-Albuterol Nebulize 3 ml INHALATION RT-BID 07/31/18 04/27/19 [Duoneb 0.5 mg-3 mg/3 ml Soln] Rivaroxaban [Xarelto] 20 mg PO HS 07/31/18 04/27/19 Morphine Sulfate ER [Ms Contin] 15 mg PO BID 04/27/19 04/27/19 oxyCODONE HCL [OxyCONTIN] 10 mg PO BID PRN 04/27/19 04/27/19 Previous Rx's Medication Instructions Recorded Metoprolol Tartrate [Lopressor] 50 mg PO BID #60 tab 04/18/17 Aspirin 81 mg PO BID #30 08/05/18 Atorvastatin [Lipitor] 80 mg PO DAILY tab 08/05/18 Pantoprazole [Protonix] 40 mg PO AC-BID #60 tablet. 04/30/19 Pantoprazole Sodium [Protonix] 40 mg PO DAILY 14 Days #20 12/10/19 tablet. Allergies Allergy/AdvReac Type Severity Reaction Status Date / Time No Known Allergies Allergy Verified 04/27/19 09:51 Review of Systems ROS Statement: Those systems with pertinent positive or pertinent negative responses have been documented in the HPI. ROS Other: All systems not noted in ROS Statement are negative. Past Medical History Past Medical History: Atrial Fibrillation, Heart Failure, CVA/TIA, Hyperlipidemi a, Hypertension Additional Past Medical History / Comment(s): RT SIDE DOMINANT.Pt states he has had one CVA ( LT PUPIL LARGER THAN RT AND OCCASIONAL BILATERAL HAND NUMBNESS), TIA, right sided trigeminal neuralgia with surgery, syncopy 2012 and pt thinks possibly yesterday, 04/03/18, head injury with a fall at the age of 48yrs with intracranial bleed, childhood seizures, bacterial infection in stomach couple years ago, L hip fx with surgery, skin cancer removals.EXPOSED TO ASBESTOS, new diagnosis of Afib in April 2017. New diagnosis of pancreatitis, pt to see a specialist at [facility] but has not done this yet. History of Any Multi-Drug Resistant Organisms: None Reported Past Surgical History: Appendectomy, Back Surgery, Heart Catheterization, Orthopedic Surgery, Tonsillectomy Additional Past Surgical History / Comment(s): trigeminal neuralgia gamma knife surgery, L hip with "2or 3 pins", cardiac cath approximately 11 yrs ago-no intervention, lumbar fusion, EGD/colonoscopy with benign polypectomies, R rotator cuff repair, bilateral knee arthrosopies, skin cancer removals, benign prostate bx and removed benign polyps. Past Anesthesia/Blood Transfusion Reactions: No Reported Reaction Past Psychological History: Bipolar, Depression, PTSD Smoking Status: Former smoker Past Alcohol Use History: None Reported Past Drug Use History: Marijuana - Past Family History Father Family Medical History: Cancer, Coronary Artery Disease (CAD) Additional Family Medical History / Comment(s): Father had colon cancer. He at the age of 70yrs. Mother Family Medical History: Cancer Additional Family Medical History / Comment(s): Mother had colon cancer. triple bypass. She at the age of 77yrs. General Exam Limitations: no limitations General appearance: alert, in no apparent distress Head exam: Present: atraumatic, normocephalic, normal inspection Eye exam: Present: normal appearance, EOMI. Absent: scleral icterus, conjunctival injection, periorbital swelling Pupils: Present: unequal (Left slightly larger than right reactive.) ENT exam: Present: normal exam, mucous membranes moist Neck exam: Present: normal inspection. Absent: tenderness, meningismus, lymphadenopathy Respiratory exam: Present: wheezes. Absent: respiratory distress, rales, rhonchi, accessory muscle use Cardiovascular Exam: Present: regular rate, normal rhythm, normal heart sounds. Absent: systolic murmur, diastolic murmur, rubs, gallop, clicks GI/Abdominal exam: Present: soft, normal bowel sounds. Absent: distended (rounded but not distended), tenderness, guarding, rebound, rigid Rectal exam: Present: deferred Extremities exam: Present: normal capillary refill. Absent: pedal edema, joint swelling, calf tenderness Back exam: Present: normal inspection Neurological exam: Present: alert, oriented X3, CN II-XII intact Psychiatric exam: Present: normal affect, normal mood Skin exam: Present: warm, dry, intact, normal color. Absent: rash Course Vital Signs 05/07/22 05/07/22 14:03 16:34 Temperature 98.0 F Pulse Rate 83 67 Respiratory 22 18 Rate Blood Pressure 132/84 120/77 O2 Sat by Pulse 95 96 Oximetry Medical Decision Making - Medical Decision Making Patient is a 67-year-old male who presents with shortness of breath with exertion along with left-sided chest pain with recent diagnosis of CHF at another facility. Given comorbid conditions concern for ACS, CHF and COPD exacerbation. In the setting of lack of edema and fluid presentation on lungs suspect more likely COPD exacerbation causing shortness of breath. Will check CBC, comp, magnesium, troponin, proBNP along with EKG and chest x-ray. Once results are available we'll contact patient's primary care provider per the haroon rizvi's primary care provider request for potential admission for ACS workup along with COPD exacerbation. Given chest pain with associated shortness of breath will give Nitropaste; no need for aspirin as he is currently on aspirin 81 mg at home along with Xarelto for his atrial fibrillation. Chest x-ray negative for acute pulmonary process. ProBNP normal. Troponin negative 1 EKG normal sinus rhythm. CBC unremarkable. CMP reveals elevated protein and slightly elevated glucose otherwise normal as well. Will proceed with admission for C COPD exacerbation along with ACS evaluation. Alyssa Seymour with [facility] covering for patient's primary care provider Dr. Albrecht called and case discussed with her. They are accepting admission and deny any other order needs at this time. Case discussed with Dr. Loyola - Lab Data Result diagrams: 05/07/22 15:34 05/07/22 15:34 Lab Results 05/07/22 05/07/22 05/07/22 Range/Units 15:34 15:34 15:34 WBC 6.6 (3.8-10.6) k/uL RBC 4.90 (4.30-5.90) m/uL Hgb 15.4 (13.0-17.5) gm/dL Hct 46.6 (39.0-53.0) % MCV 95.0 (80.0-100.0) fL MCH 31.5 (25.0-35.0) pg MCHC 33.1 (31.0-37.0) g/dL RDW 13.1 (11.5-15.5) % Plt Count 279 (150-450) k/uL MPV 8.3 Neutrophils % 43 % Lymphocytes % 45 % Monocytes % 6 % Eosinophils % 3 % Basophils % 1 % Neutrophils # 2.8 (1.3-7.7) k/uL Lymphocytes # 3.0 (1.0-4.8) k/uL Monocytes # 0.4 (0-1.0) k/uL Eosinophils # 0.2 (0-0.7) k/uL Basophils # 0.0 (0-0.2) k/uL PT 10.4 (9.0-12.0) sec INR 0.9 (<1.2) APTT 23.1 (22.0-30.0) sec Sodium 137 (137-145) mmol/L Potassium 4.1 (3.5-5.1) mmol/L Chloride 105 (98-107) mmol/L Carbon Dioxide 22 (22-30) mmol/L Anion Gap 10 mmol/L BUN 16 (9-20) mg/dL Creatinine 1.06 (0.66-1.25) mg/dL Est GFR (CKD-EPI)AfAm 83 (>60 ml/min/1.73 sqM) Est GFR (CKD-EPI)NonAf 72 (>60 ml/min/1.73 sqM) Glucose 102 H (74-99) mg/dL Calcium 9.7 (8.4-10.2) mg/dL Magnesium 2.4 H (1.6-2.3) mg/dL Total Bilirubin 0.8 (0.2-1.3) mg/dL AST 25 (17-59) U/L ALT 31 (4-49) U/L Alkaline Phosphatase 89 (38-126) U/L Troponin I (0.000-0.034) ng/mL NT-Pro-B Natriuret Pep pg/mL Total Protein 8.3 H (6.3-8.2) g/dL Albumin 4.6 (3.5-5.0) g/dL 05/07/22 05/07/22 Range/Units 15:34 15:34 WBC (3.8-10.6) k/uL RBC (4.30-5.90) m/uL Hgb (13.0-17.5) gm/dL Hct (39.0-53.0) % MCV (80.0-100.0) fL MCH (25.0-35.0) pg MCHC (31.0-37.0) g/dL RDW (11.5-15.5) % Plt Count (150-450) k/uL MPV Neutrophils % % Lymphocytes % % Monocytes % % Eosinophils % % Basophils % % Neutrophils # (1.3-7.7) k/uL Lymphocytes # (1.0-4.8) k/uL Monocytes # (0-1.0) k/uL Eosinophils # (0-0.7) k/uL Basophils # (0-0.2) k/uL PT (9.0-12.0) sec INR (<1.2) APTT (22.0-30.0) sec Sodium (137-145) mmol/L Potassium (3.5-5.1) mmol/L Chloride (98-107) mmol/L Carbon Dioxide (22-30) mmol/L Anion Gap mmol/L BUN (9-20) mg/dL Creatinine (0.66-1.25) mg/dL Est GFR (CKD-EPI)AfAm (>60 ml/min/1.73 sqM) Est GFR (CKD-EPI)NonAf (>60 ml/min/1.73 sqM) Glucose (74-99) mg/dL Calcium (8.4-10.2) mg/dL Magnesium (1.6-2.3) mg/dL Total Bilirubin (0.2-1.3) mg/dL AST (17-59) U/L ALT (4-49) U/L Alkaline Phosphatase (38-126) U/L Troponin I <0.012 (0.000-0.034) ng/mL NT-Pro-B Natriuret Pep 209 pg/mL Total Protein (6.3-8.2) g/dL Albumin (3.5-5.0) g/dL - EKG Data EKG Comments: EKG shows sinus rhythm, ventricular rate 73 bpm, MS interval 135 ms, QRS duration 108 ms, QT/QTC 411/437 ms, PRT axes 79, 79, 59 - Radiology Data Radiology results: report reviewed, image reviewed Chest x-ray two-view shows chronic changes with no acute pulmonary process. Disposition Clinical Impression: Acute exacerbation of chronic obstructive pulmonary disease, Chest pain Disposition: ADMITTED IP TO THIS HOSP Condition: Stable Is patient prescribed a controlled substance at d/c from ED?: No Referrals: Raghav Albrecht MD [Primary Care Provider] - 1-2 days Time of Disposition: 16:55
[2022-05-07 15:56] LABS: Basophils % (A) 1 %; Eosinophils # (A) 0.2 k/uL (0-0.7); Eosinophils % (A) 3 %; HCT 46.6 % (39.0-53.0); HGB 15.4 gm/dL (13.0-17.5); Lymphocytes % (A) 45 %; MCH 31.5 pg (25.0-35.0); MCHC 33.1 g/dL (31.0-37.0); Mean Platelet Volume 8.3; Monocytes # (A) 0.4 k/uL (0-1.0); Monocytes % (A) 6 %; Neutrophils # (A) 2.8 k/uL (1.3-7.7); Neutrophils % (A) 43 %; Platelet Count 279 k/uL (150-450); RDW 13.1 % (11.5-15.5); WBC 6.6 k/uL (3.8-10.6)
[2022-05-07 15:58] LABS: Albumin 4.6 g/dL (3.5-5.0); Calcium 9.7 mg/dL (8.4-10.2); Magnesium 2.4 mg/dL (1.6-2.3); Potassium 4.1 mmol/L (3.5-5.1); Total Bilirubin 0.8 mg/dL (0.2-1.3); Total Protein 8.3 g/dL (6.3-8.2)
[2022-05-07 16:00] LABS: INR 0.9 (<1.2); Partial Thromboplastin Time 23.1 sec (22.0-30.0); Prothrombin Time 10.4 sec (9.0-12.0)
--- NOTE | 2022-05-07 16:29 | XR ---
EXAMINATION TYPE: XR chest 2V DATE OF EXAM: 05/07/2022 COMPARISON: Chest x-ray April 27, 2019 HISTORY: Chest pain. TECHNIQUE: Frontal and lateral views of the chest are obtained. FINDINGS: There is some chronic right femoral change bilaterally without suspicious new focal air sp ross opacity, pleural effusion, or pneumothorax seen. The cardiac silhouette size is stable and withi n normal limits. The osseous structures remain demineralized. IMPRESSION: Chronic changes without acute pulmonary process.
[2022-05-07] MEDS ORDERED: NITROGLYCERIN OINT 1 INCH/GM PACKET TOPICAL STA (16:50)
[2022-05-07] MEDS ORDERED: NALOXONE 0.4 MG/ML 1 ML VIAL IVP PRN (16:56)
[2022-05-07] MEDS: methylPREDNISolone SOD SUCCI 125 MG/2 ML VIAL IV SCH (17:25)
[2022-05-07] MEDS ORDERED: ACETAMINOPHEN TAB 325 MG TAB PO PRN (22:23)
[2022-05-08] MEDS: methylPREDNISolone SOD SUCCI 125 MG/2 ML VIAL IV SCH ×3 (00:18→12:39)
[2022-05-08 03:41] VITALS: RESP 18
[2022-05-08] MEDS ORDERED: FLUTICASONE 110 MCG INHALER INHALATION SCH (08:00)
[2022-05-08] MEDS: IPRATROPIUM-ALBUTEROL 3 ML NEB INHALATION SCH ×3 (08:03→12:06)
[2022-05-08 08:57] VITALS: BP 113/69; TEMP 98.3
[2022-05-08] MEDS ORDERED: FUROSEMIDE 20 MG TAB PO SCH (09:00)
--- NOTE | 2022-05-08 10:16 | P.CRDCN ---
History of Present Illness Consult date: 05/08/22 History of present illness: HISTORY OF PRESENT ILLNESS: This is a 67-year-old male with a past medical history significant for paroxysmal atrial fibrillation, COPD, nicotine dependence, and recently diagnosed congestive heart failure. Patient used to follow in the office with Dr. Kapadia but has not been seen since 2017. We have been asked to see the patient in consultation for chest pain. Patient examined at the bedside. Patient states last week he was not feeling well and was not eating much for 4-5 days. He reports having intermittent pains in his chest. He states that pain is underneath his left breast. Sometimes he reports radiation to her shoulder. This morning the pain is worse with a deep breath and it is also tender with chest wall palpation. He reports he was at [facility] last week and was told he had congestive heart failure. He reports being started on oral Lasix and was discharged home. He states yesterday he had went in with his primary care physician who was concerned and directed him to come to the emergency room. The patient states he is a current smoker and smokes approximately 5 cigarettes per day. * EKG reveals sinus mechanism with no signs of acute ischemia. * Chest xray chronic changes without acute pulmonary process * Laboratory data: WBC 6.6. Hemoglobin 15.4. Platelet count 279. Sodium 137. Potassium 4.1. BUN 16. Creatinine 1.06. Magnesium 2.4. Troponin negative 1. ProBNP 209. * Current home cardiac medications include Xarelto 20 mg daily and Lasix 20 mg daily * Most recent echocardiogram obtained in April 2019 revealed ejection fraction 55-60%, trace to mild mitral regurgitation, and trace tricuspid regurgitation * Patient underwent dobutamine stress test in April 2018 which was negative for ischemia REVIEW OF SYSTEMS: At the time of my exam: CONSTITUTIONAL: Denies fever or chills. HEENT: Denies blurred vision, vision changes, or eye pain. Denies hemoptysis CARDIOVASCULAR: Denies chest pain. Denies orthopnea. Denies PND. Denies palpitations RESPIRATORY: Denies shortness of breath. GASTROINTESTINAL: Denies abdominal pain. Denies nausea or vomiting. HEMATOLOGIC: Denies bleeding disorders. GENITOURINARY: Denies any blood in urine. SKIN: Denies pruitis. Denies rash. PHYSICAL EXAM: VITAL SIGNS: Reviewed. GENERAL: Well-developed in no acute distress. HEENT: Head is normocephalic. Pupils are equal, round. Sclerae anicteric. Mucous membranes of the mouth are moist. Neck supple. No JVD or thyromegaly LUNGS: Respirations even and unlabored. Lungs diminished HEART: Regular rate and rhythm. S1 and S2 heard. ABDOMEN: Soft. Nondistended. Nontender. EXTREMITIES: Normal range of motion. No clubbing or cyanosis. Peripheral pulses intact. No lower extremity edema NEUROLOGIC: Awake and alert. Oriented x 3. ASSESSMENT: Chest pain, troponins negative 1, EKG without acute ischemic changes Recent diagnosis of congestive heart failure, per patient, currently euvolemic o n examination, type unknown, echo pending Paroxysmal atrial fibrillation COPD Nicotine dependence PLAN: Obtain 2-D echo to assess cardiac structure and function Trend troponins Resume home cardiac medications Add atorvastatin 20 mg at night Check TSH, lipid panel, and hemoglobin A1c Further recommendations pending patient course Nurse practitioner note has been reviewed by physician. Signing provider agrees with the documented findings, assessment, and plan of care. Past Medical History Past Medical History: Atrial Fibrillation, Heart Failure, CVA/TIA, Hyperlipidemia, Hypertension Additional Past Medical History / Comment(s): RT SIDE DOMINANT.Pt states he has had one CVA ( LT PUPIL LARGER THAN RT AND OCCASIONAL BILATERAL HAND NUMBNESS), TIA, right sided trigeminal neuralgia with surgery, syncopy 2012 and pt thinks possibly yesterday, 04/03/18, head injury with a fall at the age of 48yrs with intracranial bleed, childhood seizures, bacterial infection in stomach couple ye ars ago, L hip fx with surgery, skin cancer removals.EXPOSED TO ASBESTOS, new diagnosis of Afib in April 2017. New diagnosis of pancreatitis, pt to see a specialist at [facility] but has not done this yet. History of Any Multi-Drug Resistant Organisms: None Reported Past Surgical History: Appendectomy, Back Surgery, Heart Catheterization, Orthopedic Surgery, Tonsillectomy Additional Past Surgical History / Comment(s): trigeminal neuralgia gamma knife surgery, L hip with "2or 3 pins", cardiac cath approximately 11 yrs ago-no intervention, lumbar fusion, EGD/colonoscopy with benign polypectomies, R rotator cuff repair, bilateral knee arthrosopies, skin cancer removals, benign prostate bx and removed benign polyps. Past Anesthesia/Blood Transfusion Reactions: No Reported Reaction Past Psychological History: Bipolar, Depression, PTSD Additional Psychological History / Comment(s): Pt resides with his spouse. . Pt has a cane he will use prn. He drives. He is a . 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 Smoking Status: Former smoker Past Alcohol Use History: None Reported Additional Past Alcohol Use History / Comment(s): started smoking at age 10(1966)-has cut down from 4 ppd to 1/2 ppd. Pt used to drink 2-3 beers a day but has not drank in 2 years. Past Drug Use History: Marijuana Additional Drug Use History / Comment(s): currently smokes marijuana, 1-2 joints a day - Past Family History Father Family Medical History: Cancer, Coronary Artery Disease (CAD) Additional Family Medical History / Comment(s): Father had colon cancer. He at the age of 70yrs. Mother Family Medical History: Cancer Additional Family Medical History / Comment(s): Mother had colon cancer. triple bypass. She at the age of 77yrs. Medications and Allergies Home Medications Medication Instructions Recorded Confirmed Type Rivaroxaban [Xarelto] 20 mg PO DIRECTED 07/31/18 05/07/22 History Doxycycline Monohydrate 100 mg PO BID 05/07/22 05/07/22 History Fluticasone Propionate [Flovent 2 puff INHALATION RT-BID 05/07/22 05/07/22 History Hfa 220 mcg] Furosemide [Lasix] 20 mg PO DAILY 05/07/22 05/07/22 History Morphine Sulfate Ir [MSIR] 15 mg PO BID PRN 05/07/22 05/07/22 History Naloxone HCl [Narcan] 4 mg NASAL ONCE PRN 05/07/22 05/07/22 History Potassium Chloride ER [K-Dur 10] 10 meq PO DAILY 05/07/22 05/07/22 History oxyCODONE HCL [oxyCODONE HCL (IR)] 10 mg PO BID 05/07/22 05/07/22 History Allergies Allergy/AdvReac Type Severity Reaction Status Date / Time No Known Allergies Allergy Verified 05/07/22 17:45 Physical Exam Vitals: Vital Signs Temp Pulse Pulse Resp BP BP BP 05/08/22 08:03 72 05/08/22 02:29 97.7 F 87 18 95/56 103/64 05/07/22 20:51 97.7 F 76 20 136/76 05/07/22 20:00 67 22 114/68 05/07/22 16:34 67 18 120/77 05/07/22 14:03 98.0 F 83 22 132/84 Pulse Ox 05/08/22 08:03 05/08/22 02:29 93 L 05/07/22 20:51 96 05/07/22 20:00 94 L 05/07/22 16:34 96 05/07/22 14:03 95 Intake and Output 05/07/22 05/08/22 05/08/22 22:59 06:59 14:59 Other: Voiding Method Toilet Toilet # Voids 0 1 Weight 94.801 kg Results 05/07/22 15:34 05/07/22 15:34 Cardiac Enzymes 05/07/22 05/07/22 Range/Units 15:34 15:34 AST 25 (17-59) U/L Troponin I <0.012 (0.000-0.034) ng/mL Coagulation 05/07/22 Range/Units 15:34 PT 10.4 (9.0-12.0) sec APTT 23.1 (22.0-30.0) sec CBC 05/07/22 Range/Units 15:34 WBC 6.6 (3.8-10.6) k/uL RBC 4.90 (4.30-5.90) m/uL Hgb 15.4 (13.0-17.5) gm/dL Hct 46.6 (39.0-53.0) % Plt Count 279 (150-450) k/uL Comprehensive Metabolic Panel 05/07/22 Range/Units 15:34 Sodium 137 (137-145) mmol/L Potassium 4.1 (3.5-5.1) mmol/L Chloride 105 (98-107) mmol/L Carbon Dioxide 22 (22-30) mmol/L BUN 16 (9-20) mg/dL Creatinine 1.06 (0.66-1.25) mg/dL Glucose 102 H (74-99) mg/dL Calcium 9.7 (8.4-10.2) mg/dL AST 25 (17-59) U/L ALT 31 (4-49) U/L Alkaline Phosphatase 89 (38-126) U/L Total Protein 8.3 H (6.3-8.2) g/dL Albumin 4.6 (3.5-5.0) g/dL Current Medications Generic Name Dose Route Start Last Admin Trade Name Freq PRN Reason Stop Dose Admin Acetaminophen 650 mg 05/07/22 22:23 Acetaminophen Tab 325 Mg Tab PO Q6HR PRN Fever and/ or Pain Albuterol/Ipratropium 3 ml 05/07/22 20:00 05/08/22 08:03 Ipratropium-Albuterol 3 Ml Neb INHALATION 3 ml RT-QID YARA Administration Fluticasone Propionate 2 puff 05/08/22 08:00 Fluticasone 110 Mcg Inhaler INHALATION RT-BID YARA Furosemide 20 mg 05/08/22 09:00 Furosemide 20 Mg Tab PO DAILY [facility] Methylprednisolone Sodium Succinate 60 mg 05/07/22 18:00 05/08/22 05:30 Methylprednisolone Sod Succi 125 Mg/2 Ml Vial IV 60 mg Q6HR YARA Administration Naloxone HCl 0.2 mg 05/07/22 16:56 Naloxone 0.4 Mg/Ml 1 Ml Vial IVP Q2M PRN Opioid Reversal Rivaroxaban 20 mg 05/08/22 17:30 Rivaroxaban 20 Mg Tab PO W/SUPPER [facility] Protocol Intake and Output 05/07/22 05/08/22 05/08/22 22:59 06:59 14:59 Other: Voiding Method Toilet Toilet # Voids 0 1 Weight 94.801 kg 05/07/22 15:34 05/07/22 15:34
[2022-05-08] MEDS ORDERED: MORPHINE SULFATE IR 15 MG TABLET PO PRN (10:36)
--- NOTE | 2022-05-08 10:52 | P.HPIM ---
History of Present Illness Patient is a 67-year-old male came in with comments of shortness of breath shortness of breath resolved at this time patient is saturating at 97% improvement patient does have history of COPD used to smoke 4 packs of cigarettes per day presently smoking half a pack a day. Patient is willing to quit smoking. Patient was recently hospitalized at [facility] and was diagnosed with congestive heart failure. Patient doesn't have any heart failure symptoms at this time patient's BNP is only 200 patient's previous echo is w ithin normal limits. I do not have any reports from the Hospital at This Time. Patient Does Have History of Proximal Atrial Fibrillation. Patient Was Given Steroids Last Night Patient Has Good Air Entry COPD Resolved at This Time Patient Is Comparing of Cough without Any Sputum Production Patient Appears to Be on Doxycycline. Patient Also Comparing of Some Abdominal Discomfort. Chest X-Ray Did Not Show Any Pneumonia Patient Doesn't Have Leukocytosis or Fever at This Time No Evidence of Infection. REVIEW OF SYSTEMS: CONSTITUTIONAL: No fever, no malaise, no fatigue. HEENT: No recent visual problems or hearing problems. Denied any sore throat. CARDIOVASCULAR: No chest pain, orthopnea, PND, no palpitations, no syncope. PULMONARY: , no hemoptysis. GASTROINTESTINAL: No diarrhea, no nausea, no vomiting, no abdominal pain. NEUROLOGICAL: No headaches, no weakness, no numbness. HEMATOLOGICAL: Denies any bleeding or petechiae. GENITOURINARY: Denies any burning micturition, frequency, or urgency. MUSCULOSKELETAL/RHEUMATOLOGICAL: Denies any joint pain, swelling, or any muscle pain. ENDOCRINE: Denies any polyuria or polydipsia. The rest of the 14-point review of systems is negative. PHYSICAL EXAMINATION: GENERAL: The patient is alert and oriented x3, not in any acute distress. Well developed, well nourished. HEENT: Pupils are round and equally reacting to light. EOMI. No scleral icterus. No conjunctival pallor. Normocephalic, atraumatic. No pharyngeal erythema. No thyromegaly. CARDIOVASCULAR: S1 and S2 present. No murmurs, rubs, or gallops. PULMONARY: Chest is clear to auscultation, no wheezing or crackles. ABDOMEN: Soft, nontender, nondistended, normoactive bowel sounds. No palpable organomegaly. MUSCULOSKELETAL: No joint swelling or deformity. EXTREMITIES: No cyanosis, clubbing, or pedal edema. NEUROLOGICAL: Gross neurological examination did not reveal any focal deficits. SKIN: No rashes. Assessment and plan -Shortness of breath probably secondary to COPD with acute exacerbation patient's symptoms improve patient will be discharged today if cleared by cardiology patient was complaining of abdominal discomfort. Probably secondary to mild gastritis for which patient will be discharged on Pepcid -Ruled out congestive heart failure -History of oxalate in relation patient is presently sinus rhythm rate controlled patient is on anti-correlation at home with Xarelto which she will continue -Hyperlipidemia -COPD with acute exacerbation -Nicotine dependence: Counseling was provided -Hyperlipidemia Patient was a evaluated by cardiology if cleared by cardiology patient will be discharged today Past Medical History Past Medical History: Atrial Fibrillation, Heart Failure, CVA/TIA, Hyperlipidemia, Hypertension Additional Past Medical History / Comment(s): RT SIDE DOMINANT.Pt states he has had one CVA ( LT PUPIL LARGER THAN RT AND OCCASIONAL BILATERAL HAND NUMBNESS), TIA, right sided trigeminal neuralgia with surgery, syncopy 2012 and pt thinks possibly yesterday, 04/03/18, head injury with a fall at the age of 48yrs with intracranial bleed, childhood seizures, bacterial infection in stomach couple years ago, L hip fx with surgery, skin cancer removals.EXPOSED TO ASBESTOS, new diagnosis of Afib in April 2017. New diagnosis of pancreatitis, pt to see a specialist at [facility] but has not done this yet. History of Any Multi-Drug Resistant Organisms: None Reported Past Surgical History: Appendectomy, Back Surgery, Heart Catheterization, Orthopedic Surgery, Tonsillectomy Additional Past Surgical History / Comment(s): trigeminal neuralgia gamma knife surgery, L hip with "2or 3 pins", cardiac cath approximately 11 yrs ago-no intervention, lumbar fusion, EGD/colonoscopy with benign polypectomies, R rotator cuff repair, bilateral knee arthrosopies, skin cancer removals, benign prostate bx and removed benign polyps. Past Anesthesia/Blood Transfusion Reactions: No Reported Reaction Past Psychological History: Bipolar, Depression, PTSD Additional Psychological History / Comment(s): Pt resides with his spouse. . Pt has a cane he will use prn. He drives. He is a . 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 Smoking Status: Former smoker Past Alcohol Use History: None Reported Additional Past Alcohol Use History / Comment(s): started smoking at age 10(1965)-has cut down from 4 ppd to 1/2 ppd. Pt used to drink 2-3 beers a day but has not drank in 2 years. Past Drug Use History: Marijuana Additional Drug Use History / Comment(s): currently smokes marijuana, 1-2 joints a day - Past Family History Father Family Medical History: Cancer, Coronary Artery Disease (CAD) Additional Family Medical History / Comment(s): Father had colon cancer. He at the age of 70yrs. Mother Family Medical History: Cancer Additional Family Medical History / Comment(s): Mother had colon cancer. triple bypass. She at the age of 77yrs. Medications and Allergies Home Medications Medication Instructions Recorded Confirmed Type Rivaroxaban [Xarelto] 20 mg PO DIRECTED 07/31/18 05/07/22 History Doxycycline Monohydrate 100 mg PO BID 05/07/22 05/07/22 History Fluticasone Propionate [Flovent 2 puff INHALATION RT-BID 05/07/22 05/07/22 History Hfa 220 mcg] Furosemide [Lasix] 20 mg PO DAILY 05/07/22 05/07/22 History Morphine Sulfate Ir [MSIR] 15 mg PO BID PRN 05/07/22 05/07/22 History Naloxone HCl [Narcan] 4 mg NASAL ONCE PRN 05/07/22 05/07/22 History Potassium Chloride ER [K-Dur 10] 10 meq PO DAILY 05/07/22 05/07/22 History oxyCODONE HCL [oxyCODONE HCL (IR)] 10 mg PO BID 05/07/22 05/07/22 History Albuterol Inhaler [Ventolin Hfa 1 - 2 puff INHALATION Q6HR PRN #1 05/08/22 Rx Inhaler] each Budesonide-Formot 160-4.5 Mcg 2 puff INHALATION BID #10.2 gm 05/08/22 Rx [Symbicort 160-4.5 Mcg Inhaler] Famotidine [Pepcid] 20 mg PO BID #30 tablet 05/08/22 Rx predniSONE 10 mg PO DAILY #15 tab 05/08/22 Rx Allergies Allergy/AdvReac Type Severity Reaction Status Date / Time No Known Allergies Allergy Verified 05/07/22 17:45 Physical Exam Vitals: Vital Signs Temp Pulse Pulse Resp BP BP BP 05/08/22 08:25 72 05/08/22 08:03 72 05/08/22 07:30 98.3 F 65 18 113/69 05/08/22 02:29 97.7 F 87 18 95/56 103/64 05/07/22 20:51 97.7 F 76 20 136/76 05/07/22 20:00 67 22 114/68 05/07/22 16:34 67 18 120/77 05/07/22 14:03 98.0 F 83 22 132/84 Pulse Ox 05/08/22 08:25 05/08/22 08:03 05/08/22 07:30 97 05/08/22 02:29 93 L 05/07/22 20:51 96 05/07/22 20:00 94 L 05/07/22 16:34 96 05/07/22 14:03 95 Intake and Output 05/07/22 05/08/22 05/08/22 22:59 06:59 14:59 Other: Voiding Method Toilet Toilet # Voids 0 1 Weight 94.801 kg Results CBC & Chem 7: 05/07/22 15:34 05/07/22 15:34 Labs: Abnormal Lab Results - Last 24 Hours (Table) 05/07/22 Range/Units 15:34 Glucose 102 H (74-99) mg/dL Magnesium 2.4 H (1.6-2.3) mg/dL Total Protein 8.3 H (6.3-8.2) g/dL Thrombosis Risk Factor Assmnt - Choose All That Apply Each Factor Represents 1 point: Abnormal pulmonary function (COPD), Heart failure (<1month) Each Risk Factor Represents 2 Points: Age 61-74 years Thrombosis Risk Factor Assessment Total Risk Factor Score: 4 Thrombosis Risk Factor Assessment Level: Moderate Risk
--- NOTE | 2022-05-08 10:52 | P.DS ---
Providers Date of admission: 05/07/22 17:38 Attending physician: Greg Esteves Consults: 05/07/22 16:56 Consult Physician Routine Consulting Provider: Timbo Porter Consult Reason/Comments: Chest pain Do you want consulting provider notified?: Yes Primary care physician: Raghav Albrecht Hospital Course: Please refer to my history of present illness for further details Patient Condition at Discharge: Stable Plan - Discharge Summary Discharge Rx Participant: No New Discharge Prescriptions: New Famotidine [Pepcid] 20 mg PO BID #30 tablet Budesonide-Formot 160-4.5 Mcg [Symbicort 160-4.5 Mcg Inhaler] 2 puff INHALATION BID #10.2 gm predniSONE 10 mg PO DAILY #15 tab Albuterol Inhaler [Ventolin Hfa Inhaler] 1 - 2 puff INHALATION Q6HR PRN #1 each PRN Reason: Shortness Of Breath Or Wheezing Continue Rivaroxaban [Xarelto] 20 mg PO DIRECTED oxyCODONE HCL [oxyCODONE HCL (IR)] 10 mg PO BID Potassium Chloride ER [K-Dur 10] 10 meq PO DAILY Furosemide [Lasix] 20 mg PO DAILY Morphine Sulfate Ir [MSIR] 15 mg PO BID PRN PRN Reason: Pain Fluticasone Propionate [Flovent Hfa 220 mcg] 2 puff INHALATION RT-BID Doxycycline Monohydrate 100 mg PO BID Naloxone HCl [Narcan] 4 mg NASAL ONCE PRN PRN Reason: Overdose Discharge Medication List Rivaroxaban [Xarelto] 20 mg PO DIRECTED 07/31/18 [History] Doxycycline Monohydrate 100 mg PO BID 05/07/22 [History] Fluticasone Propionate [Flovent Hfa 220 mcg] 2 puff INHALATION RT-BID 05/07/22 [History] Furosemide [Lasix] 20 mg PO DAILY 05/07/22 [History] Morphine Sulfate Ir [MSIR] 15 mg PO BID PRN 05/07/22 [History] Naloxone HCl [Narcan] 4 mg NASAL ONCE PRN 05/07/22 [History] Potassium Chloride ER [K-Dur 10] 10 meq PO DAILY 05/07/22 [History] oxyCODONE HCL [oxyCODONE HCL (IR)] 10 mg PO BID 05/07/22 [History] Albuterol Inhaler [Ventolin Hfa Inhaler] 1 - 2 puff INHALATION Q6HR PRN #1 each 05/08/22 [Rx] Budesonide-Formot 160-4.5 Mcg [Symbicort 160-4.5 Mcg Inhaler] 2 puff INHALATION BID #10.2 gm 05/08/22 [Rx] Famotidine [Pepcid] 20 mg PO BID #30 tablet 05/08/22 [Rx] predniSONE 10 mg PO DAILY #15 tab 05/08/22 [Rx] Follow up Appointment(s)/Referral(s): Raghav Albrecht MD [Primary Care Provider] - 3 Days Discharge Disposition: HOME SELF-CARE
--- NOTE | 2022-05-08 11:38 | CA ---
Transthoracic Echo Report Name: Lion Gutierrez Age: 67 Gender: M : 1955 Exam Date: 05/08/2022 09:11 Exam Location: [facility] Ht (in): 76 Wt (lb): 209 Ordering Physician: Flaca Thakkar Attending/Referring Phys: [id number], Bijan Access Tech Rekha Henderson RDCS Procedure CPT: Indications: LV function Cardiac Hx: Technical Quality: Poor Contrast 1: Lumason Total Dose (mL): 4 Contrast 2: Total Dose (mL): MEASUREMENTS (Male / Female) Normal Values 2D ECHO LV Diastolic Diameter PLAX 5.4 cm 4.2 - 5.9 / 3.9 - 5.3 cm LV Systolic Diameter PLAX 3.3 cm IVS Diastolic Thickness 1.4 cm 0.6 - 1.0 / 0.6 - 0.9 cm LVPW Diastolic Thickness 1.4 cm 0.6 - 1.0 / 0.6 - 0.9 cm LV Relative Wall Thickness 0.5 LA Volume 54.2 cm??? 18 - 58 / 22 - 52 cm??? DOPPLER AV Peak Velocity 111.0 cm/s AV Peak Gradient 4.9 mmHg LVOT Peak Velocity 97.2 cm/s LVOT Peak Gradient 3.8 mmHg MV Area PHT 2.9 cm??? Mitral E Point Velocity 59.7 cm/s Mitral A Point Velocity 92.2 cm/s Mitral E to A Ratio 0.6 MV Deceleration Time 264.4 ms TR Peak Velocity 125.4 cm/s TR Peak Gradient 6.3 mmHg Right Ventricular Systolic Press 11.3 mmHg FINDINGS Left Ventricle Mildly increased septal wall thickness. No obvious regional wall motion abnormalities. Left ventricular ejection fraction is estimated at 55 %. Right Ventricle Right ventricle not well visualized. Right Atrium Right atrium not well visualized. Left Atrium Normal left atrial size. No evidence for an atrial septal defect. Mitral Valve Mitral valve not well visualized. No mitral stenosis. Trace to mild mitral regurgitation. Aortic Valve No aortic valve stenosis or regurgitation. Tricuspid Valve Mild tricuspid regurgitation. Pulmonic Valve Pulmonic valve not well visualized. Pericardium No pericardial effusion. Aorta Aortic root and proximal ascending aorta not well visualized. CONCLUSIONS LVH with preserved systolic function Technically difficult study with suboptimal acoustic windows Contrast echo Previewed by: Dr. Domenico Belcher MD (Electronically Signed) Final Date: 08 May 2022 11:37
[2022-05-08 12:10] VITALS: PULSE 76
[2022-05-08 14:48] LABS: Chol/HDL Ratio 5.95 Ratio; LDL Cholesterol,Calculated 160.5 mg/dL (0.0-131.0); VLDL Calculation 19.18 mg/dL (5.00-40.00)
[2022-05-08] MEDS ORDERED: RIVAROXABAN 20 MG TAB PO SCH (17:30)
[2022-05-08] MEDS ORDERED: ATORVASTATIN 20 MG TAB PO SCH (21:00)
== END 2022-05-08 13:19 | disposition home or self-care (01) ==
LOC: EC 13:56 → 6NMEDSUR 17:38
PROVIDERS: ADMIT Hospitalist; ATTEND Hospitalist
DX: R07.89 Other chest pain (principal); J44.1 Chronic obstructive pulmonary disease with (acute) exacerbation; I48.0 Paroxysmal atrial fibrillation; E78.5 Hyperlipidemia, unspecified; I11.0 Hypertensive heart disease with heart failure; I50.9 Heart failure, unspecified; I08.1 Rheumatic disorders of both mitral and tricuspid valves; R10.9 Unspecified abdominal pain; R73.9 Hyperglycemia, unspecified; F17.210 Nicotine dependence, cigarettes, uncomplicated; K85.90 Acute pancreatitis without necrosis or infection, unspecified; F43.10 Post-traumatic stress disorder, unspecified; F31.9 Bipolar disorder, unspecified; Z79.51 Long term (current) use of inhaled steroids; Z79.01 Long term (current) use of anticoagulants; Z79.82 Long term (current) use of aspirin; Z79.899 Other long term (current) drug therapy; Z87.820 Personal history of traumatic brain injury; Z86.73 Personal history of transient ischemic attack (TIA), and cerebral infarction without residual deficits; Z77.090 Contact with and (suspected) exposure to asbestos; Z85.828 Personal history of other malignant neoplasm of skin; Z90.49 Acquired absence of other specified parts of digestive tract; Z98.1 Arthrodesis status; Z86.010 Personal history of colon polyps; Z91.81 History of falling; Z82.49 Family history of ischemic heart disease and other diseases of the circulatory system; Z80.0 Family history of malignant neoplasm of digestive organs
CPT/HCPCS: 96376; 96374; 99285; 36415; 94640 ×2; 93005; 83880; 80061; 80053; 84443; 83735; 84484 ×2; 85025; 85610; 85730; 83036; 71046; G0378 ×2; C8929; J2930 ×2; Q9950; 93306

== ENCOUNTER → 2022-07-03 | Outpatient (CLI) | payer MEDICARE ==
[2022-07-03 14:16] LABS: Basophils # (A) 0.02 X 10*3/uL (0.00-0.10); Basophils % (A) 0.3 %; Eosinophils # (A) 0.18 X 10*3/uL (0.04-0.35); Eosinophils % (A) 3.1 %; HCT 44.4 % (39.6-50.0); HGB 14.9 g/dL (13.0-17.0); Immature Grans, Automated 0.3 %; Lymphocytes # (A) 2.35 X 10*3/uL (0.90-5.00); Lymphocytes % (A) 41.1 %; MCH 31.7 pg (27.0-32.0); MCHC 33.6 g/dL (32.0-37.0); MCV 94.5 fL (80.0-97.0); Mean Platelet Volume 10.6 fL (9.5-12.2); Monocytes # (A) 0.57 X 10*3/uL (0.20-1.00); NRBC Per 100 WBC 0 /100 WBCS (0.0-0.0); Neutrophils # (A) 2.58 X 10*3/uL (1.80-7.70); Neutrophils % (A) 45.2 %; Platelet Count 216 X 10*3/uL (140-440); RDW 13.9 % (11.5-14.5); WBC 5.72 X 10*3/uL (4.50-10.00)
[2022-07-03 15:18] LABS: African American GFR (CKD) 90.9 (60.0-200.0); Albumin 4.6 g/dL (3.8-4.9); Albumin/Globulin Ratio 1.6 (1.60-3.17); Anion Gap 10.6 mmol/L (10.00-18.00); BUN/Creat Ratio 16.04 Ratio (12.00-20.00); Blood Urea Nitrogen 15.7 mg/dL (9.0-27.0); Calcium 9.8 mg/dL (8.7-10.3); Carbon Dioxide 22.9 mmol/L (20.0-27.5); Globulin 2.9 g/dL (1.6-3.3); Non-African American GFR(CKD) 78.4 (60.0-200.0); Potassium 4.4 mmol/L (3.5-5.5); Prostate Specific Antigen 1.8 ng/mL (0.00-4.50); Total Bilirubin 0.5 mg/dL (0.30-1.20); Total Protein 7.5 g/dL (6.2-8.2)
== END | disposition home or self-care (01) ==
LOC: LABWHC1 08:48
PROVIDERS: ATTEND Family Medicine
DX: Z12.5 Encounter for screening for malignant neoplasm of prostate (principal); Z11.59 Encounter for screening for other viral diseases
CPT/HCPCS: 36415; 80053; 83036; 84153; 85025; 86803

== ENCOUNTER → 2022-07-03 | Outpatient (CLI) | payer MEDICARE | END | disposition home or self-care (01) | LOC: LABPAT 08:45 | PROVIDERS: ATTEND Internal Medicine Interventional Cardiology | DX: Z53.9 Procedure and treatment not carried out, unspecified reason (principal) ==

== ENCOUNTER 2022-07-09 09:58 | Day surgery (SDC) | payer MEDICARE ==
[2022-07-05 12:07] VITALS: BMI 25.7
[~2022-07-09 09:58] MED LIST: ALPRAZolam 0.25 MG TAB PO PRN; ALPRAZolam 0.5 MG TAB PO PRN; ASPIRIN 325 MG TAB PO ONE; ATORVASTATIN 80 MG TAB PO ONE; HEPARIN SODIUM,PORCINE 10,000 UNIT in SODIUM CHLORIDE 0.9% 1,000 ML IRRIGATION PRN; HEPARIN SODIUM,PORCINE 2,500 UNIT in SODIUM CHLORIDE 0.9% 250 ML IRRIGATION PRN; NITROGLYCERIN SL TABS 0.4 MG TAB SUBLINGUAL PRN; SODIUM CHLORIDE 0.9% 1,000 ML in EMPTY BAG 1 BAG IV SCH
[2022-07-09] MEDS ORDERED: SODIUM CHLORIDE 0.9% 1,000 ML IV ONE (11:17)
[2022-07-09] MEDS ORDERED: VERAPAMIL 2.5 MG/ML 2 ML AMP ONE (11:53)
[2022-07-09 11:59] VITALS: RESP 16; TEMP 98.1
[2022-07-09] MEDS ORDERED: fentaNYL (PF) 50 MCG/ML 2 ML AMP ONE (12:20)
[2022-07-09] MEDS ORDERED: fentaNYL (PF) 50 MCG/ML 2 ML AMP IV ONE (12:22)
[2022-07-09] MEDS ORDERED: MIDAZOLAM 2 MG/2 ML VIAL IV ONE (12:22)
[2022-07-09] MEDS ORDERED: LIDOCAINE 1% INJ 10MG/ML (30 ML VIAL-PF) SQ ONE (12:23)
[2022-07-09] MEDS ORDERED: VERAPAMIL SYRINGE (5 MG/10 ML) IV ONE (12:24)
[2022-07-09] MEDS ORDERED: HEPARIN SODIUM 1,000 UN/ML (10ML VL) IV ONE (12:26)
[2022-07-09] MEDS ORDERED: IOPAMIDOL-370 125ML BTL INJ ONE (12:30)
[2022-07-09] MEDS ORDERED: RX INFO: IV CONTRAST WAS GIVEN 1 EACH MISC MISCELLANE PRN (12:41)
[2022-07-09] MEDS ORDERED: SODIUM CHLORIDE 0.9% 1,000 ML IV SCH (12:45)
--- NOTE | 2022-07-09 12:46 | P.PCN ---
Date of Procedure: 07/09/22 Operative Findings: CARDIAC CATHETERIZATION PERFORMING PHYSICIAN: Timbo Porter MD, RPVI PROCEDURE PERFORMED: 1. Selective right and left coronary angiogram 2. Left heart catheterization INDICATION: This is a 67-year-old gentleman who sees Dr. Belcher regularly was experiencing symptoms of shortness of breath. He underwent myocardial perfusion imaging stress test and that showed moderate area of reversibility inferiorly. In the light of that heart catheterization was advised he does have multiple risk factors for CAD COMPLICATION: None APPROACH: Right radial artery LEVEL OF SEDATION: Moderate with a sedation length of 13 minutes PROCEDURE DESCRIPTION: After obtaining an informed consent, the patient was brought to cardiac cathead worker. Local anesthesia was performed using lidocaine subcutaneously. The right radial artery was cannulated using Seldinger technique, the guidewire passed easily, following that we advanced a 5-Burundian sheath dilator assembly, the wire and dilator were removed and sheath was flushed. Following that, 2 mg of verapamil along with 5000 unit heparin were given. Selective right and left coronary angiogram using a 6-Burundian JR4 and JL 3.5 catheters. Following that we did left heart catheterization using 6-Burundian pigtail catheter. The procedure was completed there was no complication. SELECTIVE CORONARY ANGIOGRAM: The right coronary artery: Large caliber vessel and a dominant vessel. The RCA is angiographically normal. Distally bifurcates into PDA and PLV branches both appeared to be angiographically normal Left main: Large caliber vessel. Its angiographically normal. Bifurcates into LCx and LAD The left circumflex: Large caliber vessel and codominant vessel. The proximal LCx appeared to be angiographically normal. Gives rises into a large OM branch which appeared to be angiographically normal in the mid LCx has a lesion appears to be in the range of 30-40%. The LCx distally is angiographically normal and bifurcates into PDA and PLV branches both appeared to be angiographically normal. The left anterior descending artery: It is angiographically normal. Gives rises into multiple diagonal branches appeared to be angiographically normal HEMODYNAMICS: And the LVEDP was 20 mmHg was no significant gradient across aortic valve CONCLUSION: 1. Elevated left-sided filling pressure with LVEDP of almost 20 mmHg 2. Zpek-[id number]-[id number] lesion involving the mid LCx appeared to be in the range of 30-40% POSTPROCEDURE MANAGEMENT: Medical treatment including aggressive cholesterol control and risk factors modification and follow-up
[2022-07-09 17:46] VITALS: BP 140/62
[2022-07-09 17:51] VITALS: PULSE 66
== END 2022-07-09 16:31 | disposition home or self-care (01) ==
LOC: CATHCVL 09:58
PROVIDERS: ATTEND Internal Medicine Interventional Cardiology
DX: I25.10 Atherosclerotic heart disease of native coronary artery without angina pectoris (principal); R94.39 Abnormal result of other cardiovascular function study; I10 Essential (primary) hypertension; E78.5 Hyperlipidemia, unspecified; I48.0 Paroxysmal atrial fibrillation; Z79.890 Hormone replacement therapy; Z79.899 Other long term (current) drug therapy
CPT/HCPCS: 93458; C1769; C1894; J2250; J2001; J3010; J1644; Q9967

== ENCOUNTER 2023-04-26 12:25 | Inpatient (IN) | payer MEDICARE ==
--- NOTE | 2023-04-26 13:00 | ED ---
Chest Pain HPI - General Chief Complaint: Chest Pain Stated Complaint: chest pain, sob Time Seen by Provider: 04/26/23 12:32 Source: patient Mode of arrival: ambulatory Limitations: no limitations - History of Present Illness Initial Comments: 68-year-old male with past medical history of A. fib on xarelto presents with left sided chest pain which radiates to his left arm and jaw. States the pain has been present since this morning. Has associated shortness of breath. Also admits to a cough. Has a history of congestive heart failure. Denies any peripheral swelling. No fevers. States he has been using his inhalers for COPD as directed but continues to be short of breath. Pain is describes as a squeezing sensation. Has been constant. He took 1 baby aspirin at home for his symptoms. No history of coronary disease. No other alleviating, precipitating or modifying factors - Related Data Home Medications Medication Instructions Recorded Confirmed oxyCODONE HCL [oxyCODONE HCL (IR)] 10 mg PO BID PRN 05/07/22 04/26/23 Morphine Sulfate ER [Ms Contin] 15 mg PO Q12HR 04/26/23 04/26/23 Previous Rx's Medication Instructions Recorded Omeprazole [PriLOSEC] 40 mg PO AC-BRKFST #90 cap 04/29/23 Allergies Allergy/AdvReac Type Severity Reaction Status Date / Time No Known Allergies Allergy Verified 04/26/23 12:29 Review of Systems ROS Statement: Those systems with pertinent positive or pertinent negative responses have been documented in the HPI. ROS Other: All systems not noted in ROS Statement are negative. Past Medical History Past Medical History: Atrial Fibrillation, Cancer, Heart Failure, COPD, CVA/TIA, Hyperlipidemia, Hypertension Additional Past Medical History / Comment(s): RT SIDE DOMINANT.Pt states he has had one CVA ( LT PUPIL LARGER THAN RT AND OCCASIONAL BILATERAL HAND NUMBNESS), TIA, right sided trigeminal neuralgia with surgery, syncopy 2012 ,04/03/18, head injury with a fall at the age of 48yrs with intracranial bleed, childhood seizures, bacterial infection in stomach couple years ago, L hip fx with surgery, skin cancer removals.EXPOSED TO ASBESTOS, new diagnosis of Afib in April 2017. New diagnosis of pancreatitis, pt to see a specialist at [facility] but has not done this yet. History of Any Multi-Drug Resistant Organisms: None Reported Past Surgical History: Appendectomy, Back Surgery, Heart Catheterization, Orthopedic Surgery, Tonsillectomy Additional Past Surgical History / Comment(s): trigeminal neuralgia gamma knife surgery, L hip with "2or 3 pins", cardiac cath approximately 11 yrs ago-no intervention, lumbar fusion, EGD/colonoscopy with benign polypectomies, R rotator cuff repair, bilateral knee arthrosopies, skin cancer removals, benign prostate bx and removed benign polyps. Past Anesthesia/Blood Transfusion Reactions: No Reported Reaction Past Psychological History: Bipolar, Depression, PTSD Smoking Status: Former smoker Past Alcohol Use History: None Reported Past Drug Use History: None Reported - Past Family History Father Family Medical History: Cancer, Coronary Artery Disease (CAD) Additional Family Medical History / Comment(s): Father had colon cancer. He at the age of 70yrs. Mother Family Medical History: Cancer Additional Family Medical History / Comment(s): Mother had colon cancer. triple bypass. She at the age of 77yrs. General Exam Limitations: no limitations General appearance: alert, in no apparent distress Head exam: Present: atraumatic, normocephalic, normal inspection Eye exam: Present: normal appearance, PERRL, EOMI. Absent: scleral icterus, conjunctival injection, periorbital swelling ENT exam: Present: normal exam, mucous membranes moist Neck exam: Present: normal inspection. Absent: tenderness, meningismus, lymphadenopathy Respiratory exam: Present: normal lung sounds bilaterally. Absent: respiratory distress, wheezes, rales, rhonchi, stridor Cardiovascular Exam: Present: regular rate, normal rhythm, normal heart sounds. Absent: systolic murmur, diastolic murmur, rubs, gallop, clicks GI/Abdominal exam: Present: soft, normal bowel sounds. Absent: distended, tenderness, guarding, rebound, rigid Extremities exam: Present: normal inspection, full ROM, normal capillary refill. Absent: tenderness, pedal edema, joint swelling, calf tenderness Back exam: Present: normal inspection Neurological exam: Present: alert, oriented X3, CN II-XII intact Psychiatric exam: Present: normal affect, normal mood Skin exam: Present: warm, dry, intact, normal color. Absent: rash Course Vital Signs 04/26/23 04/26/23 04/26/23 12:27 13:06 16:16 Temperature 98.5 F Pulse Rate 78 74 78 Respiratory 20 20 16 Rate Blood Pressure 122/70 114/76 140/77 O2 Sat by Pulse 97 97 96 Oximetry Chest Pain MDM - MDM Was pt. sent in by a medical professional or institution ([facility] Rivera, [employer], urgent care, hospital, or fci...) When possible be specific @ -No Did you speak to anyone other than the patient for history (EMS, parent, family, police, friend...)? What history was obtained from this source @ -Spoke with EMS in regards to the history Did you review nursing and triage notes (agree or disagree)? Why? @ -I reviewed and agree with nursing and triage notes Were old charts reviewed (outside hosp., previous admission, EMS record, old EKG, old radiological studies, urgent care reports/EKG's, fci records)? Report findings @ -I reviewed cath report from July 2022 Differential Diagnosis (chest pain, altered mental status, abdominal pain women, abdominal pain men, vaginal bleeding, weakness, fever, dyspnea, syncope, headache, dizziness, GI bleed, back pain, seizure, CVA, palpatations, mental health, musculoskeletal)? @ -Differential Chest Pain: Stable Angina, Unstable Angina, STEMI, NSTEMI Aortic Dissection, Pneumothorax, Musculoskeletal, Esophageal Spasm GERD, Cholecystitis, Pancreatitis, Zoster, this is not meant to be an all-inclusive list. EKG interpreted by me (3pts min.). @ -yes, and demonstrates sinus rhythm with a rate of 67. QRS 114. QTC of 434. There are frequent PACs X-rays interpreted by me (1pt min.). @ -Yes and demonstrates no acute process CT interpreted by me (1pt min.). @ -None done U/S interpreted by me (1pt. min.). @ -None done What testing was considered but not performed or refused? (CT, X-rays, U/S, labs)? Why? @ -None What meds were considered but not given or refused? Why? @ -None Did you discuss the management of the patient with other professionals (professionals i.e. ROGELIO Rivera, [employer], lab, RT, psych nurse, social service technician, coppersmith apprentice, teacher, contract officer, case assistant)? Give summary @ -Spoke with Dr. Babb who will admit the patient Was smoking cessation discussed for >3mins.? @ -No Was critical care preformed (if so, how long)? @ -No Were there social determinants of health that impacted care today? How? (Homelessness, low income, unemployed, alcoholism, drug addiction, transportation, low edu. Level, literacy, decrease access to med. care, [place] [facility], rehab)? @ -It is discovered later that the patient is not taking any of his medications as he does not have a doctor Was there de-escalation of care discussed even if they declined (Discuss DNR or withdrawal of care, Hospice)? DNR status @ -No What co-morbidities impacted this encounter? (DM, HTN, Smoking, COPD, CAD, Can cer, CVA, ARF, Chemo, Hep., AIDS, mental health diagnosis, sleep apnea, morbid obesity)? @ -A. fib, heart failure Was patient admitted / discharged? Hospital course, mention meds given and route, prescriptions, significant lab abnormalities, going to OR and other pertinent info. @ -upon arrival patient is placed in room 5. A thorough history and physical exam was performed. IV access established laboratory studies were conducted. D-dimer is negative. Troponin negative. Patient is still having active chest pain. Aspirin and Nitropaste ordered. Spoke with Dr. Babb who will admit patient Undiagnosed new problem with uncertain prognosis? @ -Yes Drug Therapy requiring intensive monitoring for toxicity (Heparin, Nitro, Insulin, Cardizem)? @ -No Were any procedures done? @ -No Diagnosis/symptom? @ -acute chest pain, possible ACS Acute, or Chronic, or Acute on Chronic? @ -Acute Uncomplicated (without systemic symptoms) or Complicated (systemic symptoms)? @ -Complicated Side effects of treatment? @ -No Exacerbation, Progression, or Severe Exacerbation? @ -No Poses a threat to life or bodily function? How? (Chest pain, [place], [place], pneumonia, PE, COPD, DKA, ARF, appy, cholecystitis, CVA, Diverticulitis, Homicidal, Suicidal, threat to staff... and all critical care pts) @ -Yes patient has active chest pain which may represent acute coronary syndrome Disposition Clinical Impression: Paroxysmal A-fib, Chest pain Disposition: ADMITTED IP TO THIS HOSP Condition: Stable Is patient prescribed a controlled substance at d/c from ED?: No Time of Disposition: 14:33 Decision to Admit Reason: Admit from EC Decision Date: 04/26/23 Decision Time: 14:33
[2023-04-26] MEDS ORDERED: MORPHINE SULFATE 2 MG/ML SYRINGE IVP ONE (13:09)
[2023-04-26 13:13] LABS: Basophils % (A) 1 %; Eosinophils # (A) 0.2 k/uL (0-0.7); Eosinophils % (A) 3 %; HCT 45.9 % (39.0-53.0); HGB 16.3 gm/dL (13.0-17.5); Lymphocytes # (A) 2.3 k/uL (1.0-4.8); Lymphocytes % (A) 48 %; MCHC 35.6 g/dL (31.0-37.0); MCV 95.6 fL (80.0-100.0); Mean Platelet Volume 8.3; Monocytes # (A) 0.3 k/uL (0-1.0); Monocytes % (A) 6 %; Neutrophils # (A) 1.9 k/uL (1.3-7.7); Neutrophils % (A) 39 %; Platelet Count 210 k/uL (150-450); RDW 13.2 % (11.5-15.5); WBC 4.8 k/uL (3.8-10.6)
[2023-04-26 13:21] LABS: INR 0.9 (<1.2); Partial Thromboplastin Time 22.7 sec (22.0-30.0)
[2023-04-26 13:26] LABS: ALT 39 U/L (4-49); AST 26 U/L (17-59); African American GFR (CKD) >90 (>60 ml/min/1.73 sqM); Albumin 4.4 g/dL (3.5-5.0); Alkaline Phosphatase 78 U/L (38-126); Anion Gap 9 mmol/L; Blood Urea Nitrogen 13 mg/dL (9-20); Calcium 9.2 mg/dL (8.4-10.2); Carbon Dioxide 23 mmol/L (22-30); Chloride 106 mmol/L (98-107); Glucose 114 mg/dL (74-99); Magnesium 2.4 mg/dL (1.6-2.3); Non-African American GFR(CKD) 87 (>60 ml/min/1.73 sqM); Potassium 4.2 mmol/L (3.5-5.1); Sodium 138 mmol/L (137-145); Total Bilirubin 0.7 mg/dL (0.2-1.3); Total Protein 7.8 g/dL (6.3-8.2)
[2023-04-26 13:34] LABS: NT-Pro-B-Type Natriuretic Pept 135 pg/mL
--- NOTE | 2023-04-26 13:34 | XR ---
EXAMINATION TYPE: XR chest 2V DATE OF EXAM: 04/26/2023 COMPARISON: 05/07/2022 HISTORY: Shortness of breath TECHNIQUE: Frontal and lateral views of the chest are obtained. FINDINGS: Scattered senescent parenchymal changes noted. Hyperinflation compatible with COPD. No evidence for infiltrate. No evidence for atelectasis. Heart size is stable. Mediastinal structures are stable and grossly unremarkable. No evidence for hilar prominence. Degenerative changes dorsal spine. IMPRESSION: 1. No evidence for acute pulmonary disease.
[2023-04-26] MEDS ORDERED: ASPIRIN 81 MG PO STA (14:26)
[2023-04-26] MEDS ORDERED: NITROGLYCERIN OINT 1 INCH/GM PACKET TOPICAL STA (14:26)
[2023-04-26] MEDS ORDERED: NALOXONE 0.4 MG/ML 1 ML VIAL IV PRN (14:33)
--- NOTE | 2023-04-26 16:34 | CT ---
EXAMINATION TYPE: CT chest wo con DATE OF EXAM: 04/26/2023 COMPARISON: 04/05/2018 HISTORY: 68-year-old male chest pain TECHNIQUE: Contiguous axial scanning of the chest without IV contrast. Coronal and sagittal reconstru ctions performed. CT DLP: 1033 mGycm Automated exposure control for dose reduction was used. FINDINGS: Heart normal size without pericardial effusion. LAD coronary artery calcifications are present. Ectatic upper descending thoracic aorta 3.1 cm. Possible moderate atherosclerotic narrowing at the or igin of the left common carotid artery from bovine configuration. Scattered nonenlarged mediastinal lymph nodes measuring up to 8 mm. Calcified AP window and left jyoti r lymph nodes compatible with prior granulomatous disease. No thoracic lymphadenopathy by CT size cri teria. Prominent biapical pleural parenchymal scarring. The overall configuration is similar to the 2018 exa m. Moderate emphysematous change. Mild diffuse bronchial wall thickening. 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 Calcified granuloma also p resent posterior left base. No consolidation or pleural effusion is seen. 3 mm left upper lobe pulmonary nodule remains unchanged compatible with a benign etiology. Visualized upper abdomen shows moderate amount of atherosclerotic calcifications in the abdominal aor ta and small calcified granulomas in the spleen. Mild to moderate stool burden. Bones: Mild superior endplate deformities L2 and T9 levels. Cervical spondylosis. IMPRESSION: 1. COPD WITH MODERATE EMPHYSEMA. BIAPICAL PLEURAL PARENCHYMAL SCARRING AND ADDITIONAL SCATTERED AREAS OF STRANDY SCARRING IN THE LOWER LUNGS. EVIDENCE OF PRIOR GRANULOMATOUS DISEASE. 2. NO ACUTE PULMONARY PROCESS.
[2023-04-26] MEDS: methylPREDNISolone SOD SUCCI 40 MG/ML 1 ML VIAL IV SCH (17:38)
[2023-04-26] MEDS: IPRATROPIUM-ALBUTEROL 3 ML NEB INHALATION SCH ×2 (19:49→20:10)
[2023-04-26] MEDS: BUDESONIDE 0.5 MG/2 ML NEBU INHALATION SCH (20:10)
[2023-04-26] MEDS: METOPROLOL TARTRATE 25 MG TAB PO SCH (20:26)
[2023-04-26] MEDS: MORPHINE SULFATE ER 15 MG TABLET PO SCH (20:26)
--- NOTE | 2023-04-27 00:36 | HP ---
HISTORY AND PHYSICAL HISTORY OF PRESENT ILLNESS: This is a 68-year-old male with past medical history of atrial fibrillation, on Xarelto, left-sided chest pain, radiating to left arm and left jaw with severe shortness of breath. Admits to a cough. History of congestive heart failure, peripheral swelling. He has been using his inhalers for COPD for shortness of breath and squeezing sensation, took baby aspirin at home. No history of heart disease. PAST MEDICAL HISTORY: Atrial fibrillation, hypertension, chronic pain for degenerative disk disease. MEDICATIONS: He takes, 1. Oxycodone IR at home. 2. K-Dur 10 mEq. 3. MS-IR 15 b.i.d. 4. Lasix 20 daily. 5. Flovent HFA 2 puffs b.i.d. 6. Xarelto 20 mg daily. ALLERGIES: Negative. REVIEW OF SYSTEMS: A 14-point review of systems is negative except for mentioned above. PAST MEDICAL HISTORY: As mentioned above. He has had 3 CVAs in the past. He states he had childhood seizures, skin cancer, asbestosis exposure, been exposed to chemicals, negative for years, history of pancreatitis. PAST SURGICAL HISTORY: Appendectomy, back surgery, heart catheterization, orthopedic surgery, tonsillectomy, trigeminal neuralgia, gamma knife surgery, lumbar fusion, polypectomies, prostate biopsies. SOCIAL HISTORY: Bipolar, depression, PTSD, former smoker. FAMILY HISTORY: Father with coronary artery disease. Mother with cancer. PHYSICAL EXAMINATION: VITAL SIGNS: Temperature 98.5, pulse 74 to 78, respiratory rate 18 to 20, blood pressure 114 to 122 over 70 to 76. GENERAL: He looks disheveled, looks stated age, no acute distress, sitting in the bed in his blue jeans. HEENT: Normocephalic, atraumatic. LUNGS: Decreased breath sounds x4, scattered wheeze x4. CARDIOVASCULAR: S1, S2. GI: Soft, nontender. EXTREMITIES: 2+ edema. BACK: Nontender. NEUROLOGIC: Cranial nerves are intact. SKIN: Warm and dry. ASSESSMENT: COPD exacerbation, atypical chest pain, hypertension, nicotine addiction, chronic lumbar disk disease. Cardiology consulted to rule out myocardial infarction. Chest CT shows moderate emphysema with some mild nodules that are under 8 mm, prior granulomatous disease. Prognosis is guarded. Follow up in next 24 to 48 hours, IV steroids, updrafts, etc. echo. Await for cardiology consult. MIRTHAODL / IJN: [id number] /
[2023-04-27] MEDS: methylPREDNISolone SOD SUCCI 40 MG/ML 1 ML VIAL IV SCH ×2 (01:31→08:47)
[2023-04-27 08:02] LABS: Basophils % (A) 1 %; Eosinophils # (A) 0.1 k/uL (0-0.7); Eosinophils % (A) 1 %; HCT 48.5 % (39.0-53.0); HGB 16.4 gm/dL (13.0-17.5); Lymphocytes # (A) 2.3 k/uL (1.0-4.8); Lymphocytes % (A) 35 %; MCH 32.7 pg (25.0-35.0); MCHC 33.9 g/dL (31.0-37.0); MCV 96.6 fL (80.0-100.0); Mean Platelet Volume 8.3; Monocytes # (A) 0.4 k/uL (0-1.0); Monocytes % (A) 6 %; Neutrophils # (A) 3.6 k/uL (1.3-7.7); Neutrophils % (A) 56 %; Platelet Count 232 k/uL (150-450); RBC 5.02 m/uL (4.30-5.90); RDW 12.8 % (11.5-15.5); WBC 6.4 k/uL (3.8-10.6)
[2023-04-27 08:29] LABS: African American GFR (CKD) >90 (>60 ml/min/1.73 sqM); Anion Gap 8 mmol/L; Blood Urea Nitrogen 14 mg/dL (9-20); Calcium 9.5 mg/dL (8.4-10.2); Carbon Dioxide 26 mmol/L (22-30); Chloride 106 mmol/L (98-107); Glucose 111 mg/dL (74-99); Non-African American GFR(CKD) 80 (>60 ml/min/1.73 sqM); Potassium 4.5 mmol/L (3.5-5.1); Sodium 140 mmol/L (137-145)
[2023-04-27] MEDS: BUDESONIDE 0.5 MG/2 ML NEBU INHALATION SCH ×2 (08:33→20:21)
[2023-04-27] MEDS: IPRATROPIUM-ALBUTEROL 3 ML NEB INHALATION SCH ×4 (08:33→20:21)
[2023-04-27] MEDS: METOPROLOL TARTRATE 25 MG TAB PO SCH ×2 (08:47→21:25)
[2023-04-27] MEDS: ONDANSETRON 4 MG/2 ML VIAL IVP PRN ×3 (08:47→23:52)
[2023-04-27] MEDS: RIVAROXABAN 10 MG TAB PO SCH (08:47)
[2023-04-27] MEDS: MORPHINE SULFATE ER 15 MG TABLET PO SCH ×2 (08:47→21:25)
--- NOTE | 2023-04-27 09:36 | P.PN ---
Subjective This is a pleasant 68 years old male with multiple medical problems He has history of smoking 2 about half pack per day with history of COPD. Prese nts with left-sided chest pain for the last 2-3 days which would've severe about 8-9/10 in severity with no specific relieving or precipitating factors, none pleuritic and neck fracture. Nonradiating. Associated with little dyspnea and cough with phlegm. Mild patient vomited once yesterday and once this morning with no blood. He denies abdominal pain. He is been having constipation since admission. Vitals and labs reviewed and it looks stable with unremarkable CBC, BMP, liver enzymes. Troponins 3 is negative. ProBNP is 135. D-dimer is -0.47. Chest x-ray: No acute process. CT of the chest: Emphysematous changes with COPD. EKG showed A. fib with heart rate around 67 Objective - Vital Signs Vital signs: Vital Signs Temp 98 F 04/27/23 00:00 Pulse 76 04/27/23 08:46 Resp 18 04/27/23 04:00 BP 130/74 04/27/23 04:00 Pulse Ox 98 04/27/23 04:00 FiO2 Intake & Output 04/26/23 04/27/23 04/27/23 18:59 06:59 18:59 Intake Total 180 500 240 Output Total 550 Balance 180 -50 240 Weight 95.254 kg Intake: Oral 180 500 240 Output: Urine 550 Other: Voiding Method Urinal Urinal # Voids 1 1 - Exam GENERAL: The patient is alert and oriented x3, not in any acute distress. Well developed, well nourished. HEENT: Pupils are round and equally reacting to light. EOMI. No scleral icterus. No conjunctival pallor. Normocephalic, atraumatic. No pharyngeal erythema. No thyromegaly. CARDIOVASCULAR: S1 and S2 present. No murmurs, rubs, or gallops. PULMONARY: Chest is clear to auscultation, no wheezing , no crackles. ABDOMEN: Soft, nontender, nondistended, normoactive bowel sounds. No palpable organomegaly. MUSCULOSKELETAL: No joint swelling or deformity. EXTREMITIES: No cyanosis, clubbing, or pedal edema. NEUROLOGICAL: Gross neurological examination did not reveal any focal deficits. SKIN: No rashes. no petechiae. - Labs CBC & Chem 7: 04/27/23 07:15 04/27/23 07:15 Labs: Abnormal Lab Results - Last 24 Hours (Table) 04/26/23 04/27/23 Range/Units 13:05 07:15 Glucose 114 H 111 H (74-99) mg/dL Magnesium 2.4 H (1.6-2.3) mg/dL Assessment and Plan Assessment: chest pain , with negative ddimer , rule out cardiac causes mild copd exacerbation nicotine dependence Plan: cardiac eval change solumedrol to prednisone 40 mg dialy nicotine patch Labs and medication were reviewed.. Continue same treatment. Continue with sy mptomatic treatment. Resume home medication. Monitor labs and vitals. DVT and GI prophylaxis. Further recommendations as per clinical course of the patient DVT prophylaxis: xarelto GI Prophylaxis: Pepcid Prognosis is guarded
[2023-04-27] MEDS: FAMOTIDINE 20 MG/2 ML VIAL IV SCH ×2 (10:23→21:25)
[2023-04-27] MEDS: NICOTINE 21MG/24HR PATCH TRANSDERM SCH (10:23)
--- NOTE | 2023-04-27 13:15 | P.CRDCN ---
History of Present Illness Consult date: 04/27/23 Consult reason: chest pain History of present illness: HISTORY OF PRESENT ILLNESS: This is a 68-year-old male seen previously by Dr. Kapadia with a past medical history significant for paroxysmal atrial fibrillation, COPD, nicotine dependence. We have been asked to evaluate the patient for chest pain. Patient gives history of left lower chest discomfort onset yesterday while he was resting but it has been coming and going for the past 2 days. It is tender and hurts with movement. Sometimes it occurs with rest and sometimes with exertion. He also has a chronic cough that has not changed. He denies having any fever or chills. No lightheadedness dizziness or syncopal episodes. He does state that his balance is off. He states he's had some palpitations about when he came in he was going to be in atrial fibrillation. He states he has not had any appetite and had vomiting after eating his breakfast this morning. Regarding the chest pain, he states that morphine helped and also Nitropaste seemed to help some. He did not receive any nitro sublingual. Regarding patient's medications, he would normally be on Lopressor 25 mg twice daily and Xarelto but he states he ran out of his medication for months ago. Patient relates that he has been under a lot of stress and taking care of his grandchildren. He is an active smoker cut down to half a pack per day. EKG reveals sinus rhythm with PACs with ventricular rate of 67. Chest xray no acute pulmonary process CTA no acute process. COPD CBC normal. INR 0.9. D-dimer 0.47. Electrolytes and renal function normal. Liver function tests are normal. Troponin negative 3. ProBNP 135. Current home cardiac medicationspatient has not been taking for 4 months Cardiac catheterization 07/2022 revealed elevated left filling pressures, mild to moderate disease in the left circumflex 30-40% Echocardiogram 05/2022 revealed LVH with preserved systolic function. Patient underwent dobutamine stress test in April 2018 which was negative for ischemia REVIEW OF SYSTEMS: At the time of my exam: CONSTITUTIONAL: Denies fever or chills. HEENT: Denies blurred vision, vision changes, or eye pain. Denies hemoptysis CARDIOVASCULAR: Denies chest pain. Denies orthopnea. Denies PND. Denies palpitations RESPIRATORY: Denies shortness of breath. GASTROINTESTINAL: Denies abdominal pain. Denies nausea or vomiting. HEMATOLOGIC: Denies bleeding disorders. GENITOURINARY: Denies any blood in urine. SKIN: Denies pruitis. Denies rash. PHYSICAL EXAM: VITAL SIGNS: Reviewed. GENERAL: Well-developed in no acute distress. HEENT: Head is normocephalic. Pupils are equal, round. Sclerae anicteric. Mucous membranes of the mouth are moist. Neck supple. No JVD or thyromegaly LUNGS: Respirations even and unlabored. Lungs diminished HEART: Regular rate and rhythm. S1 and S2 heard. +tenderness left lower rib wall ABDOMEN: Soft. Nondistended. Nontender. EXTREMITIES: Normal range of motion. No clubbing or cyanosis. Peripheral pulses intact. No lower extremity edema NEUROLOGIC: Awake and alert. Oriented x 3. ASSESSMENT: Chest pain, acute coronary syndrome ruled out, atypical muscluar skeletal pain Paroxysmal atrial fibrillation COPD Nicotine dependence PLAN: Obtain 2-D echo to assess cardiac structure and function Patient has been resumed on Xarelto and Lopressor Add atorvastatin 20 mg at night and aspirin 81 mg daily Check TSH, lipid panel Recommended stress test and patient given option to go home and follow up in the office. He is agreeable to this plan. Further recommendations pending patient course Nurse practitioner note has been reviewed by physician. Signing provider agrees with the documented findings, assessment, and plan of care. Past Medical History Past Medical History: Atrial Fibrillation, Cancer, Heart Failure, COPD, CVA/TIA, Hyperlipidemia, Hypertension Additional Past Medical History / Comment(s): RT SIDE DOMINANT.Pt states he has had one CVA ( LT PUPIL LARGER THAN RT AND OCCASIONAL BILATERAL HAND NUMBNESS), TIA, right sided trigeminal neuralgia with surgery, syncopy 2012 ,04/03/18, head injury with a fall at the age of 48yrs with intracranial bleed, childhood seizur es, bacterial infection in stomach couple years ago, L hip fx with surgery, skin cancer removals.EXPOSED TO ASBESTOS, new diagnosis of Afib in April 2017. New diagnosis of pancreatitis, pt to see a specialist at [facility] but has not done this yet. History of Any Multi-Drug Resistant Organisms: None Reported Past Surgical History: Appendectomy, Back Surgery, Heart Catheterization, Orthopedic Surgery, Tonsillectomy Additional Past Surgical History / Comment(s): trigeminal neuralgia gamma knife surgery, L hip with "2or 3 pins", cardiac cath approximately 11 yrs ago-no intervention, lumbar fusion, EGD/colonoscopy with benign polypectomies, R rotator cuff repair, bilateral knee arthrosopies, skin cancer removals, benign prostate bx and removed benign polyps. Past Anesthesia/Blood Transfusion Reactions: No Reported Reaction Past Psychological History: Bipolar, Depression, PTSD Smoking Status: Former smoker Past Alcohol Use History: None Reported Past Drug Use History: None Reported - Past Family History Father Family Medical History: Cancer, Coronary Artery Disease (CAD) Additional Family Medical History / Comment(s): Father had colon cancer. He at the age of 70yrs. Mother Family Medical History: Cancer Additional Family Medical History / Comment(s): Mother had colon cancer. triple bypass. She at the age of 77yrs. Medications and Allergies Home Medications Medication Instructions Recorded Confirmed Type oxyCODONE HCL [oxyCODONE HCL (IR)] 10 mg PO BID PRN 05/07/22 04/26/23 History Morphine Sulfate ER [Ms Contin] 15 mg PO Q12HR 04/26/23 04/26/23 History Allergies Allergy/AdvReac Type Severity Reaction Status Date / Time No Known Allergies Allergy Verified 04/26/23 12:29 Physical Exam Vitals: Vital Signs Temp Pulse Pulse Resp BP BP Pulse Ox 04/27/23 08:33 75 04/27/23 04:00 70 18 130/74 98 04/27/23 02:00 70 04/27/23 00:00 98 F 74 18 116/70 98 04/26/23 20:19 77 04/26/23 20:10 73 04/26/23 20:00 97.8 F 70 18 120/74 97 04/26/23 16:57 97.7 F 76 16 125/73 98 04/26/23 16:34 76 04/26/23 16:16 78 16 140/77 96 04/26/23 13:06 74 20 114/76 97 04/26/23 12:27 98.5 F 78 20 122/70 97 Intake and Output 04/26/23 04/27/23 04/27/23 22:59 06:59 14:59 Intake Total 180 500 240 Output Total 550 Balance 180 -50 240 Intake: Oral 180 500 240 Output: Urine 550 Other: Voiding Method Urinal Urinal # Voids 1 1 Weight 95.254 kg Results 04/27/23 07:15 04/27/23 07:15 Cardiac Enzymes 04/26/23 04/26/23 04/26/23 Range/Units 13:05 13:05 15:44 AST 26 (17-59) U/L Troponin I <0.012 <0.012 (0.000-0.034) ng/mL 04/26/23 Range/Units 19:02 AST (17-59) U/L Troponin I <0.012 (0.000-0.034) ng/mL Coagulation 04/26/23 Range/Units 13:05 PT 10.0 (9.0-12.0) sec APTT 22.7 (22.0-30.0) sec CBC 04/26/23 04/27/23 Range/Units 13:05 07:15 WBC 4.8 6.4 (3.8-10.6) k/uL RBC 4.80 5.02 (4.30-5.90) m/uL Hgb 16.3 16.4 (13.0-17.5) gm/dL Hct 45.9 48.5 (39.0-53.0) % Plt Count 210 232 (150-450) k/uL Comprehensive Metabolic Panel 04/26/23 04/27/23 Range/Units 13:05 07:15 Sodium 138 140 (137-145) mmol/L Potassium 4.2 4.5 (3.5-5.1) mmol/L Chloride 106 106 (98-107) mmol/L Carbon Dioxide 23 26 (22-30) mmol/L BUN 13 14 (9-20) mg/dL Creatinine 0.89 0.96 (0.66-1.25) mg/dL Glucose 114 H 111 H (74-99) mg/dL Calcium 9.2 9.5 (8.4-10.2) mg/dL AST 26 (17-59) U/L ALT 39 (4-49) U/L Alkaline Phosphatase 78 (38-126) U/L Total Protein 7.8 (6.3-8.2) g/dL Albumin 4.4 (3.5-5.0) g/dL Current Medications Generic Name Dose Route Start Last Admin Trade Name Freq PRN Reason Stop Dose Admin Albuterol/Ipratropium 3 ml 04/26/23 16:00 04/27/23 08:33 Ipratropium-Albuterol 3 Ml Neb INHALATION 3 ml RT-QID YARA Administration Budesonide 0.5 mg 04/26/23 20:00 04/27/23 08:33 Budesonide 0.5 Mg/2 Ml Nebu INHALATION 0.5 mg RT-BID YARA Administration Methylprednisolone Sodium Succinate 40 mg 04/26/23 17:00 04/27/23 01:31 Methylprednisolone Sod Succi 40 Mg/Ml 1 Ml Vial IV 40 mg Q8HR YARA Administration Metoprolol Tartrate 25 mg 04/26/23 21:00 04/26/23 20:26 Metoprolol Tartrate 25 Mg Tab PO 25 mg BID YARA Administration Morphine Sulfate 15 mg 04/26/23 21:00 04/26/23 20:26 Morphine Sulfate Er 15 Mg Tablet PO 15 mg Q12HR YARA Administration Protocol Naloxone HCl 0.2 mg 04/26/23 14:33 Naloxone 0.4 Mg/Ml 1 Ml Vial IV Q2M PRN Opioid Reversal Ondansetron HCl 4 mg 04/27/23 08:32 Ondansetron 4 Mg/2 Ml Vial IVP Q6HR PRN Nausea And Vomiting Oxycodone HCl 10 mg 04/26/23 18:39 04/26/23 18:49 Oxycodone Hcl 5 Mg Tab PO 10 mg BID PRN Administration Pain Rivaroxaban 10 mg 04/27/23 09:00 Rivaroxaban 10 Mg Tab PO DAILY [facility] Protocol Intake and Output 04/26/23 04/27/23 04/27/23 22:59 06:59 14:59 Intake Total 180 500 240 Output Total 550 Balance 180 -50 240 Intake: Oral 180 500 240 Output: Urine 550 Other: Voiding Method Urinal Urinal # Voids 1 1 Weight 95.254 kg 04/27/23 07:15 04/27/23 07:15
--- NOTE | 2023-04-27 15:25 | CA ---
Transthoracic Echo Report Name: Lion Gutierrez Age: 68 Gender: M : 1955 Exam Date: 04/27/2023 08:58 Exam Location: [place] [facility] Ht (in): 76 Wt (lb): 210 Ordering Physician: Tru Babb MD Attending/Referring Phys: Skinny Ott;[id number] City Planner Erin Espinosa RDCS Procedure CPT: Indications: Chest Pain Cardiac Hx: Technical Quality: Good Contrast 1: Total Dose (mL): Contrast 2: Total Dose (mL): MEASUREMENTS (Male / Female) Normal Values 2D ECHO LV Diastolic Diameter PLAX 6.3 cm 4.2 - 5.9 / 3.9 - 5.3 cm LV Systolic Diameter PLAX 4.9 cm IVS Diastolic Thickness 1.1 cm 0.6 - 1.0 / 0.6 - 0.9 cm LVPW Diastolic Thickness 1.1 cm 0.6 - 1.0 / 0.6 - 0.9 cm LV Relative Wall Thickness 0.4 RV Internal Dim ED PLAX 2.8 cm LA Systolic Diameter LX 4.0 cm 3.0 - 4.0 / 2.7 - 3.8 cm LV Diastolic Volume MOD BP 61.6 cm??? 67 - 155 / 56 - 104 cm??? LV Systolic Volume MOD BP 36.4 cm??? - / 19 - 49 cm??? LV Ejection Fraction MOD BP 40.8 % >= 55 % LV Cardiac Index MOD BP 765.5 cm???/min???m??? LV Diastolic Volume MOD 4C 61.3 cm??? LV Systolic Volume MOD 4C 31.9 cm??? LV Ejection Fraction MOD 4C 48.0 % LV Cardiac Index MOD 4C 897.3 cm???/min???m??? LV Diastolic Length 4C 6.9 cm LV Systolic Length 4C 5.9 cm LV Diastolic Volume MOD 2C 61.4 cm??? LV Systolic Volume MOD 2C 37.2 cm??? LV Ejection Fraction MOD 2C 39.5 % LV Cardiac Index MOD 2C 738.6 cm???/min???m??? LV Diastolic Length 2C 6.7 cm LV Systolic Length 2C 7.0 cm LA Volume 59.4 cm??? 18 - 58 / 22 - 52 cm??? M-MODE Aortic Root Diameter MM 3.4 cm MV E Point Septal Separation 1.3 cm AV Cusp Separation MM 2.3 cm DOPPLER AV Peak Velocity 118.9 cm/s AV Peak Gradient 5.7 mmHg MV Area PHT 2.5 cm??? Mitral E Point Velocity 75.8 cm/s Mitral A Point Velocity 84.5 cm/s Mitral E to A Ratio 0.9 MV Deceleration Time 302.0 ms MV E' Velocity 7.4 cm/s Mitral E to MV E' Ratio 10.3 TR Peak Velocity 261.8 cm/s TR Peak Gradient 27.4 mmHg Right Ventricular Systolic Press 32.0 mmHg FINDINGS Left Ventricle Left ventricular ejection fraction is estimated at 50-55 %. Mildly increased septal wall thickness. Mildly increased left ventricular diastolic diameter. Right Ventricle Normal right ventricular size. Right ventricular systolic pressure within normal limits. Right Atrium Normal right atrial size. Left Atrium Mildly increased left atrial volume. Mitral Valve Structurally normal mitral valve. Trace to mild mitral regurgitation. Aortic Valve Trileaflet aortic valve. No aortic valve stenosis or regurgitation. Tricuspid Valve Structurally normal tricuspid valve. Mild tricuspid regurgitation. Pulmonic Valve Structurally normal pulmonic valve. Trace pulmonic regurgitation. Pericardium Normal pericardium. No pericardial effusion. Aorta Normal size aortic root and proximal ascending aorta. CONCLUSIONS Left ventricular ejection fraction 5055% Mild increased left ventricular wall thickening Mild mitral regurgitation Mild tricuspid regurgitation RVSP 32 Previewed by: Dr. Domenico Cox DO (Electronically Signed) Final Date: 27 April 2023 15:24
[2023-04-27] MEDS: ATORVASTATIN 40 MG TAB PO SCH (21:25)
[2023-04-28] MEDS: ONDANSETRON 4 MG/2 ML VIAL IVP PRN ×2 (08:28→20:16)
[2023-04-28] MEDS: FAMOTIDINE 20 MG/2 ML VIAL IV SCH ×2 (08:29→20:16)
[2023-04-28] MEDS: RIVAROXABAN 10 MG TAB PO SCH (08:31)
[2023-04-28] MEDS: METOPROLOL TARTRATE 25 MG TAB PO SCH ×2 (08:31→20:16)
[2023-04-28] MEDS: ASPIRIN 81 MG PO SCH (08:31)
[2023-04-28] MEDS: NICOTINE 21MG/24HR PATCH TRANSDERM SCH (08:31)
[2023-04-28] MEDS: MORPHINE SULFATE ER 15 MG TABLET PO SCH ×2 (08:32→20:16)
[2023-04-28] MEDS: BUDESONIDE 0.5 MG/2 ML NEBU INHALATION SCH ×2 (08:56→20:30)
[2023-04-28] MEDS: IPRATROPIUM-ALBUTEROL 3 ML NEB INHALATION SCH ×4 (08:56→20:30)
[2023-04-28] MEDS ORDERED: predniSONE 20 MG TAB PO SCH (09:00)
--- NOTE | 2023-04-28 10:04 | P.GSCN ---
History of Present Illness Consult date: 04/28/23 Reason for Consult: Abdominal pain History of present illness: 68-year-old male admitted to the hospital with chest pain. This was radiating t o the left arm and jaw. He has been seen by cardiology. He has a history of A. fib. Patient with history of heavy tobacco and alcohol use. States he has pain in the left upper abdomen that is been going on for the last 1 week. This is been associated with episodes of nausea and vomiting. Patient had a CAT scan of the chest which does include a good portion of the upper abdomen and shows no d efinite pathology there. No history of ulcer disease. No rectal bleeding or melena. No hematemesis. No history of varices that he is aware of. Liver enzymes normal. Review of Systems The patient denies any acute changes in vision or hearing, no dysphagia or odynophagia, no chest pain or shortness of breath, no dysuria or hematuria, no headache, no runny nose, no rectal bleeding or melena, no unexplained weight loss Past Medical History Past Medical History: Atrial Fibrillation, Cancer, Heart Failure, COPD, CVA/TIA, Hyperlipidemia, Hypertension Additional Past Medical History / Comment(s): RT SIDE DOMINANT.Pt states he has had one CVA ( LT PUPIL LARGER THAN RT AND OCCASIONAL BILATERAL HAND NUMBNESS), TIA, right sided trigeminal neuralgia with surgery, syncopy 2012 ,04/03/18, head injury with a fall at the age of 48yrs with intracranial bleed, childhood seizures, bacterial infection in stomach couple years ago, L hip fx with surgery, skin cancer removals.EXPOSED TO ASBESTOS, new diagnosis of Afib in April 2017. New diagnosis of pancreatitis, pt to see a specialist at [facility] but has not done this yet. History of Any Multi-Drug Resistant Organisms: None Reported Past Surgical History: Appendectomy, Back Surgery, Heart Catheterization, Orthopedic Surgery, Tonsillectomy Additional Past Surgical History / Comment(s): trigeminal neuralgia gamma knife surgery, L hip with "2or 3 pins", cardiac cath approximately 11 yrs ago-no intervention, lumbar fusion, EGD/colonoscopy with benign polypectomies, R rotator cuff repair, bilateral knee arthrosopies, skin cancer removals, benign prostate bx and removed benign polyps. Past Anesthesia/Blood Transfusion Reactions: No Reported Reaction Past Psychological History: Bipolar, Depression, PTSD Smoking Status: Former smoker Past Alcohol Use History: None Reported Past Drug Use History: None Reported - Past Family History Father Family Medical History: Cancer, Coronary Artery Disease (CAD) Additional Family Medical History / Comment(s): Father had colon cancer. He at the age of 70yrs. Mother Family Medical History: Cancer Additional Family Medical History / Comment(s): Mother had colon cancer. triple bypass. She at the age of 77yrs. Medications and Allergies Home Medications Medication Instructions Recorded Confirmed Type oxyCODONE HCL [oxyCODONE HCL (IR)] 10 mg PO BID PRN 05/07/22 04/26/23 History Morphine Sulfate ER [Ms Contin] 15 mg PO Q12HR 04/26/23 04/26/23 History Allergies Allergy/AdvReac Type Severity Reaction Status Date / Time No Known Allergies Allergy Verified 04/26/23 12:29 Surgical - Exam Vital Signs Temp Pulse Resp BP Pulse Ox 98.5 F 78 20 122/70 97 04/26/23 12:27 04/26/23 12:27 04/26/23 12:27 04/26/23 12:27 04/26/23 12:27 Physical exam: General: Well-developed, well-nourished HEENT: Normocephalic, sclerae nonicteric Abdomen: Mild left upper quadrant tenderness, nondistended Extremities: No edema Neuro: Alert and oriented Results - Labs 04/27/23 07:15 04/27/23 07:15 Thyroid panel 04/27/23 Range/Units 07:15 TSH 2.220 (0.465-4.680) mIU/L Pituitary panel 04/27/23 Range/Units 07:15 TSH 2.220 (0.465-4.680) mIU/L Assessment and Plan (1) Left upper quadrant abdominal pain Narrative/Plan: 5-year-old male with left upper quadrant abdominal pain associated with nausea and vomiting. We'll order CT abdomen and pelvis at this time. Continue cardiac workup. If imaging studies and cardiac workup negative endoscopy. Continue ant iacids. Continue liquid diet. Current Visit: Yes Status: Acute Code(s): R10.12 - LEFT UPPER QUADRANT PAIN SNOMED Code(s): 591019919
[2023-04-28] MEDS ORDERED: PANTOPRAZOLE 40 MG/10 ML VIAL IVP SCH (10:15)
[2023-04-28] MEDS: IOPAMIDOL CONTRAST (ORAL USE) VIAL PO PRN ×2 (11:06→12:23)
--- NOTE | 2023-04-28 13:12 | CT ---
EXAMINATION TYPE: CT abdomen pelvis w con CT DLP: 1177.9 mGycm, Automated exposure control for dose reduction was used. DATE OF EXAM: 04/28/2023 12:51 PM COMPARISON: CTA abdomen pelvis 12/10/2019, MRCP 05/24/2017 CLINICAL INDICATION:Male, 68 years old with history of Left upper quadrant abdominal pain; Left upper quadrant pain TECHNIQUE: Standard CT of the abdomen and pelvis following the administration of 100 cc of Isovue 3 00 IV contrast material and oral contrast. Coronal and sagittal reformats were performed. FINDINGS: LOWER CHEST: Posterior dependent subsegmental atelectasis is noted. ABDOMEN LIVER: Diffusely hypoattenuating parenchyma. GALLBLADDER AND BILE DUCTS: Unremarkable. PANCREAS: Unremarkable. SPLEEN: Scattered calcified granulomas. ADRENAL GLANDS: Unremarkable. KIDNEYS AND URETERS: No evidence of hydronephrosis nonobstructive punctate bilateral renal calculi me asuring up to 2 mm. The kidneys enhance symmetrically. Contrast is demonstrated within both collectin g systems on the delayed phase. PELVIS BLADDER: Unremarkable REPRODUCTIVE: Coarse calcifications of the prostate gland are identified. The prostate gland is enlar ged ABDOMEN & PELVIS STOMACH AND BOWEL: Stomach and duodenum are unremarkable. No focal bowel wall thickening or surroundi ng inflammatory changes. Enteric contrast reaches the mid small bowel. Mild colonic stool burden. The appendix is not identified however there is no significant inflammatory changes within the right low er quadrant. No pneumatosis. No evidence of bowel obstruction. PERITONEUM: No evidence of pneumoperitoneum or free fluid. VASCULATURE: Moderate atherosclerotic calcifications are present throughout the abdominal aorta and i ts branches. Infrarenal fusiform abdominal aortic aneurysm measuring up to 3.2 cm. MUSCULOSKELETAL: No acute osseous abnormalities. Fixation hardware involving the left proximal femur. Additional fixation hardware involving the sacrum. Remote bilateral rib fractures. Redemonstration o f superior endplate compression deformity involving the L2 and L4 vertebral bodies. Stable from prior examination. LYMPH NODES: No gross evidence for lymphadenopathy. SOFT TISSUE/ABDOMINAL WALL: Unremarkable IMPRESSION: 1. No acute abdominal/pelvic process. 2. Marginal increase in size of infrarenal abdominal aortic aneurysm measuring up to 3.2 cm, previous ly 3.0 cm in 2019. 3. Nonobstructive bilateral renal calculi.
--- NOTE | 2023-04-28 13:21 | P.PN ---
Subjective This is a pleasant 68 years old male with multiple medical problems He has history of smoking 2 about half pack per day with history of COPD. Prese nts with left-sided chest pain for the last 2-3 days which would've severe about 8-9/10 in severity with no specific relieving or precipitating factors, none pleuritic and neck fracture. Nonradiating. Associated with little dyspnea and cough with phlegm. Mild patient vomited once yesterday and once this morning with no blood. He denies abdominal pain. He is been having constipation since admission. Vitals and labs reviewed and it looks stable with unremarkable CBC, BMP, liver enzymes. Troponins 3 is negative. ProBNP is 135. D-dimer is -0.47. Chest x-ray: No acute process. CT of the chest: Emphysematous changes with COPD. EKG showed A. fib with heart rate around 67 04/28/2023 Patient originally came because of chest pain and he is on Xarelto at home for his chronic atrial fibrillation. Programming Instructor evaluated the patient is doing well. His breathing is improving and steroids can be stopped However patient today still complaining from left lower quadrant abdominal pain about 8-9/10 in severity with recurrent vomiting. Patient also complained from constipation. We consulted surgery service who ordered CT of the abdomen and pelvis which is pending for now. We going to give him normal saline over the cath was getting IV contrast. Discussed with staff. Objective - Vital Signs Vital signs: Vital Signs Temp 98.1 F 04/28/23 12:05 Pulse 63 04/28/23 12:05 Resp 18 04/28/23 12:05 BP 105/73 04/28/23 12:05 Pulse Ox 94 L 04/28/23 12:05 FiO2 Intake & Output 04/27/23 04/28/23 04/28/23 18:59 06:59 18:59 Intake Total 480 240 Output Total 400 700 Balance 80 -700 240 Intake: Oral 480 240 Output: Urine 400 700 Other: Voiding Method Urinal Urinal Urinal # Bowel Movements 0 - Exam GENERAL: The patient is alert and oriented x3, not in any acute distress. Well developed, well nourished. HEENT: Pupils are round and equally reacting to light. EOMI. No scleral icterus. No conjunctival pallor. Normocephalic, atraumatic. No pharyngeal erythema. No thyromegaly. CARDIOVASCULAR: S1 and S2 present. No murmurs, rubs, or gallops. PULMONARY: Chest is clear to auscultation, no wheezing , no crackles. ABDOMEN: Soft, nontender, nondistended, normoactive bowel sounds. No palpable organomegaly. MUSCULOSKELETAL: No joint swelling or deformity. EXTREMITIES: No cyanosis, clubbing, or pedal edema. NEUROLOGICAL: Gross neurological examination did not reveal any focal deficits. SKIN: No rashes. no petechiae. - Labs CBC & Chem 7: 04/27/23 07:15 04/27/23 07:15 Assessment and Plan Assessment: chest pain , with negative ddimer , rule out cardiac causes mild copd exacerbation nicotine dependence Plan: cardiac eval is appreciated Discontinue steroids Surgery team consult note on follow-up CT of the abdomen and pelvis Normal saline for 12 hour nicotine patch Labs and medication were reviewed.. Continue same treatment. Continue with symptomatic treatment. Resume home medication. Monitor labs and vitals. DVT and GI prophylaxis. Further recommendations as per clinical course of the patient DVT prophylaxis: xarelto GI Prophylaxis: Pepcid Prognosis is guarded
[2023-04-28] MEDS ORDERED: SODIUM CHLORIDE 0.9% 1,000 ML IV SCH (13:30)
--- NOTE | 2023-04-28 13:43 | P.PN ---
Subjective Progress Note Date: 04/28/23 HISTORY OF PRESENT ILLNESS: This is a 68-year-old male seen previously by Dr. Kapadia with a past me dical history significant for paroxysmal atrial fibrillation, COPD, nicotine dependence. We have been asked to evaluate the patient for chest pain. Patient gives history of left lower chest discomfort onset yesterday while he was resting but it has been coming and going for the past 2 days. It is tender and hurts with movement. Sometimes it occurs with rest and sometimes with exertion. He also has a chronic cough that has not changed. He denies having any fever or chills. No lightheadedness dizziness or syncopal episodes. He does state that his balance is off. He states he's had some palpitations about when he came in he was going to be in atrial fibrillation. He states he has not had any appetite and had vomiting after eating his breakfast this morning. Regarding the chest pain, he states that morphine helped and also Nitropaste seemed to help some. He did not receive any nitro sublingual. Regarding patient's medications, he would normally be on Lopressor 25 mg twice daily and Xarelto but he states he ran out of his medication for months ago. Patient relates that he has been under a lot of stress and taking care of his grandchildren. He is an active smoker cut down to half a pack per day. EKG reveals sinus rhythm with PACs with ventricular rate of 67. Chest xray no acute pulmonary process CTA no acute process. COPD CBC normal. INR 0.9. D-dimer 0.47. Electrolytes and renal function normal. Liver function tests are normal. Troponin negative 3. ProBNP 135. Current home cardiac medicationspatient has not been taking for 4 months Cardiac catheterization 07/2022 revealed elevated left filling pressures, mild to moderate disease in the left circumflex 30-40% Echocardiogram 05/2022 revealed LVH with preserved systolic function. Patient underwent dobutamine stress test in April 2018 which was negative for ischemia 04/28 Patient is seen today in follow-up. He states he sstillhas left-sided chest pain that hurts when he moves and unable to get comfortable. +tenderness to left lower chest wall. Pain goes around to his back. Echocardiogram reveals EF 50- 55%, mild increased left ventricular wall thickening, mild mitral regurgitation, mild tricuspid regurgitation, RVSP 32. Heart rate is in the 60s and 70s, blood pressure 103/64, pulse ox 94% on room air. Repeat blood work reveals potassium of 4.5, BUN 14 creatinine 0.96. TSH 2.22. PHYSICAL EXAM: VITAL SIGNS: Reviewed. GENERAL: Well-developed in no acute distress. HEENT: Head is normocephalic. Pupils are equal, round. Sclerae anicteric. Mucous membranes of the mouth are moist. Neck supple. No JVD or thyromegaly LUNGS: Respirations even and unlabored. Lungs diminished HEART: Regular rate and rhythm. S1 and S2 heard. +tenderness left lower rib wall ABDOMEN: Soft. Nondistended. Nontender. EXTREMITIES: Normal range of motion. No clubbing or cyanosis. Peripheral pulses intact. No lower extremity edema NEUROLOGIC: Awake and alert. Oriented x 3. ASSESSMENT: Chest pain, acute coronary syndrome ruled out, atypical muscluar skeletal pain Paroxysmal atrial fibrillation COPD Nicotine dependence PLAN: Patient has been resumed on Xarelto and Lopressor Continue atorvastatin 20 mg at night and aspirin 81 mg daily Patient is cleared for discharge May follow-up in the office in one week Recommended stress test and patient given option to go home and follow up in the office. He is agreeable to this plan. Nurse practitioner note has been reviewed by physician. Signing provider agrees with the documented findings, assessment, and plan of care. Objective - Vital Signs Vital signs: Vital Signs Temp 97.2 F L 04/28/23 08:00 Pulse 72 04/28/23 09:07 Resp 18 04/28/23 08:00 BP 103/64 04/28/23 08:00 Pulse Ox 94 L 04/28/23 08:00 FiO2 Intake & Output 04/27/23 04/28/23 04/28/23 18:59 06:59 18:59 Intake Total 480 Output Total 400 700 Balance 80 -700 Intake: Oral 480 Output: Urine 400 700 Other: Voiding Method Urinal Urinal Urinal # Bowel Movements 0 - Labs CBC & Chem 7: 04/27/23 07:15 04/27/23 07:15
[2023-04-28] MEDS: ATORVASTATIN 40 MG TAB PO SCH (20:16)
[2023-04-28 23:41] LABS: Chol/HDL Ratio 6.47 Ratio; LDL Cholesterol,Calculated 157.6 mg/dL (0.0-131.0)
[2023-04-29] MEDS: BUDESONIDE 0.5 MG/2 ML NEBU INHALATION SCH ×2 (08:20→21:21)
[2023-04-29] MEDS: IPRATROPIUM-ALBUTEROL 3 ML NEB INHALATION SCH ×4 (08:20→21:21)
[2023-04-29] MEDS: RIVAROXABAN 10 MG TAB PO SCH (09:38)
[2023-04-29] MEDS: MORPHINE SULFATE ER 15 MG TABLET PO SCH ×2 (09:38→21:44)
[2023-04-29] MEDS: ASPIRIN 81 MG PO SCH (09:38)
[2023-04-29] MEDS: METOPROLOL TARTRATE 25 MG TAB PO SCH ×2 (09:38→21:45)
[2023-04-29] MEDS: FAMOTIDINE 20 MG/2 ML VIAL IV SCH ×2 (09:40→21:45)
[2023-04-29] MEDS: ONDANSETRON 4 MG/2 ML VIAL IVP PRN ×2 (09:40→16:31)
[2023-04-29] MEDS: NICOTINE 21MG/24HR PATCH TRANSDERM SCH (09:40)
[2023-04-29] MEDS: PANTOPRAZOLE 40 MG/10 ML VIAL IVP SCH (09:40)
[2023-04-29] MEDS ORDERED: LIDOCAINE 2% INJ 20 MG/ML (2 ML VIAL) ONE (14:38)
[2023-04-29] MEDS ORDERED: PROPOFOL 10 MG/ML 20 ML VIAL IV ONE (14:38)
[2023-04-29] MEDS ORDERED: IV FLUID CONTINUATION 1,000 ML IV ONE ×2 (14:41)
--- NOTE | 2023-04-29 15:47 | P.PCN ---
Date of Procedure: 04/29/23 Procedure(s) Performed: Preoperative Dx: Abdominal pain with vomiting Postoperative Dx: Gastritis, duodenitis Procedure: EGD with Bx Anesthesia: Sedation Endoscopist: Dr. Juan Specimens: Duodenum, antrum Endoscopic Procedure: The patient was on the endoscopy table in the left decubitus position. The Olympus gastroscope was inserted into the oropharynx and passed under direct visualization to the region of the third portion of the duodenum. From that point the scope was slowly withdrawn inspecting all surfaces carefully. There was noted to be mild inflammation in the duodenum. Biopsies were taken. No ulcerations were seen. The pylorus was patent. There was no stricture. The stomach was inspected. There was mild gastritis. No ulcerations or erosions. A biopsy of the antrum took place to rule out H. pylori. Retroflexion revealed a normal hiatus. The esophagus was then carefully examined. There were no neoplastic inflammatory or polypoid lesions throughout the visualized esophagus. The patient was then taken to the recovery room in stable condition per anesthesia guidelines. Recommendations: Continue antiacid therapy. Resume diet.
[2023-04-29] MEDS: ATORVASTATIN 40 MG TAB PO SCH (21:45)
--- NOTE | 2023-04-30 01:04 | PN ---
PROGRESS NOTE SUBJECTIVE: This is a 68-year-old white male, he had an EGD that showed no significant pathology today. Remains on DuoNeb, Pulmicort for his COPD. He is on Habitrol nicotine patch, some pain medicines, hypertension medicines, GERD medications, Xarelto for atrial fibrillation. Started him on some low-dose Solu-Medrol for his breathing to get him feeling better. We are going to check him to put him on the monitor. He is on a 24- hour continuous pulse ox at this time. ASSESSMENT: COPD exacerbation, pulmonary hypertension, pulmonary nodules. Prognosis guarded. EGD shows gastritis, esophagitis, possibly proton pump inhibitors are given. Cardiology I think has cleared the patient. Echo was reviewed. Prognosis guarded. Possible discharge home in next 24 to 48 hours. MMODL / IJN: [id number] /
[2023-04-30] MEDS: methylPREDNISolone SOD SUCCI 40 MG/ML 1 ML VIAL IV SCH ×3 (01:54→17:18)
[2023-04-30] MEDS: BUDESONIDE 0.5 MG/2 ML NEBU INHALATION SCH (07:55)
[2023-04-30] MEDS: IPRATROPIUM-ALBUTEROL 3 ML NEB INHALATION SCH ×3 (07:55→15:08)
[2023-04-30] MEDS: PANTOPRAZOLE 40 MG/10 ML VIAL IVP SCH (08:59)
[2023-04-30] MEDS: FAMOTIDINE 20 MG/2 ML VIAL IV SCH (09:01)
[2023-04-30] MEDS: ASPIRIN 81 MG PO SCH (09:02)
[2023-04-30] MEDS: RIVAROXABAN 10 MG TAB PO SCH (09:03)
[2023-04-30] MEDS: NICOTINE 21MG/24HR PATCH TRANSDERM SCH (09:03)
[2023-04-30] MEDS: METOPROLOL TARTRATE 25 MG TAB PO SCH (09:03)
[2023-04-30] MEDS: MORPHINE SULFATE ER 15 MG TABLET PO SCH (09:03)
--- NOTE | 2023-04-30 10:33 | P.PN ---
Subjective Progress Note Date: 04/30/23 CHIEF COMPLAINT: Abdominal pain with vomiting HISTORY OF PRESENT ILLNESS: Patient is status post EGD with evidence of gastritis and duodenitis. Patient is tolerating regular diet. He does report some nausea. Denies any abdominal pain. Denies any vomiting. Afebrile. No new labs. No new complaints. Patient anticipating discharge possibly later today PHYSICAL EXAM: VITAL SIGNS: Reviewed. GENERAL: Well-developed in no acute distress. ABDOMEN: Soft. Nondistended. Nontender. NEUROLOGIC: Alert and oriented. Cranial nerves II through XII grossly intact. ASSESSMENT: 1. Abdominal pain with nausea 2. Status post EGD with evidence of gastritis and duodenitis PLAN: -Continue PPI after discharge -Follow up in office after discharge for biopsy results Physician Window Glass Cutter Off note has been reviewed by physician. Signing provider agrees with the documented findings, assessment, and plan of care. Objective - Vital Signs Vital signs: Vital Signs Temp 97.8 F 04/30/23 07:45 Pulse 76 04/30/23 08:09 Resp 16 04/30/23 07:45 BP 122/72 04/30/23 07:45 Pulse Ox 94 L 04/30/23 07:45 FiO2 21 04/29/23 21:42 Intake & Output 04/29/23 04/30/23 04/30/23 18:59 06:59 18:59 Intake Total 843 200 Output Total 1050 Balance 843 -850 Intake: IV 725 Sodium Chloride 0.9% 1, 675 000 ml @ 75 mls/hr IV . [id number] [facility] Rx#:[id number] Oral 118 200 Output: Urine 1050 Other: Voiding Method Urinal Urinal - Labs CBC & Chem 7: 04/27/23 07:15 04/27/23 07:15
[2023-04-30 15:10] VITALS: BP 122/68; RESP 18; TEMP 98.1
[2023-04-30 15:11] VITALS: PULSE 72
--- NOTE | 2023-05-01 10:25 | CDI ---
Pt Name: Lion Gutierrez CONFIDENTIAL MR#: [id number] Adm Date: 04/26/2023 02:33:00 PM Printed:05/01/2023 Physician Documentation Request Page 2 of 2 ICD-10-CM Ready Physicians Documentation Request This Form is Not a Permanent Document in the Medical Record Pt Name: Lion Gutierrez MR #: [id number] Payor: MEDICARE HMO Unit/Bed: [id number]-213-0 Adm Date: 04/26/2023 02:33:00 PM Reviewer: Cece Ybarra Ext. Query Date: 05/01/2023 10:19:46 AM By submitting this query, we are merely seeking further clarification of documentation to accurately reflect all conditions that you are monitoring, evaluating, treating or that extend the hospitalization or utilize additional resources of care. Please utilize your independent clinical judgment when addressing the question(s) below. Dear Doctor Tru Babb, The patients Clinical Indicators include: Per ED note, H and P and Consult "New diagnosis of pancreatitis, patient to see specialist at [facility] but has not done this yet." Additional clarification of the acuity of the condition is requested. History/Risk Factors: Pancreatitis, patient with chest pain and abdominal pain Clinical Indicators: Treatment: No treatment on this admit. EGD done for abdominal pain. Can you please clarify the acuity of the Pancreatitis? [ ] Acute Pancreatitis [ ] Sub-acute Pancreatitis [ ] Chronic Pancreatitis [ ] History of [ ] Other, please specify [ ] Unable to determine PLEASE DOCUMENT ANY ADDITIONAL DIAGNOSES AND/OR SPECIFICITY IN THE PROGRESS NOTES AND/OR DISCHARGE SUMMARY. Agreed & documented Clinically unable to determine/unknown Disagree with the above request Need to discuss MTDD
--- NOTE | 2023-05-03 10:32 | CDI ---
Documentation Clarification Form Date: 05/03/23 From: Vanessa Salcido Admit Date: 04/26/2023 02:33:00 PM Patient Name: Lion Gutierrez Visit Number: [id number] Discharge Date: 04/30/2023 08:18:00 PM ATTENTION: The Clinical Documentation Specialists (CDI) and [facility] Coding Staff appreciate your assistance in clarifying documentation. Please respond to the clarification below the line at the bottom and electronically sign. The CDI & [facility] Coding staff will review the response and follow-up if needed. Please note: Queries are made part of the Legal Health Record. If you have any questions, please contact the author of this message via ITS. Dr. Tru Babb Per ED note, H&P and consult - "new diagnosis of pancreatitis, patient to see a specialist at [facility] but has not done this yet" Further clarification of the acuity of pancreattis at this time is requested History: pancreatitis, patient with chest pain and abdominal pain Treatment: No treatment this admission. EGD done for abdominal pain. Please clarify acuity of pancreatitis: [ } Acute pancreatitis [ } Sub-acute pancreatitis [ } Chronic pancreatitis [ } other [ } Unable to determine. MTDD
--- NOTE | 2023-05-05 12:16 | PN ---
PROGRESS NOTE ADDENDUM: Please add acute pancreatitis. MMODL / IJN: [id number] /
== END 2023-04-30 20:18 | disposition home or self-care (01) | DRG 391 ==
LOC: EC 12:25 → 3SCARD 14:33 → OBSVTOIN 14:33 → 3SCARD 15:28
PROVIDERS: ADMIT Family Medicine; ATTEND Family Medicine
PROC: 0DB78ZX Excision of Stomach, Pylorus, Via Natural or Artificial Opening Endoscopic, Diagnostic (ICD-10-PCS; principal; 2023-04-29 07:30)
DX: K29.70 Gastritis, unspecified, without bleeding (principal); K85.90 Acute pancreatitis without necrosis or infection, unspecified; E78.5 Hyperlipidemia, unspecified; F17.200 Nicotine dependence, unspecified, uncomplicated; F43.10 Post-traumatic stress disorder, unspecified; F31.9 Bipolar disorder, unspecified; I11.0 Hypertensive heart disease with heart failure; I25.10 Atherosclerotic heart disease of native coronary artery without angina pectoris; I27.20 Pulmonary hypertension, unspecified; J43.9 Emphysema, unspecified; R91.8 Other nonspecific abnormal finding of lung field; I48.0 Paroxysmal atrial fibrillation; I50.9 Heart failure, unspecified; K21.00 Gastro-esophageal reflux disease with esophagitis, without bleeding; Z79.01 Long term (current) use of anticoagulants; D71 Functional disorders of polymorphonuclear neutrophils; K59.00 Constipation, unspecified; K29.80 Duodenitis without bleeding; M51.9 Unspecified thoracic, thoracolumbar and lumbosacral intervertebral disc disorder; G89.29 Other chronic pain; Z77.090 Contact with and (suspected) exposure to asbestos; Z82.49 Family history of ischemic heart disease and other diseases of the circulatory system; Z85.828 Personal history of other malignant neoplasm of skin; Z86.73 Personal history of transient ischemic attack (TIA), and cerebral infarction without residual deficits; Z28.310 Unvaccinated for COVID-19; R13.10 Dysphagia, unspecified; Z98.1 Arthrodesis status; Z86.010 Personal history of colon polyps; Z91.81 History of falling; Z87.828 Personal history of other (healed) physical injury and trauma; Z79.899 Other long term (current) drug therapy; Z79.891 Long term (current) use of opiate analgesic
CPT/HCPCS: 36415; 43239; 71046; 71250; 74177; 80048; 80053; 80061; 83735; 83880; 84443; 84484; 85025; 85379; 85610; 85730; 88305; 93005; 93306; 94640; 94760; 96374; 99285

== ENCOUNTER → 2023-11-05 | Outpatient (CLI) | payer MEDICARE ==
--- NOTE | 2023-11-05 12:44 | CT ---
EXAMINATION TYPE: CT cervical spine wo con DATE OF EXAM: 11/05/2023 COMPARISON: HISTORY: neck pain, weakness, no injury CT DLP: 497 mGycm CONTRAST: Performed , patient injected with mL of . CT of the cervical spine is performed in the axial plane at 2 mm thick sections. Reconstructed image s in the coronal, and sagittal plane are reviewed on the computer. No acute fractures are evident. Vertebral body alignment is normal. Disc heights are preserved. Vertebral body heights are preserved. No spinal canal stenosis is evident No neural foraminal stenosis is evident. There is uncovertebral joint hypertrophy on the left at C2-3 with severe foraminal stenosis. Right fo ramen is widely patent. C3-4 foraminal stenosis is present bilaterally secondary to facet hypertrophy and uncovertebral joint hypertrophy. No spinal canal stenosis is present. C4-5 severe right foraminal stenosis from uncovertebral joint hypertrophy and facet hypertrophy is pr esent. Left foramen appears patent. C5-6 bilateral severe foraminal stenosis from uncovertebral joint hypertrophy is present. There is di sc space narrowing. No AP spinal canal stenosis. C6-7: There is loss of disc height. Uncovertebral joint hypertrophy is moderate bilateral foraminal n arrowing. No AP spinal canal stenosis. Some disc bulging however is present may have mild anterior th ecal sac compression. Consider follow-up MRI. IMPRESSION: 1. Disc bulging may be present C6-7 with anterior thecal sac compression. MRI could better delineat e any stenosis. 2. Multilevel severe foraminal stenosis most notably C5-6 bilaterally right C4-5 left C2-3. Correlate for radicular symptoms.
== END | disposition home or self-care (01) ==
LOC: RADCTMAIN 11:46
PROVIDERS: ATTEND Family Medicine
DX: M99.71 Connective tissue and disc stenosis of intervertebral foramina of cervical region (principal); M54.12 Radiculopathy, cervical region; R53.1 Weakness
CPT/HCPCS: 72125

== ENCOUNTER → 2025-01-08 | Outpatient (CLI) | payer MEDICARE | END | disposition home or self-care (01) | LOC: LABWHC1 10:16 | PROVIDERS: ATTEND Orthopaedic Surgery | DX: M16.12 Unilateral primary osteoarthritis, left hip (principal); M25.552 Pain in left hip | CPT/HCPCS: 36415; 85652; 86140 ==

== ENCOUNTER → 2025-02-08 | Outpatient (CLI) | payer MEDICARE ==
[2025-02-08 12:20] LABS: INR 0.9 (<1.2); Prothrombin Time 10.2 sec (10.0-12.5)
[2025-02-08 15:35] LABS: ALT 16 U/L (10-49); AST 15 U/L (14-35); Albumin 4.4 g/dL (3.8-4.9); Albumin/Globulin Ratio 1.38 Ratio (1.60-3.17); Alkaline Phosphatase 93 U/L (41-126); BUN/Creat Ratio 13.89 Ratio (12.00-20.00); Blood Urea Nitrogen 12.5 mg/dL (9.0-27.0); Calcium 9.6 mg/dL (8.7-10.3); Carbon Dioxide 22.7 mmol/L (21.6-31.8); Chloride 105 mmol/L (96-109); Globulin 3.2 g/dL (1.6-3.3); Glucose 95 mg/dL (70-110); Potassium 4.1 mmol/L (3.5-5.5); Sodium 140 mmol/L (135-145); Total Bilirubin 0.3 mg/dL (0.3-1.2); Total Protein 7.6 g/dL (6.2-8.2)
[2025-02-08 15:40] LABS: HCT 39.2 % (39.6-50.0); HGB 13.2 g/dL (13.0-17.0); MCH 30.5 pg (27.0-32.0); MCHC 33.7 g/dL (32.0-37.0); MCV 90.5 FL (80.0-97.0); Mean Platelet Volume 11.3 FL (9.5-12.2); NRBC Per 100 WBC 0 X 10*3/uL (0.00-0.01); Platelet Count 240 X 10*3/uL (140-440); RBC 4.33 X 10*6/uL (4.40-5.60); RDW 12.6 % (11.5-14.5); WBC 5.43 X 10*3/uL (4.50-10.00)
== END | disposition home or self-care (01) ==
LOC: LABPAT 11:09
PROVIDERS: ATTEND Orthopaedic Surgery
DX: Z01.818 Encounter for other preprocedural examination (principal); I49.1 Atrial premature depolarization; M16.12 Unilateral primary osteoarthritis, left hip; Z22.322 Carrier or suspected carrier of Methicillin resistant Staphylococcus aureus
CPT/HCPCS: 80053; 83036; 85027; 85610; 85730; 86850; 86900; 86901; 87070; 93005